=== PATIENT | female | born 1945 | race Caucasian/White ===

== ENCOUNTER 2019-10-05 09:45 | Outpatient (CLI) | payer MEDICARE, SELFPAY ==
--- NOTE | ~2019-10-05 | XR_ITS ---
XR chest 2V DATE: 10/05/2019 11:12 INDICATION: Pre-operative evaluation TECHNIQUE: PA and lateral views COMPARISON: 07/19/2007 two view chest FINDINGS: Normal heart size. No hilar or mediastinal enlargement. No pulmonary infiltrate or consol idation. No pulmonary vascular congestion or pleural effusion or pneumothorax. Degenerative spurr ing of the thoracic and lumbar spine. IMPRESSION: No active cardiopulmonary disease Reviewed, dictated and finalized at location A.
--- NOTE | 2019-10-05 10:45 | ECG_ITS ---
Measurements Intervals [place] Rate: 75 P: -7 LA: 212 QRS: -48 QRSD: 94 T: 63 QT: 381 QTc: 427 Interpretive Statements SINUS RHYTHM WITH FIRST DEGREE AV BLOCK VENTRICULAR PREMATURE COMPLEX INCOMPLETE RIGHT BUNDLE BRANCH BLOCK LEFT ANTERIOR FASCICULAR BLOCK VOLTAGE CRITERIA FOR LVH BORDERLINE ST-T WAVE ABNORMALITY- LATERAL LEADS BASELINE ARTIFACT- I, II, III, AVR, AVL, AVF, V1-V2 ABNORMAL ECG Electronically Signed On 10-05-2019 11:48:19 CDT by Joel Drummond D.O.
[2019-10-05 11:15] LABS: Basophils Absolute Auto 0.1 K/mm3 (0.0-0.1); Basophils Percent Auto 0.9 % (0.2-1.2); Eosinophils Absolute Auto 0.1 K/mm3 (0-0.3); Hematocrit 40.6 % (37.0-47.0); Hemoglobin 13.3 g/dL (12.0-15.0); Immature Granulocyte Absolute 0.02 K/mm3 (0.00-0.031); Immature Granulocyte Percent A 0.3 % (0-0.5); Lymphocytes Absolute Auto 1.09 K/mm3 (0.9-3.2); Lymphocytes Percent Auto 13.9 % (18.3-44.2); Mean Corpuscular HGB Conc 32.8 g/dl (32-36); Mean Corpuscular Hemoglobin 30.8 pg (26-34); Mean Platelet Volume 9.7 fl (7.4-10.4); Monocytes Absolute Auto 0.5 K/mm3 (0.1-0.6); Monocytes Percent Auto 6.8 % (2.6-8.5); Neutrophils Percent Auto 77.1 % (45.5-73.1); Platelet Count Result 337 k/mm3 (150-375); Red Blood Count 4.32 M/mm3 (4.2-5.4); Red Cell Distribution Width 13.2 % (11.5-14.5); White Blood Count 7.8 K/mm3 (4.5-10.0)
[2019-10-05 11:28] LABS: INR 0.9; Prothrombin Time 11.8 Seconds (11.1-14.7)
[2019-10-05 11:29] LABS: Partial Thromboplastin Time 25.8 SECONDS (22.3-36.8)
[2019-10-05 11:32] LABS: Albumin Level 4.7 g/dL (3.5-5.1); Blood Urea Nitrogen 15 mg/dL (7-17); Carbon Dioxide 27 mmol/L (22-30); Chloride 101 mmol/L (98-107); Estimated Glomerular Filt Rate 54; Glucose 115 mg/dL (65-105); Potassium 4.5 mmol/L (3.4-5.0); Sodium 137 mmol/L (137-145)
[2019-10-05 11:34] LABS: Urine Cotinine NEGATIVE
[2019-10-05 12:21] LABS: Hemoglobin A1C 5.7 % (<5.7)
== END 2019-10-05 09:46 | disposition home or self-care (01) ==
PROVIDERS: Anesthesiology; PCP Family Medicine; Visit Provider Orthopaedic Surgery
DX: Z01.818 Encounter for other preprocedural examination (principal); M19.90 Unspecified osteoarthritis, unspecified site; N18.3 Chronic kidney disease, stage 3 (moderate); I45.10 Unspecified right bundle-branch block; I44.0 Atrioventricular block, first degree; I44.4 Left anterior fascicular block; I10 Essential (primary) hypertension; E03.9 Hypothyroidism, unspecified; E55.9 Vitamin D deficiency, unspecified; E78.5 Hyperlipidemia, unspecified; R94.31 Abnormal electrocardiogram [ECG] [EKG]
CPT/HCPCS: 36415; 71046; 80048; 80307; 82040; 83036; 85025; 85610; 85730; 86850; 86900; 86901; 87070; 93005

== ENCOUNTER 2019-12-14 09:37 | Outpatient (CLI) | payer MEDICARE, SELFPAY ==
[2019-12-14 10:10] LABS: Basophils Absolute Auto 0.1 K/mm3 (0.0-0.1); Basophils Percent Auto 0.7 % (0.2-1.2); Eosinophils Absolute Auto 0.1 K/mm3 (0-0.3); Eosinophils Percent Auto 1.7 % (0-4.4); Hematocrit 41.2 % (37.0-47.0); Hemoglobin 13.7 g/dL (12.0-15.0); Immature Granulocyte Absolute 0.02 K/mm3 (0.00-0.031); Immature Granulocyte Percent A 0.3 % (0-0.5); Lymphocytes Percent Auto 16.8 % (18.3-44.2); Mean Corpuscular HGB Conc 33.3 g/dl (32-36); Mean Corpuscular Hemoglobin 31.1 pg (26-34); Mean Corpuscular Volume 93.6 fl (80-100); Mean Platelet Volume 9.7 fl (7.4-10.4); Monocytes Absolute Auto 0.6 K/mm3 (0.1-0.6); Monocytes Percent Auto 8.3 % (2.6-8.5); Neutrophils Absolute Auto 5.2 K/mm3 (1.3-6.7); Neutrophils Percent Auto 72.2 % (45.5-73.1); Platelet Count Result 300 k/mm3 (150-375); Red Cell Distribution Width 12.4 % (11.5-14.5); White Blood Count 7.2 K/mm3 (4.5-10.0)
[2019-12-14 10:23] LABS: Urine Cotinine NEGATIVE
[2019-12-14 10:54] LABS: Blood Urea Nitrogen 21 mg/dL (7-17); Calcium 9.7 mg/dL (8.4-10.2); Carbon Dioxide 28 mmol/L (22-30); Estimated Glomerular Filt Rate 54; Glucose 118 mg/dL (65-105); Potassium 4.7 mmol/L (3.4-5.0); Sodium 136 mmol/L (137-145)
[2019-12-14 12:31] LABS: Chloride 102 mmol/L (98-107)
== END 2019-12-14 09:38 | disposition home or self-care (01) ==
LOC: ANHSURGERY 09:39
PROVIDERS: PCP Family Medicine; Visit Provider Orthopaedic Surgery
DX: Z01.818 Encounter for other preprocedural examination (principal); M19.90 Unspecified osteoarthritis, unspecified site
CPT/HCPCS: 36415; 80048; 80307; 85025; 86850; 86900; 86901; 87070

== ENCOUNTER 2019-12-22 00:10 | Outpatient (CLI) | payer MEDICARE, SELFPAY ==
[2019-12-22 17:25] LABS: SARS-CoV-2 RNA PCR Negative
== END 2019-12-22 00:11 | disposition home or self-care (01) ==
LOC: ANHCOVIDDT 00:10
PROVIDERS: PCP Family Medicine; Visit Provider Orthopaedic Surgery
DX: Z01.818 Encounter for other preprocedural examination (principal); Z11.59 Encounter for screening for other viral diseases
CPT/HCPCS: 87635; C9803; U0003

== ENCOUNTER 2019-12-25 00:33 | Day surgery (SDC) | payer MEDICARE, SELFPAY ==
[2019-10-05 10:21] VITALS: BP 182/86; PULSE 88; RESP 20; TEMP 37.1; O2SAT 100; BMI 33.7
--- NOTE | 2019-10-09 19:46 | HP_ITS ---
DATE OF SERVICE: ADMIT DIAGNOSIS: Degenerative joint disease, right knee. HISTORY OF PRESENT ILLNESS: The patient is a 74-year-old female patient of Dr. Álvarez, who presents today for right total knee arthroplasty. She has been having pain in this knee for years. She has severe gnys-an-[id number] arthritis of the medial compartment. She has recently undergone left total hip replacement in February of last year, which she did very well with. She is having significant symptoms in the knee and would like to proceed at this point with total knee arthroplasty rather than continuing nonsurgical treatment. PAST MEDICAL HISTORY: Significant for hypertension, hypothyroidism. She has had a hysterectomy in 2010, total hip replacement on the left in February 2019, cataract surgery in the past. CURRENT MEDICATIONS: She takes amlodipine 5 mg daily, benzonatate 100 mg q.8 hours p.r.n., lisinopril 40 mg daily, Livalo 4 mg daily, pantoprazole 40 mg daily, and Synthroid 100 mcg daily. ALLERGIES: SHE HAS AN ALLERGIC REACTION TO ADHESIVE TAPE, WHICH CAUSES BLISTERING; CEFTIN, WHICH CAUSES HER JOINT PAIN. SHE DID, HOWEVER, HAVE NO REACTION TAKING ANCEF FOR HER TOTAL HIP ARTHROPLASTY. HYDROCODONE WHICH MAKES HER VERY NAUSEATED WITH A HEADACHE WELL. PENICILLINS, WHICH GIVE HER A RASH, SEPTRA GIVES HER A RASH. SULFA MEDICATIONS CAUSE HER FACIAL SWELLING. FAMILY HISTORY: Significant for diabetes and cancer. SOCIAL HISTORY: She is a nonsmoker. PHYSICAL EXAM: VITAL SIGNS: She is 5 feet 4 inches and 193 pounds. GENERAL: She walks with a mild limp. MUSCULOSKELETAL: Her right hip, she has full range of motion without discomfort. Negative Stinchfield maneuver. Normal quad strength. Mild medial joint line tenderness. No significant pain with patellofemoral grind. Range of motion of the right knee is from 5 to 130. Trace effusion. 2+ dorsalis pedis, absent posterior tibial pulse. Normal sensation, right lower extremity. IMAGING DATA: X-rays demonstrate [id number] arthritis of medial compartment of the right knee with moderate patellofemoral arthritis with hypertrophic changes. There is a 10 x 7 mm loose body that projects in the lateral view just anterior to the intercondylar notch. IMPRESSION: The patient has severe medial compartment arthritis with continued symptoms. Again, she feels at this point she would rather proceed with total knee arthroplasty. She did very well with her hip last February. Again, she did tolerate Ancef postoperatively even though she states she is allergic to penicillin and Ceftin. Surgical procedure as well as risks and complications were discussed. All questions were answered and we will proceed. The patient will see Dr. Álvarez for presurgical clearance. Pain medicine ba, she tolerated Nucynta very well following postop of her hip. So we will utilize this again. She has already had a prescription called in for her prior to surgery so that she can get this authorized through her insurance, so she will have it postoperatively. Chem panel was all within normal limits. Creatinine is 1. GFR is 54. Hemoglobin is 13.3, platelets are 337. Her nasal swab was negative. D I MT: Mary Lou
[2019-12-11 13:05] VITALS: BMI 33.3
--- NOTE | 2019-12-22 12:36 | HP_ITS ---
DATE OF SERVICE: ADMITTING DIAGNOSIS: Degenerative joint disease, right knee. HISTORY OF PRESENT ILLNESS: The patient is a 74-year-old female patient of Dr. Álvarez, who presents today for right total knee arthroplasty. She has been having pain in this knee for years, has progressively worsened. She is at a point where she has severe qmps-vh-ndna arthritis medial compartment and moderate patellofemoral arthritis with hypertrophic changes. She is fairly miserable. She has tried a cortisone injection in the past. She does not tolerate anti-inflammatories and has reached a point where she would rather proceed with total knee arthroplasty rather than continuing nonsurgical treatment. PAST MEDICAL HISTORY: She has had a left total hip done in February 2019. She has history of hypertension, hypothyroidism, hypercholesterolemia. SURGERIES: She has had a hysterectomy in 2000, again the left total hip in 2018, cataract surgery in the past. CURRENT MEDICATIONS: She takes amlodipine 5 mg daily, benzonatate 100 mg q.8 hours, lisinopril 40 mg daily, Livalo 4 mg daily, pantoprazole 40 mg daily, Synthroid 100 mcg daily. ALLERGIES: SHE IS ALLERGIC TO ADHESIVE TAPE, WHICH CAUSES HER BLISTERING. SHE HAS HAD AN ALLERGIC REACTION WITH CEFTIN WELL PENICILLIN, WHICH CAUSES ARTHRALGIA. SHE HAS SEVERE INTOLERANCE TO HYDROCODONE AND NARCOTICS, CAUSE HER SEVERE NAUSEA AND HEADACHE. IBUPROFEN ALSO CAUSES HER THIS. SHE IS ALLERGIC TO SULFA DRUGS, WHICH CAUSE HER FACIAL SWELLING. SOCIAL HISTORY: She is a nonsmoker. FAMILY HISTORY: She has a family history of stroke, diabetes, and cancer. PHYSICAL EXAMINATION: GENERAL: She is a 74-year-old female. She is 5 feet 4 inches, 193 pounds. HEENT: Grossly normal. LUNGS: Clear bilaterally. HEART: Regular rate and rhythm. EXTREMITIES: She walks with a mild limp. Her right hip has full range of motion without discomfort. Negative Stinchfield maneuver, but normal quad strength. She has mild medial joint line tenderness. No pain with patellofemoral grind. Range of motion is from 5 to 130 with a trace effusion. 2+ dorsalis pedis, absent posterior tibial pulse. She has no edema in the lower extremities. Lying supine, left leg appears to be 2 cm shorter than the right. IMAGING DATA: X-rays demonstrate zzye-qq-smra arthritis in the medial compartment on the right knee and moderate patellofemoral arthritis with hypertrophic changes as well. IMPRESSION: The patient has severe arthritis in the right knee with continued symptoms. Feels she would rather proceed with total knee arthroplasty at this point. Surgical procedure as well as risks and complications were discussed. All questions were answered and we will proceed. The patient did tolerate Ancef when she had her hip done, so we will use Ancef, vancomycin for perioperative antibiotics. She will avoid aspirin and ibuprofen products 1 week prior to surgery. We will plan to use Eliquis postoperatively for deep venous thrombosis prophylaxis. She will see Dr. Álvarez for presurgical clearance. Nasal swab was negative. Chem panel, creatinine is 1, GFR is 54. Sodium was slightly low at 136. Hemoglobin is 13.7, platelets are 300. D I MT: Mary Lou
[2019-12-25] VITALS (17 sets, daily range): BP systolic 134–159; BP diastolic 60–80; PULSE 69–92; RESP 11–18; TEMP 36.4–36.9; O2SAT 94–100
--- NOTE | ~2019-12-25 | XR_ITS ---
EXAMINATION: XR knee RT 2V DATE: 12/25/2019 11:03 INDICATION: Total right knee arthroplasty. Postop. TECHNIQUE: 3 views of right knee were obtained. COMPARISON: None. FINDINGS: There is a total right knee arthroplasty with patellar resurfacing in near-anatomic alignme nt. No fracture. There is gas in the soft tissues and knee joint, consistent with recent surgery. IMPRESSION: 1. Total right knee arthroplasty in near-anatomic alignment. Reviewed, dictated and finalized at location A.
[2019-12-25] MEDS: LACTATED RINGERS 1,000 ML 30 ML IV CONT ×2 (06:45→11:06)
--- NOTE | 2019-12-25 06:45 | WPDANESEPPF ---
Anes - Initial Pre Proc Eval Procedure: Operation Date: 12/25/19 07:30 Proposed Procedures p Right Total Knee Arthroplasty - Jesús Hawley MD Date/Time: 12/25/19 06:45 Surgeon: Jesús Hawley MD Pre Op Diagnosis: Osteoarthritis Right Knee Patient Data Age: 74 Gender: F Height: 1.65 m Weight: 90.8 kg Last Vital Signs Temp 37.1 C 10/05/19 10:21 Pulse 88 10/05/19 10:21 Resp 20 10/05/19 10:21 BP 182/86 H 10/05/19 10:21 Pulse Ox 100 10/05/19 10:21 Allergies Allergy/AdvReac Type Severity Reaction Status Date / Time Sulfa (Sulfonamide Allergy Severe SWELLING Verified 12/11/19 13:34 Antibiotics) sulfamethoxazole Allergy Severe RASH, Verified 12/11/19 13:34 ITCHING adhesive Allergy Unknown Redness of Verified 12/11/19 13:34 Skin cefuroxime Allergy Unknown Joint Pain Verified 12/11/19 13:34 Cephalosporins Allergy Unknown Rash Verified 12/11/19 13:34 codeine Allergy Unknown Nausea and Verified 12/11/19 13:34 Vomiting hydrochlorothiazide Allergy Unknown Other Verified 12/11/19 13:34 hydrocodone Allergy Unknown Nausea Verified 12/11/19 13:34 ibuprofen Allergy Unknown Headache Verified 12/11/19 13:34 Penicillins Allergy Unknown Rash Verified 12/11/19 13:34 sulfamethizole Allergy Unknown Swelling Verified 12/11/19 13:34 trimethoprim Allergy Unknown Swelling Verified 12/11/19 13:34 Home Medications Medication Instructions Recorded Confirmed Type amlodipine 5 mg tablet 5 mg PO BID 06/02/19 12/11/19 History coQ10 (ubiquinol) 100 mg capsule 100 mg PO ONCE cap 06/02/19 12/11/19 History cyanocobalamin (vitamin B-12) 500 500 mcg PO BID tablet 06/02/19 12/11/19 History mcg tablet lisinopril 40 mg tablet 40 mg PO DAILY 06/02/19 12/11/19 History omega-3 fatty acids 1,000 mg 1,000 mg PO DAILY 06/02/19 12/11/19 History capsule vitamin E (dl, acetate) 400 unit 400 unit PO .COMPLEX 06/02/19 12/11/19 History capsule cholecalciferol (vitamin D3) 125 5,000 unit PO .COMPLEX tablet 06/05/19 12/11/19 History mcg (5,000 unit) tablet fluticasone propionate 50 1 spray NASAL DAILY PRN 06/05/19 12/11/19 History mcg/actuation nasal spray,suspension pitavastatin calcium 4 mg tablet 4 mg PO .QHS tablet 06/05/19 12/11/19 History levothyroxine 100 mcg tablet 100 mcg PO DAILY #90 tablet 06/15/19 12/11/19 Rx pantoprazole 40 mg tablet,delayed 40 mg PO DAILY #90 tablet 06/15/19 12/11/19 Rx release ascorbic acid (vitamin C) [Vitamin 250 mg PO DAILY 10/05/19 12/11/19 History C] calcium carbonate-vitamin D3 1 tablet PO DAILY 10/05/19 12/11/19 History [Caltrate 600 plus D] coconut oil 10,000 mg PO DAILY 10/05/19 12/11/19 History cyclosporine [Restasis] 1 drp OPHTHALMIC (EYE) Q12H 10/05/19 12/11/19 History pyridoxine (vitamin B6) 25 mg PO 3XW 10/05/19 12/11/19 History sodium bicarbonate 650 mg PO DAILY 10/05/19 12/11/19 History ECG: Date of Service: 10/05/19 Procedure(s): CA 12 lead EKG Accession Number(s): [id number] cc: ~ Measurements Intervals [place] Rate: 75 P: -7 MO: 212 QRS: -48 QRSD: 94 T: 63 QT: 381 QTc: 427 Interpretive Statements SINUS RHYTHM WITH FIRST DEGREE AV BLOCK VENTRICULAR PREMATURE COMPLEX INCOMPLETE RIGHT BUNDLE BRANCH BLOCK LEFT ANTERIOR FASCICULAR BLOCK VOLTAGE CRITERIA FOR LVH BORDERLINE ST-T WAVE ABNORMALITY- LATERAL LEADS BASELINE ARTIFACT- I, II, III, AVR, AVL, AVF, V1-V2 ABNORMAL ECG Electronically Signed On 10-05-2019 11:48:19 CDT by Joel Drummond D.O. Dictated By: Joel Drummond DO 10/05/19 1107 Patient hx anesthesia problems: post op nausea/vomiting Family hx anesthesia problems: none PMFSH Past Medical History Medical History (Updated
[2019-12-25] MEDS: SCOPOLAMINE 1.5 MG PATCH TRANSDERM (07:10)
--- NOTE | 2019-12-25 07:28 | WPDHPUPDATE1 ---
History and Physical Update Update Date/Time: 12/25/19 07:28 History and Physical has been reviewed, including an updated exam of the patient. There are NO changes in the patient's condition. Risks, benefits, and alternatives have been discussed and questions answered. Patient agrees to proceed with procedure.
--- NOTE | 2019-12-25 07:30 | SUR.PREOP ---
DR WHITE STATES TO HOLD IBUPROFEN DUE TO ALLERGIES.
[2019-12-25] MEDS: ceFAZolin 2 GM/D5W 50 ML 2 GM/50 ML BAG IVPB (07:38)
[2019-12-25] MEDS: ceFAZolin SODIUM 1 GM VIAL 3 GM IRRIGATION (08:39)
[2019-12-25] MEDS: GENTAMICIN BONE CEMENT REFOBACIN 1 EACH TOPICAL (09:56)
[2019-12-25] MEDS: ceFAZolin SODIUM 1 GM VIAL IV PUSH (10:30)
[2019-12-25] MEDS: HYDROMORPHONE HCL 1 MG/ML INJ 0.25 MG IV PUSH ×5 (11:49→12:48)
[2019-12-25] MEDS: IBUPROFEN IV 800 MG/200 ML 800 MG/200 ML BAG 400 MG IVPB (11:55)
--- NOTE | 2019-12-25 11:59 | PM.PROC ---
Procedure Note - Detailed Date of procedure: 12/25/19 Pre-op diagnosis: Osteoarthritis Right Knee Post-op diagnosis: same Procedure performed: Right total knee arthroplasty Description of procedure: Patient was brought to the operating room and general anesthesia was administered in the right knee prepped draped usual fashion. Limb was exsanguinated and tourniquet elevated to 300 mmHg. A 7 in longitudinal midline incision was used and a vastus medialis splitting approach utilized. Infrapatellar and suprapatellar fat pads were excised. A conservative lateral facetectomy was performed. The patella measured 2 4 mm in thickness and was cut to 16 mm. A protector cap was applied. We did not love the patella because of her very short patellar tendon length as we did not wish to put too much lateral traction on it. The guide mike was inserted down the femoral canal after aspiration of canal contents using the 5 degree valgus cutting bushing 9 mm of bone removed from the distal femur. Next the tibial plateau was cut removing 2 mm of bone from the low point of the medial tibial plateau. Meniscal remnants were excised medial tibial osteophyte removed PCL recessed. A 90? of flexion we had the ability to easily insert the 8 mm spacer medially and 12 mm spacer laterally. Whitesides line was drawn on the femur. 5? of external rotation on the sizing tried to match Whitesides line appropriately. Posterior referencing pin was replaced and the 62.5 vanguard cutting block seated. AP and chamfer cuts were made. We trialed the knee was a little bit tighter in extension than flexion. The tibia was sized to a 67 which fit line to line anteromedial to posterolateral. This was punched. Rotation was set relative to the plane of the foot the anterior surface of the tibia and the middle 3rd of the tibial tubercle. Bone quality was excellent throughout. Tibia was punched and we trialed with the insert 10 mm. This gave appropriate stability at 90? of flexion but still lacked about 7 or 8? of extension. There was no significant play in extension either. We applied the distal femoral cutting block set to remove 1 more mm and this removed another mm and a half. Distal femoral cut was made chamfer cuts revisited. Posterior femoral osteophyte was removed and we trialed again. This gave us improved extension. There is 1-2 mm of medial opening no significant lateral opening and the knee still had a positive bounce lacking just a few degrees. We replaced the distal femoral cutting block to take off an additional 1 mm which is performed chamfer cuts revisited and we trialed again and this time we had a mm of play laterally 2-3 medially in extension. We still had a little bit of a bounce lacking just a couple of degrees. We released central posterior capsule from the posterior femur and on trialing again this time the knee came out to full extension with a negative bounce medial to lateral stability unchanged appropriate stability in flexion. The patella was sized to the 31 x 8 mm and the lug holes were drilled. Local was placed in the femoral drill holes. A step drill was used to make multiple perforations in the rather dense tibial plateau bone. Bony surfaces were thoroughly irrigated and dried. Using 2 batches of Biomet cement 1 with gentamicin powder the cement was mixed immediately applied to the tibial component and the femoral component. Cement was applied to the tibia and pressurized in the tibial component fully seated. Cement was applied to the femur and the femoral component fully seated in the 11 mm 5 in 1 poly trial was placed and the cement allowed pressurized in extension. The 8 x 31 patella was cemented. Tourniquet was released at 116 minutes. Cement was allowed to harden after which excess cement was sought for removed. We trialed with a insert the knee came out to full extension with a negative bounce no hyperextension with the same stability findings as discussed ab
--- NOTE | 2019-12-25 12:13 | SUR.PHASEI ---
1210 SPOKE WITH SPOUSE PER PHONE- UPDATE GIVEN.
--- NOTE | 2019-12-25 12:59 | SUR.PHASEI ---
1255 SPOKE WITH SPOUSE PER PHONE- UPDATE & ROOM NUMBER [id number] GIVEN.
[2019-12-25] MEDS: SODIUM CHLORIDE 0.9% IV 1,000 ML 125 ML IV CONT (14:42)
--- NOTE | 2019-12-25 16:40 | WPDCN ---
Assessment and Plan Assessment and plan (1) Osteoarthritis of right knee: Code(s): M17.11 - Unilateral primary osteoarthritis, right knee Status: Acute Assessment and Plan: Postoperative day #0, right total knee arthroplasty. Wound care and pain control will be deferred to Dr. Hawley. DVT prophylaxis also deferred to the orthopedic surgeon. PT/OT consulted. Check H&H and metabolic panel in a.m. (2) Essential (primary) hypertension: Code(s): I10 - Essential (primary) hypertension Status: Acute Assessment and Plan: Blood pressures have been a bit high postoperatively, likely due to pain. Continue antihypertensives and monitor daily. (3) Dyslipidemia: Code(s): E78.5 - Hyperlipidemia, unspecified Status: Acute Assessment and Plan: Continue statin and check LFTs. (4) Hypothyroidism: Code(s): E03.9 - Hypothyroidism, unspecified Status: Acute Assessment and Plan: Continue levothyroxine. TSH within normal limits in May 2019. (5) Gastroesophageal reflux disease: Code(s): K21.9 - Gastro-esophageal reflux disease without esophagitis Status: Acute Assessment and Plan: Continue PPI. Additional Plan Thank you for allowing us to participate in this patient's care. Please do not hesitate to contact us with any questions. Supervising physician for this medical consultation is Dr. Joe Valencia. HPI Data of Consult Date/Time: 12/25/19 16:40 Requesting Physician: Jesús Hawley MD Primary Care Provider: Laura Álvarez MD Consult Narrative Narrative: Krysta Asencio is a pleasant 74-year-old female with right knee osteoarthritis, mild aortic stenosis, hypertension, dyslipidemia, GERD, hypothyroidism, Sjogren syndrome, and history of MRSA skin and soft tissue infection from the hospitalist service has been consulted for management of medical conditions postoperatively. She has had longstanding pain in her right knee due to bone on bone arthritis and has tried conservative outpatient treatment without longstanding benefit. She thus elected for replacement today. Her surgery was performed under general anesthesia with no immediate complications documented and an estimated blood loss of 150 mL. Postoperatively she has really had minimal pain, even when up ambulating with physical therapy. She felt a bit dizzy postoperatively, but is feeling much better now. She ate dinner without issue. She has not had nausea or vomiting. She denies chest pain and shortness of breath. No paresthesias, skin color, or temperature changes distal to the surgical site. No history of venous thromboembolism. Review of Systems Review of Systems: Narrative: Twelve systems were reviewed with pertinent positives and negatives as per HPI. No fever, chills, or sweats. She denies recent cold and flu symptoms. No sick contacts. She suffers from dry eyes and dry mouth from Sjogren syndrome. She is currently being followed by a court reporter due to proteinuria, which is being attributed to the Sjogren. Except as documented, all other systems were reviewed and are negative. [facility] Past Medical History Medical History (Updated 12/25/19 @ 21:02 by Dorene Vera PA-C) Aortic insufficiency with aortic stenosis Mild and asymptomatic. Followed by Dr. Butler. Chronic kidney disease, stage 3 Baseline creatinine is around 1.00. Dyslipidemia Essential (primary) hypertension Gastroesophageal reflux disease History of peptic ulcer Hypothyroidism MRSA infection Right axillary abscess secondary to MRSA. Osteoarthritis Prediabetes Hemoglobin A1c was 5.7% in September 2019. Sjog
[2019-12-25] MEDS: AMLODIPINE BESYLATE 5 MG TABLET PO (17:07)
[2019-12-25] MEDS: SENNA/DOCUSATE SODIUM TABLET 2 TAB PO (17:08)
[2019-12-25] MEDS: FAMOTIDINE 20 MG TABLET PO (20:17)
[2019-12-26 03:20] VITALS: BP 156/65; PULSE 87; RESP 16; TEMP 36.8; O2SAT 99
[2019-12-26 05:29] LABS: Basophils Percent Auto 0.2 % (0.2-1.2); Hematocrit 37.8 % (37.0-47.0); Hemoglobin 12.4 g/dL (12.0-15.0); Immature Granulocyte Absolute 0.06 K/mm3 (0.00-0.031); Immature Granulocyte Percent A 0.4 % (0-0.5); Lymphocytes Absolute Auto 0.77 K/mm3 (0.9-3.2); Lymphocytes Percent Auto 4.9 % (18.3-44.2); Mean Corpuscular HGB Conc 32.8 g/dl (32-36); Mean Corpuscular Hemoglobin 30.5 pg (26-34); Mean Corpuscular Volume 93.1 fl (80-100); Mean Platelet Volume 9.4 fl (7.4-10.4); Monocytes Absolute Auto 1.3 K/mm3 (0.1-0.6); Monocytes Percent Auto 8.1 % (2.6-8.5); Neutrophils Absolute Auto 13.5 K/mm3 (1.3-6.7); Neutrophils Percent Auto 86.4 % (45.5-73.1); Platelet Count Result 286 k/mm3 (150-375); Red Blood Count 4.06 M/mm3 (4.2-5.4); Red Cell Distribution Width 12.4 % (11.5-14.5); White Blood Count 15.6 K/mm3 (4.5-10.0)
[2019-12-26 05:43] LABS: Alanine Aminotransferase 17 U/L (4-35); Albumin Level 4.1 g/dL (3.5-5.1); Alkaline Phosphatase 57 U/L (38-126); Aspartate Amino Transferase 28 U/L (14-36); Bilirubin,Total 0.9 mg/dL (0.2-1.3); Blood Urea Nitrogen 17 mg/dL (7-17); Calcium 8.8 mg/dL (8.4-10.2); Carbon Dioxide 23 mmol/L (22-30); Chloride 97 mmol/L (98-107); Estimated CRCL calculation 53 ml/min; Estimated Glomerular Filt Rate > 60; Glucose 162 mg/dL (65-105); Potassium 4.7 mmol/L (3.4-5.0); Sodium 131 mmol/L (137-145)
[2019-12-26] MEDS: LEVOTHYROXINE SODIUM 100 MCG TABLET PO (06:11)
--- NOTE | 2019-12-26 06:12 | PM.PNORT ---
Progress Note: A&P Additional Plan POD 1 alert avss , labs-noted, Na is low but no symptoms from this . pt was up walking with PT yesterday doing well. wd-dry NVI, pain is controlled, no nausea post-op. Pt will do both PT sessions today then plan to send home today Subjective Subjective Date/Time Seen: 12/26/19 06:12 Objective Data Vital Signs Vital Signs: Vital Signs - 24 hr 12/25/19 07:20 12/25/19 11:05 12/25/19 11:20 Temperature 36.7 C 36.7 C Pulse Rate 76 69 77 Respiratory Rate 18 11 L 17 Blood Pressure 149/64 H 134/60 148/64 H Pulse Oximetry 100 99 100 12/25/19 11:35 12/25/19 11:50 12/25/19 12:05 Temperature Pulse Rate 77 78 79 Respiratory Rate 12 14 14 Blood Pressure 155/70 H 156/78 H 154/64 H Pulse Oximetry 100 98 100 12/25/19 12:20 12/25/19 12:35 12/25/19 12:50 Temperature Pulse Rate 80 80 79 Respiratory Rate 16 16 16 Blood Pressure 137/80 154/69 H 159/77 H Pulse Oximetry 96 97 98 12/25/19 13:05 12/25/19 13:20 12/25/19 13:35 Temperature 36.9 C 36.6 C Pulse Rate 84 86 87 Respiratory Rate 16 14 16 Blood Pressure 155/65 H 155/73 H 152/74 H Pulse Oximetry 100 94 100 12/25/19 13:50 12/25/19 14:20 12/25/19 15:20 Temperature 36.6 C 36.9 C 36.4 C Pulse Rate 84 83 81 Respiratory Rate 16 16 16 Blood Pressure 152/68 H 142/73 H 134/69 Pulse Oximetry 99 99 97 12/25/19 20:51 12/25/19 23:20 12/26/19 03:20 Temperature 36.9 C 36.9 C 36.8 C Pulse Rate 89 92 87 Respiratory Rate 16 16 16 Blood Pressure 156/71 H 154/70 H 156/65 H Pulse Oximetry 99 96 99 Intake/Output Intake/Output: Intake & Output 12/23/19 12/24/19 12/25/19 12/26/19 23:59 23:59 23:59 23:59 Intake Total 3592 850 Output Total 1420 1000 Balance 2167 -150 Meds/Results Medications: Active Medications Generic Name Dose Route Start Last Admin Trade Name Freq PRN Reason Stop Dose Admin Amlodipine Besylate 5 mg 12/25/19 17:00 12/25/19 17:07 Norvasc PO 5 mg BID [facility] Administration Apixaban 2.5 mg 12/26/19 09:00 Eliquis PO 01/06/20 21:01 Q12HR [facility] Ascorbic Acid 250 mg 12/26/19 09:00 Vitamin C PO DAILY [facility] Calcium Carbonate 500 mg 12/26/19 09:00 Os-Chris 500 +D Tablet PO QAM [facility] Cyclosporine 1 drop 12/25/19 21:00 12/25/19 20:16 Restasis EACH EYE 1 drop Q12HR [facility] Administration Diphenhydramine HCl 25 mg 12/25/19 11:05 Benadryl Inj IV PUSH Q6H PRN Itching Famotidine 20 mg 12/25/19 21:00 12/25/19 20:17 Pepcid PO 20 mg Q12HR [facility] Administration Fluticasone Propionate 1 spray 12/25/19 11:18 Flonase 0.05% Nasal [place] NASAL DAILY PRN allergy symptoms Vancomycin HCl 1,000 mg in 250 mls @ 250 mls/hr 12/25/19 19:00 12/25/19 21:15 Vancomycin 1,000 Mg/D5w 250 Ml IVPB 12/26/19 07:59 Infused Q12H [facility] Infusion Cefazolin Sodium 1 gm in 50 mls @ 100 mls/hr 12/25/19 15:00 12/26/19 06:10 Ancef 1 Gm/D5w 50 Ml Pm IVPB 12/26/19 07:29 100 mls/hr Q8H [facility] Administration Levothyroxine Sodium 100 mcg 12/26/19 06:30 12/26/19 06:11 Synthroid PO 100 mcg DAILY@0630 [facility] Administration Morphine Sulfate 2 mg 12/25/19 11:05 Morphine Sulfate Inj IV PUSH Q2H PRN Breakthrough pain rated 4-6 Naloxone HCl 0.1 mg 12/25/19 11:05 Narcan IV PUSH Q2M PRN Opiate Reversal Non-Formulary Medication 4 mg 12/25/19 11:30 Pitavastatin Calcium [Livalo] PO 01/24/20 11:31 .QHS [facility] Ondansetron HCl 4 mg 12/25/19 11:10 Zofran Inj IV PUSH Q4H PRN Nausea And Vomiting Pantoprazole Sodium 40 mg 12/26/19 09:00 Protonix PO DAILY [facility] Polyethylene Glycol 17 gm 12/26/19 09:00 Miralax PO QAM [facility] Senna/Docusate Sodium 2 tab 12/25/19 17:00 12/25/19 17:08 Senokot S Tablet PO 2 tab BID [facility] Administration Tapentadol 50 mg 12/25/19 17:00 12/26/19 04:44 Nucynta PO 50 mg Q4HR [facility] Administration Tapentadol 50 mg 12/25/19 11:10
--- NOTE | 2019-12-26 08:54 | DS_ITS ---
DATE OF DISCHARGE: 12/26/2019 DIAGNOSIS: Degenerative joint disease, right knee. HOSPITAL COURSE: Ms. Asencio is a 74-year-old female, who underwent right total knee arthroplasty by Dr. Hawley on 12/25/2019, underwent the procedure without any complications. Postoperatively, she has been afebrile. Vital signs are stable. Neurovascularly intact. Her wound is dry. She has a Mepilex dressing over it. She is weightbearing as tolerated. She is on Eliquis for 2 weeks followed by baby aspirin twice a day for DVT prophylaxis. She is on Nucynta for pain control. She is also on MiraLAX and Senokot for constipation. On postop day #1, her hemoglobin was 12.4, platelets are 286, and white count was elevated at 15.6, this is most likely due to the stress of surgery. She has been afebrile, vital signs have been stable.. On postop day #1, sodium was low at 131, which she was asymptomatic from this. Again, she will be discharged home on 12/25. She has outpatient physical therapy starting on . The patient was advised to keep the leg elevated to prevent swelling, but also do her exercises on a regular basis at home. If she has any questions or concerns, she is to call the office, otherwise we will see her on her appointed date in about 10 days. Rodriguez I MT: Mary Lou MCGILL
[2019-12-26] MEDS: FAMOTIDINE 20 MG TABLET PO (09:57)
[2019-12-26] MEDS: PANTOPRAZOLE 40 MG TABLET PO (09:58)
[2019-12-26] MEDS: AMLODIPINE BESYLATE 5 MG TABLET PO (09:58)
[2019-12-26] MEDS: APIXABAN 2.5 MG TABLET PO (09:58)
[2019-12-26] MEDS: SENNA/DOCUSATE SODIUM TABLET 2 TAB PO (09:58)
[2019-12-26] MEDS: FLUTICASONE PROPIONATE 0.05% NA SPR 16 GM BTL (*BKC) 1 SPRAY NASAL (09:58)
[2019-12-26] MEDS: polyethylene glycoL 3350 17 GM POWD.PACK PO (09:58)
[2019-12-26] MEDS: ASCORBIC ACID 250 MG TABLET PO (09:58)
--- NOTE | 2019-12-26 11:56 | PM.IMPN ---
Progress Note: A&P Assessment and Plan (1) Osteoarthritis of right knee: Code(s): M17.11 - Unilateral primary osteoarthritis, right knee Status: Acute Assessment and Plan: Postoperative day #1, right total knee arthroplasty. Wound care and pain control will be deferred to Dr. Hawley. DVT prophylaxis Eliquis 2.5 daily per orthopedic surgeon. PT/OT, will work with pt today before d/c later . (2) Essential (primary) hypertension: Code(s): I10 - Essential (primary) hypertension Status: Acute Assessment and Plan: Blood pressures have been a bit high postoperatively, likely due to pain. Continue antihypertensives with amlodipine and lisinopril and monitor daily. (3) Dyslipidemia: Code(s): E78.5 - Hyperlipidemia, unspecified Status: Acute Assessment and Plan: Continue statin (4) Hypothyroidism: Code(s): E03.9 - Hypothyroidism, unspecified Status: Acute Assessment and Plan: Continue levothyroxine. TSH within normal limits in May 2019. (5) Gastroesophageal reflux disease: Code(s): K21.9 - Gastro-esophageal reflux disease without esophagitis Status: Acute Assessment and Plan: Continue PPI. Subjective Date/time seen: 12/26/19 11:56 Interval history: Date of visit 12/25. 74-year-old hypertensive white female status post right total knee arthroplasty 12/24 doing well with minimal discomfort. Been up with physical therapy no nausea, no shortness breath, no chest pain. Ready to go home Exam Narrative: Exam Narrative: Blood pressure 154/64 pulse is 86 Lungs clear CV regular rate rhythm Abdomen benign Extremities without edema right the minimal warmth Neuro alert cooperative no focal deficits Objective Data Vital Signs Vital Signs: Vital Signs - 24 hr 12/25/19 12:05 12/25/19 12:20 12/25/19 12:35 Temperature Pulse Rate 79 80 80 Respiratory Rate 14 16 16 Blood Pressure 154/64 H 137/80 154/69 H Pulse Oximetry 100 96 97 12/25/19 12:50 12/25/19 13:05 12/25/19 13:20 Temperature 36.9 C Pulse Rate 79 84 86 Respiratory Rate 16 16 14 Blood Pressure 159/77 H 155/65 H 155/73 H Pulse Oximetry 98 100 94 12/25/19 13:35 12/25/19 13:50 12/25/19 14:20 Temperature 36.6 C 36.6 C 36.9 C Pulse Rate 87 84 83 Respiratory Rate 16 16 16 Blood Pressure 152/74 H 152/68 H 142/73 H Pulse Oximetry 100 99 99 12/25/19 15:20 12/25/19 20:51 12/25/19 23:20 Temperature 36.4 C 36.9 C 36.9 C Pulse Rate 81 89 92 Respiratory Rate 16 16 16 Blood Pressure 134/69 156/71 H 154/70 H Pulse Oximetry 97 99 96 12/26/19 03:20 Temperature 36.8 C Pulse Rate 87 Respiratory Rate 16 Blood Pressure 156/65 H Pulse Oximetry 99 Intake/Output Intake/Output: Intake & Output 12/23/19 12/24/19 12/25/19 12/26/19 23:59 23:59 23:59 23:59 Intake Total 3592 1140 Output Total 1425 1400 Balance 2167 -260 Meds/Results Medications: Active Medications Generic Name Dose Route Start Last Admin Trade Name Freq PRN Reason Stop Dose Admin Amlodipine Besylate 5 mg 12/25/19 17:00 12/26/19 09:58 Norvasc PO 5 mg BID KAREN Administration Apixaban 2.5 mg 12/26/19 09:00 12/26/19 09:58 Eliquis PO 01/06/20 21:01 2.5 mg Q12HR KAREN Administration Ascorbic Acid 250 mg 12/26/19 09:00 12/26/19 09:58 Vitamin C PO 250 mg DAILY KAREN Administration Calcium Carbonate 500 mg 12/26/19 09:00 12/26/19 09:59 Os-Chris 500 +D Tablet PO 500 mg QAM KAREN Administration Cyclosporine 1 drop 12/25/19 21:00 12/26/19 09:58 Restasis EACH EYE 1 drop Q12HR KAREN Administration Diphenhydramine HCl 25 mg 12/25/19 11:05 Benadryl Inj IV PUSH
--- NOTE | 2019-12-26 13:05 | PC.NURSE ---
Clarified with Dr. Kang he is OK with patient discharging home today. Per Dr. Kang discharge can be completed today.
== END 2019-12-26 13:51 | disposition home or self-care (01) ==
LOC: ANHSURGERY 06:48 → ANH2MED 13:31
PROVIDERS: Physician Assistant Surgical; PCP Family Medicine; Visit Provider Orthopaedic Surgery
PROC: (CPT 27447; principal; 2019-12-25 07:30)
DX: M17.11 Unilateral primary osteoarthritis, right knee (principal); I12.9 Hypertensive chronic kidney disease with stage 1 through stage 4 chronic kidney disease, or unspecified chronic kidney disease; N18.3 Chronic kidney disease, stage 3 (moderate); I35.2 Nonrheumatic aortic (valve) stenosis with insufficiency; R73.03 Prediabetes; E03.9 Hypothyroidism, unspecified; M06.9 Rheumatoid arthritis, unspecified; E78.5 Hyperlipidemia, unspecified; M35.00 Sjogren syndrome, unspecified; K21.9 Gastro-esophageal reflux disease without esophagitis; E66.9 Obesity, unspecified; Z68.33 Body mass index [BMI] 33.0-33.9, adult; Z87.11 Personal history of peptic ulcer disease
CPT/HCPCS: 27447; 36415; 73560; 80048; 80076; 80307; 85025; 86850; 86900; 86901; 87070; 87635; 97110; 97116; 97161; 97165; 97530; A9270; C1713; C1776; C9803; J0131; J0171; J0690; J1100; J1170; J1741; J2270; J2405; J2704; J2795; J3010; J3370; J7030; J7120; U0003

== ENCOUNTER 2020-08-16 07:52 | Outpatient (CLI) | payer MEDICARE, SELFPAY ==
--- NOTE | ~2020-08-16 | DEXA_ITS ---
Bone Density Report Name: Krysta Asencio Age: 75 Sex: Female Ethnicity: White Date of : 1945 Indication: postmenopausal; parental hip fracture; height loss; Referring Provider: Ceci Álvarez Study: Bone densitometry was performed. Exam Date: August 16, 2020 Accession number: [id number] There is hypertrophic degenerative change of the lumbar spine, which results in higher than expected spine bone mineral density measurements. These spine BMD and T score and Z score measurements are not reflective of the patient's true general bone mineral density. Bone Density: Region BMD T-score Z-score Classification AP Spine (L1-L4) 1.256 1.9 4.4 Normal Femoral Neck (Right) 0.814 -0.3 1.8 Normal Total Hip (Right) 0.946 0.0 1.9 Normal World Health Organization criteria for BMD impression classify patients as: Normal (T-score at or above -1.0), Osteopenia (T-score between -1.0 and -2.5), or Osteoporosis (T-score at or below -2.5). 10-year Fracture Risk: FRAX not reported because: All T-scores for Spine Total, Hip Total, Femoral Neck at or above -1.0 Clinical Information Provided by Patient: Parent has had a hip fracture Patient maximum height was 65 Menopause Age: 54 No regular weight bearing exercise Drinks caffeinated beverages Onset of menses at age 10 Number of children 1 Impression: The patient has normal bone mass. The patient has risk factors, including: parental hip fracture. There is hypertrophic degenerative change of the lumbar spine, which results in higher than expected spine bone mineral density measurements. These spine BMD and T score and Z score measurements are not reflective of the patient's true general bone mineral density. Discussion: BONE DENSITY IS ABOVE THE MINIMUM DESIRABLE LEVEL AT ALL SKELETAL SITES TESTED. This patient?s bone mineral density is above the minimum desirable level (T-score -1.0 or better) at all sites measured. The patient should follow a healthful lifestyle (good nutrition with adequate calcium and vitamin D, and appropriate weight-bearing exercise). Follow-Up: Consider repeating this study in 5 years or sooner if there is some new clinical indication. Reported by: JO-ANN on 08/16/2020 8:27:00 AM. Reviewed, dictated and finalized at location AEde MCGILL
--- NOTE | ~2020-08-16 | MM_ITS ---
EXAMINATION: MM screening abhinav BI w mary carmen HISTORY: Screening mammogram TECHNIQUE: Craniocaudal and mediolateral oblique 3-D tomosynthesis images were obtained and synthetic 2-D images were generated. CAD analysis was submitted and interpreted. COMPARISON: 01/28/2018 diagnostic right digital mammogram and limited right breast ultrasound bilateral digital screening mammogram BREAST PARENCHYMAL COMPOSITION: There are scattered areas of fibroglandular density. FINDINGS: Stable architectural distortion is noted in the mid to lower outer right breast, likely rel ated to previous biopsy. There are scattered bilateral benign calcifications. There is no evidence of suspicious mass, calcification, or architectural distortion to suggest malignancy in either breast. There has been no suspicious interval change. IMPRESSION: 1. No mammographic evidence of malignancy. 2. Recommend routine screening mammography in one year. BI-RADS Category 2: Benign finding(s). Reviewed, dictated and finalized at location A. OW TREATMENT INSTALLER
== END 2020-08-16 07:53 | disposition home or self-care (01) ==
PROVIDERS: PCP Family Medicine; Visit Provider Family Medicine
DX: Z12.31 Encounter for screening mammogram for malignant neoplasm of breast (principal); Z78.0 Asymptomatic menopausal state
CPT/HCPCS: 77063; 77067; 77080

== ENCOUNTER → 2020-11-26 02:08 | Outpatient (CLI) | payer MEDICARE, SELFPAY ==
[2020-11-26 19:23] LABS: SARS-CoV-2 RNA PCR Negative
== END ==
PROVIDERS: PCP Family Medicine; Visit Provider Internal Medicine Nephrology
DX: Z01.812 Encounter for preprocedural laboratory examination (principal); Z20.822 Contact with and (suspected) exposure to COVID-19
CPT/HCPCS: C9803; U0003; U0005

== ENCOUNTER 2020-11-29 09:49 | Outpatient (CLI) | payer MEDICARE, SELFPAY ==
[2020-11-20 14:06] VITALS: BMI 35.1
[2020-11-29] VITALS (10 sets, daily range): BP systolic 141–157; BP diastolic 66–86; PULSE 53–62; RESP 20; O2SAT 66–99
--- NOTE | ~2020-11-29 | US_ITS ---
EXAMINATION: US biopsy renal DATE: 11/29/2020 11:31 INDICATION: Stage III chronic kidney disease TECHNIQUE: The procedure including the risks, benefits, and alternatives was discussed with the patie nt. Risks discussed included bleeding and infection. The patient understood the risks and agreed to p roceed. A timeout was performed to verify the patient's name, date of , and procedure to be p erformed. The skin overlying the left kidney was prepped and draped in usual sterile fashion. Anest hetic was administered with 1% lidocaine subcutaneously. An 18 gauge core biopsy needle was then use d to obtain 3 core biopsy specimens under continuous sonographic guidance. On preliminary evaluation the specimens were deemed adequate by the pathologist. The entry site was cleaned and dressed. There were no immediate complications. FINDINGS: Ultrasound images demonstrate the needle in the left kidney. IMPRESSION: 1. Ultrasound-guided random left kidney core needle biopsy. Reviewed, dictated and finalized at location A.
[2020-11-29 10:11] LABS: Basophils Absolute Auto 0.1 K/mm3 (0.0-0.1); Basophils Percent Auto 0.9 % (0.2-1.2); Eosinophils Absolute Auto 0.1 K/mm3 (0-0.3); Eosinophils Percent Auto 1.6 % (0-4.4); Hematocrit 41.8 % (37.0-47.0); Hemoglobin 13.5 g/dL (12.0-15.0); Immature Granulocyte Absolute 0.02 K/mm3 (0.00-0.031); Immature Granulocyte Percent A 0.3 % (0-0.5); Lymphocytes Absolute Auto 0.99 K/mm3 (0.9-3.2); Lymphocytes Percent Auto 13.1 % (18.3-44.2); Mean Corpuscular HGB Conc 32.3 g/dl (32-36); Mean Corpuscular Hemoglobin 28.8 pg (26-34); Mean Corpuscular Volume 89.1 fl (80-100); Mean Platelet Volume 9.7 fl (7.4-10.4); Monocytes Absolute Auto 0.6 K/mm3 (0.1-0.6); Monocytes Percent Auto 8.1 % (2.6-8.5); Neutrophils Absolute Auto 5.7 K/mm3 (1.3-6.7); Platelet Count Result 280 k/mm3 (150-375); Red Blood Count 4.69 M/mm3 (4.2-5.4); Red Cell Distribution Width 14.2 % (11.5-14.5); White Blood Count 7.5 K/mm3 (4.5-10.0)
[2020-11-29 10:25] LABS: INR 0.9; Prothrombin Time 12.6 Seconds (11.1-14.7)
== END 2020-11-29 15:42 | disposition home or self-care (01) ==
PROVIDERS: Radiology Diagnostic Radiology; PCP Family Medicine; Visit Provider Internal Medicine Nephrology
DX: N18.31 Chronic kidney disease, stage 3a (principal); M35.00 Sjogren syndrome, unspecified; I12.9 Hypertensive chronic kidney disease with stage 1 through stage 4 chronic kidney disease, or unspecified chronic kidney disease
CPT/HCPCS: 36415; 50200; 76942; 85025; 85610; 88300; 88305; 88313; 88329; 88346; 88348; 88350; C9803; U0003; U0005

== ENCOUNTER 2021-06-09 08:09 | Outpatient (CLI) | payer MEDICARE, SELFPAY ==
--- NOTE | 2021-06-23 11:55 | WPDHOMESLEEP ---
Sleep Study - Home Unattended Date of Study: 06/09/21 Ordering Provider: Jevon Knowles APRN Interpreting Provider: Ale Rodriguez MD Home Sleep Study Type: Apnea Link Air Height: 1.65 m Weight: 95.254 kg Body Mass Index: 34.9 Neck Circumference (inches): 15 [place]: 6 Reason for Sleep Study Fatigue, snoring, nocturia Sleep History Krysta Asencio is a 75 year old female with decreased energy, snoring, and episodes of waking at night 1-2 times to urinate. She noticed changes in her sleep after a hip then knee replacement, as well as addition of cardiac medications that her sleep quality is worse. This has been going on for months. Her still operator gin recommended the sleep study. She does not wake at night feeling short of breath. She occasionally wakes at night with heartburn, belching or coughing. She frequently snores, and occasionally it is loud enough that others complain. She occasionally has trouble sleeping with a cold. She does not gasp for breath at night. She rarely sweats excessive last night. The denies having palpitation or irregular heart beats at night. She rarely falls asleep in the day, rarely involuntarily, but never while driving. There is rare loss of muscle tone with strong emotion. She does not have difficulties due to excessive daytime sleepiness. There is no paralysis on waking or falling asleep. On occasion, there are vivid dream like scenes on waking or falling asleep. She is not afraid t ogo to sleep. She rarely has nightmares. She occasionally remembers her dreams. She occasionally has racing thoughts. She rarely feels depressed. She occasioanlly feels anxious. She rarely has muscular tension, and occasionally notices parts of her body jerking. She does not notice kicking at night, and does not report having achy or crawling feelings in her legs. She rarely has any type of leg pain at night. She does not have morning jaw pain and does not grind her teeth at night. She rarely is bothered by leg pain during the night or in the day. She occasionally wakes up feeling stiff in the morning. She rarely wakes with sore or achy muscles. She rarely wakes up with pain in the neck and spine. Normal bedtime is 12 midnight, taking afew minutes to fall asleep, waking 1-2 times at night to urinate. She is usually able to return to sleep easily. She wakes in the morning between 6:30 a.m. and 7:00 a.m., and she feels wide awake once she is out of bed. She does not take naps in the day. She feels better in the morning nad afternoon compared to the evening. Habits: Tobacco: brief use around age 18. Caffeine, 1-2 cups but not daily. No alcohol or recreational drugs. PENDING SALE TO [facility] Past Medical History Medical History Aortic insufficiency with aortic stenosis Mild and asymptomatic. Followed by Dr. Butler. Chronic kidney disease, stage 3 Baseline creatinine is around 1.00. Dyslipidemia Essential (primary) hypertension Gastroesophageal reflux disease History of peptic ulcer Hypothyroidism MRSA infection Right axillary abscess secondary to MRSA. Osteoarthritis Prediabetes Hemoglobin A1c was 5.7% in September 2019. Sjogrens syndrome Vitamin B12 deficiency Surgical History Surgical History History of arthroplasty of right knee (~12/2019) History of breast biopsy With benign pathology. History of cataract extraction History of dilatation and curettage History of hysterectomy (~2009) History of incision and drainage Right axillary abscess secondary to MRSA. History of left hip replacement (~02/2019) History of surgical removal of pilonidal cyst (~07/2008) Status post biopsy of kidney (~11/2020) Family History Family History Mother Hypertension Father Family history of cardiovascular disease Sibling Family history of Parkinson's disease Carcinoma of colon Grandparent
[2021-06-23 12:15] VITALS: BMI 34.9
== END 2021-06-10 12:48 | disposition home or self-care (01) ==
LOC: ANHCSM 08:10
PROVIDERS: PCP Family Medicine; Visit Provider Nurse Practitioner Family
DX: G47.30 Sleep apnea, unspecified (principal); G47.33 Obstructive sleep apnea (adult) (pediatric); Z68.34 Body mass index [BMI] 34.0-34.9, adult
CPT/HCPCS: 95806

== ENCOUNTER 2021-07-06 09:27 | Inpatient (IN) | payer MEDICARE, SELFPAY ==
--- NOTE | ~2021-07-06 | XR_ITS ---
EXAMINATION: XR chest port-a-cath/central DATE: 07/31/2021 10:48 INDICATION: Tunneled dialysis catheter placement TECHNIQUE: frontal view of the chest was obtained. COMPARISON: Chest radiograph dated 07/31/2021 at 5:48 AM FINDINGS: Again seen is a tracheostomy tube in expected position at the thoracic inlet. Unchanged right upper e xtremity peripherally inserted central venous catheter (PICC) as well as a newly placed large-bore du al-lumen right subclavian central venous catheter, both with distal tip near the superior cavoatrial junction. No significant change in patchy bilateral lung disease relatively sparing the left upper lung zone co nsistent with COVID pneumonia. The cardiomediastinal silhouette is within normal limits for AP techni que. IMPRESSION: 1. Tip of the newly placed large-bore dual-lumen right subclavian central venous catheter along side the prior right PICC line, both the superior cavoatrial junction. 2. No significant interval change in diffuse bilateral lung disease consistent with COVID pneumonia. Reviewed, dictated and finalized at location B. TH POLICY MANAGER IMPRESSION: 1. Tip of the newly placed large-bore dual-lumen right subclavian central venou s catheter along side the prior right PICC line, both the superior cavoatrial j unction. 2. No significant interval change in diffuse bilateral lung disease consistent with COVID pneumonia.
--- NOTE | ~2021-07-06 | XR_ITS ---
EXAMINATION: XR chest 1V portable EXAM DATE: 07/21/2021 05:53 INDICATION: Shortness of breath. TECHNIQUE: Portable AP frontal chest x-ray was obtained. Comparison is made to prior examination from 07/20/2021. FINDINGS: Endotracheal tube tip is 4-5 centimeters above the [place]. There is a right-sided PICC line with tip projecting over the cavoatrial junction. There is a nasogastric tube seen with tip collima francesca off the study, but below the left hemidiaphragm. Patchy bilateral right greater than left ill-defined airspace disease consistent with pneumonia. The re are no sizable pleural effusions. There is no pneumothorax suspected. The cardiomediastinal si lhouette is prominent but magnified on this AP technique. There are mild bony degenerative changes. Accounting for differences in technique, there is no significant interval change. IMPRESSION: 1. Line and tube(s) in position. 2. Stable airspace disease and other findings as above. Reviewed, dictated and finalized at location A. INE CUTTER
--- NOTE | ~2021-07-06 | XR_ITS ---
XR chest 1V portable 07/14/2021 09:12 Indication: Covid pneumonia Procedure: AP portable chest Comparison: Comparison to multiple prior studies sequentially, with oldest reviewed study dated 06/26. Findings: Diffuse bilateral airspace disease, consistent with pneumonia. There has been interval prog ression of airspace disease. No significant effusion or pneumothorax. No acute osseous abnormality. Impression: 1: Progression of diffuse bilateral airspace disease, consistent with pneumonia. Reviewed, dictated and finalized at location A. OR WEB ARCHITECT Impression: 1: Progression of diffuse bilateral airspace disease, consistent with pneumonia .
--- NOTE | ~2021-07-06 | XR_ITS ---
EXAMINATION: XR chest ET placement, XR abdomen NG/feed tube insert DATE: 07/14/2021 18:03 INDICATION: Endotracheal tube placement and orogastric tube insertion TECHNIQUE: 1. Frontal view of the chest was obtained. 2. Portable AP supine view of the abdomen was obtained. COMPARISON: Chest radiograph dated 07/14/2021 FINDINGS: Chest: Endotracheal tube tip 2.1 cm above the trenton. Persistent airspace opacities throughout the right lainey g and in the left mid and lower lung zones. No pneumothorax or definitive pleural effusion. The cardi omediastinal silhouette is within normal limits for AP technique. Visualized bones and soft tissues a re unremarkable. Abdomen: Orogastric tube tip in the proximal body of the stomach with proximal side-port at the level of the g astroesophageal junction. Moderate amount of gas in the stomach and small amount in the visualized co barrera. No dilated gas-filled loops of bowel to suggest obstruction. Postoperative changes in the left u pper quadrant. IMPRESSION: 1. Endotracheal tube in expected position 2.1 cm above the trenton. 2. Orogastric tube tip in the stomach but would recommend advancement by [address] the proximal side -port below the level of the gastroesophageal junction. 3. Diffuse bilateral lung disease relatively sparing the left upper lung zones consistent with pneumo bhavin with differential including pulmonary edema. Reviewed, dictated and finalized at location . TRUCK DRIVER IMPRESSION: 1. Endotracheal tube in expected position 2.1 cm above the trenton. 2. Orogastric tube tip in the stomach but would recommend advancement by 5 cm p lace the proximal side-port below the level of the gastroesophageal junction. 3. Diffuse bilateral lung disease relatively sparing the left upper lung zones consistent with pneumonia with differential including pulmonary edema.
--- NOTE | ~2021-07-06 | XR_ITS ---
XR chest 1V portable DATE: 07/18/2021 06:35 INDICATION: Respiratory failure TECHNIQUE: Portable AP chest on 07/18/2021 at 0541 hours COMPARISON: 07/17/2021 portable AP chest at 1007 hours FINDINGS: ET tube in satisfactory position 3.4 cm above trenton. NG tube in stomach. No central lines. Heart size appears within normal limits. There are extensive patchy infiltrates throughout both lungs, greater in the mid and particularly low er lung zones, increased since 07/17/2021. IMPRESSION: Extensive bilateral pulmonary infiltrates, increased since 07/17/2021 Reviewed, dictated and finalized at location A. CAL SALES IMPRESSION: Extensive bilateral pulmonary infiltrates, increased since 07/17/20 21
--- NOTE | ~2021-07-06 | XR_ITS ---
EXAMINATION: XR chest 1V portable INDICATION: Cough and fever TECHNIQUE: Portable AP chest at 0943 hours COMPARISON: 10/05/2019 FINDINGS: There are patchy airspace opacities of the mid and lower lung zones. No pleural effusion or pneumothorax is identified. The cardiomediastinal silhouette is normal. IMPRESSION: 1. Patchy airspace opacities of the mid and lower lung zones, likely pneumonia. Reviewed, dictated and finalized at location A. TICS FABRICATOR
--- NOTE | ~2021-07-06 | XR_ITS ---
XR chest 1V portable DATE: 07/19/2021 06:36 INDICATION: Respiratory failure TECHNIQUE: Portable AP chest on 07/19/2021 at 0529 hours COMPARISON: 07/18/2021 portable AP chest at 0620 hours FINDINGS: ET and NG tubes in satisfactory position. There is a right upper extremity PIC catheter, th e distal tip overlying the right atrium. There are diffuse patchy bilateral pulmonary infiltrates which appear stable since 07/18/2021. No ple ural effusion or pneumothorax. IMPRESSION: Stable extensive bilateral patchy pulmonary infiltrates since 07/18/2021 Reviewed, dictated and finalized at location A. LACER JACQUARD
--- NOTE | ~2021-07-06 | XR_ITS ---
EXAMINATION: XR chest PICC line DATE: 07/18/2021 18:27 INDICATION: PICC line placement. TECHNIQUE: frontal view of the chest was obtained. COMPARISON: Chest radiograph dated 07/18/2021 FINDINGS: Right upper extremity peripherally inserted central venous catheter (PICC) tip at the caudal superio r vena cava. Endotracheal tube tip 4.5 cm above the trenton. Nasogastric tube extends below the left hemidiaphragm with distal tip collimated off the study. Persistent opacities throughout both lungs relatively sparing the left upper lung zone and with lower lung predominance. No pleural effusion or pneumothorax. The cardiomediastinal silhouette is normal. IMPRESSION: 1. Right PICC line tip at the caudal superior vena cava. 2. Unchanged diffuse bilateral lung disease consistent with COVID pneumonia. Reviewed, dictated and finalized at [facility]. SSMENT CLINICIAN
--- NOTE | ~2021-07-06 | XR_ITS ---
EXAMINATION: XR chest 1V portable DATE: 07/25/2021 05:51 INDICATION: COVID-19 pneumonia. Acute respiratory failure. TECHNIQUE: A single frontal view of the chest was obtained. COMPARISON: Chest single view 07/24/2021 FINDINGS: There are airspace opacities throughout the lungs bilaterally. No pleural effusion or pneum othorax. The heart size is normal. The endotracheal tube tip is 3.8 cm above the trenton. The nasogast james tube tip is beyond the inferior margin of the radiograph, but at least to the stomach. A right up per extremity peripherally inserted central venous catheter (PICC) is seen with tip at the superior c avoatrial junction. IMPRESSION: 1. Diffuse lung disease with mild worsening on the left, consistent with COVID-19 pneumonia versus ac [place] respiratory distress syndrome (ARDS). Reviewed, dictated and finalized at location A. VATION LABORER IMPRESSION: 1. Diffuse lung disease with mild worsening on the left, consistent with COVID- 19 pneumonia versus acute respiratory distress syndrome (ARDS).
--- NOTE | ~2021-07-06 | CT_ITS ---
EXAMINATION: CT chest abdomen pelvis wo con DATE: 08/11/2021 14:33 INDICATION: Fever. COVID-19 pneumonia. TECHNIQUE: Computed tomography (CT) of the chest and abdomen was performed without intravenous contra st. Pelvis The dose-length product was 1266.32 mGy-cm. COMPARISON: Chest CT 07/14/2021 FINDINGS: CHEST CT: There is a tracheostomy tube in expected position. Pneumomediastinum is noted. There are groundglass and interstitial and airspace opacities scattered throughout the lungs with a peripheral and lower navid ng predominance. There is bronchiectasis in all lobes with a lower lung predominance. No pleural effu lili. The heart size is normal. There are coronary artery calcifications. There are calcifications of the aortic valve. A right upper extremity peripherally inserted central venous catheter (PICC) is se en with tip in the superior vena cava. A right internal jugular central venous catheter is seen with tip in the superior vena cava. There is mild chronic anterior wedging of multiple vertebral bodies. T here is mild thoracic spondylosis. ABDOMEN CT: The liver is normal. The gallbladder is normal in size. The spleen and pancreas are normal. The adren al glands and kidneys are normal. There is a gastrostomy tube in expected position. There are no dila francesca loops of bowel. The appendix is normal. There is calcified atherosclerosis of the aorta and many of the other arteries. There are no pathologically enlarged lymph nodes. There is no free intraperito nneka fluid. There is a total left hip arthroplasty. There is severe lumbar spondylosis. IMPRESSION: 1. Diffuse lung disease, likely some combination of pneumonia, acute respiratory distress syndrome (A RDS), and now chronic interstitial lung disease. 2. Pneumomediastinum. Reviewed, dictated and finalized at location A. CTOR CLINICAL APPLICATIONS IMPRESSION: 1. Diffuse lung disease, likely some combination of pneumonia, acute respirator y distress syndrome (ARDS), and now chronic interstitial lung disease. 2. Pneumomediastinum.
--- NOTE | ~2021-07-06 | XR_ITS ---
EXAMINATION: XR fl guide central line place DATE: 07/31/2021 10:48 INDICATION: Tunneled dialysis catheter placement TECHNIQUE: 2 fluoroscopic images of the right chest were obtained during procedure performed by Dr. Shabana jamison. Radiologist was not present for the imaging or procedure. The amount of fluoroscopy time used during this procedure was 0.9 minutes. COMPARISON: None. FINDINGS: Large-bore dual-lumen right subclavian central venous catheter with distal tip near the superior cavo atrial junction. Second image demonstrates a hemostat likely for marking external to the patient proj ecting over the heart. There is also a right upper extremity peripherally inserted central venous cat heter (PICC) tip also near the superior cavoatrial junction. Mild patchy opacities throughout the rig ht lung consistent with COVID pneumonia. IMPRESSION: 1. Fluoroscopy utilized during placement of a right subclavian central venous port catheter with dist al tip near the superior cavoatrial junction. See procedure note for further detail. Reviewed, dictated and finalized at location B. F RECORDIST IMPRESSION: 1. Fluoroscopy utilized during placement of a right subclavian central venous p ort catheter with distal tip near the superior cavoatrial junction. See procedu re note for further detail.
--- NOTE | ~2021-07-06 | XR_ITS ---
EXAMINATION: XR chest 1V portable EXAM DATE: 07/22/2021 06:33 INDICATION: covid pna, acute resp failure. TECHNIQUE: Portable AP frontal chest x-ray was obtained. Comparison is made to prior examination from 07/21/2021. FINDINGS: Right-sided PICC line in position. There is a nasogastric tube seen with tip collimated of f the study, but below the left hemidiaphragm. Endotracheal tube tip is 4 centimeters above the marla a. Ill-defined bilateral airspace disease consistent with COVID pneumonia. There are no sizable pleural effusions. There is no pneumothorax suspected. The cardiomediastinal silhouette is prominent but magnified on this AP technique. The bones and soft tissues are unremarkable. There is no significant interval change compared to prior exam. IMPRESSION: 1. Line and tube(s) in position. 2. Stable airspace disease and other findings as above. Reviewed, dictated and finalized at location A. RINTENDENT GENERATING PLANT
--- NOTE | ~2021-07-06 | XR_ITS ---
XR chest 1V portable 07/16/2021 10:46 Indication: Respiratory failure Procedure: AP portable chest Comparison: Comparison to multiple prior studies sequentially, with oldest reviewed study dated 06/25. Findings: Endotracheal tube tip 4 cm above the trenton. NG tube in the stomach. Improving bilateral ai rspace disease. No pleural effusion or pneumothorax. No acute osseous abnormality. Impression: 1: Improving bilateral airspace disease, consistent with resolving pneumonia. Reviewed, dictated and finalized at location A. ERS COMPENSATION CLAIMS ASSISTANT Impression: 1: Improving bilateral airspace disease, consistent with resolving pneumonia.
--- NOTE | ~2021-07-06 | XR_ITS ---
EXAMINATION: XR chest 1V portable DATE: 08/07/2021 05:45 INDICATION: Respiratory failure TECHNIQUE: frontal view of the chest was obtained. COMPARISON: Chest radiograph dated 08/01/2021 FINDINGS: Tracheostomy tube remains in expected position at the thoracic inlet. Large-bore dual-lumen likely tu nneled right subclavian central venous catheter with distal tip near the superior cavoatrial junction . No definitive interval change accounting for differences in technique in diffuse coarse reticular and airspace opacities with peripheral predominance throughout the right lung and in the left mid and lo wer lung zones. No pleural effusion or pneumothorax. The cardiomediastinal silhouette is normal. IMPRESSION: 1. No change in diffuse bilateral lung disease relatively sparing the left upper lung zone consistent with COVID pneumonia. Reviewed, dictated and finalized at location A. GER TRAINING IMPRESSION: 1. No change in diffuse bilateral lung disease relatively sparing the left uppe r lung zone consistent with COVID pneumonia.
--- NOTE | ~2021-07-06 | XR_ITS ---
EXAMINATION: XR chest 1V portable DATE: 07/26/2021 07:06 INDICATION: Acute respiratory failure. COVID-19 pneumonia. TECHNIQUE: A single frontal view of the chest was obtained. COMPARISON: Chest single view 07/25/2021 FINDINGS: The patient is rotated to her left. There are airspace opacities in all lung zones bilatera lly with a peripheral and lower lung predominance. No pleural effusion or pneumothorax. The heart siz e is normal. The endotracheal tube tip is 2.9 cm above the trenton. The nasogastric tube tip is beyond the inferior margin of the radiograph, but at least to the stomach. A right upper extremity peripher ally inserted central venous catheter (PICC) is seen with tip at the superior cavoatrial junction. IMPRESSION: 1. Diffuse lung disease with mild improvement, consistent with COVID-19 pneumonia versus acute respir atory distress syndrome (ARDS). Reviewed, dictated and finalized at location A. SCOPIC TECHNICIAN IMPRESSION: 1. Diffuse lung disease with mild improvement, consistent with COVID-19 pneumon ia versus acute respiratory distress syndrome (ARDS).
--- NOTE | ~2021-07-06 | US_ITS ---
US renal BI 07/17/2021 14:52 Procedure: Realtime transabdominal ultrasound of the kidneys and bladder. Indication: Elevated creatinine Comparison: Ultrasound dated 01/24/2019 Findings: Renal echotexture is normal bilaterally without hydronephrosis, contour deforming mass or r enal calculus. There is a 1.7 cm right renal cyst. The right kidney measures 11.5 cm and left kidney measures 10.2 cm. Bladder within normal limits. Impression: 1: Right renal cyst measuring 1.7 cm. Reviewed, dictated and finalized at location A. COUNTER Impression: 1: Right renal cyst measuring 1.7 cm.
--- NOTE | ~2021-07-06 | XR_ITS ---
XR chest 1V portable DATE: 07/30/2021 06:15 INDICATION: Respiratory failure. Covid pneumonia. TECHNIQUE: Portable AP chest on 07/30/2021 at 0535 hours COMPARISON: 07/29/2021 portable AP chest at 0522 hours FINDINGS: Persistent diffuse patchy bilateral pulmonary infiltrates, greater in the lower lung zones, without significant change since 07/29/2021. Right upper extremity PIC catheter tip overlies the upper right atrium. Interval placement of a tracheostomy tube in satisfactory position. IMPRESSION: Extensive bilateral pulmonary infiltrates, not significantly improved since 07/2021 Placement of tracheostomy tube since 07/29/2021 Reviewed, dictated and finalized at location A. GES SUPERVISOR IMPRESSION: Extensive bilateral pulmonary infiltrates, not significantly improv ed since 07/2021 Placement of tracheostomy tube since 07/29/2021
--- NOTE | ~2021-07-06 | XR_ITS ---
EXAMINATION: XR chest 1V portable EXAM DATE: 08/09/2021 14:16 INDICATION: Fever. TECHNIQUE: Portable AP frontal chest x-ray was obtained. Comparison is made to prior examination from 08/07/2021. FINDINGS: There is right-sided Yoder catheter. Tracheostomy tube. Moderate amount of bilateral erin stinct reticulation, pneumonia and/or edema. The cardiomediastinal silhouette is prominent but magnif ied on this AP technique. There is no pneumothorax suspected. There are bony degenerative changes. IMPRESSION: 1. Moderate amount of bilateral pneumonia and/or edema unchanged. Reviewed, dictated and finalized at location G. STITCHER
--- NOTE | ~2021-07-06 | CT_ITS ---
EXAMINATION:CT diagnostic chest wo con DATE: 07/14/2021 14:43 INDICATION: COVID-19 pneumonia. TECHNIQUE: Computed tomography (CT) of the chest was performed without intravenous contrast. Automate d exposure control and iterative reconstruction technique were employed. The dose-length product (DLP ) was 928.97 mGy-cm. COMPARISON: Chest CT 07/10/2021 FINDINGS: There are extensive groundglass opacities and crazy paving in the lungs. There are patchy a irspace opacities involving all lobes. There is mild bronchiectasis in the lower lungs. There is a tr indy right pleural effusion. The heart size is normal. There are coronary artery calcifications. There are calcifications of the aortic valve. No pericardial effusion. Main pulmonary artery is enlarged, consistent with pulmonary arterial hypertension. There is mild mediastinal lymphadenopathy, likely re active. There is mild chronic anterior wedging of multiple vertebral bodies. There is moderate thorac ic spondylosis and severe cervical and lumbar spondylosis. IMPRESSION: 1. Diffuse lung disease, worsened from 07/10/2021, consistent with COVID-19 pneumonia. Bacterial pneu monia and pulmonary edema have overlapping appearances and cannot be excluded. 2. Mild mediastinal lymphadenopathy, likely reactive. Reviewed, dictated and finalized at location A. ITY ENGINEER IMPRESSION: 1. Diffuse lung disease, worsened from 07/10/2021, consistent with COVID-19 pne umonia. Bacterial pneumonia and pulmonary edema have overlapping appearances an d cannot be excluded. 2. Mild mediastinal lymphadenopathy, likely reactive.
--- NOTE | ~2021-07-06 | XR_ITS ---
EXAMINATION: XR chest 1V portable EXAM DATE: 07/23/2021 06:15 INDICATION: covid pna, acute resp failure. TECHNIQUE: Portable AP frontal chest x-ray was obtained. Comparison is made to prior examination from 07/22/2021. FINDINGS: Right-sided PICC line in position. There is a nasogastric tube seen with tip collimated of f the study, but below the left hemidiaphragm. Endotracheal tube tip is 4-5 centimeters above the car anjelica. Ill-defined bilateral airspace disease consistent with COVID pneumonia. There are no sizable pleural effusions. There is no pneumothorax suspected. The cardiomediastinal silhouette is prominent but magnified on this AP technique. The bones and soft tissues are unremarkable. There is no significant interval change compared to prior exam. IMPRESSION: 1. Line and tube(s) in position. 2. Stable airspace disease and other findings as above. Reviewed, dictated and finalized at location A. FORM SUPERVISOR
--- NOTE | ~2021-07-06 | CT_ITS ---
EXAMINATION: CTA chest PE protocol DATE: 07/10/2021 12:26 INDICATION: Shortness of breath, cough TECHNIQUE: Computed tomography angiography (CTA) of the chest was performed with 100 mL Omnipaque-350 intravenous contrast timed to evaluate the pulmonary arteries. Coronal maximum intensity projection 3D-reconstructions were created by the technologist. The dose-length product (DLP) was 656.67 mGy-cm. Automated exposure control and iterative reconstruction technique were employed. COMPARISON: None. FINDINGS: The pulmonary arteries are well-opacified. No pulmonary embolism is identified. There are widespread groundglass opacities throughout the lungs, right greater than left. There is no pleural e ffusion or pneumothorax. There is enlargement of the main and central pulmonary arteries, consistent with pulmonary hypertension. Cardiomegaly is noted. There is calcified coronary artery atherosclerosi s. Mild bilateral hilar and mediastinal lymphadenopathy is noted. There is severe thoracic spondylosi s. IMPRESSION: 1. No pulmonary embolism. 2. Diffuse lung disease, consistent with COVID-19 pneumonia. 3. Mediastinal and hilar lymphadenopathy, likely reactive. Reviewed, dictated and finalized at location A. RVISOR UNDERWRITING CLERKS
--- NOTE | ~2021-07-06 | XR_ITS ---
EXAMINATION: XR chest 1V portable EXAM DATE: 07/24/2021 05:57 INDICATION: COVID pneumonia, acute resp failure. TECHNIQUE: Portable AP frontal chest x-ray was obtained. Comparison is made to prior examination from 07/23/2021. FINDINGS: Right-sided PICC line in position. There is a nasogastric tube seen with tip collimated o ff the study, but below the left hemidiaphragm. Endotracheal tube tip is 4-5 centimeters above the ca ashutosh. Ill-defined bilateral airspace disease right greater than left consistent with COVID pneumonia. Ther e are no sizable pleural effusions. There is no pneumothorax suspected. The cardiomediastinal troy houette is prominent but magnified on this AP technique. The bones and soft tissues are unremarkabl e. Accounting for differences in technique, there is no significant interval change. IMPRESSION: 1. Line and tube(s) in position. 2. Stable airspace disease and other findings as above. UIT JUDGE Reviewed, dictated and finalized at location A.
--- NOTE | ~2021-07-06 | US_ITS ---
EXAMINATION: US venous doppler [facility] DATE: 08/12/2021 11:14 INDICATION: Deep venous thrombosis TECHNIQUE: Grayscale ultrasound images without and with compression and Doppler ultrasound images of the bilateral lower extremity veins were obtained. COMPARISON: 07/14/2021 FINDINGS: Persistent noncompressible deep venous thrombosis in the paired right posterior tibial veins. The vis ualized portions of right common femoral vein, profunda (deep) femoral vein, femoral vein, popliteal vein, gastrocnemius vein and greater saphenous vein outflow are patent. The right peroneal veins are not visualized. Noncompressible deep venous thrombosis in the left popliteal vein. The visualized portions of left co mmon femoral vein, profunda femoral vein, femoral vein, posterior tibial veins, gastrocnemius vein an d greater saphenous vein outflow are patent. The left peroneal veins are not visualized. IMPRESSION: 1. Persistent deep venous thrombosis in the right posterior tibial veins and in the left popliteal v ein. Reviewed, dictated and finalized at location A. H RECORDS CLERK IMPRESSION: 1. Persistent deep venous thrombosis in the right posterior tibial veins and i n the left popliteal vein.
--- NOTE | ~2021-07-06 | XR_ITS ---
XR chest 1V portable DATE: 07/20/2021 06:24 INDICATION: Respiratory failure TECHNIQUE: Portable AP chest on 07/20/2021 0541 hours COMPARISON: 07/19/2021 portable AP chest at 0529 hours FINDINGS: ET tube in satisfactory position 4.8 cm above t[place]. NG tube in stomach. Right upper extre mity PIC catheter tip overlies the upper right atrium. There are patchy bilateral pulmonary infiltrates involving primarily the mid and lower lung zones, st able since 07/19/2021. Heart size appears normal. Aortic arch calcification. IMPRESSION: Stable diffuse patchy bilateral pulmonary infiltrates since 07/19/2021 Reviewed, dictated and finalized at location A. ITY ASSURANCE CONSULTANT IMPRESSION: Stable diffuse patchy bilateral pulmonary infiltrates since 021
--- NOTE | ~2021-07-06 | XR_ITS ---
XR chest 1V portable DATE: 07/29/2021 06:12 INDICATION: Respiratory failure, Covid pneumonia TECHNIQUE: Portable AP chest on 07/29/2021 at 0522 hours COMPARISON: 08/14/2021 portable AP chest at 0514 hours FINDINGS: Persistent prominent patchy bilateral pulmonary infiltrates consistent with Covid pneumonia , without significant change since 07/28/2021. ET tube in satisfactory position. NG tube in stomach. Right epididymis radiopaque catheter tip is sit uated near the superior cavoatrial junction. IMPRESSION: No significant change of extensive patchy bilateral pulmonary infiltrates since 08/14/2021 Reviewed, dictated and finalized at location A. CE BOOKING OFFICER IMPRESSION: No significant change of extensive patchy bilateral pulmonary infil trates since 08/14/2021
--- NOTE | ~2021-07-06 | XR_ITS ---
XR chest 1V portable DATE: 07/31/2021 06:03 INDICATION: Respiratory failure, Covid pneumonia TECHNIQUE: Portable AP chest on 07/31/2021 at 0548 hours COMPARISON: 07/30/2021 portable AP chest at 0535 hours FINDINGS: Tracheostomy tube in satisfactory position. Right upper extremity PIC catheter tip near sup erior cavoatrial junction. Persistent patchy bilateral pulmonary infiltrates, greater in the lower lung zones, not significant c hange since 07/30/2021. IMPRESSION: Persistent patchy bilateral pulmonary infiltrates consistent with Covid pneumonia Reviewed, dictated and finalized at location A. OR SALES MANAGER IMPRESSION: Persistent patchy bilateral pulmonary infiltrates consistent with C ovid pneumonia
--- NOTE | ~2021-07-06 | XR_ITS ---
EXAMINATION: XR chest 1V portable DATE: 07/12/2021 06:06 INDICATION: COVID-19 pneumonia. TECHNIQUE: A single frontal view of the chest was obtained. COMPARISON: Chest single view 07/06/2021, chest CT 07/10/2021 FINDINGS: There are patchy airspace opacities bilaterally with relative sparing of left upper lung zo ne. No pleural effusion or pneumothorax. Cardiomegaly is noted. IMPRESSION: 1. Diffuse lung disease with worsening from 07/06/2021, consistent with COVID-19 pneumonia. 2. Cardiomegaly. Reviewed, dictated and finalized at location A. TOR TRAILER MECHANIC IMPRESSION: 1. Diffuse lung disease with worsening from 07/06/2021, consistent with COVID-1 9 pneumonia. 2. Cardiomegaly.
--- NOTE | ~2021-07-06 | XR_ITS ---
EXAMINATION: XR chest 1V portable DATE: 07/17/2021 10:17 INDICATION: Respiratory failure. TECHNIQUE: A single frontal view of the chest was obtained. COMPARISON: Chest single view 07/16/2021 FINDINGS: There are airspace and interstitial opacities throughout the lungs bilaterally. No pleural effusion or pneumothorax. The heart size is normal. The endotracheal tube tip is 3.7 cm above the car anjelica. The nasogastric tube tip is beyond the inferior margin of the radiograph, but at least to the st omach. IMPRESSION: 1. Diffuse lung disease with improvement on the right, consistent with COVID-19 pneumonia. Reviewed, dictated and finalized at location A. GENCY DEPARTMENT
--- NOTE | ~2021-07-06 | XR_ITS ---
EXAMINATION: XR chest 1V portable EXAM DATE: 08/01/2021 06:19 INDICATION: Respiratory failure, COVID pneumonia . TECHNIQUE: Portable AP frontal chest x-ray was obtained. Comparison is made to prior examination from 07/31/2021. FINDINGS: Tracheostomy tube. Double-lumen dialysis catheter. Moderate amount of bilateral peripheral predominant airspace disease, distribution is consistent with COVID pneumonia. There are no sizable pleural effusions. There is no pneumothorax suspected. Th e cardiomediastinal silhouette is prominent but magnified on this AP technique. There are bony dege nerative changes. There is no significant interval change compared to prior exam. IMPRESSION: 1. Line and tube(s) in position. 2. Moderate right greater than left COVID pneumonia unchanged. Reviewed, dictated and finalized at location G. RSONIC ENGINEER
--- NOTE | ~2021-07-06 | US_ITS ---
EXAMINATION: US venous doppler [facility] DATE: 07/14/2021 14:09 INDICATION: Lower limb edema. TECHNIQUE: Grayscale ultrasound images without and with compression and Doppler ultrasound images of the bilateral lower extremity veins were obtained. COMPARISON: None. FINDINGS: The visualized portions of right common femoral vein, profunda (deep) femoral vein, femoral vein, pop liteal vein, peroneal veins, and greater saphenous vein outflow are patent. There is thrombus in the right posterior tibial veins. The visualized portions of left common femoral vein, profunda femoral vein, femoral vein, peroneal ve ins, and greater saphenous vein outflow are patent. There is thrombus in the left popliteal and poste rior tibial veins. IMPRESSION: 1. Deep vein thrombosis involving the right posterior tibial veins and left popliteal and posterior tibial veins. Reviewed, dictated and finalized at location A. GY EFFICIENCY ENGINEER IMPRESSION: 1. Deep vein thrombosis involving the right posterior tibial veins and left po pliteal and posterior tibial veins.
--- NOTE | ~2021-07-06 | XR_ITS ---
XR chest 1V portable DATE: 07/28/2021 06:19 INDICATION: Respiratory failure. Covid pneumonia. TECHNIQUE: Portable AP chest on 07/28/2021 at 0514 hours COMPARISON: 07/26/2021 portable AP chest at 0605 hours FINDINGS: ET tube in satisfactory position 4.2 cm above [place]. NG tube in stomach. Right upper extre mity PIC catheter tip is situated near the superior cavoatrial junction. There are diffuse patchy bilateral pulmonary joints, greater in the mid and particularly lower lung z ones, consistent with bilateral pneumonia, relatively unchanged since 07/26/2021. IMPRESSION: Extensive patchy bilateral pulmonary infiltrates, relatively stable since 07/26/2021 Reviewed, dictated and finalized at location A. OVERHAULER
[2021-07-06 09:36] VITALS: BP 156/77; PULSE 75; RESP 16; TEMP 37; O2SAT 95
--- NOTE | 2021-07-06 11:20 | ED.GENADULT ---
HPI - General Adult General Chief complaint: Upper Respiratory Infection Stated complaint: cough,fever Time Seen by Provider: 07/06/21 10:12 Source: patient Mode of arrival: ambulatory Limitations: no limitations History of Present Illness HPI narrative: Patient presents for evaluation of respiratory symptoms. She indicates that she is experienced a cough for the last few weeks. Cough was initially productive but is now nonproductive in nature. She has also experienced fever and chills. She denies any SOB, chest pain, nausea, vomiting, diarrhea. She states she contacted her PCP and received a script for medrol dose sai five days ago. She has been taking medication as directed but it caused increased anxiety. No personal history of COVID. She states she has received both doses of her COVID vaccine. Her is here in the ER being evaluated for similar symptoms. Pt's disabled nephew was visiting her for Thanksgiving and had a cough and sore throat at that time. Related Data Home Medications Medication Instructions Recorded Confirmed amlodipine 5 mg tablet 5 mg PO BID 06/02/19 07/01/21 coQ10 (ubiquinol) 100 mg capsule 100 mg PO ONCE cap 06/02/19 07/01/21 lisinopril 40 mg tablet 40 mg PO DAILY 06/02/19 07/01/21 omega-3 fatty acids 1,000 mg 1,000 mg PO DAILY 06/02/19 07/01/21 capsule cholecalciferol (vitamin D3) 125 5,000 unit PO .COMPLEX tablet 06/05/19 07/01/21 mcg (5,000 unit) tablet pitavastatin calcium 4 mg tablet 4 mg PO .QHS tablet 06/05/19 07/01/21 Caltrate 600 plus D 1 tablet PO DAILY 10/05/19 07/01/21 Restasis 1 drp OPHTHALMIC (EYE) Q12H 10/05/19 07/01/21 coconut oil 10,000 mg PO DAILY 10/05/19 07/01/21 pyridoxine (vitamin B6) 25 mg PO 3XW 10/05/19 07/01/21 acetaminophen [Tylenol Extended 650 mg PO Q12H 11/20/20 07/01/21 Release] atenolol 25 mg PO DAILY 11/20/20 07/01/21 cyanocobalamin (vitamin B-12) 500 500 mcg PO .three times weekly 12/30/20 07/01/21 mcg tablet tablet triamcinolone acetonide 55 mcg 1 spray INTRANASAL DAILY 12/30/20 07/01/21 nasal spray aerosol Allergies Allergy/AdvReac Type Severity Reaction Status Date / Time Sulfa (Sulfonamide Allergy Severe SWELLING Verified 07/01/21 09:36 Antibiotics) sulfamethoxazole Allergy Severe RASH, Verified 07/01/21 09:36 ITCHING adhesive Allergy Unknown Redness of Verified 07/01/21 09:36 Skin cefuroxime Allergy Unknown Joint Pain Verified 07/01/21 09:36 Cephalosporins Allergy Unknown Rash Verified 07/01/21 09:36 codeine Allergy Unknown Nausea and Verified 07/01/21 09:36 Vomiting hydrochlorothiazide Allergy Unknown Other Verified 07/01/21 09:36 hydrocodone Allergy Unknown Nausea Verified 07/01/21 09:36 ibuprofen Allergy Unknown SEVERE Verified 07/01/21 09:36 Headache Penicillins Allergy Unknown Rash Verified 07/01/21 09:36 sulfamethizole Allergy Unknown Swelling Verified 07/01/21 09:36 trimethoprim Allergy Unknown Swelling Verified 07/01/21 09:36 metoprolol Allergy Palpitation Verified 07/01/21 09:36 s Review of Systems Review of Systems: CONSTITUTIONAL: Reports fever and chills. EYES: Denies visual changes, redness, or discharge. ENT: Denies rhinorrhea, congestion, sore throat, or otalgia. CARDIOVASCULAR: Denies chest pain, palpitations, or edema. RESPIRATORY: Reports cough. Denies shortness of breath GASTROINTESTINAL: Denies abdominal pain, nausea, vomiting, or diarrhea. GENITOURINARY: Denies dysuria or hematuria. SKIN: Denies rash or itching. MUSCULOSKELETAL: Denies back pain, joint pain, or myalgia. NEUROLOGIC: Denies headache, numbness, dizziness, or weakness. PSYCHIATRIC: Denies anxiety or depression. [facility] Past Medical History Medical History Aortic insufficiency with aortic stenosis Mild and asymptomatic. Followed by Dr. Butler. Chronic kidney disease, stage 3 Baseline creatinine is around 1.00. Dyslipidemia Essential (primary) hypertension Addie
[2021-07-06 12:03] LABS: Basophils Absolute Auto 0.1 K/mm3 (0.0-0.1); Basophils Percent Auto 0.4 % (0.2-1.2); Eosinophils Absolute Auto 0.1 K/mm3 (0-0.3); Eosinophils Percent Auto 0.6 % (0-4.4); Hematocrit 38.9 % (37.0-47.0); Hemoglobin 12.9 g/dL (12.0-15.0); Immature Granulocyte Absolute 0.28 K/mm3 (0.00-0.031); Immature Granulocyte Percent A 1.5 % (0-0.5); Lymphocytes Absolute Auto 0.84 K/mm3 (0.9-3.2); Lymphocytes Percent Auto 4.4 % (18.3-44.2); Mean Corpuscular HGB Conc 33.2 g/dl (32-36); Mean Corpuscular Hemoglobin 29.9 pg (26-34); Mean Corpuscular Volume 90.3 fl (80-100); Mean Platelet Volume 9.4 fl (7.4-10.4); Monocytes Absolute Auto 1.3 K/mm3 (0.1-0.6); Monocytes Percent Auto 6.8 % (2.6-8.5); Neutrophils Absolute Auto 16.4 K/mm3 (1.3-6.7); Neutrophils Percent Auto 86.3 % (45.5-73.1); Platelet Count Result 372 k/mm3 (150-375); Red Blood Count 4.31 M/mm3 (4.2-5.4); Red Cell Distribution Width 13.4 % (11.5-14.5)
[2021-07-06 12:13] LABS: Alanine Aminotransferase 34 U/L (4-35); Albumin Level 3.7 g/dL (3.5-5.1); Alkaline Phosphatase 107 U/L (38-126); Anion Gap 8 mmol/L (8-16); Aspartate Amino Transferase 27 U/L (14-36); Bilirubin,Total 0.8 mg/dL (0.2-1.3); Blood Urea Nitrogen 19 mg/dL (7-17); Calcium 8.9 mg/dL (8.4-10.2); Carbon Dioxide 26 mmol/L (22-30); Chloride 99 mmol/L (98-107); Estimated CRCL calculation 48 ml/min; Estimated Glomerular Filt Rate 48; Glucose 131 mg/dL (65-110); Potassium 4.1 mmol/L (3.4-5.0); Sodium 133 mmol/L (137-145)
[2021-07-06 13:06] LABS: Lactic Acid Reflex 0.9 mmol/L (0.7-2.1)
[2021-07-06] MEDS: levoFLOXacin 500 MG/D5W 100 ML 500 MG/100 ML BAG 100 MG IVPB (13:48)
--- NOTE | 2021-07-06 14:31 | PM.IMHP ---
H&P: HPI History of Present Illness Date/Time: 07/06/21 14:31 Chief Complaint: Cough Narrative: Date of admission: 07/06/2021 Krysta Asencio is a 75-year-old female with a history of CKD stage 3, hypertension, hyperlipidemia, hypothyroidism, aortic stenosis who presented to the emergency department on 07/06/2021 with complaints of fever and cough. She presented with her who is also ill and is also being treated. She tells me that she has been coughing for ?many days. She says that her got sick 1st and saw his primary care provider, and then she got sick shortly after. On 06/30/2021 she began having fevers and states that she has had daily fevers since then, which do typically resolve with Tylenol. She has a persistent cough. States that her cough started with yellow/green sputum production, which has gone away, and now for the past 2-3 days her cough has been nonproductive and is not improved with Tessalon perles. She had a virtual visit with her PCP who prescribed her a course of Solu-Medrol, which she did not notice any improvement with. Today, her fever was a tight at 101.8? and her cough was not improving so she decided to seek emergency care. She has not had any episodes of shortness of breath. She is still able to tolerate her usual amount of exertion without any APODACA. Denies wheezing. She endorses all over body aches. She still has her sense of smell but notes that diminished sense of taste. Her appetite has been good and she has been eating plenty, which she attributes to the steroids. She did complete her COVID vaccine in October but has not been able to receive her booster yet. She also got her flu vaccine. Review of Systems Review of Systems: All systems reviewed with pertinent positives and negatives as per HPI. Additionally, patient denies chest pain or palpitation. Denies abdominal pain. She has been having regular bowel movements, last BM was today. No diarrhea. No urinary symptoms. Denies headache. Denies sinus congestion or rhinorrhea. She states she typically gets seasonal allergies but does not seem to have any issues at this time. She notes that for 2 days her eye has been irritated and was at first draining pus but this seems to have resolved. She ambulates independently around her home, when she leaves her home she uses a cane, if she has to go for will use a Rollator. [facility] Past Medical History Medical History (Updated 07/06/21 @ 15:29 by Jil Do PA-C) Aortic insufficiency with aortic stenosis Mild and asymptomatic. Followed by Dr. Butler. Chronic kidney disease, stage 3 Baseline creatinine is around 1.00. Dyslipidemia Essential (primary) hypertension Gastroesophageal reflux disease History of peptic ulcer Hypothyroidism MRSA infection Right axillary abscess secondary to MRSA. Obstructive sleep apnea (~05/2021) Osteoarthritis Prediabetes Hemoglobin A1c was 5.7% in September 2019. Sjogrens syndrome Vitamin B12 deficiency Surgical History Surgical History History of arthroplasty of right knee (~12/2019) History of breast biopsy (Unknown) With benign pathology. History of cataract extraction (~2017) History of dilatation and curettage (Unknown) History of hysterectomy (~2009) History of incision and drainage (~2009) Right axillary abscess secondary to MRSA. History of left hip replacement (~02/2019) History of surgical removal of pilonidal cyst (~07/2008) Status post biopsy of kidney (~11/2020) Family History Family History Mother Hypertension Father Family history of cardiovascular disease Sibling Family history of Parkinson's disease Carcinoma of colon Grandparent Carcinoma of colon Family history of Alzheimer's disease Social History Social History Social History:
[2021-07-06 15:38] LABS: Creatine Kinase 46 U/L (30-135); Lactate Dehydrogenase 357 U/L (313-618)
[2021-07-06 15:45] LABS: CRP 15.4 mg/dL (<1.0)
[2021-07-06 16:53] VITALS: BP 155/71; PULSE 72; RESP 16; O2SAT 96
[2021-07-06 17:06] VITALS: BMI 36.1
--- NOTE | 2021-07-06 17:06 | ADMGEN ---
This patient, Krysta Asencio, was admitted to 3 Med Surg Room 312-01 at 1700. Patient/family oriented to hospital policies and general routines including ID bracelet, bed and alarms, visiting hours, pain management, procedures, bathroom and other care routines, personal items, smoking policy, room service/diet, and visiting hours. Information on how to activate the Rapid Response Team has been discussed. Patient/Family are encouraged to report perceived risks to care and to ask questions if they do not understand what they are told or what they should do.
[2021-07-06 17:20] VITALS: BP 173/79; PULSE 73; RESP 20; TEMP 37.2; O2SAT 97
[2021-07-06] MEDS: amLODIPine BESYLATE 5 MG TABLET PO (17:41)
[2021-07-06] MEDS: ENOXAPARIN 40 MG/0.4 ML SYRINGE SUB-Q (17:41)
[2021-07-06] MEDS: ARTIFICIAL TEARS OPHTH SOLN 15 ML BOTTLE 1 DROP EACH EYE (17:41)
[2021-07-06 22:09] VITALS: BP 154/71; PULSE 78; RESP 16; TEMP 37; O2SAT 93
[2021-07-06] MEDS: ONDANSETRON INJ 4 MG/2 ML VIAL IV PUSH (23:15)
[2021-07-07] MEDS: ACETAMINOPHEN 325 MG TABLET 650 MG PO (00:21)
[2021-07-07 00:58] VITALS: BP 143/61; PULSE 104; RESP 18; TEMP 38.8; O2SAT 90
[2021-07-07 04:49] VITALS: BP 144/57; PULSE 70; RESP 18; TEMP 36.3; O2SAT 92
[2021-07-07 08:00] VITALS: PULSE 70; RESP 18; O2SAT 92
[2021-07-07] MEDS: amLODIPine BESYLATE 5 MG TABLET PO (08:37)
[2021-07-07] MEDS: BENZONATATE 100 MG CAPSULE PO (08:38)
[2021-07-07 08:40] LABS: Basophils Absolute Auto 0.1 K/mm3 (0.0-0.1); Basophils Percent Auto 0.7 % (0.2-1.2); Eosinophils Absolute Auto 0.2 K/mm3 (0-0.3); Eosinophils Percent Auto 1.2 % (0-4.4); Hematocrit 42.7 % (37.0-47.0); Hemoglobin 14.3 g/dL (12.0-15.0); Immature Granulocyte Absolute 0.32 K/mm3 (0.00-0.031); Immature Granulocyte Percent A 2.2 % (0-0.5); Lymphocytes Absolute Auto 0.88 K/mm3 (0.9-3.2); Mean Corpuscular HGB Conc 33.5 g/dl (32-36); Mean Corpuscular Hemoglobin 29.7 pg (26-34); Mean Corpuscular Volume 88.6 fl (80-100); Mean Platelet Volume 8.9 fl (7.4-10.4); Monocytes Absolute Auto 0.8 K/mm3 (0.1-0.6); Monocytes Percent Auto 5.5 % (2.6-8.5); Neutrophils Absolute Auto 12.4 K/mm3 (1.3-6.7); Neutrophils Percent Auto 84.4 % (45.5-73.1); Platelet Count Result 413 k/mm3 (150-375); Red Blood Count 4.82 M/mm3 (4.2-5.4); Red Cell Distribution Width 13.4 % (11.5-14.5); White Blood Count 14.7 K/mm3 (4.5-10.0)
[2021-07-07 09:26] LABS: Alanine Aminotransferase 32 U/L (4-35); Albumin Level 3.5 g/dL (3.5-5.1); Alkaline Phosphatase 126 U/L (38-126); Anion Gap 8 mmol/L (8-16); Aspartate Amino Transferase 27 U/L (14-36); Bilirubin,Total 0.9 mg/dL (0.2-1.3); Blood Urea Nitrogen 19 mg/dL (7-17); Carbon Dioxide 28 mmol/L (22-30); Chloride 95 mmol/L (98-107); Estimated CRCL calculation 43 ml/min; Estimated Glomerular Filt Rate 48; Glucose 120 mg/dL (65-110); Lactate Dehydrogenase 480 U/L (313-618); Potassium 4.5 mmol/L (3.4-5.0); Sodium 131 mmol/L (137-145)
--- NOTE | 2021-07-07 09:59 | PM.IMPN ---
Progress Note: A&P Assessment and Plan (1) Community acquired pneumonia: Qualifiers: Laterality: unspecified laterality Qualified Code(s): J18.9 - Pneumonia, unspecified organism Code(s): J18.9 - Pneumonia, unspecified organism Status: Acute Assessment and Plan: Presented with complaints of fever and cough. CXR showed patchy airspace opacities at the mid and lower lung zones consistent with pneumonia. Leukocytosis improving. Febrile up to 101.8? early a.m. Continue IV Levaquin for coverage of bacterial pneumonia. Multiple antibiotic allergies noted COVID-19 test is pending. Influenza test ordered; awaiting collection Urinary Legionella and pneumococcal antigens ordered She is maintaining adequate oxygen saturations on room air. No oxygen requirement Supportive care to include bronchodilators, expectorants, antipyretics (2) Person under investigation for COVID-19: Code(s): Z20.822 - Contact with and (suspected) exposure to COVID-19 Status: Acute Assessment and Plan: Given her symptoms and community prevalence, she has been swabbed for COVID-19. She did complete vaccination in October 2020. She was scheduled to receive her booster shot last week but had to postpone due to her illness Continue isolation precautions while COVID-19 test is pending She is not a candidate for COVID-19 specific therapy including dexamethasone or remdesivir at this time as she has no oxygen requirements Trend acute phase reactants (3) Essential (primary) hypertension: Code(s): I10 - Essential (primary) hypertension Status: Acute Assessment and Plan: Blood pressure reviewed and has been stable. Last BP144/57 Continue home amlodpinine, lisinopril, atenolol Monitor blood pressure trends and adjust medication regimen as needed (4) Chronic kidney disease, stage 3: Code(s): N18.3 - Chronic kidney disease, stage 3 (moderate) Status: Acute Assessment and Plan: Reported that her baseline creatinine is 1.0, but last creatinine in January 2021 was 1.2. She is established with operations engineer, Dr. Rueda Creatinine stable at 1.1 today, It seems this is her baseline based on prior labs Monitor kidney function closely. Renally dose medications and avoid nephrotoxic agents. (5) Hypothyroidism: Qualifiers: Hypothyroidism type: acquired Qualified Code(s): E03.9 - Hypothyroidism, unspecified Code(s): E03.9 - Hypothyroidism, unspecified Status: Acute Assessment and Plan: TSH 5 months ago was within normal limits Continue levothyroxine (6) Conjunctivitis: Code(s): H10.9 - Unspecified conjunctivitis Status: Acute Assessment and Plan: Improving. Continue with warm compress and artificial tears. Will add lubricating eye ointment Subjective Date/time seen: 07/07/21 09:59 Interval history: Date of service: 07/07/2021 Krysta Asencio is a 75-year-old female with a history of CKD stage 3, hypertension, hyperlipidemia, hypothyroidism, aortic stenosis who is seen in follow-up for pneumonia, person under investigation for COVID-19. She feels a little bit better today. She states that her fever broke this morning and she is now starting to feel somewhat improved. Continues to endorse significant, barking cough. States that is a little looser today. No sputum production. Some slight nausea, but she is able to tolerate her diet and has had no episodes of emesis. Denies dizziness, lightheadedness, weakness. She is able to ambulate to the bathroom using her walker and denies any significant dyspnea on exertion. Denies wheezing. Denies eye drainage. Denies sinus congestion. No chest pain or palpitations. No urinary symptoms. Reports last bowel movement was yesterday Review of Systems Review of Systems: All systems reviewed & are unremarkable except as noted in HPI and below Exam Narrative:
[2021-07-07 10:32] LABS: CRP 32.8 mg/dL (<1.0)
[2021-07-07] MEDS: PANTOPRAZOLE 40 MG TABLET PO (12:27)
[2021-07-07] MEDS: CHOLECALCIFEROL 1,000 UNITS TABLET 5000 UNITS PO (12:27)
[2021-07-07] MEDS: CYANOCOBALAMIN 500 MCG TABLET PO (12:27)
[2021-07-07] MEDS: LEVOTHYROXINE SODIUM 100 MCG TABLET PO (12:27)
[2021-07-07] MEDS: PYRIDOXINE HCL 25 MG TABLET PO (12:27)
[2021-07-07 13:57] VITALS: BP 140/60; PULSE 76; RESP 18; TEMP 36.2; O2SAT 93
[2021-07-07 14:20] LABS: SARS-CoV-2 RNA PCR Positive
[2021-07-07] MEDS: lisinopriL 20 MG TABLET 40 MG PO (14:41)
[2021-07-07] MEDS: ARTIFICIAL TEARS OPHTH SOLN 15 ML BOTTLE 1 DROP EACH EYE ×4 (14:41→21:51)
[2021-07-07] MEDS: guaiFENesin 12 HR 600 MG TABCR PO ×2 (14:41→21:51)
[2021-07-07 14:44] VITALS: PULSE 76
[2021-07-07] MEDS: atenoloL 25 MG TABLET PO (14:44)
[2021-07-07 15:44] LABS: Influenza Control Positive
[2021-07-07] MEDS: OMEGA 3 POLYUNSAT FATTY ACIDS 1 GM CAP PO (16:06)
[2021-07-07] MEDS: ENOXAPARIN 40 MG/0.4 ML SYRINGE SUB-Q (17:11)
[2021-07-07] MEDS: MINERAL OIL/WHITE PETROLATUM OINTMENT 1 APPLIC EACH EYE (21:51)
[2021-07-07 22:00] VITALS: BP 155/64; PULSE 65; RESP 20; TEMP 37; O2SAT 90
[2021-07-08] VITALS (8 sets, daily range): BP systolic 129–154; BP diastolic 47–83; PULSE 65–92; RESP 18–20; TEMP 36.8–37.7; O2SAT 90–94
[2021-07-08] MEDS: LEVOTHYROXINE SODIUM 100 MCG TABLET PO (05:50)
[2021-07-08 06:23] LABS: Hematocrit 37.1 % (37.0-47.0); Hemoglobin 12.2 g/dL (12.0-15.0); Mean Corpuscular HGB Conc 32.9 g/dl (32-36); Mean Corpuscular Hemoglobin 29.5 pg (26-34); Mean Corpuscular Volume 89.8 fl (80-100); Mean Platelet Volume 9.3 fl (7.4-10.4); Platelet Count Result 327 k/mm3 (150-375); Red Blood Count 4.13 M/mm3 (4.2-5.4); Red Cell Distribution Width 13.3 % (11.5-14.5); White Blood Count 14.4 K/mm3 (4.5-10.0)
[2021-07-08 07:30] LABS: Anion Gap 8 mmol/L (8-16); Blood Urea Nitrogen 25 mg/dL (7-17); Calcium 8.5 mg/dL (8.4-10.2); Carbon Dioxide 24 mmol/L (22-30); Chloride 94 mmol/L (98-107); Estimated CRCL calculation 40 ml/min; Estimated Glomerular Filt Rate 44; Glucose 125 mg/dL (65-110); Potassium 4.5 mmol/L (3.4-5.0); Sodium 126 mmol/L (137-145)
[2021-07-08 07:31] LABS: CRP 25.8 mg/dL (<1.0)
[2021-07-08] MEDS: BENZONATATE 100 MG CAPSULE PO ×2 (08:37→17:30)
[2021-07-08] MEDS: PANTOPRAZOLE 40 MG TABLET PO (08:37)
[2021-07-08] MEDS: amLODIPine BESYLATE 5 MG TABLET PO (08:37)
[2021-07-08] MEDS: lisinopriL 20 MG TABLET 40 MG PO (08:37)
[2021-07-08] MEDS: guaiFENesin 12 HR 600 MG TABCR PO ×2 (08:37→21:15)
[2021-07-08] MEDS: ARTIFICIAL TEARS OPHTH SOLN 15 ML BOTTLE 1 DROP EACH EYE ×4 (08:38→21:15)
[2021-07-08 10:15] LABS: Creatinine Urine 118.8 mg/dL
[2021-07-08 10:21] LABS: Sodium Urine Random 41 meq/L
[2021-07-08 10:57] LABS: Sodium 126 mmol/L (137-145)
--- NOTE | 2021-07-08 11:08 | PM.IMPN ---
Progress Note: A&P Assessment and Plan (1) Community acquired pneumonia: Qualifiers: Laterality: unspecified laterality Qualified Code(s): J18.9 - Pneumonia, unspecified organism Code(s): J18.9 - Pneumonia, unspecified organism Status: Acute Assessment and Plan: Presented with complaints of fever and cough. CXR showed patchy airspace opacities at the mid and lower lung zones consistent with pneumonia. Leukocytosis improving. Febrile up to 101.8? yesterday, remains afebrile today. Continue IV Levaquin for coverage of secondary bacterial pneumonia given onset of illness and clinical picture. Multiple antibiotic allergies noted COVID test positive as described below. Influenza negative She is maintaining adequate oxygen saturations on room air. No oxygen requirement Supportive care to include bronchodilators, expectorants, antipyretics (2) COVID-19: Code(s): U07.1 - COVID-19 Status: Acute Assessment and Plan: Given her symptoms and community prevalence, she was tested for COVID-19 on 07/06/2021 found to be positive She did complete vaccination in October 2020. She was scheduled to receive her booster shot last week but had to postpone due to her illness Continue isolation precautions She is not a candidate for COVID-19 specific therapy including dexamethasone or remdesivir at this time as she has no oxygen requirements Trend acute phase reactants Plan as described above (3) Essential (primary) hypertension: Code(s): I10 - Essential (primary) hypertension Status: Acute Assessment and Plan: Blood pressure reviewed and has been stable. Last BP138/79 Continue home amlodipine, lisinopril, atenolol Monitor blood pressure trends and adjust medication regimen as needed (4) Hyponatremia: Code(s): E87.1 - Hypo-osmolality and hyponatremia Status: Acute Assessment and Plan: Sodium slightly decreased on presentation 131-133 with declined this morning to 126. Urine sodium is 41 urine creatinine is 118. FENa is 0.3%. She reports poor oral intake. Will initiate IV fluids; sodium chloride at 100 mL/hour. Recheck sodium this evening to monitor for improvement Monitor BMP closely (5) Acute on chronic kidney failure: Code(s): N17.9 - Acute kidney failure, unspecified; N18.9 - Chronic kidney disease, unspecified Status: Acute Assessment and Plan: She is established with Nephrology. Reports her baseline GFR is around 50. Creatinine is 1.2 today with GFR 44. She is very close to her baseline at this time. She does appear somewhat dry and will begin fluids as described above. Perhaps this will provide some slight improvement in her renal function. Monitor renal function closely (6) Hypothyroidism: Qualifiers: Hypothyroidism type: acquired Qualified Code(s): E03.9 - Hypothyroidism, unspecified Code(s): E03.9 - Hypothyroidism, unspecified Status: Acute Assessment and Plan: TSH 5 months ago was within normal limits Continue levothyroxine (7) Conjunctivitis: Code(s): H10.9 - Unspecified conjunctivitis Status: Acute Assessment and Plan: Improving, nearly resolved. Continue with warm compress, artificial tears, lubricating eye ointment Subjective Date/time seen: 07/08/21 11:08 Interval history: Date of service: 07/08/2021 Krysta Asencio is a 75-year-old female with a history of CKD stage 3, hypertension, hyperlipidemia, hypothyroidism, aortic stenosis who is seen in follow-up for pneumonia due to COVID-19. She is feeling poorly today. She has little energy and feels weak. She continues to endorse cough. She says she cannot get anything up when she coughs. She does feel somewhat short of breath when she gets up. She is endorsing nausea. She is eating well and was able to eat her full breakfast. She does me that she has not been drinkin
[2021-07-08] MEDS: SODIUM CHLORIDE 0.9% IV 1,000 ML 100 ML IV CONT (11:44)
[2021-07-08 15:44] LABS: Sodium 127 mmol/L (137-145)
[2021-07-08] MEDS: ENOXAPARIN 40 MG/0.4 ML SYRINGE SUB-Q (17:30)
[2021-07-08] MEDS: atenoloL 25 MG TABLET PO (21:14)
[2021-07-08] MEDS: MINERAL OIL/WHITE PETROLATUM OINTMENT 1 APPLIC EACH EYE (21:16)
[2021-07-09] VITALS (7 sets, daily range): BP systolic 129–152; BP diastolic 46–65; PULSE 65–90; RESP 16–18; TEMP 36.8–37.3; O2SAT 80–92
[2021-07-09] MEDS: LEVOTHYROXINE SODIUM 100 MCG TABLET PO (05:46)
[2021-07-09] MEDS: SODIUM CHLORIDE 0.9% IV 1,000 ML 100 ML IV CONT (06:12)
[2021-07-09] MEDS: lisinopriL 20 MG TABLET 40 MG PO (08:31)
[2021-07-09] MEDS: BENZONATATE 100 MG CAPSULE PO ×2 (08:32→16:59)
[2021-07-09] MEDS: guaiFENesin 12 HR 600 MG TABCR PO ×2 (08:32→21:34)
[2021-07-09] MEDS: CHOLECALCIFEROL 1,000 UNITS TABLET 5000 UNITS PO (08:32)
[2021-07-09] MEDS: amLODIPine BESYLATE 5 MG TABLET PO (08:32)
[2021-07-09] MEDS: ARTIFICIAL TEARS OPHTH SOLN 15 ML BOTTLE 1 DROP EACH EYE ×4 (08:33→21:36)
[2021-07-09] MEDS: CYANOCOBALAMIN 500 MCG TABLET PO (08:33)
[2021-07-09] MEDS: PANTOPRAZOLE 40 MG TABLET PO (08:33)
[2021-07-09 08:36] LABS: Hematocrit 35.7 % (37.0-47.0); Hemoglobin 11.6 g/dL (12.0-15.0); Mean Corpuscular HGB Conc 32.5 g/dl (32-36); Mean Corpuscular Hemoglobin 29.4 pg (26-34); Mean Corpuscular Volume 90.6 fl (80-100); Mean Platelet Volume 9.1 fl (7.4-10.4); Platelet Count Result 304 k/mm3 (150-375); Red Blood Count 3.94 M/mm3 (4.2-5.4); Red Cell Distribution Width 13.3 % (11.5-14.5); White Blood Count 16.6 K/mm3 (4.5-10.0)
[2021-07-09 09:53] LABS: Anion Gap 8 mmol/L (8-16); Blood Urea Nitrogen 23 mg/dL (7-17); CRP 22.2 mg/dL (<1.0); Calcium 7.9 mg/dL (8.4-10.2); Carbon Dioxide 24 mmol/L (22-30); Chloride 95 mmol/L (98-107); Estimated CRCL calculation 43 ml/min; Estimated Glomerular Filt Rate 48; Glucose 158 mg/dL (65-110); Potassium 3.9 mmol/L (3.4-5.0); Sodium 127 mmol/L (137-145)
--- NOTE | 2021-07-09 10:01 | PM.IMPN ---
Progress Note: A&P Assessment and Plan (1) Community acquired pneumonia: Qualifiers: Laterality: unspecified laterality Qualified Code(s): J18.9 - Pneumonia, unspecified organism Code(s): J18.9 - Pneumonia, unspecified organism Status: Acute Assessment and Plan: Presented with complaints of fever and cough. CXR showed patchy airspace opacities at the mid and lower lung zones consistent with pneumonia. Leukocytosis improving. Febrile up to 101.8? yesterday, remains afebrile today. Continue IV Levaquin for coverage of secondary bacterial pneumonia given onset of illness and clinical picture. Multiple antibiotic allergies noted COVID test positive as described below. Influenza negative She is maintaining adequate oxygen saturations on room air. No oxygen requirement Supportive care to include bronchodilators, expectorants, antipyretics (2) COVID-19: Code(s): U07.1 - COVID-19 Status: Acute Assessment and Plan: Given her symptoms and community prevalence, she was tested for COVID-19 on 07/06/2021 found to be positive She did complete vaccination in October 2020. She was scheduled to receive her booster shot last week but had to postpone due to her illness Continue isolation precautions She is not a candidate for COVID-19 specific therapy including dexamethasone or remdesivir at this time as she has no oxygen requirements Trend acute phase reactants Plan as described above (3) Essential (primary) hypertension: Code(s): I10 - Essential (primary) hypertension Status: Acute Assessment and Plan: Blood pressure reviewed and has been stable. Last BP138/79 Continue home amlodipine, lisinopril, atenolol Monitor blood pressure trends and adjust medication regimen as needed (4) Hyponatremia: Code(s): E87.1 - Hypo-osmolality and hyponatremia Status: Acute Assessment and Plan: Sodium slightly decreased on presentation 131-133 with declined this morning to 126. Urine sodium is 41 urine creatinine is 118. FENa is 0.3%. She reports poor oral intake. Will initiate IV fluids; sodium chloride at 100 mL/hour. Recheck sodium this evening to monitor for improvement Monitor BMP closely (5) Acute on chronic kidney failure: Code(s): N17.9 - Acute kidney failure, unspecified; N18.9 - Chronic kidney disease, unspecified Status: Acute Assessment and Plan: She is established with Nephrology. Reports her baseline GFR is around 50. Creatinine is 1.2 today with GFR 44. She is very close to her baseline at this time. She does appear somewhat dry and will begin fluids as described above. Perhaps this will provide some slight improvement in her renal function. Monitor renal function closely (6) Hypothyroidism: Qualifiers: Hypothyroidism type: acquired Qualified Code(s): E03.9 - Hypothyroidism, unspecified Code(s): E03.9 - Hypothyroidism, unspecified Status: Acute Assessment and Plan: TSH 5 months ago was within normal limits Continue levothyroxine (7) Conjunctivitis: Code(s): H10.9 - Unspecified conjunctivitis Status: Acute Assessment and Plan: Improving, nearly resolved. Continue with warm compress, artificial tears, lubricating eye ointment Additional Plan 07/09/21 COVID PNA elevated BP Hydralazine PRN on abx and antiviral on RA at present cont current care anticipate dc tomorrow after COVID tx complete c/s PT/OT Subjective Date/time seen: 07/09/21 10:01 doing ok reports weakness and poor appetite. She is comfortable on room air. Patient reports that her also has COVID 19 and will be going home with him when she is discharged from the hospital. Exam Narrative: Ms. Asencio is an obese, well-appearing 75-year-old female who is lying semi recumbent in bed. She appears comfortable and is in NARD. Neuro: awake, alert and oriented x4,
[2021-07-09] MEDS: hydrALAZINE HCL 20 MG/ML VIAL 10 MG IV PUSH (14:15)
[2021-07-09] MEDS: ENOXAPARIN 40 MG/0.4 ML SYRINGE SUB-Q (16:58)
[2021-07-09] MEDS: ONDANSETRON INJ 4 MG/2 ML VIAL IV PUSH (17:29)
[2021-07-09] MEDS: atenoloL 25 MG TABLET PO (21:34)
[2021-07-09] MEDS: MINERAL OIL/WHITE PETROLATUM OINTMENT 1 APPLIC EACH EYE (21:36)
[2021-07-09 21:44] LABS: Legionella pneumophila Ag Ur Not Detected (Not Detected)
[2021-07-10] VITALS (11 sets, daily range): BP systolic 135–160; BP diastolic 57–71; PULSE 58–91; RESP 16–20; TEMP 36.5–37.3; O2SAT 84–95
[2021-07-10] MEDS: LEVOTHYROXINE SODIUM 100 MCG TABLET PO (09:11)
--- NOTE | 2021-07-10 11:21 | PCRCNOTE ---
Home O2 eval was not completed at si time, pt O2 status has declined from roon air at rest to 88% on 12L HFNC resting in bed. Stopped home O2 eval order at this time, RN notified.
--- NOTE | 2021-07-10 11:31 | PCPTNOTE ---
Attempted to see patient for PT evaluation, patient now requiring 12 L O2 and was unable to complete home O2 test will hold for therapy today per RN.
[2021-07-10] MEDS: ALBUTEROL SULFATE (*SP) AEROSOL 1 PUFF 2 PUFF INHALATION (11:38)
[2021-07-10 11:52] LABS: Alveolar/Arterial O2 Gradient 422.2 mmHg; Base Excess ABG 0.2 mEq/l (+/-2.0); Fractional Inspired Oxygen 72 %; HCO3 ABG 23.2 mEq/l (22.0-26.0); Oxygen Content ABG 16.6 %vol (16.0-22.0); Oxygen Saturation ABG 91.3 % (95.0-100.0); Oxyhemoglobin 88.4 % THb (90.0-100.0); PCO2 ABG 32.7 mmHg (35.0-45.0); PO2 ABG 56.2 mmHg (80.0-100.0); PO2 FiO2 Ratio Arterial Blood 0.78 %; Total Hemoglobin 13.4 g/dL (12.0-18.0); pH ABG 7.469 (7.350-7.450)
[2021-07-10 11:53] LABS: Device HIGH FLOW NASAL CANN; Modified Allen's Test Pass; Site Drawn RIGHT RADIAL
[2021-07-10] MEDS: lisinopriL 20 MG TABLET 40 MG PO (12:02)
[2021-07-10] MEDS: PANTOPRAZOLE 40 MG TABLET PO (12:02)
[2021-07-10] MEDS: guaiFENesin 12 HR 600 MG TABCR PO ×2 (12:02→22:39)
[2021-07-10 12:03] LABS: Anion Gap 6 mmol/L (8-16); Blood Urea Nitrogen 23 mg/dL (7-17); Calcium 8.1 mg/dL (8.4-10.2); Carbon Dioxide 26 mmol/L (22-30); Chloride 98 mmol/L (98-107); Estimated CRCL calculation 43 ml/min; Estimated Glomerular Filt Rate 48; Glucose 129 mg/dL (65-110); Potassium 4.2 mmol/L (3.4-5.0); Sodium 130 mmol/L (137-145)
[2021-07-10] MEDS: amLODIPine BESYLATE 5 MG TABLET PO (15:12)
[2021-07-10] MEDS: ARTIFICIAL TEARS OPHTH SOLN 15 ML BOTTLE 1 DROP EACH EYE ×3 (15:13→23:37)
[2021-07-10 16:26] LABS: Pneumococcal Antigen Urine Not Detected (Not Detected)
[2021-07-10] MEDS: ENOXAPARIN 40 MG/0.4 ML SYRINGE SUB-Q (18:24)
[2021-07-10] MEDS: ALBUTEROL SULFATE (*SP) INHALER 2 PUFF INHALATION ×2 (18:54→21:25)
--- NOTE | 2021-07-10 19:14 | PM.IMPN ---
Progress Note: A&P Assessment and Plan (1) Community acquired pneumonia: Qualifiers: Laterality: unspecified laterality Qualified Code(s): J18.9 - Pneumonia, unspecified organism Code(s): J18.9 - Pneumonia, unspecified organism Status: Acute Assessment and Plan: Presented with complaints of fever and cough. CXR showed patchy airspace opacities at the mid and lower lung zones consistent with pneumonia. Leukocytosis improving. Febrile up to 101.8? yesterday, remains afebrile today. Continue IV Levaquin for coverage of secondary bacterial pneumonia given onset of illness and clinical picture. Multiple antibiotic allergies noted COVID test positive as described below. Influenza negative She is maintaining adequate oxygen saturations on room air. No oxygen requirement Supportive care to include bronchodilators, expectorants, antipyretics (2) COVID-19: Code(s): U07.1 - COVID-19 Status: Acute Assessment and Plan: Given her symptoms and community prevalence, she was tested for COVID-19 on 07/06/2021 found to be positive She did complete vaccination in October 2020. She was scheduled to receive her booster shot last week but had to postpone due to her illness Continue isolation precautions She is not a candidate for COVID-19 specific therapy including dexamethasone or remdesivir at this time as she has no oxygen requirements Trend acute phase reactants Plan as described above (3) Essential (primary) hypertension: Code(s): I10 - Essential (primary) hypertension Status: Acute Assessment and Plan: Blood pressure reviewed and has been stable. Last BP138/79 Continue home amlodipine, lisinopril, atenolol Monitor blood pressure trends and adjust medication regimen as needed (4) Hyponatremia: Code(s): E87.1 - Hypo-osmolality and hyponatremia Status: Acute Assessment and Plan: Sodium slightly decreased on presentation 131-133 with declined this morning to 126. Urine sodium is 41 urine creatinine is 118. FENa is 0.3%. She reports poor oral intake. Will initiate IV fluids; sodium chloride at 100 mL/hour. Recheck sodium this evening to monitor for improvement Monitor BMP closely (5) Acute on chronic kidney failure: Code(s): N17.9 - Acute kidney failure, unspecified; N18.9 - Chronic kidney disease, unspecified Status: Acute Assessment and Plan: She is established with Nephrology. Reports her baseline GFR is around 50. Creatinine is 1.2 today with GFR 44. She is very close to her baseline at this time. She does appear somewhat dry and will begin fluids as described above. Perhaps this will provide some slight improvement in her renal function. Monitor renal function closely (6) Hypothyroidism: Qualifiers: Hypothyroidism type: acquired Qualified Code(s): E03.9 - Hypothyroidism, unspecified Code(s): E03.9 - Hypothyroidism, unspecified Status: Acute Assessment and Plan: TSH 5 months ago was within normal limits Continue levothyroxine (7) Conjunctivitis: Code(s): H10.9 - Unspecified conjunctivitis Status: Acute Assessment and Plan: Improving, nearly resolved. Continue with warm compress, artificial tears, lubricating eye ointment Additional Plan 07/09/21 COVID PNA elevated BP Hydralazine PRN on abx and antiviral on RA at present cont current care anticipate dc tomorrow after COVID tx complete c/s PT/OT 07/10/2021 Patient is fully vaccinated against COVID-19 She has gone from room air to 13 L high-flow nasal cannula overnight Continue antibiotics Remdesivir Dexamethasone Supplemental oxygen Consult pulmonology Subjective Date/time seen: 07/10/21 19:14 Patient was on room air yesterday saturating well today she is on 13 L high-flow nasal cannula. Remdesivir has been ordered as well as dexamethasone and consult to Pulmonary
[2021-07-10 20:09] LABS: Alanine Aminotransferase 97 U/L (4-35); Estimated CRCL calculation 36 ml/min; Estimated Glomerular Filt Rate 40
[2021-07-10 20:10] LABS: INR 1.3; Prothrombin Time 15.5 Seconds (11.1-14.7)
[2021-07-10] MEDS: REMDESIVIR 200 MG/NS 250 ML 200 MG/250 ML BAG 250 MG IVPB (22:32)
[2021-07-10] MEDS: AZITHROMYCIN 250 MG TABLET 500 MG PO (22:36)
[2021-07-10] MEDS: atenoloL 25 MG TABLET PO (22:40)
[2021-07-11] VITALS (14 sets, daily range): BP systolic 127–148; BP diastolic 46–64; PULSE 61–85; RESP 14–24; TEMP 36.4–37; O2SAT 92–99
--- NOTE | 2021-07-11 04:53 | PCRCNOTE ---
Window of time for administration has passed. See next scheduled administration.
[2021-07-11] MEDS: LEVOTHYROXINE SODIUM 100 MCG TABLET PO (05:44)
[2021-07-11 08:25] LABS: INR 1.2; Prothrombin Time 14.9 Seconds (11.1-14.7)
[2021-07-11 08:26] LABS: Alanine Aminotransferase 115 U/L (4-35); Estimated CRCL calculation 39 ml/min; Estimated Glomerular Filt Rate 44
[2021-07-11] MEDS: ALBUTEROL SULFATE (*SP) INHALER 2 PUFF INHALATION ×3 (08:36→21:19)
[2021-07-11] MEDS: amLODIPine BESYLATE 5 MG TABLET PO (08:50)
[2021-07-11] MEDS: CHOLECALCIFEROL 1,000 UNITS TABLET 5000 UNITS PO (08:51)
[2021-07-11] MEDS: BENZONATATE 100 MG CAPSULE PO (08:51)
[2021-07-11] MEDS: lisinopriL 20 MG TABLET 40 MG PO (08:51)
[2021-07-11] MEDS: PANTOPRAZOLE 40 MG TABLET PO (08:51)
[2021-07-11] MEDS: AZITHROMYCIN 250 MG TABLET PO (08:51)
[2021-07-11] MEDS: guaiFENesin 12 HR 600 MG TABCR PO ×2 (08:52→22:44)
[2021-07-11] MEDS: CYANOCOBALAMIN 500 MCG TABLET PO (08:52)
[2021-07-11] MEDS: PYRIDOXINE HCL 25 MG TABLET PO (08:52)
[2021-07-11] MEDS: ARTIFICIAL TEARS OPHTH SOLN 15 ML BOTTLE 1 DROP EACH EYE ×4 (08:56→22:10)
--- NOTE | 2021-07-11 10:27 | PM.CNPUL ---
Assessment and Plan Assessment and plan (1) COVID-19: Code(s): U07.1 - COVID-19 Status: Acute Assessment and Plan: 76-year-old female, with obesity obstructive sleep apnea presented with fever cough related to COVID-19 pneumonia. The patient's respiratory status appears stable over the last 24 hours. The patient maintains an O2 saturation over 93% while receiving supplemental oxygen via high-flow nasal cannula. Chest CT showed bilateral infiltrates related to COVID-19 pneumonia. Patient is currently on dexamethasone and remdesivir. She is also on DVT prophylaxis and Zithromax for possible community-acquired pneumonia. I would continue with current regimen consisting of dexamethasone and remdesivir peak. In view of renal insufficiency would not use anti-inflammatory agents like baricitinib. will monitor respiratory status gas exchange D-dimers and CRP. Repeat chest x-ray in a.m. (2) Acute on chronic kidney failure: Code(s): N17.9 - Acute kidney failure, unspecified; N18.9 - Chronic kidney disease, unspecified Status: Acute History of Present Illness History of Present Illness Consult date: 07/11/21 Chief complaint: pneumonia Narrative: this 76-year-old female presented 5 days ago with fever and cough. She has significant past medical history including CKD stage 3, hypertension, hyperlipidemia hypothyroidism, obstructive sleep apnea, and aortic stenosis. The patient had had a cough for several days. Approximately 6 days prior to this admission she started having fevers and persistent cough. Her was also sick at home with similar symptoms. As an outpatient she was treated with Solu-Medrol which did not make any difference. Patient denied having chest pain hemoptysis or wheezing. Serology testing showed positive PCR for COVID 19 infection. The patient had 2 doses of COVID vaccine but has not had the booster dose yet. Chest CT showed diffuse lung disease bilaterally consistent with COVID 19 pneumonia. Patient is currently on remdesivir dexamethasone, DVT prophylaxis and also Zithromax. She was treated with levofloxacin but that has been discontinued. She has been on high-flow nasal cannula using nasal cannula flow at 15 liters/minute as well as a non rebreather. She has some coughing but no significant shortness of breath. She was having her breakfast with just the high-flow nasal cannula 15 liters/minute with no significant shortness of breath. she recently underwent sleep study at home which showed obstructive sleep apnea. CPAP titration in the lab was recommended. Review of Systems Review of Systems: All systems reviewed & are unremarkable except as noted in HPI and below (H and P and below.) [facility] Past Medical History Medical History (Updated 07/08/21 @ 11:19 by Jil Do PA-C) Aortic insufficiency with aortic stenosis Mild and asymptomatic. Followed by Dr. Butler. Chronic kidney disease, stage 3 Baseline creatinine is around 1.00. Dyslipidemia Essential (primary) hypertension Gastroesophageal reflux disease History of peptic ulcer Hypothyroidism MRSA infection Right axillary abscess secondary to MRSA. Obstructive sleep apnea (~05/2021) Osteoarthritis Prediabetes Hemoglobin A1c was 5.7% in September 2019. Sjogrens syndrome Vitamin B12 deficiency Surgical History Surgical History History of arthroplasty of right knee (~12/2019) History of breast biopsy (Unknown) With benign pathology. History of cataract extraction (~2017) History of dilatation and curettage (Unknown) History of hysterectomy (~2009) History of incision and drainage (~2009) Right axillary abscess secondary to MRSA. History of left hip replacement (~02/2019) History of surgical removal of pilonidal cyst (~07/2008) Status post biopsy of kidney (~11/2020) Family History Family History (Reviewed 07/01/21 @ 10:12 by Ceci Álvarez
--- NOTE | 2021-07-11 11:55 | PCPTNOTE ---
Pt has been down graded to IMU with a change in status. Attempted to reach MD to verify PT remains appropriate.
--- NOTE | 2021-07-11 14:11 | PCPTNOTE ---
Spoke with nurse, Ruthie, who requested therapy to be placed on hold for pt today due to medical status.
--- NOTE | 2021-07-11 14:43 | PCNWS ---
Addendum entered by Faye Novak, RD, LDN 07/11/21 16:39: Pt is tolerating current heart healthy diet, however, pt requested having foods moistened due to sjogrens syndrome causing frequent dry mouth. Attempted to contact physician on staff to discuss switching diet to minced and moist, level 5. Pt reports she does not have any chewing or swallowing issues. Pt requested to add extra gravy to foods that come with it to help moisten them. Diet office has been made aware to add additional gravy to foods as requested by pt. Recommend switching diet to minced and moist, level 5 if pt becomes unable to tolerate current diet. Original Note: Weekly nutritional screen. Pt screened in for pressure ulcer. Spoke to wound nurse who reports that pt does not have pressure ulcers at this time. Patient is tolerating current diet with adequate intake. No weight loss reported. No nutritional needs at this time.
--- NOTE | 2021-07-11 16:59 | PC.NURSE ---
1115- received pt from 3rd [facility] via bed- report received from Ping AGUILERA- pt a/o x3- VSS- O2 on 10 liters/NRB and 15 HF- spo2 = @ 93%- RR @ 18
[2021-07-11] MEDS: ENOXAPARIN 40 MG/0.4 ML SYRINGE SUB-Q (17:23)
--- NOTE | 2021-07-11 20:05 | P.PNIM_ITS ---
Progress Note: A&P Assessment and Plan (1) Community acquired pneumonia: Qualifiers: Laterality: unspecified laterality Qualified Code(s): J18.9 - Pneumonia, unspecified organism Code(s): J18.9 - Pneumonia, unspecified organism Status: Acute Assessment and Plan: Presented with complaints of fever and cough. CXR showed patchy airspace opacities at the mid and lower lung zones consistent with pneumonia. Leukocytosis improving. Febrile up to 101.8? yesterday, remains afebrile today. * Continue IV Levaquin for coverage of secondary bacterial pneumonia given onset of illness and clinical picture. Multiple antibiotic allergies noted * COVID test positive as described below. Influenza negative * She is maintaining adequate oxygen saturations on room air. No oxygen requirement * Supportive care to include bronchodilators, expectorants, antipyretics (2) COVID-19: Code(s): U07.1 - COVID-19 Status: Acute Assessment and Plan: Given her symptoms and community prevalence, she was tested for COVID-19 on 07/06/2021 found to be positive * She did complete vaccination in October 2020. She was scheduled to receive her booster shot last week but had to postpone due to her illness * Continue isolation precautions * She is not a candidate for COVID-19 specific therapy including dexamethasone or remdesivir at this time as she has no oxygen requirements * Trend acute phase reactants * Plan as described above (3) Essential (primary) hypertension: Code(s): I10 - Essential (primary) hypertension Status: Acute Assessment and Plan: Blood pressure reviewed and has been stable. Last BP138/79 * Continue home amlodipine, lisinopril, atenolol * Monitor blood pressure trends and adjust medication regimen as needed (4) Hyponatremia: Code(s): E87.1 - Hypo-osmolality and hyponatremia Status: Acute Assessment and Plan: Sodium slightly decreased on presentation 131-133 with declined this morning to 126. * Urine sodium is 41 urine creatinine is 118. FENa is 0.3%. * She reports poor oral intake. Will initiate IV fluids; sodium chloride at 100 mL/hour. Recheck sodium this evening to monitor for improvement * Monitor BMP closely (5) Acute on chronic kidney failure: Code(s): N17.9 - Acute kidney failure, unspecified; N18.9 - Chronic kidney disease, unspecified Status: Acute Assessment and Plan: She is established with Nephrology. Reports her baseline GFR is around 50. Creatinine is 1.2 today with GFR 44. * She is very close to her baseline at this time. * She does appear somewhat dry and will begin fluids as described above. Perhaps this will provide some slight improvement in her renal function. * Monitor renal function closely (6) Hypothyroidism: Qualifiers: Hypothyroidism type: acquired Qualified Code(s): E03.9 - Hypothyroidism, unspecified Code(s): E03.9 - Hypothyroidism, unspecified Status: Acute Assessment and Plan: TSH 5 months ago was within normal limits * Continue levothyroxine (7) Conjunctivitis: Code(s): H10.9 - Unspecified conjunctivitis Status: Acute Assessment and Plan: Improving, nearly resolved. Continue with warm compress, artificial tears, lubricating eye ointment Additional Plan 07/09/21 COVID PNA elevated BP Hydralazine PRN on abx and antiviral on RA at present cont current care anticipate dc tomorrow after COVID tx complete
[2021-07-11] MEDS: MINERAL OIL/WHITE PETROLATUM OINTMENT 1 APPLIC EACH EYE (22:08)
[2021-07-11] MEDS: atenoloL 25 MG TABLET PO (22:08)
[2021-07-11] MEDS: REMDESIVIR 100 MG/NS 250 ML 100 MG/250 ML BAG 250 MG IVPB (22:10)
[2021-07-12] VITALS (18 sets, daily range): BP systolic 123–153; BP diastolic 49–73; PULSE 60–92; RESP 17–22; TEMP 35.7–37.1; O2SAT 87–100
[2021-07-12] MEDS: ALBUTEROL SULFATE (*SP) INHALER 2 PUFF INHALATION ×4 (03:37→19:37)
[2021-07-12 05:45] LABS: INR 1.3; Prothrombin Time 15.7 Seconds (11.1-14.7)
[2021-07-12] MEDS: LEVOTHYROXINE SODIUM 100 MCG TABLET PO (05:45)
[2021-07-12 05:47] LABS: D Dimer 2.31 ug/mL (<0.48)
[2021-07-12 05:51] LABS: Alanine Aminotransferase 163 U/L (4-35); Albumin Level 3.2 g/dL (3.5-5.1); Alkaline Phosphatase 183 U/L (38-126); Anion Gap 11 mmol/L (8-16); Aspartate Amino Transferase 138 U/L (14-36); Bilirubin,Total 0.7 mg/dL (0.2-1.3); Blood Urea Nitrogen 34 mg/dL (7-17); Calcium 8.4 mg/dL (8.4-10.2); Carbon Dioxide 22 mmol/L (22-30); Chloride 99 mmol/L (98-107); Estimated CRCL calculation 39 ml/min; Estimated Glomerular Filt Rate 44; Glucose 193 mg/dL (65-110); Magnesium 2.1 mg/dL (1.6-2.3); Sodium 132 mmol/L (137-145)
[2021-07-12] MEDS: amLODIPine BESYLATE 5 MG TABLET PO (10:10)
[2021-07-12] MEDS: ARTIFICIAL TEARS OPHTH SOLN 15 ML BOTTLE 1 DROP EACH EYE ×4 (10:10→21:07)
[2021-07-12] MEDS: AZITHROMYCIN 250 MG TABLET PO (10:10)
[2021-07-12] MEDS: lisinopriL 20 MG TABLET 40 MG PO (10:11)
[2021-07-12] MEDS: guaiFENesin 12 HR 600 MG TABCR PO ×2 (10:11→21:07)
[2021-07-12] MEDS: PANTOPRAZOLE 40 MG TABLET PO (10:12)
--- NOTE | 2021-07-12 10:12 | PM.PNPUL ---
Progress Note: A&P Assessment and Plan (1) Pneumonia due to COVID-19 virus: Code(s): U07.1 - COVID-19; J12.82 - Pneumonia due to coronavirus disease 2019 Status: Acute (2) Acute hypoxemic respiratory failure due to COVID-19: Code(s): U07.1 - COVID-19; J96.01 - Acute respiratory failure with hypoxia Status: Acute Assessment and Plan: 76-year-old female with acute hypoxemic respiratory failure related to COVID-19 pneumonia, currently on high-flow nasal cannula with stable respiratory status a gas exchange over the last 24 hours, receiving treatment with dexamethasone and remdesivir also antibiotic for possible lower respiratory tract infection other than COVID. Chest x-ray done today showed some worsening compared to initial chest x-ray. CRP elevated but trending down. she is currently on a high-flow nasal cannula at 15 liters/minute and also on non-rebreather mask. Patient tolerating high-flow nasal cannula at 15 liters/minute during meals. continue with current regimen. (3) Sjogrens syndrome: Qualifiers: Sjogren's organ involvement: unspecified organ involvement Qualified Code(s): M35.00 - Sicca syndrome, unspecified Code(s): M35.00 - Sjogren syndrome, unspecified Status: Acute Assessment and Plan: Patient has history of Sjogren symptoms but chest CT showed no evidence of interstitial lung disease. (4) Obstructive sleep apnea: Onset Date: ~05/2021 Code(s): G47.33 - Obstructive sleep apnea (adult) (pediatric) Status: Acute Subjective Date/time seen: 07/12/21 10:12 Patient has no new respiratory symptoms. Slept well last night. She still on a high-flow nasal cannula. No fever chills. Mild cough. Review of Systems Review of Systems: All systems reviewed & are unremarkable except as noted in HPI and below (H and P and below.) Exam Narrative: GENERAL APPEARANCE: Well developed, well nourished, alert and cooperative, and appears to be in mild respiratory distress while on supplemental oxygen via high-flow nasal cannula. SKIN: Inspection of the skin reveals no rashes, ulcerations or petechiae. HEENT: Sclerae anicteric and conjunctivae pink and moist. Extraocular movements were intact and pupils were equal. NECK: Supple. There was no thyroid enlargement, and no tenderness, or masses were felt. CHEST: Normal AP diameter and normal contour without any kyphoscoliosis. LUNGS: Auscultation of the lungs revealed crackles at bases posteriorly no wheezing. CARDIAC: There was a regular rate and rhythm without any murmurs, gallops, rubs. ABDOMEN: Soft and nontender with normal bowel sounds. There was no organomegaly. LYMPH NODES: No lymphadenopathy was appreciated in the neck. EXTREMITIES: No cyanosis, clubbing or edema. NEUROLOGIC: Alert and oriented x 3. Normal affect. Objective Data Vital Signs Vital Signs: Vital Signs - 24 hr 07/11/21 11:30 07/11/21 11:32 07/11/21 12:00 Temperature 36.8 C 36.4 C Pulse Rate 64 65 Respiratory Rate 20 24 H Blood Pressure 134/55 L 127/46 L Pulse Oximetry 93 94 99 07/11/21 16:00 07/11/21 16:30 07/11/21 18:00 Temperature 36.6 C Pulse Rate 65 74 77 Respiratory Rate 14 Blood Pressure 148/52 H Pulse Oximetry 94 07/11/21 20:05 07/11/21 21:20 07/11/21 22:00 Temperature 36.7 C Pulse Rate 78 85 Respiratory Rate 16 Blood Pressure 139/54 L Pulse Oximetry 93 93 07/11/21 22:08 07/12/21 00:00 07/12/21 00:40 Temperature 36.9 C Pulse Rate 68 60 74 Respiratory Rate 17 Blood Pressure 152/64 H Pulse Oximetry 94 07/12/21 02:00 07/12/21 04:00 07/12/21 06:00 Temperature 36.4 C Pulse Rate 61 63 60 Respiratory Rate 22 H Blood Pressure 150/61 H Pulse Oximetry 96 07/12/21 08:38 07/12/21 09:06 Temperature 36.2 C L Pulse Rate 61 Respiratory Rate 22 H Blood Pressure 141/61 H Pulse Oximetry 96 93 Intake/Output Intake/Output: Intake & Output 07/09/21
[2021-07-12] MEDS: ENOXAPARIN 40 MG/0.4 ML SYRINGE SUB-Q (17:55)
--- NOTE | 2021-07-12 20:25 | PM.IMPN ---
Progress Note: A&P Assessment and Plan (1) Community acquired pneumonia: Qualifiers: Laterality: unspecified laterality Qualified Code(s): J18.9 - Pneumonia, unspecified organism Code(s): J18.9 - Pneumonia, unspecified organism Status: Acute Assessment and Plan: Presented with complaints of fever and cough. CXR showed patchy airspace opacities at the mid and lower lung zones consistent with pneumonia. Leukocytosis improving. Febrile up to 101.8? yesterday, remains afebrile today. Continue IV Levaquin for coverage of secondary bacterial pneumonia given onset of illness and clinical picture. Multiple antibiotic allergies noted COVID test positive as described below. Influenza negative She is maintaining adequate oxygen saturations on room air. No oxygen requirement Supportive care to include bronchodilators, expectorants, antipyretics (2) COVID-19: Code(s): U07.1 - COVID-19 Status: Acute Assessment and Plan: Given her symptoms and community prevalence, she was tested for COVID-19 on 07/06/2021 found to be positive She did complete vaccination in October 2020. She was scheduled to receive her booster shot last week but had to postpone due to her illness Continue isolation precautions She is not a candidate for COVID-19 specific therapy including dexamethasone or remdesivir at this time as she has no oxygen requirements Trend acute phase reactants Plan as described above (3) Essential (primary) hypertension: Code(s): I10 - Essential (primary) hypertension Status: Acute Assessment and Plan: Blood pressure reviewed and has been stable. Last BP138/79 Continue home amlodipine, lisinopril, atenolol Monitor blood pressure trends and adjust medication regimen as needed (4) Hyponatremia: Code(s): E87.1 - Hypo-osmolality and hyponatremia Status: Acute Assessment and Plan: Sodium slightly decreased on presentation 131-133 with declined this morning to 126. Urine sodium is 41 urine creatinine is 118. FENa is 0.3%. She reports poor oral intake. Will initiate IV fluids; sodium chloride at 100 mL/hour. Recheck sodium this evening to monitor for improvement Monitor BMP closely (5) Acute on chronic kidney failure: Code(s): N17.9 - Acute kidney failure, unspecified; N18.9 - Chronic kidney disease, unspecified Status: Acute Assessment and Plan: She is established with Nephrology. Reports her baseline GFR is around 50. Creatinine is 1.2 today with GFR 44. She is very close to her baseline at this time. She does appear somewhat dry and will begin fluids as described above. Perhaps this will provide some slight improvement in her renal function. Monitor renal function closely (6) Hypothyroidism: Qualifiers: Hypothyroidism type: acquired Qualified Code(s): E03.9 - Hypothyroidism, unspecified Code(s): E03.9 - Hypothyroidism, unspecified Status: Acute Assessment and Plan: TSH 5 months ago was within normal limits Continue levothyroxine (7) Conjunctivitis: Code(s): H10.9 - Unspecified conjunctivitis Status: Acute Assessment and Plan: Improving, nearly resolved. Continue with warm compress, artificial tears, lubricating eye ointment Additional Plan 07/09/21 COVID PNA elevated BP Hydralazine PRN on abx and antiviral on RA at present cont current care anticipate dc tomorrow after COVID tx complete c/s PT/OT 07/10/2021 Patient is fully vaccinated against COVID-19 She has gone from room air to 13 L high-flow nasal cannula overnight Continue antibiotics Remdesivir Dexamethasone Supplemental oxygen Consult pulmonology 07/11/21 cont abx cont remdesivir cont dexamethasone cont supplemental O2 pulm consult apprecaited cont supportive care inflam markers in am 07/12/21 doing ok proned w improved oxygne requirements stil
[2021-07-12] MEDS: MINERAL OIL/WHITE PETROLATUM OINTMENT 1 APPLIC EACH EYE (21:08)
[2021-07-12] MEDS: REMDESIVIR 100 MG/NS 250 ML 100 MG/250 ML BAG 250 MG IVPB (21:08)
[2021-07-12] MEDS: atenoloL 25 MG TABLET PO (21:08)
[2021-07-13] VITALS (23 sets, daily range): BP systolic 119–154; BP diastolic 44–65; PULSE 56–92; RESP 21–24; TEMP 36.2–37.3; O2SAT 85–99
[2021-07-13] MEDS: ALBUTEROL SULFATE (*SP) INHALER 2 PUFF INHALATION ×3 (01:18→20:11)
[2021-07-13] MEDS: LEVOTHYROXINE SODIUM 100 MCG TABLET PO (05:30)
[2021-07-13 08:38] LABS: Alanine Aminotransferase 108 U/L (4-35); Estimated CRCL calculation 52 ml/min; Estimated Glomerular Filt Rate > 60
[2021-07-13 08:51] LABS: Albumin Level 2.9 g/dL (3.5-5.1); Alkaline Phosphatase 151 U/L (38-126); Anion Gap 4 mmol/L (8-16); Aspartate Amino Transferase 59 U/L (14-36); Bilirubin,Total 0.8 mg/dL (0.2-1.3); Blood Urea Nitrogen 35 mg/dL (7-17); Calcium 8.1 mg/dL (8.4-10.2); Carbon Dioxide 25 mmol/L (22-30); Chloride 101 mmol/L (98-107); Glucose 153 mg/dL (65-110); Magnesium 2.2 mg/dL (1.6-2.3); Potassium 4.7 mmol/L (3.4-5.0); Sodium 130 mmol/L (137-145)
[2021-07-13] MEDS: guaiFENesin 12 HR 600 MG TABCR PO ×2 (09:29→21:03)
[2021-07-13] MEDS: PANTOPRAZOLE 40 MG TABLET PO (09:29)
[2021-07-13] MEDS: lisinopriL 20 MG TABLET 40 MG PO (09:29)
[2021-07-13] MEDS: amLODIPine BESYLATE 5 MG TABLET PO (09:30)
[2021-07-13] MEDS: AZITHROMYCIN 250 MG TABLET PO (09:30)
[2021-07-13 10:52] LABS: INR 1.2; Prothrombin Time 14.7 Seconds (11.1-14.7)
--- NOTE | 2021-07-13 13:03 | PCRCNOTE ---
Window of time for administration has passed. See next scheduled administration.
--- NOTE | 2021-07-13 15:28 | PM.PNPUL ---
Progress Note: A&P Assessment and Plan (1) Pneumonia due to COVID-19 virus: Code(s): U07.1 - COVID-19; J12.82 - Pneumonia due to coronavirus disease 2019 Status: Acute (2) Acute hypoxemic respiratory failure due to COVID-19: Code(s): U07.1 - COVID-19; J96.01 - Acute respiratory failure with hypoxia Status: Acute Assessment and Plan: 76-year-old female with acute hypoxemic respiratory failure related to COVID-19 pneumonia, currently on high-flow nasal cannula, receiving treatment with dexamethasone and remdesivir also antibiotic for possible lower respiratory tract infection other than COVID. Continue with current regimen. Repeat chest x-ray in a.m. monitor CRP D-dimers. Will consider BiPAP support at night if O2 sat is below 92% on Airvo. (3) Sjogrens syndrome: Qualifiers: Sjogren's organ involvement: unspecified organ involvement Qualified Code(s): M35.00 - Sicca syndrome, unspecified Code(s): M35.00 - Sjogren syndrome, unspecified Status: Acute Assessment and Plan: Patient has history of Sjogren symptoms but chest CT showed no evidence of interstitial lung disease. (4) Obstructive sleep apnea: Onset Date: ~05/2021 Code(s): G47.33 - Obstructive sleep apnea (adult) (pediatric) Status: Acute Subjective Date/time seen: 07/13/21 15:28 patient without any new respiratory symptoms. Placed on Airvo 60 L per minute oxygen because of borderline O2 sat. Review of Systems Review of Systems: All systems reviewed & are unremarkable except as noted in HPI and below (H and P and below.) Exam Narrative: GENERAL APPEARANCE: Well developed, well nourished, alert and cooperative, and appears to be in mild respiratory distress while on supplemental oxygen via high-flow nasal cannula. SKIN: Inspection of the skin reveals no rashes, ulcerations or petechiae. HEENT: Sclerae anicteric and conjunctivae pink and moist. Extraocular movements were intact and pupils were equal. NECK: Supple. There was no thyroid enlargement, and no tenderness, or masses were felt. CHEST: Normal AP diameter and normal contour without any kyphoscoliosis. LUNGS: Auscultation of the lungs revealed crackles at bases posteriorly no wheezing. CARDIAC: There was a regular rate and rhythm without any murmurs, gallops, rubs. ABDOMEN: Soft and nontender with normal bowel sounds. There was no organomegaly. LYMPH NODES: No lymphadenopathy was appreciated in the neck. EXTREMITIES: No cyanosis, clubbing or edema. NEUROLOGIC: Alert and oriented x 3. Normal affect. Objective Data Vital Signs Vital Signs: Vital Signs - 24 hr 07/12/21 16:00 07/12/21 19:32 07/12/21 20:00 Temperature 35.7 C L Pulse Rate 75 92 Respiratory Rate 20 21 H Blood Pressure 123/49 L Pulse Oximetry 91 95 87 L 07/12/21 20:30 07/12/21 20:50 07/12/21 21:08 Temperature 37.1 C Pulse Rate 92 82 88 Respiratory Rate 21 H Blood Pressure 133/60 Pulse Oximetry 91 100 07/12/21 21:15 07/12/21 22:00 07/13/21 00:00 Temperature Pulse Rate 74 84 82 Respiratory Rate 20 22 H Blood Pressure Pulse Oximetry 99 91 07/13/21 00:15 07/13/21 02:00 07/13/21 04:00 Temperature 37.2 C Pulse Rate 69 62 59 L Respiratory Rate 22 H 21 H Blood Pressure 143/65 H Pulse Oximetry 91 91 07/13/21 04:45 07/13/21 06:00 07/13/21 08:00 Temperature 37.3 C Pulse Rate 76 56 L 56 L Respiratory Rate 24 H Blood Pressure 122/53 L Pulse Oximetry 85 L 07/13/21 08:36 07/13/21 09:40 07/13/21 10:00 Temperature 36.4 C L Pulse Rate 57 L 75 Respiratory Rate 24 H Blood Pressure 154/57 H Pulse Oximetry 96 94 07/13/21 12:00 07/13/21 13:00 07/13/21 13:33 Temperature 36.2 C L Pulse Rate 71 80 Respiratory Rate 24 H Blood Pressure 146/44 H Pulse Oximetry 93 90 92 Intake/Output Intake/Output: Intake & Output 07/10/21 07/11/21 07/12/21 07/13/21 23:59 23:59 23:59 23:59 Intake To
[2021-07-13] MEDS: ENOXAPARIN 40 MG/0.4 ML SYRINGE SUB-Q (17:37)
[2021-07-13] MEDS: atenoloL 25 MG TABLET PO (21:02)
[2021-07-13] MEDS: REMDESIVIR 100 MG/NS 250 ML 100 MG/250 ML BAG 250 MG IVPB (21:03)
[2021-07-13] MEDS: ARTIFICIAL TEARS OPHTH SOLN 15 ML BOTTLE 1 DROP EACH EYE (21:04)
[2021-07-14] VITALS (30 sets, daily range): BP systolic 85–159; BP diastolic 44–94; PULSE 66–115; RESP 17–43; TEMP 36.6–37.2; O2SAT 65–99
[2021-07-14] MEDS: ALBUTEROL SULFATE (*SP) INHALER 2 PUFF INHALATION ×2 (01:28→10:16)
[2021-07-14] MEDS: LEVOTHYROXINE SODIUM 100 MCG TABLET PO (06:06)
[2021-07-14 07:04] LABS: Alanine Aminotransferase 94 U/L (4-35); Estimated CRCL calculation 47 ml/min; Estimated Glomerular Filt Rate 54
[2021-07-14 07:32] LABS: CRP 27.2 mg/dL (<1.0)
[2021-07-14] MEDS: AZITHROMYCIN 250 MG TABLET PO (08:29)
[2021-07-14] MEDS: CYANOCOBALAMIN 500 MCG TABLET PO (08:29)
[2021-07-14] MEDS: lisinopriL 20 MG TABLET 40 MG PO (08:29)
[2021-07-14] MEDS: PYRIDOXINE HCL 25 MG TABLET PO (08:29)
[2021-07-14] MEDS: guaiFENesin 12 HR 600 MG TABCR PO (08:29)
[2021-07-14] MEDS: CHOLECALCIFEROL 1,000 UNITS TABLET 5000 UNITS PO (08:29)
[2021-07-14] MEDS: PANTOPRAZOLE 40 MG TABLET PO (08:29)
[2021-07-14] MEDS: amLODIPine BESYLATE 5 MG TABLET PO (08:30)
[2021-07-14 09:48] LABS: INR 1.4; Prothrombin Time 16.8 Seconds (11.1-14.7)
[2021-07-14 09:49] LABS: D Dimer > 20.00 ug/mL (<0.48)
[2021-07-14 10:44] LABS: Hematocrit 34.7 % (37.0-47.0); Hemoglobin 11.8 g/dL (12.0-15.0); Mean Corpuscular Hemoglobin 29.5 pg (26-34); Mean Corpuscular Volume 86.8 fl (80-100); Mean Platelet Volume 9.5 fl (7.4-10.4); Platelet Count Result 244 k/mm3 (150-375); Red Cell Distribution Width 13.6 % (11.5-14.5); White Blood Count 35.6 K/mm3 (4.5-10.0)
[2021-07-14 10:51] LABS: Alanine Aminotransferase 90 U/L (4-35); Aspartate Amino Transferase 84 U/L (14-36); Estimated CRCL calculation 52 ml/min; Estimated Glomerular Filt Rate > 60
[2021-07-14 10:55] LABS: NT Pro B Type Natriuretic Pept 4960 pg/mL (5-100)
[2021-07-14 11:27] LABS: Band Neutrophils Percent 5 % (0-6); Lymphocytes Absolute Manual 1.42 K/mm3 (1.1-4.5); Lymphocytes Percent Manual 4 % (18-44); Neutrophils Absolute Manual 34.17 K/mm3 (1.7-7.2); Neutrophils Percent Manual 91 % (46-73); Platelet Estimate Adequate (Adequate); Total Cells Counted 100
[2021-07-14] MEDS: FUROSEMIDE INJ 40 MG/4 ML VIAL 20 MG IV PUSH (12:15)
[2021-07-14] MEDS: BARICITINIB 2 MG TABLET PO (12:15)
--- NOTE | 2021-07-14 14:50 | PCPTNOTE ---
Therapist spoke with RN regarding seeing patient for Physical Therapy. RN requested to hold therapy treatment for today secondary to patient requiring increased oxygen needs with activity.
--- NOTE | 2021-07-14 16:39 | PM.IMPN ---
Progress Note: A&P Assessment and Plan (1) Community acquired pneumonia: Qualifiers: Laterality: unspecified laterality Qualified Code(s): J18.9 - Pneumonia, unspecified organism Code(s): J18.9 - Pneumonia, unspecified organism Status: Acute Assessment and Plan: Presented with complaints of fever and cough. CXR showed patchy airspace opacities at the mid and lower lung zones consistent with pneumonia. Worsening Covid pt is on BIPAP. Covid treatments at [place]. (2) COVID-19: Code(s): U07.1 - COVID-19 Status: Acute Assessment and Plan: Given her symptoms and community prevalence, she was tested for COVID-19 on 07/06/2021 found to be positive Pt is on remdesivir Pt is on iv levaquin, iv azithromycin and iv vancomycin PT is on iv steroids Pt is on baricitinib (3) Essential (primary) hypertension: Code(s): I10 - Essential (primary) hypertension Status: Acute Assessment and Plan: Blood pressure reviewed and has been stable. Last BP138/79 Continue home amlodipine, lisinopril, atenolol Monitor blood pressure trends and adjust medication regimen as needed (4) Hyponatremia: Code(s): E87.1 - Hypo-osmolality and hyponatremia Status: Acute Assessment and Plan: Sodium slightly decreased on presentation 131-133 Sodium is 130 today. (5) Acute on chronic kidney failure: Code(s): N17.9 - Acute kidney failure, unspecified; N18.9 - Chronic kidney disease, unspecified Status: Acute Assessment and Plan: She is established with Nephrology. Reports her baseline GFR is around 50. Creatinine is 1.2 today with GFR 44. Monitor renal function closely (6) Hypothyroidism: Qualifiers: Hypothyroidism type: acquired Qualified Code(s): E03.9 - Hypothyroidism, unspecified Code(s): E03.9 - Hypothyroidism, unspecified Status: Acute Assessment and Plan: TSH 5 months ago was within normal limits Continue levothyroxine (7) Conjunctivitis: Code(s): H10.9 - Unspecified conjunctivitis Status: Acute Assessment and Plan: Improving, nearly resolved. Continue with warm compress, artificial tears, lubricating eye ointment Subjective Date/time seen: 07/14/21 16:39 Interval history: 07/09/21 COVID PNA elevated BP Hydralazine PRN on abx and antiviral on RA at present cont current care anticipate dc tomorrow after COVID tx complete c/s PT/OT 07/10/2021 Patient is fully vaccinated against COVID-19 She has gone from room air to 13 L high-flow nasal cannula overnight Continue antibiotics Remdesivir Dexamethasone Supplemental oxygen Consult pulmonology 07/11/21 cont abx cont remdesivir cont dexamethasone cont supplemental O2 pulm consult apprecaited cont supportive care inflam markers in am 07/12/21 doing ok proned w improved oxygne requirements still desats very [id number] HF and 15L NRB needs more time cont current care 07/13/21 now on HFNC 60L 90% w NRB defer to indirect sales representative ongoing pulm management cont current care encourage proning supplemental dietary shakes supportive care 07/14/21 Pt is on bipap continue to monitor closely aBG ordered cxr ordered venous dopplers positive for BL DVT. Krysta Asencio is a 75-year-old female with a history of CKD stage 3, hypertension, hyperlipidemia, hypothyroidism, aortic stenosis who is seen in follow-up for pneumonia due to COVID-19. Pt SOB is worsening, pt is on bipap. I called family and discussed her symptoms and also informed them of the bilateral DVT. Pt started on full dose lovenox. Review of Systems Review of Systems: All systems reviewed & are unremarkable except as noted in HPI and below Exam Narrative: Ms. Asencio is an older lady overweight on BIPAP, tired appearing Neuro: awake, alert and oriented x3, speech clear Respiratory: she is able to speak in
[2021-07-14] MEDS: ENOXAPARIN 100 MG/ML SYRINGE 95 MG SUB-Q (16:54)
--- NOTE | 2021-07-14 18:15 | PC.NURSE ---
Transferred to ICU at 1745 via bed.Patient oriented,follows commands.
[2021-07-14] MEDS: MIDAZOLAM HCL (*CRX) 2 MG/2 ML VIAL 5 MG IV PUSH (18:30)
[2021-07-14] MEDS: fentaNYL CITRATE INJ (*CRX) 100 MCG/2 ML VIAL 50 MCG IV PUSH (18:30)
[2021-07-14] MEDS: MIDAZOLAM 100MG/NS 100ML(*CRX) 100 MG/100 ML BAG IV CONT (18:32)
[2021-07-14] MEDS: CISATRACURIUM BESYLATE 200 MG in DEXTROSE 5% 80 ML 8.6 ML IV CONT (18:33)
[2021-07-14] MEDS: FENTANYL 2,500MCG/NS250ML(*CRX 2,500 MCG/250 ML BAG IV CONT (18:33)
[2021-07-14] MEDS: CISATRACURIUM BESYLATE 20 MG/10 ML VIAL 14.3 MG IV PUSH (18:36)
[2021-07-14] MEDS: MIDAZOLAM HCL (*CRX) 2 MG/2 ML VIAL 6 MG (18:49)
[2021-07-14] MEDS: fentaNYL CITRATE INJ (*CRX) 100 MCG/2 ML VIAL (18:49)
--- NOTE | 2021-07-14 19:50 | WPDPROCEDUR ---
Procedures Intubation Intubation Date: 07/14/21 Intubation Time: 18:01 A pre-procedural Time-Out was completed immediately before starting the procedure and confirmed: Patient Identification, Site, Procedure, Patient Position and the Availability of Requisite Equipment: Yes Sedative: etomidate (20) Paralytic: rocuronium Mg given: 40 Laryngoscope: Norma ET tube size: 7.5 Tube secured location: lips (22) Tube placement confirmation: visualized tube passing through cords and equal breath sounds bilaterally Intubation complications: none
--- NOTE | 2021-07-14 20:00 | WPDPROCEDUR ---
Procedures Central Line Placement Right Femoral: Central Line Date: 07/14/21 Central Line Time: 18:15 Discussed w/ the patient/family/POA,the placement of a central venous catheter, including its clinical necessity/indication & associated potential risks, benifits and alternatives.: Yes Provider Prep: Max. sterile barrier precautions Central line lumen inserted: triple Post Procedure: sutured in place, good blood return and all ports aspirated, flushed, capped
[2021-07-14] MEDS: MINERAL OIL/WHITE PETROLATUM OINTMENT 1 APPLIC EACH EYE ×2 (20:37)
[2021-07-14] MEDS: NOREPINEPHRINE 8 MG/D5W 250 ML 8 MG/250 ML BAG 9.38 MG IV CONT (20:38)
[2021-07-14] MEDS: REMDESIVIR 100 MG/NS 250 ML 100 MG/250 ML BAG 250 MG IVPB (22:28)
[2021-07-15] VITALS (37 sets, daily range): BP systolic 80–105; BP diastolic 41–62; PULSE 58–83; RESP 24–30; TEMP 35.4–37.3; O2SAT 98–100; BMI 36.0
--- NOTE | 2021-07-15 | ECHO_ITS ---
Patient Info Name: Krysta Asencio Age: 76 years : 1945 Gender: Female Ht: 64 in Wt: 210 lbs BSA: 2.12 m2 HR: 67 bpm BP: 101 / 55 mmHg Technical Quality: Good Exam Date: 07/16/2021 1:34 PM Exam Location: [facility] Patient Status: Inpatient Admit Date: 07/08/2021 Staff Ordering Physician: Missael Manning MD Housecleaner: Migue Garcia RDCS, RT Attending Provider: Jil Do PA-C Referring Physician: Nigel CHIU; Exam Type: CA echo doppler color flow Study Info Indications I50.9 - Heart failure, unspecified Complete two-dimensional, color flow and Doppler transthoracic echocardiogram is performed. Summary 1. Complete two-dimensional, color flow and Doppler transthoracic echocardiogram is performed. 2. Left ventricular chamber dimension is normal. 3. Left ventricular systolic function is normal, estimated at 55-60%. 4. The left ventricular diastolic function is abnormal. 5. E/e' 12 is mildly elevated. 6. Left atrial chamber dimension is mildly enlarged. 7. There is mild to moderate aortic valve stenosis based on a peak velocity of 226 cm/s, mean gradient of 10 mmHg, and aortic valve area of 1.5 cm2. 8. There is moderate aortic valve sclerosis. 9. There is mild aortic valve regurgitation. 10. The mitral valve has mildly calcified annulus. 11. There is trace tricuspid valve regurgitation. 12. IVC is dilated. Patient is on ventilator. Left Ventricle E/e' 12 is mildly elevated. Left ventricular chamber dimension is normal. Left ventricular systolic function is normal, estimated at 55-60%. The left ventricular diastolic function is abnormal. Right Ventricle Right ventricular systolic function is normal and with normal TAPSE 2.3 cm. Right ventricular chamber dimension is normal. Left Atria Left atrial chamber dimension is mildly enlarged. Right Atria Right atrial chamber dimension is normal. Aortic Valve The aortic valve is not well visualized. Cannot determine number of aortic valve leaflets. There is mild to moderate aortic valve stenosis based on a peak velocity of 226 cm/s, mean gradient of 10 mmHg, and aortic valve area of 1.5 cm2. There is moderate aortic valve sclerosis. There is mild aortic valve regurgitation. Pulmonic Valve There is no pulmonic regurgitation. Mitral Valve The mitral valve has mildly calcified annulus. There is no mitral valve stenosis. There is no mitral valve regurgitation. Tricuspid Valve There is trace tricuspid valve regurgitation. RVSP is not calculated due to an inadequate TR jet. Pericardium/Pleural There is no pericardial effusion. Inferior Vena Cava IVC is dilated. Patient is on ventilator. Aorta The aortic root size at the sinus of Valsalva is normal. Left Ventricular Outflow Tract Name Value Normal LVOT 2D LVOT Diameter 2.1 cm LVOT Doppler LVOT Peak Gradient 4 mmHg LVOT Mean Gradient 2 mmHg LVOT VTI 18 cm LVOT VTI/AV VTI Ratio 0.4 LVOT Stroke Volume 64
[2021-07-15] MEDS: LEVOTHYROXINE SODIUM 100 MCG TABLET PO (04:30)
[2021-07-15] MEDS: ENOXAPARIN 100 MG/ML SYRINGE 95 MG SUB-Q ×2 (04:30→17:05)
[2021-07-15 05:07] LABS: Basophils Absolute Auto 0.1 K/mm3 (0.0-0.1); Basophils Percent Auto 0.2 % (0.2-1.2); Hemoglobin 11.1 g/dL (12.0-15.0); Immature Granulocyte Absolute 0.56 K/mm3 (0.00-0.031); Immature Granulocyte Percent A 1.5 % (0-0.5); Lymphocytes Absolute Auto 0.49 K/mm3 (0.9-3.2); Lymphocytes Percent Auto 1.4 % (18.3-44.2); Mean Corpuscular HGB Conc 31.7 g/dl (32-36); Mean Corpuscular Hemoglobin 29.4 pg (26-34); Mean Corpuscular Volume 92.8 fl (80-100); Mean Platelet Volume 10.4 fl (7.4-10.4); Monocytes Absolute Auto 0.3 K/mm3 (0.1-0.6); Monocytes Percent Auto 0.9 % (2.6-8.5); Neutrophils Absolute Auto 34.8 K/mm3 (1.3-6.7); Platelet Count Result 243 k/mm3 (150-375); Red Blood Count 3.77 M/mm3 (4.2-5.4); Red Cell Distribution Width 13.5 % (11.5-14.5); White Blood Count 36.2 K/mm3 (4.5-10.0)
[2021-07-15 05:36] LABS: Alanine Aminotransferase 71 U/L (4-35); Aspartate Amino Transferase 72 U/L (14-36); Estimated CRCL calculation 30 ml/min; Estimated Glomerular Filt Rate 31
[2021-07-15] MEDS: CISATRACURIUM BESYLATE 200 MG in DEXTROSE 5% 80 ML 8.6 ML IV CONT (05:56)
[2021-07-15 06:02] LABS: Alveolar/Arterial O2 Gradient 475.4 mmHg; Base Excess ABG -3.9 mEq/l (+/-2.0); Carboxyhemoglobin 0.1 % THb (0-2.0); Fractional Inspired Oxygen 100 %; HCO3 ABG 25.5 mEq/l (22.0-26.0); Methemoglobin ABG 0.1 %THb (0-1.5); Oxygen Content ABG 16.6 %vol (16.0-22.0); Oxygen Saturation ABG 98.7 % (95.0-100.0); Oxyhemoglobin 97.8 % THb (90.0-100.0); PO2 ABG 167.5 mmHg (80.0-100.0); PO2 FiO2 Ratio Arterial Blood 1.67 %; Total Hemoglobin 11.8 g/dL (12.0-18.0)
[2021-07-15 06:06] LABS: pH ABG 7.179 (7.350-7.450)
[2021-07-15 06:07] LABS: Device VENTILATOR; Modified Allen's Test Pass; PCO2 ABG 70.1 mmHg (35.0-45.0); Site Drawn RIGHT RADIAL
[2021-07-15 06:08] LABS: Arterial Blood Gas PEEP 12 cmH2O; Arterial Blood Gas Tidal Volume 350 ml; Arterial Blood Gas Vent Mode CMV; Arterial Blood Gas Ventilator rate 25 /MIN
[2021-07-15 06:42] LABS: Burr Cells 1+ (NORMAL); Large Platelets Present; Platelet Estimate Adequate (Adequate)
[2021-07-15 09:12] LABS: Anion Gap 9 mmol/L (8-16); Blood Urea Nitrogen 45 mg/dL (7-17); Calcium 7.7 mg/dL (8.4-10.2); Carbon Dioxide 24 mmol/L (22-30); Chloride 93 mmol/L (98-107); Estimated CRCL calculation 30 ml/min; Estimated Glomerular Filt Rate 31; Glucose 239 mg/dL (65-110); Magnesium 2.3 mg/dL (1.6-2.3); Potassium 5.2 mmol/L (3.4-5.0); Sodium 126 mmol/L (137-145)
--- NOTE | 2021-07-15 09:16 | WPDCNINT ---
Assessment and Plan Assessment and plan (1) Acute hypoxemic respiratory failure due to COVID-19: Code(s): U07.1 - COVID-19; J96.01 - Acute respiratory failure with hypoxia Status: Acute Assessment and Plan: Acute Respiratory failure secondary to COVID-19 with component of pulmonary edema and may have a component of bacterial pneumonia CT chest 07/14 IMPRESSION: 1. Diffuse lung disease, worsened from 07/10/2021, consistent with COVID-19 pneumonia. Bacterial pneumonia and pulmonary edema have overlapping appearances and cannot be excluded. 2. Mild mediastinal lymphadenopathy, likely reactive. Intubated 07/14 ABG and chest x-ray reviewed Continue full mechanical ventilation support to prevent hypoxemia/hypercarbia and end organ damage. Increased respiratory rate to 30. Continue PEEP of 12 Ayush patient in prone position through today Wean FiO2 down currently at 80% Low tidal volume ventilation strategy to prevent volutrauma Sedated with Versed and fentanyl. On Nimbex infusion for for neuromuscular blocking Lasix IV CTA Chest on 07/10 was negative for PE. The patient has DVT she is already on treatment with anticoagulation. Will check echocardiogram (2) Pneumonia due to COVID-19 virus: Code(s): U07.1 - COVID-19; J12.82 - Pneumonia due to coronavirus disease 2018 Status: Acute Assessment and Plan: Patient is vaccinated against COVID-19 but has not received a booster dose. She was tested for COVID-19 on 07/06/2021 found to be positive CT findings are consistent with COVID-19 pneumonia Started on dexamethasone 07/10 She will complete a 5 day course of remdesivir today She was started on Barcitinib 07/14 (3) Community acquired pneumonia: Qualifiers: Laterality: unspecified laterality Qualified Code(s): J18.9 - Pneumonia, unspecified organism Code(s): J18.9 - Pneumonia, unspecified organism Status: Acute Assessment and Plan: Presented with complaints of fever and cough. Patient had elevated white count Cultures, influenza, urine Legionella, urine pneumococcal antigen are negative Patient is on Levaquin and vancomycin (4) DVT (deep venous thrombosis): Code(s): I82.409 - Acute embolism and thrombosis of unspecified deep veins of unspecified lower extremity Status: Acute Assessment and Plan: Lower limb Doppler showed 1. Deep vein thrombosis involving the right posterior tibial veins and left popliteal and posterior tibial veins. Patient is on subcutaneous Lovenox at therapeutic dose (5) Acute on chronic kidney failure: Code(s): N17.9 - Acute kidney failure, unspecified; N18.9 - Chronic kidney disease, unspecified Status: Acute Assessment and Plan: Creatinine slightly elevated as compared to baseline. Lasix for volume overload Monitor urine output electrolytes and creatinine Consult Dr. Rueda Will give Kayexalate for slightly elevated potassium and bicarb which likely secondary to respiratory acidosis (6) Hyponatremia: Code(s): E87.1 - Hypo-osmolality and hyponatremia Status: Acute Assessment and Plan: Will use normal saline flushes with tube feeds (7) Hypothyroidism: Qualifiers: Hypothyroidism type: acquired Qualified Code(s): E03.9 - Hypothyroidism, unspecified Code(s): E03.9 - Hypothyroidism, unspecified Status: Acute Assessment and Plan: TSH 5 months ago was within normal limits Continue levothyroxine Additional Plan DVT prophylaxis -on therapeutic dose Lovenox Stress ulcer prophylaxis -PPI Nutrition -start Tube Feeds Code Status - Full Code Total Critical Care Time - 35 minutes Due to a high probability of clinically significant, life threatening deterioration, the patient required my highest level of preparedness to intervene emergently and I personally spent this critical care time directly and personally managing the patient. This critical care
[2021-07-15] MEDS: BARICITINIB 2 MG TABLET PO (09:19)
[2021-07-15] MEDS: MINERAL OIL/WHITE PETROLATUM OINTMENT 1 APPLIC EACH EYE ×2 (09:20→21:23)
[2021-07-15] MEDS: PANTOPRAZOLE 40 MG TABLET PO (09:20)
[2021-07-15] MEDS: NOREPINEPHRINE 8 MG/D5W 250 ML 8 MG/250 ML BAG 28.13 MG IV CONT (09:20)
[2021-07-15] MEDS: NOREPINEPHRINE 8 MG/D5W 250 ML 8 MG/250 ML BAG 18.75 MG IV CONT (10:12)
[2021-07-15] MEDS: SODIUM BICARBONATE 8.4% 50 MEQ/50 ML SYRINGE 100 MEQ IV PUSH (10:12)
[2021-07-15] MEDS: FUROSEMIDE INJ 40 MG/4 ML VIAL IV PUSH (10:12)
[2021-07-15] MEDS: SODIUM POLYSTYRENE SULFONONATE 15 GM/60 ML BTL 30 GM PO (10:13)
[2021-07-15 12:23] LABS: Glucose Point of Care 180 mg/dl (65-105)
--- NOTE | 2021-07-15 12:56 | PCPTNOTE ---
D/C PT orders at this time, patient intubated in ICU, re-order when appropriate.
[2021-07-15] MEDS: MIDAZOLAM 100MG/NS 100ML(*CRX) 100 MG/100 ML BAG IV CONT (17:00)
[2021-07-15] MEDS: INSULIN ASPART (*BKC) 100 UNITS/ML SUB-Q (17:04)
[2021-07-15 17:40] LABS: Glucose Point of Care 228 mg/dl (65-105)
[2021-07-15] MEDS: CISATRACURIUM BESYLATE 200 MG in DEXTROSE 5% 80 ML 7.16 ML IV CONT (21:21)
[2021-07-15] MEDS: NOREPINEPHRINE 8 MG/D5W 250 ML 8 MG/250 ML BAG 20.63 MG IV CONT (21:27)
[2021-07-16] VITALS (30 sets, daily range): BP systolic 91–187; BP diastolic 58–90; PULSE 59–85; RESP 30; TEMP 35.7–36.9; O2SAT 95–99
[2021-07-16 00:17] LABS: Glucose Point of Care 202 mg/dl (65-105)
[2021-07-16] MEDS: INSULIN ASPART (*BKC) 100 UNITS/ML SUB-Q ×2 (00:18→12:26)
[2021-07-16 05:20] LABS: Basophils Percent Auto 0.1 % (0.2-1.2); Hematocrit 32.7 % (37.0-47.0); Hemoglobin 10.7 g/dL (12.0-15.0); Immature Granulocyte Percent A 1.4 % (0-0.5); Lymphocytes Absolute Auto 0.27 K/mm3 (0.9-3.2); Lymphocytes Percent Auto 0.9 % (18.3-44.2); Mean Corpuscular HGB Conc 32.7 g/dl (32-36); Mean Corpuscular Hemoglobin 28.9 pg (26-34); Mean Corpuscular Volume 88.4 fl (80-100); Mean Platelet Volume 10.6 fl (7.4-10.4); Monocytes Absolute Auto 0.4 K/mm3 (0.1-0.6); Monocytes Percent Auto 1.4 % (2.6-8.5); Neutrophils Percent Auto 96.2 % (45.5-73.1); Platelet Count Result 285 k/mm3 (150-375); Red Cell Distribution Width 13.7 % (11.5-14.5); White Blood Count 29.2 K/mm3 (4.5-10.0)
[2021-07-16 05:30] LABS: Alveolar/Arterial O2 Gradient 209.9 mmHg; Base Excess ABG 0.4 mEq/l (+/-2.0); Carboxyhemoglobin 0.6 % THb (0-2.0); Fractional Inspired Oxygen 50 %; HCO3 ABG 28.3 mEq/l (22.0-26.0); Methemoglobin ABG 0.2 %THb (0-1.5); Oxygen Content ABG 21.6 %vol (16.0-22.0); Oxygen Saturation ABG 94.7 % (95.0-100.0); Oxyhemoglobin 94.1 % THb (90.0-100.0); PCO2 ABG 58.3 mmHg (35.0-45.0); PO2 FiO2 Ratio Arterial Blood 1.62 %; Reduced Hemoglobin 5.1 %THb (0-5.0); Total Hemoglobin 16.3 g/dL (12.0-18.0); pH ABG 7.304 (7.350-7.450)
[2021-07-16 05:34] LABS: Device VENTILATOR; Modified Allen's Test Pass; Site Drawn RIGHT RADIAL
[2021-07-16 05:35] LABS: Arterial Blood Gas PEEP 12 cmH2O; Arterial Blood Gas Tidal Volume 350 ml; Arterial Blood Gas Vent Mode CMV; Arterial Blood Gas Ventilator rate 30 /MIN
[2021-07-16 05:37] LABS: Alanine Aminotransferase 62 U/L (4-35); Albumin Level 2.6 g/dL (3.5-5.1); Alkaline Phosphatase 122 U/L (38-126); Anion Gap 5 mmol/L (8-16); Aspartate Amino Transferase 66 U/L (14-36); Bilirubin,Total 0.4 mg/dL (0.2-1.3); Blood Urea Nitrogen 70 mg/dL (7-17); Calcium 7.5 mg/dL (8.4-10.2); Carbon Dioxide 30 mmol/L (22-30); Chloride 90 mmol/L (98-107); Estimated CRCL calculation 19 ml/min; Estimated Glomerular Filt Rate 18; Glucose 240 mg/dL (65-110); Magnesium 2.4 mg/dL (1.6-2.3); Potassium 4.1 mmol/L (3.4-5.0); Sodium 125 mmol/L (137-145)
[2021-07-16] MEDS: CYANOCOBALAMIN 500 MCG TABLET PO (09:32)
[2021-07-16] MEDS: LEVOTHYROXINE SODIUM 100 MCG TABLET PO (09:32)
[2021-07-16] MEDS: BARICITINIB 2 MG TABLET PO (09:33)
[2021-07-16] MEDS: ENOXAPARIN 100 MG/ML SYRINGE 95 MG SUB-Q ×2 (09:33→18:10)
[2021-07-16] MEDS: PANTOPRAZOLE SODIUM IV 40 MG VIAL IV PUSH (09:33)
[2021-07-16] MEDS: CHOLECALCIFEROL 1,000 UNITS TABLET 5000 UNITS PO (09:33)
[2021-07-16] MEDS: MINERAL OIL/WHITE PETROLATUM OINTMENT 1 APPLIC EACH EYE ×2 (09:34→20:58)
[2021-07-16] MEDS: CISATRACURIUM BESYLATE 200 MG in DEXTROSE 5% 80 ML 7.16 ML IV CONT (09:41)
[2021-07-16] MEDS: PYRIDOXINE HCL 25 MG TABLET PO (09:48)
--- NOTE | 2021-07-16 11:35 | PM.CNNEP ---
Assessment and Plan Assessment and plan (1) Acute on chronic kidney failure: Code(s): N17.9 - Acute kidney failure, unspecified; N18.9 - Chronic kidney disease, unspecified Status: Acute Assessment and Plan: The patient has chronic kidney disease. Her GFR generally runs in the 50s. This is due to hypertension sleep apnea and vascular disease. The patient also has acute kidney injury. This is most likely from the COVID. Other possibilities include obstruction, glomerulonephritis, and interstitial nephritis however these are less likely in this clinical scenario. Will check urine electrolytes and a renal ultrasound. will continue current care. discussed with Dr. Membreno (2) Pneumonia due to COVID-19 virus: Code(s): U07.1 - COVID-19; J12.82 - Pneumonia due to coronavirus disease 2018 Status: Acute Assessment and Plan: She is on the ventilator and in the prone position. She is getting maximum supportive care. (3) Essential (primary) hypertension: Code(s): I10 - Essential (primary) hypertension Status: Acute Assessment and Plan: Her blood pressure is well controlled right now. (4) Obstructive sleep apnea: Onset Date: ~05/2021 Code(s): G47.33 - Obstructive sleep apnea (adult) (pediatric) Status: Acute Assessment and Plan: She is on the vent (5) Gastroesophageal reflux disease: Qualifiers: Esophagitis presence: without esophagitis Qualified Code(s): K21.9 - Gastro-esophageal reflux disease without esophagitis Code(s): K21.9 - Gastro-esophageal reflux disease without esophagitis Status: Acute Assessment and Plan: she is on pantoprazole (6) Aortic valve insufficiency: Qualifiers: Cardiac valve disease etiology: nonrheumatic Qualified Code(s): I35.1 - Nonrheumatic aortic (valve) insufficiency Code(s): I35.1 - Nonrheumatic aortic (valve) insufficiency Status: Acute History of Present Illness Reason for Consult Consult date: 07/16/21 Chief Complaint Chief complaint: pneumonia History of Present Illness Narrative: Krysta is a very pleasant 76-year-old lady who has chronic kidney disease with a baseline creatinine of 1-1.3, hypertension, hyperlipidemia, hypothyroidism, aortic stenosis, GERD, peptic ulcer disease, sleep apnea, prediabetes, Sjogren syndrome, B12 deficiency, history of MRSA in the past, who came in the hospital because of cough and fever. these symptoms had been gradually worsening over the last few days before the admission. She saw her PCP who attempted to treat with medication but her fever persisted so she came to the emergency room. She was evaluated in the ER. Chest x-ray showed diffuse infiltrates. She gradually worsened over the week and ended up being intubated day before yesterday and moved to the ICU. She is currently sedated and on paralytics. Her oxygen requirement is 50% but she has been prone for the majority of times since being intubated because of hypoxic issues. Her baseline creatinine generally runs between 1 and 1.3. On admission this time her creatinine was 0.9 and has risen gradually to 2.6. She is still making some urine. She cannot give a history. Review of Systems Review of Systems: ROS unobtainable: Yes unobtainable due to medical condition PMFSH Past Medical History Medical History Aortic insufficiency with aortic stenosis Mild and asymptomatic. Followed by Dr. Butler. Chronic kidney disease, stage 3 Baseline creatinine is around 1.00. Dyslipidemia Essential (primary) hypertension Gastroesophageal reflux disease History of peptic ulcer Hypothyroidism MRSA infection Right axillary abscess secondary to MRSA. Obstructive sleep apnea (~05/2021) Osteoarthritis Prediabetes Hemoglobin A1c was 5.7% in September 2019. Sjogrens syndrome Vitamin B12 defici
[2021-07-16 12:07] LABS: Glucose Point of Care 226 mg/dl (65-105)
--- NOTE | 2021-07-16 13:26 | PCFNICU ---
ICU Rounding Note: Pt current nutrition is Nepro at 40 ml/hr over 22 hours. Last recorded weight is 97.8 kg-stable Bowel Motility:+BM reported 07/13 Labs Reviewed:Glu 240, Cr 2.6,GFR 18, Na 125, Hct 32.7,Hgb 10.7 Meds Noted:Versed, Fentanyl, Nimbex, Decadron, Lovenox, Vit B6, Vit D, Lasix. Skin: WNL Additional Notes: Patient remains on mechanical vent and tube feedings of Nepro at 40 ml/hr and tolerating. Free water flush 30 ml q 4 hours. Agree with diet orders. Monitoring: Following daily in ICU rounds. Reassessing every Wednesday and Wednesday.
--- NOTE | 2021-07-16 15:26 | WPDINTPN ---
Progress Note: A&P Assessment and Plan (1) Acute hypoxemic respiratory failure due to COVID-19: Code(s): U07.1 - COVID-19; J96.01 - Acute respiratory failure with hypoxia Status: Acute Assessment and Plan: Acute Respiratory failure secondary to COVID-19 with component of pulmonary edema and may have a component of bacterial pneumonia CT chest 07/14 IMPRESSION: 1. Diffuse lung disease, worsened from 07/10/2021, consistent with COVID-19 pneumonia. Bacterial pneumonia and pulmonary edema have overlapping appearances and cannot be excluded. 2. Mild mediastinal lymphadenopathy, likely reactive. Intubated 07/14 ABG and chest x-ray reviewed Continue full mechanical ventilation support to prevent hypoxemia/hypercarbia and end organ damage. PEEP of 12 and 50% FiO2, wean FiO2 to maintain O2 sats greater than 92% Continue to place patient in prone position for 16-18 hours daily Low tidal volume ventilation strategy to prevent volutrauma Sedated with Versed and fentanyl. On Nimbex infusion for for neuromuscular blocking CTA Chest on 07/10 was negative for PE. The patient has DVT she is already on treatment with anticoagulation. Will check echocardiogram (2) Pneumonia due to COVID-19 virus: Code(s): U07.1 - COVID-19; J12.82 - Pneumonia due to coronavirus disease 2018 Status: Acute Assessment and Plan: Patient is vaccinated against COVID-19 but has not received a booster dose. She was tested for COVID-19 on 07/06/[address] found to be positive CT findings are consistent with COVID-19 pneumonia Started on dexamethasone 07/10 Completed 5 day course of remdesivir on 07/15/2021 She was started on Barcitinib 07/14, renally dosed (3) Community acquired pneumonia: Qualifiers: Laterality: unspecified laterality Qualified Code(s): J18.9 - Pneumonia, unspecified organism Code(s): J18.9 - Pneumonia, unspecified organism Status: Acute Assessment and Plan: Presented with complaints of fever and cough. Patient had elevated white count Cultures, influenza, urine Legionella, urine pneumococcal antigen are negative Patient is on Levaquin and vancomycin (4) DVT (deep venous thrombosis): Code(s): I82.409 - Acute embolism and thrombosis of unspecified deep veins of unspecified lower extremity Status: Acute Assessment and Plan: Lower limb Doppler showed 1. Deep vein thrombosis involving the right posterior tibial veins and left popliteal and posterior tibial veins. Patient is on subcutaneous Lovenox at therapeutic dose (5) Acute on chronic kidney failure: Code(s): N17.9 - Acute kidney failure, unspecified; N18.9 - Chronic kidney disease, unspecified Status: Acute Assessment and Plan: Creatinine slightly elevated as compared to baseline. Monitor urine output electrolytes and creatinine Appreciate nephrology following the patient (6) Hyponatremia: Code(s): E87.1 - Hypo-osmolality and hyponatremia Status: Acute Assessment and Plan: Will use normal saline flushes with tube feeds (7) Hypothyroidism: Qualifiers: Hypothyroidism type: acquired Qualified Code(s): E03.9 - Hypothyroidism, unspecified Code(s): E03.9 - Hypothyroidism, unspecified Status: Acute Assessment and Plan: TSH 5 months ago was within normal limits Continue levothyroxine Additional Plan DVT prophylaxis -on therapeutic dose Lovenox Stress ulcer prophylaxis -PPI Nutrition -on Tube Feeds Code Status - Full Code Total Critical Care Time - 34 minutes Due to a high probability of clinically significant, life threatening deterioration, the patient required my highest level of preparedness to intervene emergently and I personally spent this critical care time directly and personally managing the patient. This critical care time included obtaining a history; examining the patient; pulse oximetry; ordering and review of studies;
[2021-07-16 18:24] LABS: Glucose Point of Care 162 mg/dl (65-105)
[2021-07-16] MEDS: FENTANYL 2,500MCG/NS250ML(*CRX 2,500 MCG/250 ML BAG IV CONT (21:00)
[2021-07-17] VITALS (25 sets, daily range): BP systolic 104–141; BP diastolic 47–67; PULSE 68–89; RESP 30; TEMP 35.8–37.1; O2SAT 92–98
[2021-07-17] MEDS: INSULIN ASPART (*BKC) 100 UNITS/ML SUB-Q ×2 (00:45→17:54)
[2021-07-17 01:01] LABS: Glucose Point of Care 203 mg/dl (65-105)
[2021-07-17] MEDS: CISATRACURIUM BESYLATE 200 MG in DEXTROSE 5% 80 ML 7.16 ML IV CONT ×2 (02:17→15:26)
[2021-07-17 05:03] LABS: Basophils Percent Auto 0.1 % (0.2-1.2); Hematocrit 31.2 % (37.0-47.0); Hemoglobin 10.3 g/dL (12.0-15.0); Immature Granulocyte Absolute 0.25 K/mm3 (0.00-0.031); Immature Granulocyte Percent A 1.3 % (0-0.5); Lymphocytes Absolute Auto 0.26 K/mm3 (0.9-3.2); Lymphocytes Percent Auto 1.3 % (18.3-44.2); Mean Corpuscular Hemoglobin 29.1 pg (26-34); Mean Corpuscular Volume 88.1 fl (80-100); Mean Platelet Volume 10.5 fl (7.4-10.4); Monocytes Absolute Auto 0.4 K/mm3 (0.1-0.6); Monocytes Percent Auto 2.2 % (2.6-8.5); Neutrophils Absolute Auto 18.7 K/mm3 (1.3-6.7); Neutrophils Percent Auto 95.1 % (45.5-73.1); Platelet Count Result 266 k/mm3 (150-375); Red Blood Count 3.54 M/mm3 (4.2-5.4); Red Cell Distribution Width 13.6 % (11.5-14.5); White Blood Count 19.7 K/mm3 (4.5-10.0)
[2021-07-17 05:11] LABS: HCO3 ABG 29.6 mEq/l (22.0-26.0); PCO2 ABG 54.8 mmHg (35.0-45.0); PO2 ABG 73.2 mmHg (80.0-100.0); pH ABG 7.351 (7.350-7.450)
[2021-07-17 05:12] LABS: Carboxyhemoglobin 0.3 % THb (0-2.0); Fractional Inspired Oxygen 40 %; Methemoglobin ABG 0.1 %THb (0-1.5); Modified Allen's Test Pass; Oxygen Content ABG 93.8 %vol (16.0-22.0); Oxygen Saturation ABG 93.8 % (95.0-100.0); Oxyhemoglobin 92.7 % THb (90.0-100.0); PO2 FiO2 Ratio Arterial Blood 1.83 %; Reduced Hemoglobin 6.9 %THb (0-5.0); Site Drawn RIGHT RADIAL; Total Hemoglobin 11.7 g/dL (12.0-18.0)
[2021-07-17 05:13] LABS: Device VENTILATOR
[2021-07-17 05:14] LABS: Arterial Blood Gas PEEP 12 cmH2O; Arterial Blood Gas Tidal Volume 350 ml; Arterial Blood Gas Vent Mode CMV; Arterial Blood Gas Ventilator rate 30 /MIN
[2021-07-17 06:04] LABS: Alanine Aminotransferase 50 U/L (4-35); Albumin Level 2.5 g/dL (3.5-5.1); Alkaline Phosphatase 103 U/L (38-126); Anion Gap 6 mmol/L (8-16); Aspartate Amino Transferase 50 U/L (14-36); Bilirubin,Total 0.4 mg/dL (0.2-1.3); Blood Urea Nitrogen 86 mg/dL (7-17); Calcium 7.4 mg/dL (8.4-10.2); Carbon Dioxide 30 mmol/L (22-30); Chloride 91 mmol/L (98-107); Estimated CRCL calculation 17 ml/min; Estimated Glomerular Filt Rate 16; Glucose 194 mg/dL (65-110); Magnesium 2.5 mg/dL (1.6-2.3); Potassium 4.2 mmol/L (3.4-5.0); Sodium 127 mmol/L (137-145)
[2021-07-17] MEDS: ENOXAPARIN 100 MG/ML SYRINGE 95 MG SUB-Q ×2 (06:06→17:54)
[2021-07-17] MEDS: LEVOTHYROXINE SODIUM 100 MCG TABLET PO (06:07)
[2021-07-17] MEDS: BARICITINIB 1 MG TABLET PO (10:50)
[2021-07-17] MEDS: PANTOPRAZOLE SODIUM IV 40 MG VIAL IV PUSH (10:54)
--- NOTE | 2021-07-17 11:16 | PM.PNNEP ---
Progress Note: A&P Assessment and Plan (1) Acute on chronic kidney failure: Code(s): N17.9 - Acute kidney failure, unspecified; N18.9 - Chronic kidney disease, unspecified Status: Acute Assessment and Plan: The patient has chronic kidney disease. Her GFR generally runs in the 50s. This is due to hypertension sleep apnea and vascular disease. The patient also has acute kidney injury. This is most likely from the COVID. urine electrolytes are borderline pre renal. Await urine ultrasound continue supportive care rate of rise of creatinine is a little lower today. (2) Pneumonia due to COVID-19 virus: Code(s): U07.1 - COVID-19; J12.82 - Pneumonia due to coronavirus disease 2019 Status: Acute Assessment and Plan: She is on the ventilator and in the prone position. She is getting maximum supportive care. (3) Essential (primary) hypertension: Code(s): I10 - Essential (primary) hypertension Status: Acute Assessment and Plan: Her blood pressure is well controlled right now. (4) Obstructive sleep apnea: Onset Date: ~05/2021 Code(s): G47.33 - Obstructive sleep apnea (adult) (pediatric) Status: Acute Assessment and Plan: She is on the vent (5) Gastroesophageal reflux disease: Qualifiers: Esophagitis presence: without esophagitis Qualified Code(s): K21.9 - Gastro-esophageal reflux disease without esophagitis Code(s): K21.9 - Gastro-esophageal reflux disease without esophagitis Status: Acute Assessment and Plan: she is on pantoprazole (6) Aortic valve insufficiency: Qualifiers: Cardiac valve disease etiology: nonrheumatic Qualified Code(s): I35.1 - Nonrheumatic aortic (valve) insufficiency Code(s): I35.1 - Nonrheumatic aortic (valve) insufficiency Status: Acute Subjective Date/time seen: 07/17/21 11:16 Interval history: Krysta is still in the ICU on the ventilator sedated and on paralytics. Oxygenation is a little improved. Exam Narrative: WDWN Female in intensive care unit on the ventilator in NAD skin no rash head ncat lungs course bilateral cor reg no rub or gallop abd BS+ nontender and soft ext 1+ edema. Objective Data Vital Signs Vital Signs: Vital Signs - 24 hr 07/16/21 12:00 07/16/21 14:00 07/16/21 15:35 Temperature 35.8 C L Pulse Rate 59 L 60 62 Respiratory Rate 30 H 30 H Blood Pressure 91/62 L 122/61 Pulse Oximetry 99 97 96 07/16/21 16:00 07/16/21 17:40 07/16/21 18:00 Temperature 35.9 C L Pulse Rate 60 80 68 Respiratory Rate 30 H 30 H Blood Pressure 120/58 L 111/59 L Pulse Oximetry 95 98 99 07/16/21 20:00 07/16/21 20:33 07/16/21 20:50 Temperature 36.6 C Pulse Rate 79 85 85 Respiratory Rate 30 H 30 H Blood Pressure 143/68 H Pulse Oximetry 99 99 07/16/21 20:58 07/16/21 21:00 07/16/21 22:00 Temperature Pulse Rate 85 85 83 Respiratory Rate 30 H 30 H Blood Pressure 144/71 H 139/72 Pulse Oximetry 99 07/16/21 23:45 07/17/21 00:00 07/17/21 00:42 Temperature 37.1 C Pulse Rate 79 81 79 Respiratory Rate 30 H 30 H Blood Pressure 141/67 H 141/67 H Pulse Oximetry 98 98 07/17/21 02:00 07/17/21 02:12 07/17/21 02:17 Temperature Pulse Rate 76 73 76 Respiratory Rate 30 H 30 H Blood Pressure 122/62 122/62 Pulse Oximetry 98 98 07/17/21 04:00 07/17/21 04:12 07/17/21 05:05 Temperature 37.1 C Pulse Rate 80 80 81 Respiratory Rate 30 H 30 H Blood Pressure 132/66 132/66 Pulse Oximetry 98 95 07/17/21 06:00 07/17/21 08:50 Temperature Pulse Rate 84 81 Respiratory Rate 30 H Blood Pressure 131/64 Pulse Oximetry 96 96 Intake/Output Intake/Output: Intake & Output 07/14/21 07/15/21 07/16/21 07/17/21 23:59 23:59 23:59 23:59 Intake Total 1350 1550 1401 570 Output Total 1150 700 800 475 Balance 200 850 601 95 Meds/Results Medications: Active Medicati
[2021-07-17 11:44] LABS: Glucose Point of Care 163 mg/dl (65-105)
--- NOTE | 2021-07-17 12:20 | PCFNICU ---
ICU Rounding Note: Pt current nutrition is Nepro at 40 ml/hr over 22 hours. Last recorded weight is 99.2 kg, up from 95.2 kg on admit. Bowel Motility:+BM reported 07/13 Labs Reviewed:Glu 194, BUN 86, Cr 2.9, Na 127,Hct 31.2,Hgb 10.3, GFR 16 Meds Noted: Decadron, Versed, Fentanyl, Vit D, Vit B6, Nimbex, Lovenox Skin:WNL Additional Notes: Patient remains on mechanical vent and tube feedings of Nepro at 40 ml/hr and tolerating. Free water flush 30 ml q 4 hours. Agree with diet orders. Following daily in ICU rounds and reassessing every Wednesday and Wednesday.
--- NOTE | 2021-07-17 14:29 | WPDINTPN ---
Progress Note: A&P Assessment and Plan (1) Acute hypoxemic respiratory failure due to COVID-19: Code(s): U07.1 - COVID-19; J96.01 - Acute respiratory failure with hypoxia Status: Acute Assessment and Plan: Acute Respiratory failure secondary to COVID-19 with component of pulmonary edema and may have a component of bacterial pneumonia . Intubated 07/14 ABG and chest x-ray reviewed Continue full mechanical ventilation support to prevent hypoxemia/hypercarbia and end organ damage. PEEP of 12 and 40% FiO2, wean FiO2 to maintain O2 sats greater than 92%. Will decrease PEEP to 10 and monitor Continue to place patient in prone position for 16-18 hours daily Low tidal volume ventilation strategy to prevent volutrauma Sedated with Versed and fentanyl. On Nimbex infusion for for neuromuscular blocking CTA Chest on 07/10 was negative for PE. The patient has DVT she is already on treatment with anticoagulation. Will check echocardiogram CT chest 07/14 IMPRESSION: 1. Diffuse lung disease, worsened from 07/10/2021, consistent with COVID-19 pneumonia. Bacterial pneumonia and pulmonary edema have overlapping appearances and cannot be excluded. 2. Mild mediastinal lymphadenopathy, likely reactive (2) Pneumonia due to COVID-19 virus: Code(s): U07.1 - COVID-19; J12.82 - Pneumonia due to coronavirus disease 2018 Status: Acute Assessment and Plan: Patient is vaccinated against COVID-19 but has not received a booster dose. She was tested for COVID-19 on 07/06/[address] found to [address] positive CT findings are consistent with COVID-19 pneumonia Started on dexamethasone 07/10 Completed 5 day course of remdesivir on 07/15/2021 She was started on Barcitinib 07/14, renally dosed (3) Community acquired pneumonia: Qualifiers: Laterality: unspecified laterality Qualified Code(s): J18.9 - Pneumonia, unspecified organism Code(s): J18.9 - Pneumonia, unspecified organism Status: Acute Assessment and Plan: Presented with complaints of fever and cough. Patient had elevated white count Cultures, influenza, urine Legionella, urine pneumococcal antigen are negative Patient is on Levaquin and vancomycin (4) DVT (deep venous thrombosis): Code(s): I82.409 - Acute embolism and thrombosis of unspecified deep veins of unspecified lower extremity Status: Acute Assessment and Plan: Lower limb Doppler showed 1. Deep vein thrombosis involving the right posterior tibial veins and left popliteal and posterior tibial veins. Patient is on subcutaneous Lovenox at therapeutic dose (5) Acute on chronic kidney failure: Code(s): N17.9 - Acute kidney failure, unspecified; N18.9 - Chronic kidney disease, unspecified Status: Acute Assessment and Plan: Creatinine slightly elevated as compared to baseline. Monitor urine output electrolytes and creatinine Appreciate nephrology following the patient (6) Hyponatremia: Code(s): E87.1 - Hypo-osmolality and hyponatremia Status: Acute Assessment and Plan: Will use normal saline flushes with tube feeds (7) Hypothyroidism: Qualifiers: Hypothyroidism type: acquired Qualified Code(s): E03.9 - Hypothyroidism, unspecified Code(s): E03.9 - Hypothyroidism, unspecified Status: Acute Assessment and Plan: TSH 5 months ago was within normal limits Continue levothyroxine Additional Plan DVT prophylaxis -on therapeutic dose Lovenox Stress ulcer prophylaxis -PPI Nutrition -on Tube Feeds Code Status - Full Code Total Critical Care Time - 32 minutes Due to a high probability of clinically significant, life threatening deterioration, the patient required my highest level of preparedness to intervene emergently and I personally spent this critical care time directly and personally managing the patient. This critical care time included obtaining a history; examining the patient; pulse oxi
[2021-07-17 17:22] LABS: Glucose Point of Care 270 mg/dl (65-105)
[2021-07-17] MEDS: MINERAL OIL/WHITE PETROLATUM OINTMENT 1 APPLIC EACH EYE (21:19)
[2021-07-17] MEDS: MIDAZOLAM 100MG/NS 100ML(*CRX) 100 MG/100 ML BAG IV CONT (21:23)
[2021-07-18] VITALS (23 sets, daily range): BP systolic 92–151; BP diastolic 49–76; PULSE 59–105; RESP 30; TEMP 35.7–36.6; O2SAT 88–99
[2021-07-18] MEDS: INSULIN ASPART (*BKC) 100 UNITS/ML SUB-Q ×2 (00:40→17:56)
[2021-07-18 01:12] LABS: Glucose Point of Care 214 mg/dl (65-105)
[2021-07-18 04:44] LABS: Basophils Percent Auto 0.2 % (0.2-1.2); Hematocrit 30.4 % (37.0-47.0); Hemoglobin 9.7 g/dL (12.0-15.0); Immature Granulocyte Absolute 0.28 K/mm3 (0.00-0.031); Immature Granulocyte Percent A 1.9 % (0-0.5); Lymphocytes Absolute Auto 0.25 K/mm3 (0.9-3.2); Lymphocytes Percent Auto 1.7 % (18.3-44.2); Mean Corpuscular HGB Conc 31.9 g/dl (32-36); Mean Platelet Volume 10.3 fl (7.4-10.4); Monocytes Absolute Auto 0.4 K/mm3 (0.1-0.6); Monocytes Percent Auto 2.7 % (2.6-8.5); Neutrophils Percent Auto 93.5 % (45.5-73.1); Platelet Count Result 268 k/mm3 (150-375); Red Blood Count 3.34 M/mm3 (4.2-5.4); White Blood Count 14.9 K/mm3 (4.5-10.0)
[2021-07-18 05:19] LABS: Alanine Aminotransferase 43 U/L (4-35); Albumin Level 2.4 g/dL (3.5-5.1); Alkaline Phosphatase 87 U/L (38-126); Anion Gap 7 mmol/L (8-16); Aspartate Amino Transferase 41 U/L (14-36); Bilirubin,Total 0.3 mg/dL (0.2-1.3); Blood Urea Nitrogen 112 mg/dL (7-17); Calcium 7.3 mg/dL (8.4-10.2); Carbon Dioxide 29 mmol/L (22-30); Chloride 91 mmol/L (98-107); Estimated CRCL calculation 16 ml/min; Estimated Glomerular Filt Rate 14; Glucose 190 mg/dL (65-110); Magnesium 2.6 mg/dL (1.6-2.3); Phosphorus 5.8 mg/dL (2.5-4.5); Potassium 4.6 mmol/L (3.4-5.0); Sodium 127 mmol/L (137-145)
[2021-07-18 05:42] LABS: Alveolar/Arterial O2 Gradient 174.3 mmHg; Base Excess ABG 1.7 mEq/l (+/-2.0); HCO3 ABG 29.3 mEq/l (22.0-26.0); Oxygen Saturation ABG 93.2 % (95.0-100.0); Oxyhemoglobin 92.4 % THb (90.0-100.0); PCO2 ABG 62.4 mmHg (35.0-45.0); PO2 ABG 75.6 mmHg (80.0-100.0); Total Hemoglobin 10.7 g/dL (12.0-18.0)
[2021-07-18 05:43] LABS: Carboxyhemoglobin 0.3 % THb (0-2.0); Device VENTILATOR; Fractional Inspired Oxygen 45 %; Methemoglobin ABG 0.3 %THb (0-1.5); Modified Allen's Test Unable to perform; PO2 FiO2 Ratio Arterial Blood 1.68 %; Site Drawn RIGHT RADIAL
[2021-07-18 05:44] LABS: Arterial Blood Gas PEEP 10 cmH2O; Arterial Blood Gas Tidal Volume 350 ml; Arterial Blood Gas Vent Mode CMV; Arterial Blood Gas Ventilator rate 30 /MIN
[2021-07-18] MEDS: ENOXAPARIN 100 MG/ML SYRINGE 95 MG SUB-Q ×2 (05:52→17:42)
[2021-07-18] MEDS: LEVOTHYROXINE SODIUM 100 MCG TABLET PO (05:53)
[2021-07-18] MEDS: CISATRACURIUM BESYLATE 200 MG in DEXTROSE 5% 80 ML 7.16 ML IV CONT ×2 (05:53→20:19)
[2021-07-18] MEDS: CHOLECALCIFEROL 1,000 UNITS TABLET 5000 UNITS PO (08:32)
[2021-07-18] MEDS: PANTOPRAZOLE SODIUM IV 40 MG VIAL IV PUSH (08:32)
[2021-07-18] MEDS: CYANOCOBALAMIN 500 MCG TABLET PO (08:33)
[2021-07-18] MEDS: PYRIDOXINE HCL 25 MG TABLET PO (08:33)
--- NOTE | 2021-07-18 09:05 | WPDINTPN ---
Progress Note: A&P Assessment and Plan (1) Acute hypoxemic respiratory failure due to COVID-19: Code(s): U07.1 - COVID-19; J96.01 - Acute respiratory failure with hypoxia Status: Acute Assessment and Plan: Acute Respiratory failure secondary to COVID-19 with component of pulmonary edema and may have a component of bacterial pneumonia Intubated 07/14 ABG and chest x-ray reviewed Continue full mechanical ventilation support to prevent hypoxemia/hypercarbia and end organ damage. PEEP of 10 and 50% FiO2, wean FiO2 to maintain O2 sats greater than 92%. Continue to place patient in prone position for 16-18 hours daily Low tidal volume ventilation strategy to prevent volutrauma Sedated with Versed and fentanyl. On Nimbex infusion for for neuromuscular blockade CTA Chest on 07/10 was negative for PE. The patient has DVT she is already on treatment with anticoagulation. Will check echocardiogram CT chest 07/14 IMPRESSION: 1. Diffuse lung disease, worsened from 07/10/2021, consistent with COVID-19 pneumonia. Bacterial pneumonia and pulmonary edema have overlapping appearances and cannot be excluded. 2. Mild mediastinal lymphadenopathy, likely reactive (2) Pneumonia due to COVID-19 virus: Code(s): U07.1 - COVID-19; J12.82 - Pneumonia due to coronavirus disease 2019 Status: Acute Assessment and Plan: Patient is vaccinated against COVID-19 but has not received a booster dose. She was tested for COVID-19 on 07/06/2021 found to be positive CT findings are consistent with COVID-19 pneumonia Started on dexamethasone 07/10 Completed 5 day course of remdesivir on 07/15/2021 She was started on Barcitinib 07/14, renally dosed (3) Community acquired pneumonia: Qualifiers: Laterality: unspecified laterality Qualified Code(s): J18.9 - Pneumonia, unspecified organism Code(s): J18.9 - Pneumonia, unspecified organism Status: Acute Assessment and Plan: Presented with complaints of fever and cough. Patient had elevated white count Cultures, influenza, urine Legionella, urine pneumococcal antigen are negative Patient is on Levaquin and vancomycin (4) DVT (deep venous thrombosis): Code(s): I82.409 - Acute embolism and thrombosis of unspecified deep veins of unspecified lower extremity Status: Acute Assessment and Plan: Lower limb Doppler showed 1. Deep vein thrombosis involving the right posterior tibial veins and left popliteal and posterior tibial veins. Patient is on therapeutic Lovenox dose (5) Acute on chronic kidney failure: Code(s): N17.9 - Acute kidney failure, unspecified; N18.9 - Chronic kidney disease, unspecified Status: Acute Assessment and Plan: Creatinine slightly elevated as compared to baseline on admission Creatinine has been worsening, urine output in the fluid Monitor urine output electrolytes and creatinine He nephrology following the patient, possible where dialysis (6) Hyponatremia: Code(s): E87.1 - Hypo-osmolality and hyponatremia Status: Acute Assessment and Plan: Will use normal saline flushes with tube feeds (7) Hypothyroidism: Qualifiers: Hypothyroidism type: acquired Qualified Code(s): E03.9 - Hypothyroidism, unspecified Code(s): E03.9 - Hypothyroidism, unspecified Status: Acute Assessment and Plan: TSH five months ago was within normal limits Continue levothyroxine Additional Plan DVT prophylaxis -on therapeutic dose Lovenox Stress ulcer prophylaxis -PPI Nutrition -on Tube Feeds Code Status - Full Code Total Critical Care Time - 32 minutes Due to a high probability of clinically significant, life threatening deterioration, the patient required my highest level of preparedness to intervene emergently and I personally spent this critical care time directly and personally managing the patient. This critical care time included obtaining a history
--- NOTE | 2021-07-18 12:14 | P.PNNP_ITS ---
Progress Note: A&P Assessment and Plan (1) MARCE (acute kidney injury): Code(s): N17.9 - Acute kidney failure, unspecified Status: Acute Assessment and Plan: * likely secondary to COVID-19 infection * urine electrolytes are borderline prerenal * renal ultrasound without obstruction * still making urine * rate of rise in creatinine seems to be slowing down * azotemia due to MARCE on top of steroid use * continue follow trend of labs and UOP 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 (3) Acute respiratory failure with hypoxia: Code(s): J96.01 - Acute respiratory failure with hypoxia Status: Acute Assessment and Plan: * due to #4 and possibly bacterial pneumonia * on antibiotics * culture negative to date (4) Pneumonia due to COVID-19 virus: Code(s): U07.1 - COVID-19; J12.82 - Pneumonia due to coronavirus disease 2018 Status: Acute Assessment and Plan: * CT findings are consistent with COVID-19 pneumonia * on dexamethasone (started on 07/10) * s/p 5 day course of remdesivir * started on Barcitinib on 07/14/21 * continue ventilator support and prone positioning (5) Hyponatremia: Code(s): E87.1 - Hypo-osmolality and hyponatremia Status: Acute Assessment and Plan: * 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 Subjective Date/time seen: 07/18/21 12:14 Chart reviewed -- assuming care from Dr. Rueda; remains intubated/sedated/paralyzed and on full ventilator suppor; remains hemodynamically stable without the need for pressor therapy; reasonable urine ouptut noted despite worsening renal function; no new issues/events overnight or earlier this AM. Exam Narrative: General: WD/WN female intubated/sedated/paralyzed Heart: normal S1 and S2; no rub Lungs: coarse breath sounds throughout Abdomen: soft, nontender, nondistended, positive bowel sounds Extremities: no cyanosis or clubbing; no edema Skin: warm and dry Objective Data Vital Signs Vital Signs: Vital Signs Temp Pulse Resp BP Pulse Ox 07/18/21 12:05 76 93 07/18/21 10:00 65 30 H 111/53 L 93 07/18/21 08:00 36.6 C 67 30 H 92/50 L 92 07/18/21 07:50 65 91 07/18/21 06:00 77 30 H 123/55 L 94 07/18/21 05:48 74 97 07/18/21 04:00 36.1 C L 71 30 H 99/51 L 94 07/18/21 02:52 78 99 07/18/21 02:05 68 30 H 07/18/21 02:00 72 30 H 107/57 L 98 07/18/21 00:41 73 30 H 07/18/21 00:00 36.0 C L 68 30 H 110/49 L 94 07/17/21 23:16 72 95 07/17/21 22:00 68 30 H 105/47 L 94 07/17/21 21:18 75 30 H 07/17/21 20:21 87 97 07/17/21 20:00 36.1 C L 70 30 H 111/53 L 93 07/17/21 18:43
--- NOTE | 2021-07-18 12:14 | PM.PNNEP ---
Progress Note: A&P Assessment and Plan (1) MARCE (acute kidney injury): Code(s): N17.9 - Acute kidney failure, unspecified Status: Acute Assessment and Plan: likely secondary to COVID-19 infection urine electrolytes are borderline prerenal renal ultrasound without obstruction still making urine rate of rise in creatinine seems to be slowing down azotemia due to MARCE on top of steroid use continue follow trend of labs and UOP 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 (3) Acute respiratory failure with hypoxia: Code(s): J96.01 - Acute respiratory failure with hypoxia Status: Acute Assessment and Plan: due to #4 and possibly bacterial pneumonia on antibiotics culture negative to date (4) Pneumonia due to COVID-19 virus: Code(s): U07.1 - COVID-19; J12.82 - Pneumonia due to coronavirus disease 2018 Status: Acute Assessment and Plan: CT findings are consistent with COVID-19 pneumonia on dexamethasone (started on 07/10) s/p 5 day course of remdesivir started on Barcitinib on 07/14/21 continue ventilator support and prone positioning (5) Hyponatremia: Code(s): E87.1 - Hypo-osmolality and hyponatremia Status: Acute Assessment and Plan: 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 Subjective Date/time seen: 07/18/21 12:14 Chart reviewed -- assuming care from Dr. Rueda; remains intubated/sedated/paralyzed and on full ventilator suppor; remains hemodynamically stable without the need for pressor therapy; reasonable urine ouptut noted despite worsening renal function; no new issues/events overnight or earlier this AM. Exam Narrative: General: WD/WN female intubated/sedated/paralyzed Heart: normal S1 and S2; no rub Lungs: coarse breath sounds throughout Abdomen: soft, nontender, nondistended, positive bowel sounds Extremities: no cyanosis or clubbing; no edema Skin: warm and dry Objective Data Vital Signs Vital Signs: Vital Signs Temp Pulse Resp BP Pulse Ox 07/18/21 12:05 76 93 07/18/21 10:00 65 30 H 111/53 L 93 07/18/21 08:00 36.6 C 67 30 H 92/50 L 92 07/18/21 07:50 65 91 07/18/21 06:00 77 30 H 123/55 L 94 07/18/21 05:48 74 97 07/18/21 04:00 36.1 C L 71 30 H 99/51 L 94 07/18/21 02:52 78 99 07/18/21 02:05 68 30 H 07/18/21 02:00 72 30 H 107/57 L 98 07/18/21 00:41 73 30 H 07/18/21 00:00 36.0 C L 68 30 H 110/49 L 94 07/17/21 23:16 72 95 07/17/21 22:00 68 30 H 105/47 L 94 07/17/21 21:18 75 30 H 07/17/21 20:21 87 97 07/17/21 20:00 36.1 C L 70 30 H 111/53 L 93 07/17/21 18:43 68 30 H 07/17/21 18:00 68 30 H 119/53 L 94 07/17/21 17:35 72 94 Intake/Output Intake/Output: Intake & Output 07/15/21 07/16/21 07/17/21 07/18/21 23:59 23:59 23:59 23:59 Intake Total 1550 1401 2023 557 Output Total 700 800 925 400 Balance 715 903 2762 157 Meds/Results Medications: Active Medications Generic Name Dose Route Start Last Admin Trade Name Freq PRN Reason Stop Dose Admin Acetaminophen 650 mg 07/06/21 13:48 07/07/21 00:21 Acetaminophen 325 Mg Tablet PO 650 mg Q4H PRN Administration Mild Pain (1-3) or Fever Albuterol 2 puff 07/10/21 20:00 07/17/21 08:14 Albuterol Sulfate (*
[2021-07-18] MEDS: levoFLOXacin 500 MG/D5W 100 ML 500 MG/100 ML BAG 100 MG IVPB (12:41)
[2021-07-18] MEDS: polyethylene glycoL 3350 17 GM POWD.PACK PO (12:42)
[2021-07-18 12:51] LABS: Glucose Point of Care 165 mg/dl (65-105)
--- NOTE | 2021-07-18 13:16 | PCNFU ---
Nutrition Follow-Up Complete: Inadequate Oral Intake as related to mechanical ventilation as evidenced by NPO. Goal: Meet estimated nutritional needs Will continue current goal. Pt current nutrition is Nepro at 40 ml/hr over 22 hours. Last recorded weight is 102.4 kg. stable Bowel Motility:+BM reported 07/13 Labs Reviewed:Glu 190, BUN 112, GFR 14, Na 127, ALb 2.4,Cr 3.2 Meds Noted:Decadron, Versed, Nimbex, Levophed, Lovenox, Vit D, Vit B6, Fentanyl, Levaquin, Miralax Skin: WNL Additional Notes: Patient remains on mechanical vent and tube feedings of Nepro at 40 ml/hr over 22 hours providing 1584 kcals/72 gms protein/ 640 ml water. Free water flush 30 ml q 4 hours. Agree with diet orders. Monitoring: Will monitor in ICU rounds and reassessing every Wednesday and Wednesday.
[2021-07-18 18:02] LABS: Glucose Point of Care 230 mg/dl (65-105)
[2021-07-18] MEDS: MINERAL OIL/WHITE PETROLATUM OINTMENT 1 APPLIC EACH EYE (20:19)
[2021-07-18] MEDS: MIDAZOLAM 100MG/NS 100ML(*CRX) 100 MG/100 ML BAG IV CONT (22:31)
[2021-07-19] VITALS (35 sets, daily range): BP systolic 105–136; BP diastolic 53–88; PULSE 57–90; RESP 30; TEMP 35.9–36.6; O2SAT 89–97
[2021-07-19] MEDS: FENTANYL 2,500MCG/NS250ML(*CRX 2,500 MCG/250 ML BAG IV CONT (00:52)
[2021-07-19] MEDS: INSULIN ASPART (*BKC) 100 UNITS/ML SUB-Q ×2 (00:54→23:45)
[2021-07-19 01:12] LABS: Glucose Point of Care 209 mg/dl (65-105)
[2021-07-19 05:28] LABS: Base Excess ABG 3.1 mEq/l (+/-2.0); Total Hemoglobin 10.7 g/dL (12.0-18.0)
[2021-07-19 05:29] LABS: Alveolar/Arterial O2 Gradient 230.9 mmHg; Carboxyhemoglobin 0.3 % THb (0-2.0); Oxygen Content ABG 14.2 %vol (16.0-22.0)
[2021-07-19 05:30] LABS: Methemoglobin ABG 0.3 %THb (0-1.5); PO2 FiO2 Ratio Arterial Blood 1.58 %; Reduced Hemoglobin 5.3 %THb (0-5.0)
[2021-07-19 05:31] LABS: Device VENTILATOR; Fractional Inspired Oxygen 50 %; Modified Allen's Test Pass; Site Drawn LEFT RADIAL
[2021-07-19 06:00] LABS: Basophils Percent Auto 0.2 % (0.2-1.2); Hematocrit 29.4 % (37.0-47.0); Hemoglobin 9.8 g/dL (12.0-15.0); Immature Granulocyte Absolute 0.22 K/mm3 (0.00-0.031); Immature Granulocyte Percent A 1.3 % (0-0.5); Lymphocytes Absolute Auto 0.26 K/mm3 (0.9-3.2); Lymphocytes Percent Auto 1.6 % (18.3-44.2); Mean Corpuscular HGB Conc 33.3 g/dl (32-36); Mean Corpuscular Hemoglobin 29.5 pg (26-34); Mean Corpuscular Volume 88.6 fl (80-100); Mean Platelet Volume 10.3 fl (7.4-10.4); Monocytes Absolute Auto 0.5 K/mm3 (0.1-0.6); Monocytes Percent Auto 3.2 % (2.6-8.5); Neutrophils Absolute Auto 15.7 K/mm3 (1.3-6.7); Neutrophils Percent Auto 93.7 % (45.5-73.1); Platelet Count Result 281 k/mm3 (150-375); Red Blood Count 3.32 M/mm3 (4.2-5.4); Red Cell Distribution Width 13.6 % (11.5-14.5); White Blood Count 16.8 K/mm3 (4.5-10.0)
[2021-07-19] MEDS: ENOXAPARIN 100 MG/ML SYRINGE 95 MG SUB-Q ×2 (06:13→17:15)
[2021-07-19] MEDS: LEVOTHYROXINE SODIUM 100 MCG TABLET PO (06:13)
[2021-07-19] MEDS: CENTRAL LINE FLUSH 10 ML IV PUSH ×3 (06:13→22:24)
[2021-07-19 06:47] LABS: Alanine Aminotransferase 39 U/L (4-35); Albumin Level 2.4 g/dL (3.5-5.1); Alkaline Phosphatase 79 U/L (38-126); Anion Gap 2 mmol/L (8-16); Aspartate Amino Transferase 35 U/L (14-36); Bilirubin,Total 0.4 mg/dL (0.2-1.3); Calcium 7.4 mg/dL (8.4-10.2); Carbon Dioxide 27 mmol/L (22-30); Chloride 96 mmol/L (98-107); Estimated CRCL calculation 16 ml/min; Estimated Glomerular Filt Rate 14; Glucose 198 mg/dL (65-110); Magnesium 2.7 mg/dL (1.6-2.3); Potassium 4.9 mmol/L (3.4-5.0); Sodium 125 mmol/L (137-145)
[2021-07-19 08:40] LABS: Blood Urea Nitrogen 131 mg/dL (7-17)
[2021-07-19] MEDS: polyethylene glycoL 3350 17 GM POWD.PACK PO (09:04)
[2021-07-19] MEDS: PANTOPRAZOLE SODIUM IV 40 MG VIAL IV PUSH (09:04)
[2021-07-19] MEDS: CISATRACURIUM BESYLATE 200 MG in DEXTROSE 5% 80 ML 10.03 ML IV CONT (10:23)
--- NOTE | 2021-07-19 12:39 | PM.PNNEP ---
Progress Note: A&P Assessment and Plan (1) MARCE (acute kidney injury): Code(s): N17.9 - Acute kidney failure, unspecified Status: Acute Assessment and Plan: likely secondary to COVID-19 infection urine electrolytes are borderline prerenal renal ultrasound without obstruction still making urine rate of rise in creatinine seems to be slowing down - possible peak/plateau of creatinine at 3.2mg/dl(?) azotemia due to MARCE on top of steroid use continue follow trend of labs and UOP 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 (3) Acute respiratory failure with hypoxia: Code(s): J96.01 - Acute respiratory failure with hypoxia Status: Acute Assessment and Plan: due to #4 and possibly bacterial pneumonia on antibiotics culture negative to date (4) Pneumonia due to COVID-19 virus: Code(s): U07.1 - COVID-19; J12.82 - Pneumonia due to coronavirus disease 2018 Status: Acute Assessment and Plan: CT findings are consistent with COVID-19 pneumonia on dexamethasone (started on 07/10) s/p 5 day course of remdesivir started on Barcitinib on 07/14/21 continue ventilator support and prone positioning (5) Hyponatremia: Code(s): E87.1 - Hypo-osmolality and hyponatremia Status: Acute Assessment and Plan: 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 Subjective Date/time seen: 07/19/21 12:39 Remains on full ventilator support at this time; remains intubated/sedated/paralyzed; relatively stable urine output and creatinine seems to be have stabilized by recent testing; no other acute issues/events overnight or earlier this morning. Exam Narrative: General: WD/WN female intubated/sedated/paralyzed Heart: normal S1 and S2; no rub Lungs: coarse breath sounds throughout Abdomen: soft, nontender, nondistended, positive bowel sounds Extremities: no cyanosis or clubbing; no edema Skin: warm and intact Objective Data Vital Signs Vital Signs: Vital Signs Temp Pulse Resp BP Pulse Ox 07/19/21 12:00 92 07/19/21 10:20 65 30 H 113/55 L 07/19/21 10:00 65 30 H 113/55 L 92 07/19/21 09:51 82 95 07/19/21 09:01 81 30 H 123/57 L 07/19/21 08:00 36.6 C 65 30 H 109/53 L 91 07/19/21 06:00 66 30 H 105/56 L 91 07/19/21 05:50 68 96 07/19/21 04:00 36.6 C 65 30 H 112/56 L 89 L 07/19/21 02:20 74 95 07/19/21 02:00 79 30 H 118/56 L 91 07/19/21 00:53 67 30 H 118/57 L 07/19/21 00:52 66 30 H 07/19/21 00:00 35.9 C L 62 30 H 118/57 L 96 07/18/21 23:43 66 30 H 94 07/18/21 22:00 35.7 C L 59 L 30 H 112/60 97 07/18/21 20:19 70 30 H 138/62 07/18/21 20:00 35.7 C L 62 30 H 138/62 96 07/18/21 19:13 74 95 07/18/21 18:44 79 93 07/18/21 18:00 73 30 H 132/63 94 Intake/Output Intake/Output: Intake & Output 07/16/21 07/17/21 07/18/21 07/19/21 23:59 23:59 23:59 23:59 Intake Total 1401 2023 1458 675 Output Total 800 925 850 500 Balance 601 1098 608 175 Meds/Results Medications: Active Medications Generic Name Dose Route Start Last Admin Trade Name Freq PRN Reason Stop Dose Admin Acetaminophen 650 mg 07/06/21 13:48 07/07/21 00:21 Acetaminophen 325 Mg Tablet PO 650 mg Q4H PRN Administration Mild Pain (1-3) or Fever Albu
--- NOTE | 2021-07-19 12:39 | P.PNNP_ITS ---
Progress Note: A&P Assessment and Plan (1) MARCE (acute kidney injury): Code(s): N17.9 - Acute kidney failure, unspecified Status: Acute Assessment and Plan: * likely secondary to COVID-19 infection * urine electrolytes are borderline prerenal * renal ultrasound without obstruction * still making urine * rate of rise in creatinine seems to be slowing down - possible peak/plateau of creatinine at 3.2mg/dl(?) * azotemia due to MARCE on top of steroid use * continue follow trend of labs and UOP 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 (3) Acute respiratory failure with hypoxia: Code(s): J96.01 - Acute respiratory failure with hypoxia Status: Acute Assessment and Plan: * due to #4 and possibly bacterial pneumonia * on antibiotics * culture negative to date (4) Pneumonia due to COVID-19 virus: Code(s): U07.1 - COVID-19; J12.82 - Pneumonia due to coronavirus disease 2018 Status: Acute Assessment and Plan: * CT findings are consistent with COVID-19 pneumonia * on dexamethasone (started on 07/10) * s/p 5 day course of remdesivir * started on Barcitinib on 07/14/21 * continue ventilator support and prone positioning (5) Hyponatremia: Code(s): E87.1 - Hypo-osmolality and hyponatremia Status: Acute Assessment and Plan: * 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 Subjective Date/time seen: 07/19/21 12:39 Remains on full ventilator support at this time; remains intubated/sedated/paralyzed; relatively stable urine output and creatinine seems to be have stabilized by recent testing; no other acute issues/events overnight or earlier this morning. Exam Narrative: General: WD/WN female intubated/sedated/paralyzed Heart: normal S1 and S2; no rub Lungs: coarse breath sounds throughout Abdomen: soft, nontender, nondistended, positive bowel sounds Extremities: no cyanosis or clubbing; no edema Skin: warm and intact Objective Data Vital Signs Vital Signs: Vital Signs Temp Pulse Resp BP Pulse Ox 07/19/21 12:00 92 07/19/21 10:20 65 30 H 113/55 L 07/19/21 10:00 65 30 H 113/55 L 92 07/19/21 09:51 82 95 07/19/21 09:01 81 30 H 123/57 L 07/19/21 08:00 36.6 C 65 30 H 109/53 L 91 07/19/21 06:00 66 30 H 105/56 L 91 07/19/21 05:50 68 96 07/19/21 04:00 36.6 C 65 30 H 112/56 L 89 L 07/19/21 02:20 74 95 07/19/21 02:00 79 30 H 118/56 L 91 07/19/21 00:53 67 30 H 118/57 L 07/19/21 00:52 66 30 H 07/19/21 00:00 35.9 C L 62 30 H 118/57 L 96 07/18/21 23:43 66 30 H 94 07/18/21 22:00 35.7 C L 59 L 30 H 112/60 97 07/18/21 20:19 70 30 H 138/62
[2021-07-19 13:06] LABS: Glucose Point of Care 167 mg/dl (65-105)
--- NOTE | 2021-07-19 13:32 | PM.IMPN ---
Progress Note: A&P Assessment and Plan (1) Acute hypoxemic respiratory failure due to COVID-19: Code(s): U07.1 - COVID-19; J96.01 - Acute respiratory failure with hypoxia Status: Acute Assessment and Plan: Acute Respiratory failure secondary to COVID-19 with component of pulmonary edema and may have a component of bacterial pneumonia Intubated 07/14 ABG and chest x-ray reviewed Continue full mechanical ventilation support to prevent hypoxemia/hypercarbia and end organ damage. PEEP of 10 and 50% FiO2, wean FiO2 to maintain O2 sats greater than 92%. Continue to place patient in prone position for 16-18 hours daily Low tidal volume ventilation strategy to prevent volutrauma Sedated with Versed and fentanyl. On Nimbex infusion for for neuromuscular blockade CTA Chest on 07/10 was negative for PE. The patient has DVT she is already on treatment with anticoagulation. Will check echocardiogram CT chest 07/14 IMPRESSION: 1. Diffuse lung disease, worsened from 07/10/2021, consistent with COVID-19 pneumonia. Bacterial pneumonia and pulmonary edema have overlapping appearances and cannot be excluded. 2. Mild mediastinal lymphadenopathy, likely reactive 07/19/2021 interval history: patient with acute respiratory failure secondary to multifactorial, COVID-19 pneumonia, concerning for bacterial pneumonia as well as congestive heart failure etiology unknown, intubated on 07/14, Started on dexamethasone 07/10 Completed 5 day course of remdesivir on 07/15/2021 She was started on Barcitinib 07/14, renally dosed, remains on vent clinically stable seen by slitter and rewinder and Nephrology appreciate will continue to monitor (2) Pneumonia due to COVID-19 virus: Code(s): U07.1 - COVID-19; J12.82 - Pneumonia due to coronavirus disease 2019 Status: Acute Assessment and Plan: Patient is vaccinated against COVID-19 but has not received a booster dose. She was tested for COVID-19 on 07/06/[address] found to [address] findings are consistent with COVID-19 pneumonia Started on dexamethasone 07/10 Completed 5 day course of remdesivir on 07/15/2021 She was started on Barcitinib 07/14, renally dosed (3) Community acquired pneumonia: Qualifiers: Laterality: unspecified laterality Qualified Code(s): J18.9 - Pneumonia, unspecified organism Code(s): J18.9 - Pneumonia, unspecified organism Status: Acute Assessment and Plan: Presented with complaints of fever and cough. Patient had elevated white count Cultures, influenza, urine Legionella, urine pneumococcal antigen are negative Patient is on Levaquin and vancomycin (4) DVT (deep venous thrombosis): Code(s): I82.409 - Acute embolism and thrombosis of unspecified deep veins of unspecified lower extremity Status: Acute Assessment and Plan: Lower limb Doppler showed 1. Deep vein thrombosis involving the right posterior tibial veins and left popliteal and posterior tibial veins. Patient is on therapeutic Lovenox dose (5) Acute on chronic kidney failure: Code(s): N17.9 - Acute kidney failure, unspecified; N18.9 - Chronic kidney disease, unspecified Status: Acute Assessment and Plan: Creatinine slightly elevated as compared to baseline on admission Creatinine has been worsening, urine output in the fluid Monitor urine output electrolytes and creatinine He nephrology following the patient, possible where dialysis (6) Hyponatremia: Code(s): E87.1 - Hypo-osmolality and hyponatremia Status: Acute Assessment and Plan: Will use normal saline flushes with tube feeds (7) Hypothyroidism: Qualifiers: Hypothyroidism type: acquired Qualified Code(s): E03.9 - Hypothyroidism, unspecified Code(s): E03.9 - Hypothyroidism, unspecified Status: Acute Assessment and Plan: TSH five months ago was within normal limits Continue levothyroxine Subjective Date/time seen
[2021-07-19 14:49] LABS: Vancomycin Trough 15.6 ug/mL (10.0-20.0)
[2021-07-19 16:45] LABS: Glucose Point of Care 185 mg/dl (65-105)
--- NOTE | 2021-07-19 18:08 | WPDINTPN ---
Progress Note: A&P Assessment and Plan (1) Acute hypoxemic respiratory failure due to COVID-19: Code(s): U07.1 - COVID-19; J96.01 - Acute respiratory failure with hypoxia Status: Acute Assessment and Plan: Acute Respiratory failure secondary to COVID-19 with component of pulmonary edema and may have a component of bacterial pneumonia Intubated 07/14 Chest x-ray stable, ABGs reviewed Continue full mechanical ventilation support to prevent hypoxemia/hypercarbia and end organ damage. PEEP of 10 and 50% FiO2, wean FiO2 to maintain O2 sats greater than 92%. Low tidal volume ventilation strategy to prevent volutrauma Sedated with Versed and fentanyl. On Nimbex infusion for for neuromuscular blockade CTA Chest on 07/10 was negative for PE. The patient has DVT she is already on treatment with anticoagulation. CT chest 07/14 IMPRESSION: 1. Diffuse lung disease, worsened from 07/10/2021, consistent with COVID-19 pneumonia. Bacterial pneumonia and pulmonary edema have overlapping appearances and cannot be excluded. 2. Mild mediastinal lymphadenopathy, likely reactive (2) Pneumonia due to COVID-19 virus: Code(s): U07.1 - COVID-19; J12.82 - Pneumonia due to coronavirus disease 2019 Status: Acute Assessment and Plan: Patient is vaccinated against COVID-19 but has not received a booster dose. She was tested for COVID-19 on 07/06/20[address] found to be positive CT findings are consistent with COVID-19 pneumonia Started on dexamethasone 07/10 Completed 5 day course of remdesivir on 07/15/2021 She was started on Barcitinib 07/14, renally dosed (3) Community acquired pneumonia: Qualifiers: Laterality: unspecified laterality Qualified Code(s): J18.9 - Pneumonia, unspecified organism Code(s): J18.9 - Pneumonia, unspecified organism Status: Acute Assessment and Plan: Presented with complaints of fever and cough. Patient had elevated white count Cultures, influenza, urine Legionella, urine pneumococcal antigen are negative Will discontinue vancomycin and Levaquin on 07/19. (4) DVT (deep venous thrombosis): Code(s): I82.409 - Acute embolism and thrombosis of unspecified deep veins of unspecified lower extremity Status: Acute Assessment and Plan: Lower extremity Dopplers showed Deep vein thrombosis involving the right posterior tibial veins and left popliteal and posterior tibial veins. Patient is on therapeutic Lovenox dose (5) Acute on chronic kidney failure: Code(s): N17.9 - Acute kidney failure, unspecified; N18.9 - Chronic kidney disease, unspecified Status: Acute Assessment and Plan: Creatinine slightly elevated as compared to baseline on admission Creatinine has been stable but elevated, urine output has been adequate Monitor urine output electrolytes and creatinine nephrology following the patient, may need dialysis (6) Hyponatremia: Code(s): E87.1 - Hypo-osmolality and hyponatremia Status: Acute Assessment and Plan: Will use normal saline flushes with tube feeds (7) Hypothyroidism: Qualifiers: Hypothyroidism type: acquired Qualified Code(s): E03.9 - Hypothyroidism, unspecified Code(s): E03.9 - Hypothyroidism, unspecified Status: Acute Assessment and Plan: Continue levothyroxine Additional Plan DVT prophylaxis -on therapeutic dose Lovenox Stress ulcer prophylaxis -PPI Nutrition -on Tube Feeds Code Status - Full Code Total Critical Care Time - 33 minutes Due to a high probability of clinically significant, life threatening deterioration, the patient required my highest level of preparedness to intervene emergently and I personally spent this critical care time directly and personally managing the patient. This critical care time included obtaining a history; examining the patient; pulse oximetry; ordering and review of studies; arranging urgent treatment with cesar
[2021-07-19] MEDS: CISATRACURIUM BESYLATE 200 MG in DEXTROSE 5% 80 ML 11.46 ML IV CONT (20:19)
[2021-07-19] MEDS: MINERAL OIL/WHITE PETROLATUM OINTMENT 1 APPLIC EACH EYE (20:25)
[2021-07-19] MEDS: MIDAZOLAM 100MG/NS 100ML(*CRX) 100 MG/100 ML BAG IV CONT (22:23)
[2021-07-20] VITALS (34 sets, daily range): BP systolic 91–137; BP diastolic 48–80; PULSE 59–84; RESP 30–36; TEMP 35.4–37.7; O2SAT 90–100
[2021-07-20 00:34] LABS: Glucose Point of Care 202 mg/dl (65-105)
[2021-07-20] MEDS: CISATRACURIUM BESYLATE 200 MG in DEXTROSE 5% 80 ML 11.46 ML IV CONT (04:48)
[2021-07-20] MEDS: CENTRAL LINE FLUSH 10 ML IV PUSH ×3 (04:49→20:03)
[2021-07-20] MEDS: ENOXAPARIN 100 MG/ML SYRINGE 95 MG SUB-Q ×2 (04:51→18:13)
[2021-07-20] MEDS: LEVOTHYROXINE SODIUM 100 MCG TABLET PO (04:54)
[2021-07-20 05:50] LABS: Basophils Absolute Auto 0.1 K/mm3 (0.0-0.1); Basophils Percent Auto 0.3 % (0.2-1.2); Eosinophils Percent Auto 0.1 % (0-4.4); Hematocrit 30.2 % (37.0-47.0); Hemoglobin 9.8 g/dL (12.0-15.0); Immature Granulocyte Absolute 0.37 K/mm3 (0.00-0.031); Immature Granulocyte Percent A 1.9 % (0-0.5); Lymphocytes Percent Auto 1.5 % (18.3-44.2); Mean Corpuscular HGB Conc 32.5 g/dl (32-36); Mean Corpuscular Hemoglobin 28.6 pg (26-34); Mean Platelet Volume 11.1 fl (7.4-10.4); Monocytes Absolute Auto 0.6 K/mm3 (0.1-0.6); Neutrophils Absolute Auto 18.4 K/mm3 (1.3-6.7); Neutrophils Percent Auto 93.2 % (45.5-73.1); Platelet Count Result 324 k/mm3 (150-375); Red Blood Count 3.43 M/mm3 (4.2-5.4); Red Cell Distribution Width 13.7 % (11.5-14.5); White Blood Count 19.7 K/mm3 (4.5-10.0)
[2021-07-20 06:05] LABS: Alanine Aminotransferase 34 U/L (4-35); Albumin Level 2.5 g/dL (3.5-5.1); Alkaline Phosphatase 73 U/L (38-126); Anion Gap 3 mmol/L (8-16); Aspartate Amino Transferase 27 U/L (14-36); Bilirubin,Total 0.5 mg/dL (0.2-1.3); Calcium 7.7 mg/dL (8.4-10.2); Carbon Dioxide 27 mmol/L (22-30); Chloride 97 mmol/L (98-107); Estimated CRCL calculation 14 ml/min; Estimated Glomerular Filt Rate 15; Glucose 165 mg/dL (65-110); Magnesium 2.9 mg/dL (1.6-2.3); Potassium 5.2 mmol/L (3.4-5.0); Sodium 127 mmol/L (137-145)
[2021-07-20 06:57] LABS: Base Excess ABG 2.8 mEq/l (+/-2.0); Fractional Inspired Oxygen 50 %; Methemoglobin ABG 0.3 %THb (0-1.5); Oxygen Content ABG 13.3 %vol (16.0-22.0); Oxygen Saturation ABG 92.6 % (95.0-100.0); Oxyhemoglobin 90.7 % THb (90.0-100.0); PO2 ABG 64.8 mmHg (80.0-100.0); Total Hemoglobin 10.4 g/dL (12.0-18.0); pH ABG 7.403 (7.350-7.450)
[2021-07-20 06:58] LABS: Arterial Blood Gas Vent Mode CMV; Arterial Blood Gas Ventilator rate 30 /MIN; Device VENTILATOR; Modified Allen's Test Pass; Site Drawn LEFT RADIAL
[2021-07-20 06:59] LABS: Arterial Blood Gas PEEP 10 cmH2O; Arterial Blood Gas Tidal Volume 400 ml
[2021-07-20 08:11] LABS: Blood Urea Nitrogen 141 mg/dL (7-17)
[2021-07-20] MEDS: PANTOPRAZOLE SODIUM IV 40 MG VIAL IV PUSH (10:43)
[2021-07-20] MEDS: polyethylene glycoL 3350 17 GM POWD.PACK PO (10:43)
--- NOTE | 2021-07-20 11:47 | P.PNNP_ITS ---
Progress Note: A&P Assessment and Plan (1) MARCE (acute kidney injury): Code(s): N17.9 - Acute kidney failure, unspecified Status: Acute Assessment and Plan: * likely secondary to COVID-19 infection * urine electrolytes are borderline prerenal * renal ultrasound without obstruction * still making urine * rate of rise in creatinine seems to be slowing down - possible peak/plateau of creatinine at 3.2mg/dl(?) * azotemia due to MARCE on top of steroid use * continue follow trend of labs and UOP 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 (3) Acute respiratory failure with hypoxia: Code(s): J96.01 - Acute respiratory failure with hypoxia Status: Acute Assessment and Plan: * due to #4 and possibly bacterial pneumonia * on antibiotics * culture negative to date (4) Pneumonia due to COVID-19 virus: Code(s): U07.1 - COVID-19; J12.82 - Pneumonia due to coronavirus disease 2018 Status: Acute Assessment and Plan: * CT findings are consistent with COVID-19 pneumonia * on dexamethasone (started on 07/10) * s/p 5 day course of remdesivir * started on Barcitinib on 07/14/21 * continue ventilator support and prone positioning (5) Hyponatremia: Code(s): E87.1 - Hypo-osmolality and hyponatremia Status: Acute Assessment and Plan: * 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 Subjective Date/time seen: 07/20/21 11:47 No real change since last seen -- remains on full ventilator support along with being intubated/sedated/paralyzed; remains hemodynamically stable at this time; continues to make reasonably urine output; although BUN elevated, creatinine/renal function stable if not a bit better in the last 24 hours; no new issues/events overnight or earlier this AM. Exam Narrative: General: WD/WN female intubated/sedated/paralyzed Heart: normal S1 and S2; no rub Lungs: coarse breath sounds throughout Abdomen: soft, nontender, nondistended, positive bowel sounds Extremities: no cyanosis or clubbing; no edema Skin: no rash or nodules Objective Data Vital Signs Vital Signs: Vital Signs Temp Pulse Resp BP Pulse Ox 07/20/21 10:00 36.9 C 64 30 H 112/52 L 96 07/20/21 09:10 69 98 07/20/21 08:00 36.9 C 64 30 H 114/55 L 97 07/20/21 07:19 36.9 C 07/20/21 06:00 36.9 C 65 30 H 119/55 L 94 07/20/21 05:18 69 98 07/20/21 04:50 64 30 H 07/20/21 04:49 64 30 H 07/20/21 04:48 69 30 H 125/57 L 07/20/21 04:00 36.6 C 65 30 H 125/77 96 07/20/21 02:12 36.0 C L 07/20/21 02:00 36.0 C L 59 L 30 H 107/58 L 98 07/20/21 01:27 35.8 C L 07/20/21 01:15 35.7 C L 07/20/21 01:03 35.6 C L
--- NOTE | 2021-07-20 11:47 | PM.PNNEP ---
Progress Note: A&P Assessment and Plan (1) MARCE (acute kidney injury): Code(s): N17.9 - Acute kidney failure, unspecified Status: Acute Assessment and Plan: likely secondary to COVID-19 infection urine electrolytes are borderline prerenal renal ultrasound without obstruction still making urine rate of rise in creatinine seems to be slowing down - possible peak/plateau of creatinine at 3.2mg/dl(?) azotemia due to MARCE on top of steroid use continue follow trend of labs and UOP 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 (3) Acute respiratory failure with hypoxia: Code(s): J96.01 - Acute respiratory failure with hypoxia Status: Acute Assessment and Plan: due to #4 and possibly bacterial pneumonia on antibiotics culture negative to date (4) Pneumonia due to COVID-19 virus: Code(s): U07.1 - COVID-19; J12.82 - Pneumonia due to coronavirus disease 2018 Status: Acute Assessment and Plan: CT findings are consistent with COVID-19 pneumonia on dexamethasone (started on 07/10) s/p 5 day course of remdesivir started on Barcitinib on 07/14/21 continue ventilator support and prone positioning (5) Hyponatremia: Code(s): E87.1 - Hypo-osmolality and hyponatremia Status: Acute Assessment and Plan: 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 Subjective Date/time seen: 07/20/21 11:47 No real change since last seen -- remains on full ventilator support along with being intubated/sedated/paralyzed; remains hemodynamically stable at this time; continues to make reasonably urine output; although BUN elevated, creatinine/renal function stable if not a bit better in the last 24 hours; no new issues/events overnight or earlier this AM. Exam Narrative: General: WD/WN female intubated/sedated/paralyzed Heart: normal S1 and S2; no rub Lungs: coarse breath sounds throughout Abdomen: soft, nontender, nondistended, positive bowel sounds Extremities: no cyanosis or clubbing; no edema Skin: no rash or nodules Objective Data Vital Signs Vital Signs: Vital Signs Temp Pulse Resp BP Pulse Ox 07/20/21 10:00 36.9 C 64 30 H 112/52 L 96 07/20/21 09:10 69 98 07/20/21 08:00 36.9 C 64 30 H 114/55 L 97 07/20/21 07:19 36.9 C 07/20/21 06:00 36.9 C 65 30 H 119/55 L 94 07/20/21 05:18 69 98 07/20/21 04:50 64 30 H 07/20/21 04:49 64 30 H 07/20/21 04:48 69 30 H 125/57 L 07/20/21 04:00 36.6 C 65 30 H 125/77 96 07/20/21 02:12 36.0 C L 07/20/21 02:00 36.0 C L 59 L 30 H 107/58 L 98 07/20/21 01:27 35.8 C L 07/20/21 01:15 35.7 C L 07/20/21 01:03 35.6 C L 07/20/21 00:45 35.5 C L 07/20/21 00:30 35.4 C L 07/20/21 00:15 67 30 H 95 07/20/21 00:00 35.4 C L 63 30 H 137/63 95 07/19/21 23:51 65 30 H 07/19/21 23:49 64 30 H 07/19/21 23:47 65 30 H 136/63 07/19/21 23:41 68 96 07/19/21 22:23 76 30 H 07/19/21 22:00 78 30 H 127/88 97 07/19/21 21:28 63 97 07/19/21 20:30 36.0 C L 67 30 H 132/60 94 07/19/21 20:19 80 30 H 132/60 07/19/21 20:00 67 07/19/21 19:33 80 30 H 132/60 07/19/21 18:00 90 30 H 126/57 L 93 07/19/21 17:13 64 30 H 07/19/21 17:11 57 L 30 H 124/60
[2021-07-20 13:19] LABS: Glucose Point of Care 110 mg/dl (65-105)
[2021-07-20] MEDS: METOCLOPRAMIDE HCL INJ 10 MG/2 ML VIAL IV PUSH ×2 (14:24→18:13)
--- NOTE | 2021-07-20 14:54 | WPDINTPN ---
Progress Note: A&P Assessment and Plan (1) Acute hypoxemic respiratory failure due to COVID-19: Code(s): U07.1 - COVID-19; J96.01 - Acute respiratory failure with hypoxia Status: Acute Assessment and Plan: Acute Respiratory failure secondary to COVID-19 with component of pulmonary edema and may have a component of bacterial pneumonia Intubated 07/14 Chest x-ray stable, ABGs reviewed Continue full mechanical ventilation support to prevent hypoxemia/hypercarbia and end organ damage. PEEP of 10 and 50% FiO2, wean FiO2 to maintain O2 sats greater than 92%. Low tidal volume ventilation strategy to prevent volutrauma Sedated with Versed and fentanyl. - will wean Nimbex to off CTA Chest on 07/10 was negative for PE. The patient has DVT she is already on treatment with anticoagulation. CT chest 07/14 IMPRESSION: 1. Diffuse lung disease, worsened from 07/10/2021, consistent with COVID-19 pneumonia. Bacterial pneumonia and pulmonary edema have overlapping appearances and cannot be excluded. 2. Mild mediastinal lymphadenopathy, likely reactive (2) Pneumonia due to COVID-19 virus: Code(s): U07.1 - COVID-19; J12.82 - Pneumonia due to coronavirus disease 2018 Status: Acute Assessment and Plan: Patient is vaccinated against COVID-19 but has not received a booster dose. She was tested for COVID-19 on 07/06/[address] findings are consistent with COVID-19 pneumonia Started on dexamethasone 07/10 Completed 5 day course of remdesivir on 07/15/2021 She was started on Barcitinib 07/14, baricitinib is on hold due to decline in renal function (3) Community acquired pneumonia: Qualifiers: Laterality: unspecified laterality Qualified Code(s): J18.9 - Pneumonia, unspecified organism Code(s): J18.9 - Pneumonia, unspecified organism Status: Acute Assessment and Plan: Presented with complaints of fever and cough. Patient had elevated white count Cultures, influenza, urine Legionella, urine pneumococcal antigen are negative status post vancomycin and Levaquin for 14 days. (4) DVT (deep venous thrombosis): Code(s): I82.409 - Acute embolism and thrombosis of unspecified deep veins of unspecified lower extremity Status: Acute Assessment and Plan: Lower extremity Dopplers showed Deep vein thrombosis involving the right posterior tibial veins and left popliteal and posterior tibial veins. Patient is on therapeutic Lovenox dose (5) Acute on chronic kidney failure: Code(s): N17.9 - Acute kidney failure, unspecified; N18.9 - Chronic kidney disease, unspecified Status: Acute Assessment and Plan: Creatinine slightly elevated as compared to baseline on admission Creatinine has been stable but elevated, urine output has been adequate Monitor urine output electrolytes and creatinine nephrology following the patient, may need dialysis (6) Hyponatremia: Code(s): E87.1 - Hypo-osmolality and hyponatremia Status: Acute Assessment and Plan: Will use normal saline flushes with tube feeds (7) Hypothyroidism: Qualifiers: Hypothyroidism type: acquired Qualified Code(s): E03.9 - Hypothyroidism, unspecified Code(s): E03.9 - Hypothyroidism, unspecified Status: Acute Assessment and Plan: Continue levothyroxine Additional Plan DVT prophylaxis -on therapeutic dose Lovenox Stress ulcer prophylaxis -PPI Nutrition -on Tube Feeds Code Status - Full Code Total Critical Care Time - 32 minutes Due to a high probability of clinically significant, life threatening deterioration, the patient required my highest level of preparedness to intervene emergently and I personally spent this critical care time directly and personally managing the patient. This critical care time included obtaining a history; examining the patient; pulse oximetry; ordering and review of studies; arranging urgent
[2021-07-20] MEDS: MINERAL OIL/WHITE PETROLATUM OINTMENT 1 APPLIC EACH EYE (20:03)
[2021-07-20 20:15] LABS: Glucose Point of Care 153 mg/dl (65-105)
[2021-07-20] MEDS: FENTANYL 2,500MCG/NS250ML(*CRX 2,500 MCG/250 ML BAG 10 MCG IV CONT (21:40)
[2021-07-20] MEDS: MIDAZOLAM 100MG/NS 100ML(*CRX) 100 MG/100 ML BAG IV CONT (21:42)
[2021-07-21] VITALS (31 sets, daily range): BP systolic 104–139; BP diastolic 46–71; PULSE 66–110; RESP 18–36; TEMP 36.3–37.3; O2SAT 89–100
[2021-07-21] MEDS: METOCLOPRAMIDE HCL INJ 10 MG/2 ML VIAL IV PUSH ×5 (00:53→23:52)
[2021-07-21 01:24] LABS: Glucose Point of Care 139 mg/dl (65-105)
[2021-07-21 03:58] LABS: Basophils Percent Auto 0.2 % (0.2-1.2); Eosinophils Percent Auto 0.2 % (0-4.4); Hematocrit 29.3 % (37.0-47.0); Hemoglobin 9.5 g/dL (12.0-15.0); Immature Granulocyte Absolute 0.57 K/mm3 (0.00-0.031); Immature Granulocyte Percent A 2.7 % (0-0.5); Lymphocytes Absolute Auto 0.33 K/mm3 (0.9-3.2); Lymphocytes Percent Auto 1.6 % (18.3-44.2); Mean Corpuscular HGB Conc 32.4 g/dl (32-36); Mean Corpuscular Hemoglobin 29.4 pg (26-34); Mean Corpuscular Volume 90.7 fl (80-100); Mean Platelet Volume 11.2 fl (7.4-10.4); Monocytes Absolute Auto 0.5 K/mm3 (0.1-0.6); Monocytes Percent Auto 2.3 % (2.6-8.5); Neutrophils Absolute Auto 19.8 K/mm3 (1.3-6.7); Platelet Count Result 341 k/mm3 (150-375); Red Blood Count 3.23 M/mm3 (4.2-5.4); Red Cell Distribution Width 14.3 % (11.5-14.5); White Blood Count 21.2 K/mm3 (4.5-10.0)
[2021-07-21] MEDS: CENTRAL LINE FLUSH 10 ML IV PUSH ×3 (04:14→21:24)
[2021-07-21 04:22] LABS: Alanine Aminotransferase 28 U/L (4-35); Albumin Level 2.5 g/dL (3.5-5.1); Alkaline Phosphatase 70 U/L (38-126); Anion Gap 2 mmol/L (8-16); Aspartate Amino Transferase 27 U/L (14-36); Bilirubin,Total 0.6 mg/dL (0.2-1.3); Calcium 7.6 mg/dL (8.4-10.2); Carbon Dioxide 27 mmol/L (22-30); Chloride 99 mmol/L (98-107); Estimated CRCL calculation 14 ml/min; Estimated Glomerular Filt Rate 13; Glucose 127 mg/dL (65-110); Sodium 128 mmol/L (137-145)
[2021-07-21 04:25] LABS: Blood Urea Nitrogen 171 mg/dL (7-17)
[2021-07-21 05:03] LABS: Hypochromasia 2+ (NORMAL); Platelet Estimate Adequate (Adequate)
[2021-07-21] MEDS: LEVOTHYROXINE SODIUM 100 MCG TABLET PO (05:39)
[2021-07-21] MEDS: ENOXAPARIN 100 MG/ML SYRINGE 95 MG SUB-Q (05:39)
[2021-07-21 06:35] LABS: pH ABG 7.326 (7.350-7.450)
[2021-07-21 06:36] LABS: Alveolar/Arterial O2 Gradient 223.1 mmHg; Base Excess ABG 0.9 mEq/l (+/-2.0); HCO3 ABG 27.8 mEq/l (22.0-26.0); Oxygen Saturation ABG 93.2 % (95.0-100.0); PCO2 ABG 54.4 mmHg (35.0-45.0); PO2 ABG 72.2 mmHg (80.0-100.0); Total Hemoglobin 12.9 g/dL (12.0-18.0)
[2021-07-21 06:37] LABS: Carboxyhemoglobin 0.3 % THb (0-2.0); Methemoglobin ABG 0.3 %THb (0-1.5); Oxygen Content ABG 16.8 %vol (16.0-22.0); Oxyhemoglobin 95.2 % THb (90.0-100.0)
[2021-07-21 06:38] LABS: Device VENTILATOR; Modified Allen's Test Pass; Site Drawn RIGHT RADIAL
[2021-07-21 06:39] LABS: Arterial Blood Gas PEEP 10 cmH2O; Arterial Blood Gas Tidal Volume 400 ml; Arterial Blood Gas Vent Mode CMV; Arterial Blood Gas Ventilator rate 30 /MIN
[2021-07-21] MEDS: PANTOPRAZOLE SODIUM IV 40 MG VIAL IV PUSH (08:51)
[2021-07-21] MEDS: CYANOCOBALAMIN 500 MCG TABLET PO (08:51)
[2021-07-21] MEDS: PYRIDOXINE HCL 25 MG TABLET PO (08:51)
[2021-07-21] MEDS: polyethylene glycoL 3350 17 GM POWD.PACK PO (08:51)
[2021-07-21] MEDS: SODIUM POLYSTYRENE SULFONONATE 15 GM/60 ML BTL 30 GM PO (08:52)
[2021-07-21] MEDS: CHOLECALCIFEROL 1,000 UNITS TABLET 5000 UNITS PO (08:52)
[2021-07-21] MEDS: DEXTROSE 50% 25 GM/50 ML SYRINGE IV PUSH (08:53)
[2021-07-21] MEDS: INSULIN HUMAN REGULAR (*BKC) 100 UNITS/ML 10 UNITS IV PUSH (08:53)
[2021-07-21] MEDS: SODIUM BICARBONATE 8.4% 50 MEQ/50 ML SYRINGE IV PUSH (08:53)
[2021-07-21] MEDS: ALBUTEROL SULFATE NEB 2.5 MG/0.5 ML INH 10 MG INHALATION (09:34)
[2021-07-21 10:33] LABS: Arterial Blood Gas PEEP 10 cmH2O; Arterial Blood Gas Tidal Volume 400 ml; Arterial Blood Gas Vent Mode CMV; Arterial Blood Gas Ventilator rate 30 /MIN
--- NOTE | 2021-07-21 11:14 | P.PNNP_ITS ---
Progress Note: A&P Assessment and Plan (1) MARCE (acute kidney injury): Code(s): N17.9 - Acute kidney failure, unspecified Status: Acute Assessment and Plan: * likely secondary to COVID-19 infection * urine electrolytes are borderline prerenal * renal ultrasound without obstruction * still making urine (but has declined since midnight) * azotemia due to MARCE on top of previous steroid use * labs this AM with worsening azotemia/rising BUN coupled with hyperkalemia and decrease in urine output...will proceed with dialysis today 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 (3) Hyperkalemia: Code(s): E87.5 - Hyperkalemia Status: Acute Assessment and Plan: * as noted by labs this AM * s/p kayexalate * follow repeat levels (4) Acute respiratory failure with hypoxia: Code(s): J96.01 - Acute respiratory failure with hypoxia Status: Acute Assessment and Plan: * due to #4 and possibly bacterial pneumonia * on antibiotics * culture negative to date (5) Pneumonia due to COVID-19 virus: Code(s): U07.1 - COVID-19; J12.82 - Pneumonia due to coronavirus disease 2019 Status: Acute Assessment and Plan: * CT findings are consistent with COVID-19 pneumonia * completed course of dexamethasone * s/p 5 day course of remdesivir * started on Barcitinib on 07/14/21 * continue ventilator support and prone positioning (6) Hyponatremia: Code(s): E87.1 - Hypo-osmolality and hyponatremia Status: Acute Assessment and Plan: * 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 Membreno today -- plan temporary HD catheter placement followed by dialysis today and likely again tomorrow. Will continue to follow. Subjective Date/time seen: 07/21/21 11:14 Remains intubated/sedated/paralyzed at the time of my visit; urine output appe ars to have declined in the last 24 hours associated with climbing BUN and creatinine as well as hyperkalemia; s/p medical management for hyperkalemia; stable hemodynamics at this time. Exam Narrative: General: WD/WN female intubated/sedated/paralyzed Heart: normal S1 and S2; no rub Lungs: coarse breath sounds throughout Abdomen: soft, nontender, nondistended, positive bowel sounds Extremities: no cyanosis or clubbing; no edema Skin: warm and dry Objective Data Vital Signs Vital Signs: Vital Signs Temp Pulse Resp BP Pulse Ox 07/21/21 11:12 76 91 07/21/21 09:35 89 18 07/21/21 08:00 92 07/21/21 06:11 73 93 07/21/21 06:00 73 30 H 118/52 L 93 07/21/21 04:15 36.3 C L 84 30 H 138/60 92 07/21/21 04:13 84 30 H 07/21/21 04:12 84 30 H 07/21/21 04:00 84
--- NOTE | 2021-07-21 11:14 | PM.PNNEP ---
Progress Note: A&P Assessment and Plan (1) MARCE (acute kidney injury): Code(s): N17.9 - Acute kidney failure, unspecified Status: Acute Assessment and Plan: likely secondary to COVID-19 infection urine electrolytes are borderline prerenal renal ultrasound without obstruction still making urine (but has declined since midnight) azotemia due to MARCE on top of previous steroid use labs this AM with worsening azotemia/rising BUN coupled with hyperkalemia and decrease in urine output...will proceed with dialysis today 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 (3) Hyperkalemia: Code(s): E87.5 - Hyperkalemia Status: Acute Assessment and Plan: as noted by labs this AM s/p kayexalate follow repeat levels (4) Acute respiratory failure with hypoxia: Code(s): J96.01 - Acute respiratory failure with hypoxia Status: Acute Assessment and Plan: due to #4 and possibly bacterial pneumonia on antibiotics culture negative to date (5) Pneumonia due to COVID-19 virus: Code(s): U07.1 - COVID-19; J12.82 - Pneumonia due to coronavirus disease 2019 Status: Acute Assessment and Plan: CT findings are consistent with COVID-19 pneumonia completed course of dexamethasone s/p 5 day course of remdesivir started on Barcitinib on 07/14/21 continue ventilator support and prone positioning (6) Hyponatremia: Code(s): E87.1 - Hypo-osmolality and hyponatremia Status: Acute Assessment and Plan: 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 Membreno today -- plan temporary HD catheter placement followed by dialysis today and likely again tomorrow. Will continue to follow. Subjective Date/time seen: 07/21/21 11:14 Remains intubated/sedated/paralyzed at the time of my visit; urine output appears to have declined in the last 24 hours associated with climbing BUN and creatinine as well as hyperkalemia; s/p medical management for hyperkalemia; stable hemodynamics at this time. Exam Narrative: General: WD/WN female intubated/sedated/paralyzed Heart: normal S1 and S2; no rub Lungs: coarse breath sounds throughout Abdomen: soft, nontender, nondistended, positive bowel sounds Extremities: no cyanosis or clubbing; no edema Skin: warm and dry Objective Data Vital Signs Vital Signs: Vital Signs Temp Pulse Resp BP Pulse Ox 07/21/21 11:12 76 91 07/21/21 09:35 89 18 07/21/21 08:00 92 07/21/21 06:11 73 93 07/21/21 06:00 73 30 H 118/52 L 93 07/21/21 04:15 36.3 C L 84 30 H 138/60 92 07/21/21 04:13 84 30 H 07/21/21 04:12 84 30 H 07/21/21 04:00 84 07/21/21 02:14 66 100 07/21/21 02:00 69 30 H 110/46 L 98 07/21/21 01:00 37.3 C 76 30 H 105/50 L 96 07/21/21 00:51 72 30 H 07/21/21 00:50 73 30 H 07/21/21 00:35 70 98 07/21/21 00:09 70 98 07/21/21 00:00 70 07/20/21 22:00 37.5 C 72 30 H 107/49 L 99 07/20/21 21:42 73 30 H 07/20/21 21:40 73 30 H 100 07/20/21 21:11 73 30 H 07/20/21 20:50 73 30 H 07/20/21 20:00 37.7 C H 74 30 H 91/80 L 99 07/20/21 18:00 37.7 C H 81 36 H 125/52 L 90 07/20/21 17:01 82 32 H 07/20/21 16:55 83 90 07/20/21 16:00
[2021-07-21 13:15] LABS: Glucose Point of Care 129 mg/dl (65-105)
[2021-07-21 13:32] LABS: Anion Gap 8 mmol/L (8-16); Calcium 7.6 mg/dL (8.4-10.2); Carbon Dioxide 25 mmol/L (22-30); Chloride 101 mmol/L (98-107); Estimated CRCL calculation 13 ml/min; Estimated Glomerular Filt Rate 12; Glucose 155 mg/dL (65-110); Potassium 5.7 mmol/L (3.4-5.0); Sodium 134 mmol/L (137-145)
[2021-07-21 13:36] LABS: Blood Urea Nitrogen 171 mg/dL (7-17)
[2021-07-21 14:15] LABS: Hepatitis B Surface Antigen Negative (Negative)
[2021-07-21 14:20] LABS: Hepatitis B Core IgM Result Negative (Negative)
--- NOTE | 2021-07-21 14:30 | WPDINTPN ---
Progress Note: A&P Assessment and Plan (1) Acute hypoxemic respiratory failure due to COVID-19: Code(s): U07.1 - COVID-19; J96.01 - Acute respiratory failure with hypoxia <Dorene Vera PA-C - Last Filed: 07/22/21 00:05> Status: Acute <Dorene Vera PA-C - Last Filed: 07/22/21 00:05> Assessment and Plan: Acute Respiratory failure secondary to COVID-19 with component of pulmonary edema and possible bacterial pneumonia. Intubated 07/14 Chest x-ray stable, ABGs reviewed. Continue full mechanical ventilation support to prevent hypoxemia/hypercarbia and end organ damage. PEEP of 10 and 50% FiO2, wean FiO2 to maintain O2 sats greater than 92%. Low tidal volume ventilation strategy to prevent volutrauma Sedated with Versed and fentanyl. Nimbex times 24 hours. CTA Chest on 07/10/21 was negative for PE. The patient has DVT she is already on treatment with anticoagulation. CT chest 07/14 IMPRESSION: 1. Diffuse lung disease, worsened from 07/10/2021, consistent with COVID-19 pneumonia. Bacterial pneumonia and pulmonary edema have overlapping appearances and cannot be excluded. 2. Mild mediastinal lymphadenopathy, likely reactive. <Dorene Vera PA-C - Last Filed: 07/22/21 00:05> (2) Pneumonia due to COVID-19 virus: Code(s): U07.1 - COVID-19; J12.82 - Pneumonia due to coronavirus disease 2019 <Dorene Vera PA-C - Last Filed: 07/22/21 00:05> Status: Acute <Dorene Vera PA-C - Last Filed: 07/22/21 00:05> Assessment and Plan: Patient is vaccinated against COVID-19 but has not received a booster. She tested positive for COVID 19 on 07/06/2021. CT findings are consistent with COVID-19 pneumonia. Started on dexamethasone 07/10. Completed 5 day course of remdesivir on 07/15/2021. She was started on Barcitinib 07/14 though that is on hold due to decline in renal function. <Dorene Vera PA-C - Last Filed: 07/22/21 00:05> (3) Community acquired pneumonia: Qualifiers: Laterality: unspecified laterality Qualified Code(s): J18.9 - Pneumonia, unspecified organism <Dorene Vera PA-C - Last Filed: 07/22/21 00:05> Code(s): J18.9 - Pneumonia, unspecified organism <Dorene Vera PA-C - Last Filed: 07/22/21 00:05> Status: Acute <Dorene Vera PA-C - Last Filed: 07/22/21 00:05> Assessment and Plan: Patient presented with complaints of fever and cough. Due to elevated white count she was treated with antibiotics for possible concurrent bacterial pneumonia. She completed a 14 day course of vancomycin and levofloxacin. Cultures, influenza, urine Legionella, and urine pneumococcal antigen were all negative. <Dorene Vera PA-C - Last Filed: 07/22/21 00:05> (4) DVT (deep venous thrombosis): Code(s): I82.409 - Acute embolism and thrombosis of unspecified deep veins of unspecified lower extremity <Dorene Vera PA-C - Last Filed: 07/22/21 00:05> Status: Acute <Dorene Vera PA-C - Last Filed: 07/22/21 00:05> Assessment and Plan: Lower extremity Dopplers on 07/14/21 showed DVTs of the right posterior tibial veins and left popliteal and posterior tibial veins. Continue therapeutic Lovenox. <Dorene Vera PA-C - Last Filed: 07/22/21 00:05> (5) Acute on chronic kidney failure: Code(s): N17.9 - Acute kidney failure, unspecified; N18.9 - Chronic kidney disease, unspecified <Dorene Vera PA-C - Last Filed: 07/22/21 00:05> Status: Acute <Dorene Vera PA-C - Last Filed: 07/22/21 00:05> Assessment and Plan: Worsening renal function felt to be related to COVID-19 infection. Renal ultrasound without obstruction. Labs today with increasing BUN and hyperkalemia. With decreased urine output, dialysis was started today. <Dorene Vera PA-C - Last Filed: 07/22/21
[2021-07-21 14:48] LABS: Alveolar/Arterial O2 Gradient 258.8 mmHg; Base Excess ABG 1.3 mEq/l (+/-2.0); Fractional Inspired Oxygen 50 %; HCO3 ABG 27.7 mEq/l (22.0-26.0); Oxygen Content ABG 10.2 %vol (16.0-22.0); PCO2 ABG 52.8 mmHg (35.0-45.0); PO2 FiO2 Ratio Arterial Blood 0.77 %; Total Hemoglobin 10.8 g/dL (12.0-18.0); pH ABG 7.338 (7.350-7.450)
[2021-07-21 14:49] LABS: Oxygen Saturation ABG 68.3 % (95.0-100.0); Oxyhemoglobin 67.1 % THb (90.0-100.0); PO2 ABG 38.3 mmHg (80.0-100.0)
[2021-07-21 14:50] LABS: Arterial Blood Gas Ventilator rate 30 /MIN; Device VENTILATOR
[2021-07-21 14:51] LABS: Arterial Blood Gas PEEP 10 cmH2O; Arterial Blood Gas Tidal Volume 400 ml; Arterial Blood Gas Vent Mode CMV
--- NOTE | 2021-07-21 15:44 | WPDPROCEDUR ---
Procedures Central Line Placement Right IJ: Central Line Date: 07/21/21 Discussed w/ the patient/family/POA,the placement of a central venous catheter, including its clinical necessity/indication & associated potential risks, benifits and alternatives.: Yes The patient/family/POA understand(s) and acknowledge(s) the need to proceed with central venous catheter insertion as an important element of the patient's clinical management.: Yes Patient Position: supine Patient placed on monitor/pulse ox: Yes Provider Prep: mask, sterile gloves, Max. sterile barrier precautions, cap and hand hygiene with conventional soap/water or alcohol based hand rub Central line prep: 2% Chlorhexidine scrub Local anesthesia used: lidocaine 1% Sterile US Technique with sterile gel/sterile probe covers: Yes Central line lumen inserted: triple Post Procedure: sutured in place, good blood return, all ports aspirated, flushed, capped, transparent dressing, hemostatic product, antimicrobial product, securement product and aseptic technique maintained throughout procedure Post procedure x-ray: tip of catheter in good position and no pneumothorax seen Patient tolerated procedure: well Complications: none
--- NOTE | 2021-07-21 16:33 | PCFNICU ---
ICU Rounding Note: Pt current nutrition is Nepro running at 30mL/hr over 22 hours. Last recorded weight is 93.1 kg. Bowel Motility: LBM reported 07/13. No new BM reported. Active bowel sounds. Started miralax 07/18 Labs Reviewed: hgb 9.5, hct 29.3, alb 2.5, Na 134, K 5.7, GFR 12, BUN 171, Cr 3.60, Glu 155 Meds Noted: vitamin B12, fentanyl, synthroid, reglan, versed, protonix, miralax, vitamin D Skin: WNL Additional Notes: Pt is on mechanical ventilation and tube feeding of Nepro running at 30mL/hr over 22 hours providing 1188kcal/ 53g protein/ 480mL water, meeting 71% of kcal needs and 64% of protein needs. Reglan started 07/20 to increase tube feeding tolerance. Pt is tolerating current tube feeding and rate. Goal rate is 40mL/hr and will provide 1584kcal/71g protein/ 640mL water, meeting 95% of kcal needs and 85% of protein needs. Agree with diet order at this time. Will continue to follow. Following daily in ICU rounds. Will monitor every Wednesday and Wednesday.
[2021-07-21 17:16] LABS: Glucose Point of Care 146 mg/dl (65-105)
[2021-07-21] MEDS: HEPARIN SODIUM, PORCINE 10,000 UNITS/10 ML VIAL 10000 UNITS IV PUSH (17:38)
[2021-07-21] MEDS: MINERAL OIL/WHITE PETROLATUM OINTMENT 1 APPLIC EACH EYE (21:24)
[2021-07-22] VITALS (41 sets, daily range): BP systolic 97–146; BP diastolic 50–75; PULSE 73–95; RESP 18–34; TEMP 36.8–37.6; O2SAT 89–96
[2021-07-22 00:16] LABS: Glucose Point of Care 125 mg/dl (65-105)
[2021-07-22] MEDS: FENTANYL 2,500MCG/NS250ML(*CRX 2,500 MCG/250 ML BAG 7.5 MCG IV CONT (04:35)
[2021-07-22 05:21] LABS: Basophils Absolute Auto 0.1 K/mm3 (0.0-0.1); Basophils Percent Auto 0.3 % (0.2-1.2); Eosinophils Absolute Auto 0.1 K/mm3 (0-0.3); Eosinophils Percent Auto 0.4 % (0-4.4); Hematocrit 29.8 % (37.0-47.0); Hemoglobin 9.5 g/dL (12.0-15.0); Immature Granulocyte Absolute 0.87 K/mm3 (0.00-0.031); Lymphocytes Absolute Auto 0.31 K/mm3 (0.9-3.2); Lymphocytes Percent Auto 1.4 % (18.3-44.2); Mean Corpuscular HGB Conc 31.9 g/dl (32-36); Mean Corpuscular Hemoglobin 28.8 pg (26-34); Mean Corpuscular Volume 90.3 fl (80-100); Mean Platelet Volume 11.2 fl (7.4-10.4); Monocytes Absolute Auto 0.6 K/mm3 (0.1-0.6); Monocytes Percent Auto 2.8 % (2.6-8.5); Neutrophils Absolute Auto 19.8 K/mm3 (1.3-6.7); Neutrophils Percent Auto 91.1 % (45.5-73.1); Platelet Count Result 397 k/mm3 (150-375); Red Cell Distribution Width 14.4 % (11.5-14.5); White Blood Count 21.7 K/mm3 (4.5-10.0)
[2021-07-22] MEDS: LEVOTHYROXINE SODIUM 100 MCG TABLET PO (05:28)
[2021-07-22] MEDS: CENTRAL LINE FLUSH 10 ML IV PUSH ×3 (05:29→20:07)
[2021-07-22] MEDS: METOCLOPRAMIDE HCL INJ 10 MG/2 ML VIAL IV PUSH ×3 (05:29→18:01)
[2021-07-22] MEDS: ENOXAPARIN 100 MG/ML SYRINGE 95 MG SUB-Q (05:30)
[2021-07-22 05:59] LABS: Alanine Aminotransferase 27 U/L (4-35); Albumin Level 2.6 g/dL (3.5-5.1); Alkaline Phosphatase 75 U/L (38-126); Anion Gap 6 mmol/L (8-16); Aspartate Amino Transferase 29 U/L (14-36); Bilirubin,Total 0.9 mg/dL (0.2-1.3); Blood Urea Nitrogen 97 mg/dL (7-17); Calcium 7.9 mg/dL (8.4-10.2); Carbon Dioxide 27 mmol/L (22-30); Chloride 103 mmol/L (98-107); Estimated CRCL calculation 19 ml/min; Estimated Glomerular Filt Rate 18; Glucose 144 mg/dL (65-110); Magnesium 2.8 mg/dL (1.6-2.3); Phosphorus 7.4 mg/dL (2.5-4.5); Potassium 5.1 mmol/L (3.4-5.0); Sodium 136 mmol/L (137-145)
[2021-07-22 06:41] LABS: Alveolar/Arterial O2 Gradient 235.3 mmHg; Base Excess ABG 0.2 mEq/l (+/-2.0); Carboxyhemoglobin 0.3 % THb (0-2.0); Fractional Inspired Oxygen 50 %; HCO3 ABG 26.2 mEq/l (22.0-26.0); Oxygen Content ABG 13.4 %vol (16.0-22.0); Oxygen Saturation ABG 91.9 % (95.0-100.0); Oxyhemoglobin 90.5 % THb (90.0-100.0); PCO2 ABG 48.9 mmHg (35.0-45.0); PO2 ABG 66.2 mmHg (80.0-100.0); PO2 FiO2 Ratio Arterial Blood 1.32 %; Reduced Hemoglobin 9.2 %THb (0-5.0); Total Hemoglobin 10.5 g/dL (12.0-18.0); pH ABG 7.347 (7.350-7.450)
[2021-07-22 06:42] LABS: Device VENTILATOR; Modified Allen's Test Unable to perform; Site Drawn RIGHT RADIAL
[2021-07-22 06:43] LABS: Arterial Blood Gas PEEP 10 cmH2O; Arterial Blood Gas Tidal Volume 400 ml; Arterial Blood Gas Vent Mode CMV; Arterial Blood Gas Ventilator rate 30 /MIN
[2021-07-22] MEDS: EPOETIN ALFA-EPBX 10,000 UNITS/ML VIAL 10000 UNITS IV PUSH (11:00)
[2021-07-22] MEDS: PANTOPRAZOLE SODIUM IV 40 MG VIAL IV PUSH (12:31)
[2021-07-22] MEDS: BARICITINIB 1 MG TABLET PO (12:31)
--- NOTE | 2021-07-22 12:40 | PM.PNNEP ---
Progress Note: A&P Assessment and Plan (1) MARCE (acute kidney injury): Code(s): N17.9 - Acute kidney failure, unspecified Status: Acute Assessment and Plan: likely secondary to COVID-19 infection urine electrolytes are borderline prerenal renal ultrasound without obstruction still making urine (but has declined a bit azotemia due to MARCE on top of previous steroid use HD yesterday and today for clearance of uremic toxins and correction of hyperkalemia reassess tomorrow 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 (3) Hyperkalemia: Code(s): E87.5 - Hyperkalemia Status: Acute Assessment and Plan: as noted by labs yesterday AM s/p kayexalate and dialysis follow repeat levels (4) Acute respiratory failure with hypoxia: Code(s): J96.01 - Acute respiratory failure with hypoxia Status: Acute Assessment and Plan: due to #4 and possibly bacterial pneumonia on antibiotics culture negative to date (5) Pneumonia due to COVID-19 virus: Code(s): U07.1 - COVID-19; J12.82 - Pneumonia due to coronavirus disease 2019 Status: Acute Assessment and Plan: CT findings are consistent with COVID-19 pneumonia completed course of dexamethasone s/p 5 day course of remdesivir started on Barcitinib on 07/14/21 continue ventilator support and prone positioning (6) Hyponatremia: Code(s): E87.1 - Hypo-osmolality and hyponatremia Status: Acute Assessment and Plan: 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 Subjective Date/time seen: 07/22/21 12:40 Just recently finished dialysis treatment this morning and tolerated reasonably well with about 1 liter fluid removal; remain intubated/sedated but is off paralytics; remians hemodynamically stable without the need for pressors; inspite of severe azotemia and hyperkalemia yesterday, continues to make some urine. Exam Narrative: General: WD/WN female intubated/sedated Heart: normal S1 and S2; no rub Lungs: coarse breath sounds throughout Abdomen: soft, nontender, nondistended, positive bowel sounds Extremities: no cyanosis or clubbing; no edema Skin: warm and intact Objective Data Vital Signs Vital Signs: Vital Signs Temp Pulse Resp BP Pulse Ox 07/22/21 12:00 37.3 C 88 18 117/63 94 07/22/21 11:36 85 93 07/22/21 11:30 88 99/50 L 07/22/21 11:15 89 103/57 L 07/22/21 11:01 89 109/66 07/22/21 10:45 87 114/67 07/22/21 10:30 88 97/68 L 07/22/21 10:17 89 34 H 110/60 07/22/21 10:01 84 119/64 07/22/21 10:00 37.5 C 88 30 H 109/66 89 L 07/22/21 09:45 84 126/62 07/22/21 09:30 84 121/62 93 07/22/21 09:15 80 106/63 07/22/21 09:00 79 116/60 07/22/21 08:58 84 113/57 L 07/22/21 08:50 37.0 C 89 30 H 123/61 07/22/21 08:00 37.0 C 76 30 H 109/57 L 95 07/22/21 06:00 36.9 C 82 32 H 110/60 94 07/22/21 05:15 81 93 07/22/21 04:36 81 31 H 07/22/21 04:35 80 30 H 07/22/21 04:31 83 30 H 07/22/21 04:00 36.8 C 79 30 H 123/60 93 07/22/21 03:07 89 31 H 92 07/22/21 02:02 89 92 07/22/21 02:00 37.1 C 78 31 H 146/60 H 92 07/22/21 01:14 73 30 H
--- NOTE | 2021-07-22 12:40 | P.PNNP_ITS ---
Progress Note: A&P Assessment and Plan (1) MARCE (acute kidney injury): Code(s): N17.9 - Acute kidney failure, unspecified Status: Acute Assessment and Plan: * likely secondary to COVID-19 infection * urine electrolytes are borderline prerenal * renal ultrasound without obstruction * still making urine (but has declined a bit * azotemia due to MARCE on top of previous steroid use * HD yesterday and today for clearance of uremic toxins and correction of hyperkalemia * reassess tomorrow 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 (3) Hyperkalemia: Code(s): E87.5 - Hyperkalemia Status: Acute Assessment and Plan: * as noted by labs yesterday AM * s/p kayexalate and dialysis * follow repeat levels (4) Acute respiratory failure with hypoxia: Code(s): J96.01 - Acute respiratory failure with hypoxia Status: Acute Assessment and Plan: * due to #4 and possibly bacterial pneumonia * on antibiotics * culture negative to date (5) Pneumonia due to COVID-19 virus: Code(s): U07.1 - COVID-19; J12.82 - Pneumonia due to coronavirus disease 2018 Status: Acute Assessment and Plan: * CT findings are consistent with COVID-19 pneumonia * completed course of dexamethasone * s/p 5 day course of remdesivir * started on Barcitinib on 07/14/21 * continue ventilator support and prone positioning (6) Hyponatremia: Code(s): E87.1 - Hypo-osmolality and hyponatremia Status: Acute Assessment and Plan: * 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 Subjective Date/time seen: 07/22/21 12:40 Just recently finished dialysis treatment this morning and tolerated reasonably well with about 1 liter fluid removal; remain intubated/sedated but is off paralytics; remians hemodynamically stable without the need for pressors; inspite of severe azotemia and hyperkalemia yesterday, continues to make some urine. Exam Narrative: General: WD/WN female intubated/sedated Heart: normal S1 and S2; no rub Lungs: coarse breath sounds throughout Abdomen: soft, nontender, nondistended, positive bowel sounds Extremities: no cyanosis or clubbing; no edema Skin: warm and intact Objective Data Vital Signs Vital Signs: Vital Signs Temp Pulse Resp BP Pulse Ox 07/22/21 12:00 37.3 C 88 18 117/63 94 07/22/21 11:36 85 93 07/22/21 11:30 88 99/50 L 07/22/21 11:15 89 103/57 L 07/22/21 11:01 89 109/66 07/22/21 10:45 87 114/67 07/22/21 10:30 88 97/68 L 07/22/21 10:17 89 34 H 110/60 07/22/21 10:01 84 119/64 07/22/21 10:00 37.5 C
[2021-07-22 12:53] LABS: Glucose Point of Care 115 mg/dl (65-105)
[2021-07-22] MEDS: MIDAZOLAM 100MG/NS 100ML(*CRX) 100 MG/100 ML BAG IV CONT (12:54)
--- NOTE | 2021-07-22 14:22 | WPDINTPN ---
Progress Note: A&P Assessment and Plan (1) Acute hypoxemic respiratory failure due to COVID-19: Code(s): U07.1 - COVID-19; J96.01 - Acute respiratory failure with hypoxia Status: Acute Assessment and Plan: Acute Respiratory failure secondary to COVID-19 with component of pulmonary edema and may have a component of bacterial pneumonia Intubated 07/14 Chest x-ray stable, ABGs reviewed Continue full mechanical ventilation support to prevent hypoxemia/hypercarbia and end organ damage. PEEP of 10 and 50% FiO2, wean FiO2 to maintain O2 sats greater than 92%. Low tidal volume ventilation strategy to prevent volutrauma Sedated with Versed and fentanyl. -off Nimbex -started on dialysis, this may help remove volume. Continue to monitor chest x-rays, wean FiO2. CTA Chest on 07/10 was negative for PE. The patient has DVT she is already on treatment with anticoagulation. CT chest 07/14 IMPRESSION: 1. Diffuse lung disease, worsened from 07/10/2021, consistent with COVID-19 pneumonia. Bacterial pneumonia and pulmonary edema have overlapping appearances and cannot be excluded. 2. Mild mediastinal lymphadenopathy, likely reactive (2) Pneumonia due to COVID-19 virus: Code(s): U07.1 - COVID-19; J12.82 - Pneumonia due to coronavirus disease 2018 Status: Acute Assessment and Plan: Patient is vaccinated against COVID-19 but has not received a booster dose. She was tested for COVID-19 on 07/06/2021 found to be positive CT findings are consistent with COVID-19 pneumonia Started on dexamethasone 07/10 Completed 5 day course of remdesivir on 07/15/2021 She was started on Barcitinib 07/14, baricitinib is on hold due to decline in renal function (3) Community acquired pneumonia: Qualifiers: Laterality: unspecified laterality Qualified Code(s): J18.9 - Pneumonia, unspecified organism Code(s): J18.9 - Pneumonia, unspecified organism Status: Acute Assessment and Plan: Presented with complaints of fever and cough. Patient had elevated white count Cultures, influenza, urine Legionella, urine pneumococcal antigen are negative status post vancomycin and Levaquin for 14 days. (4) DVT (deep venous thrombosis): Code(s): I82.409 - Acute embolism and thrombosis of unspecified deep veins of unspecified lower extremity Status: Acute Assessment and Plan: Lower extremity Dopplers showed Deep vein thrombosis involving the right posterior tibial veins and left popliteal and posterior tibial veins. Patient is on therapeutic Lovenox dose (5) Acute on chronic kidney failure: Code(s): N17.9 - Acute kidney failure, unspecified; N18.9 - Chronic kidney disease, unspecified Status: Acute Assessment and Plan: Creatinine slightly elevated as compared to baseline on admission Creatinine has been stable but elevated, urine output has been adequate Monitor urine output electrolytes and creatinine -dialysis catheter was placed on 07/21/2021: And dialysis was started on the same day. -repeat dialysis per Nephrology (6) Hyponatremia: Code(s): E87.1 - Hypo-osmolality and hyponatremia Status: Acute Assessment and Plan: Will use normal saline flushes with tube feeds -improved with dialysis (7) Hypothyroidism: Qualifiers: Hypothyroidism type: acquired Qualified Code(s): E03.9 - Hypothyroidism, unspecified Code(s): E03.9 - Hypothyroidism, unspecified Status: Acute Assessment and Plan: Continue levothyroxine Additional Plan DVT prophylaxis -on therapeutic dose Lovenox Stress ulcer prophylaxis -PPI Nutrition -on Tube Feeds Code Status - Full Code Total Critical Care Time - 32 minutes Due to a high probability of clinically significant, life threatening deterioration, the patient required my highest level of preparedness to intervene emergently and I personally spent this critical care time directly an
--- NOTE | 2021-07-22 16:06 | PCNFU ---
Nutrition Follow-Up Complete: Inadequate Oral Intake as related to mechanical ventilation as evidenced by NPO. Goal: Meet estimated nutritional needs Pt is progressing towards goal Pt current nutrition is tube feeding of Nepro running at 40mL/hr over 22 hours. Last recorded weight is 99.9 kg. Bowel Motility: +BM 07/21/21 Labs Reviewed: hgb 9.5, hct 29.8, alb 2.6, Na 136, K 5.1, GFR 18, BUN 97, Cr 2.60, Glu 144 Meds Noted: lovenox, fentanyl, synthroid, reglan, versed, protonix Skin: WNL Additional Notes: ICU nutrition follow up. Pt remains on mechanical ventilation and tube feeding of Nepro running at goal rate of 40mL/hr over 22 hours providing 1584kcal, 71g protein, and 640mL of water, meeting 95% of kcal needs and 86% of protein needs. Nursing reports that pt is tolerating current tube feeding and rate. Agree with diet order at this time. Will continue to follow. Will follow daily in ICU rounds. Will monitor every Wednesday and Wednesday.
[2021-07-22 17:55] LABS: Glucose Point of Care 144 mg/dl (65-105)
--- NOTE | 2021-07-22 18:33 | PC.NURSE ---
and daughter here to cone picker patient's belongings. Purse, cell phone and medical reimbursement specialist included with bag of clothes.
[2021-07-22] MEDS: MINERAL OIL/WHITE PETROLATUM OINTMENT 1 APPLIC EACH EYE (20:01)
[2021-07-23] VITALS (32 sets, daily range): BP systolic 104–145; BP diastolic 50–69; PULSE 75–109; RESP 18–39; TEMP 36.4–37.2; O2SAT 91–97
[2021-07-23] MEDS: METOCLOPRAMIDE HCL INJ 10 MG/2 ML VIAL IV PUSH ×4 (00:24→17:42)
[2021-07-23 00:29] LABS: Glucose Point of Care 119 mg/dl (65-105)
[2021-07-23] MEDS: CENTRAL LINE FLUSH 10 ML IV PUSH ×3 (04:29→20:57)
[2021-07-23] MEDS: LEVOTHYROXINE SODIUM 100 MCG TABLET PO (04:30)
[2021-07-23 04:57] LABS: Basophils Absolute Auto 0.1 K/mm3 (0.0-0.1); Basophils Percent Auto 0.5 % (0.2-1.2); Eosinophils Absolute Auto 0.3 K/mm3 (0-0.3); Eosinophils Percent Auto 1.3 % (0-4.4); Hemoglobin 8.9 g/dL (12.0-15.0); Immature Granulocyte Absolute 1.17 K/mm3 (0.00-0.031); Immature Granulocyte Percent A 5.1 % (0-0.5); Lymphocytes Absolute Auto 0.67 K/mm3 (0.9-3.2); Lymphocytes Percent Auto 2.9 % (18.3-44.2); Mean Corpuscular HGB Conc 31.8 g/dl (32-36); Mean Corpuscular Hemoglobin 29.3 pg (26-34); Mean Corpuscular Volume 92.1 fl (80-100); Mean Platelet Volume 11.4 fl (7.4-10.4); Monocytes Absolute Auto 0.7 K/mm3 (0.1-0.6); Monocytes Percent Auto 2.9 % (2.6-8.5); Neutrophils Absolute Auto 20.2 K/mm3 (1.3-6.7); Neutrophils Percent Auto 87.3 % (45.5-73.1); Platelet Count Result 431 k/mm3 (150-375); Red Blood Count 3.04 M/mm3 (4.2-5.4); Red Cell Distribution Width 14.6 % (11.5-14.5); White Blood Count 23.1 K/mm3 (4.5-10.0)
[2021-07-23 05:08] LABS: INR 1.1; Prothrombin Time 14.1 Seconds (11.1-14.7)
[2021-07-23 05:09] LABS: Fibrinogen 449 mg/dl (215-510); Partial Thromboplastin Time 33.9 SECONDS (22.3-36.8)
[2021-07-23 05:12] LABS: D Dimer 3.78 ug/mL (<0.48)
[2021-07-23 05:14] LABS: Alanine Aminotransferase 25 U/L (4-35); Albumin Level 2.8 g/dL (3.5-5.1); Alkaline Phosphatase 74 U/L (38-126); Anion Gap 1 mmol/L (8-16); Aspartate Amino Transferase 26 U/L (14-36); Bilirubin,Total 0.7 mg/dL (0.2-1.3); Blood Urea Nitrogen 79 mg/dL (7-17); Calcium 7.9 mg/dL (8.4-10.2); Carbon Dioxide 26 mmol/L (22-30); Chloride 106 mmol/L (98-107); Estimated CRCL calculation 21 ml/min; Estimated Glomerular Filt Rate 21; Glucose 121 mg/dL (65-110); Magnesium 2.6 mg/dL (1.6-2.3); Potassium 4.7 mmol/L (3.4-5.0); Sodium 133 mmol/L (137-145)
[2021-07-23 05:52] LABS: Alveolar/Arterial O2 Gradient 223.9 mmHg; Base Excess ABG -1.1 mEq/l (+/-2.0); Carboxyhemoglobin 0.1 % THb (0-2.0); Fractional Inspired Oxygen 50 %; HCO3 ABG 25.2 mEq/l (22.0-26.0); Methemoglobin ABG 0.2 %THb (0-1.5); Oxygen Content ABG 15.2 %vol (16.0-22.0); Oxygen Saturation ABG 94.6 % (95.0-100.0); Oxyhemoglobin 93.6 % THb (90.0-100.0); PCO2 ABG 48.6 mmHg (35.0-45.0); PO2 ABG 77.9 mmHg (80.0-100.0); PO2 FiO2 Ratio Arterial Blood 1.56 %; Reduced Hemoglobin 6.1 %THb (0-5.0); Total Hemoglobin 11.5 g/dL (12.0-18.0); pH ABG 7.332 (7.350-7.450)
[2021-07-23 05:53] LABS: Device VENTILATOR; Modified Allen's Test Pass; Site Drawn LEFT RADIAL
[2021-07-23 05:54] LABS: Arterial Blood Gas PEEP 10 cmH2O; Arterial Blood Gas Tidal Volume 400 ml; Arterial Blood Gas Vent Mode CMV; Arterial Blood Gas Ventilator rate 30 /MIN
[2021-07-23] MEDS: CYANOCOBALAMIN 500 MCG TABLET PO (08:50)
[2021-07-23] MEDS: polyethylene glycoL 3350 17 GM POWD.PACK PO (08:50)
[2021-07-23] MEDS: PYRIDOXINE HCL 25 MG TABLET PO (08:50)
[2021-07-23] MEDS: CHOLECALCIFEROL 1,000 UNITS TABLET 5000 UNITS PO (08:50)
[2021-07-23] MEDS: PANTOPRAZOLE SODIUM IV 40 MG VIAL IV PUSH (08:50)
[2021-07-23] MEDS: BARICITINIB 1 MG TABLET PO (08:50)
[2021-07-23] MEDS: ENOXAPARIN 100 MG/ML SYRINGE SUB-Q (08:50)
[2021-07-23] MEDS: FENTANYL 2,500MCG/NS250ML(*CRX 2,500 MCG/250 ML BAG 10 MCG IV CONT (12:00)
[2021-07-23 12:11] LABS: Glucose Point of Care 115 mg/dl (65-105)
--- NOTE | 2021-07-23 13:15 | P.PNNP_ITS ---
Progress Note: A&P Assessment and Plan (1) MARCE (acute kidney injury): Code(s): N17.9 - Acute kidney failure, unspecified Status: Acute Assessment and Plan: * likely secondary to COVID-19 infection * urine electrolytes are borderline prerenal * renal ultrasound without obstruction * still making urine * Creatinine improved with dialysis. * She made 600cc of urine yesterday. * Electrolytes okay. * Volume status okay. * Will do another treatment tomorrow unless the creatinine starts to drop on its own. 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 (3) Hyperkalemia: Code(s): E87.5 - Hyperkalemia Status: Acute Assessment and Plan: * Resolved (4) Acute respiratory failure with hypoxia: Code(s): J96.01 - Acute respiratory failure with hypoxia Status: Acute Assessment and Plan: * due to #4 and possibly bacterial pneumonia * on antibiotics * culture negative to date (5) Pneumonia due to COVID-19 virus: Code(s): U07.1 - COVID-19; J12.82 - Pneumonia due to coronavirus disease 2019 Status: Acute Assessment and Plan: * CT findings are consistent with COVID-19 pneumonia * completed course of dexamethasone * s/p 5 day course of remdesivir * started on Barcitinib on 07/14/21 * continue ventilator support and prone positioning (6) Hyponatremia: Code(s): E87.1 - Hypo-osmolality and hyponatremia Status: Acute Assessment and Plan: * 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 (7) Essential (primary) hypertension: Code(s): I10 - Essential (primary) hypertension Status: Chronic Assessment and Plan: * Blood pressure doing well with a range of systolic between 100 and 140. Will continue to follow. Subjective Date/time seen: 07/23/21 13:15 Interval history: Krysta is still on the ventilator and sedated. Exam Narrative: General: WD/WN female intubated/sedated Heart: normal S1 and S2; no rub or gallop Lungs: Coarse bilaterally Abdomen: soft, nontender, nondistended, positive bowel sounds Extremities: no cyanosis or clubbing; no edema Skin: No rash Objective Data Vital Signs Vital Signs: Vital Signs - 24 hr 07/22/21 13:50 07/22/21 14:00 07/22/21 16:00 Temperature 37.4 C 37.6 C Pulse Rate 85 85 79 Respiratory Rate 30 H 22 H Blood Pressure 98/57 L 100/59 L Pulse Oximetry 93 95 96 07/22/21 17:25 07/22/21 17:26 07/22/21 18:00 Temperature 37.6 C Pulse Rate 79 78 78 Respiratory Rate 30 H 30 H 30 H Blood Pressure 102/55 L Pulse Oximetry 95 07/22/21 18:26 07/22/21 20:00 07/22/21 20:03 Temperature 37.3 C Pulse Rate 89 95 88 Respiratory Rate 31 H Blood Pressure 141/75 H Pulse Oximetry 94 91 96 07/22/21 22:00 07/22/21 22:37 07/22/21 23:00 Temperature 37.3 C Pulse Rate 82 82 79 Respiratory Rate 30 H 30 H 30 H
--- NOTE | 2021-07-23 13:15 | PM.PNNEP ---
Progress Note: A&P Assessment and Plan (1) MARCE (acute kidney injury): Code(s): N17.9 - Acute kidney failure, unspecified Status: Acute Assessment and Plan: likely secondary to COVID-19 infection urine electrolytes are borderline prerenal renal ultrasound without obstruction still making urine Creatinine improved with dialysis. She made 600cc of urine yesterday. Electrolytes okay. Volume status okay. Will do another treatment tomorrow unless the creatinine starts to drop on its own. 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 (3) Hyperkalemia: Code(s): E87.5 - Hyperkalemia Status: Acute Assessment and Plan: Resolved (4) Acute respiratory failure with hypoxia: Code(s): J96.01 - Acute respiratory failure with hypoxia Status: Acute Assessment and Plan: due to #4 and possibly bacterial pneumonia on antibiotics culture negative to date (5) Pneumonia due to COVID-19 virus: Code(s): U07.1 - COVID-19; J12.82 - Pneumonia due to coronavirus disease 2019 Status: Acute Assessment and Plan: CT findings are consistent with COVID-19 pneumonia completed course of dexamethasone s/p 5 day course of remdesivir started on Barcitinib on 07/14/21 continue ventilator support and prone positioning (6) Hyponatremia: Code(s): E87.1 - Hypo-osmolality and hyponatremia Status: Acute Assessment and Plan: 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 (7) Essential (primary) hypertension: Code(s): I10 - Essential (primary) hypertension Status: Chronic Assessment and Plan: Blood pressure doing well with a range of systolic between 100 and 140. Will continue to follow. Subjective Date/time seen: 07/23/21 13:15 Interval history: Krysta is still on the ventilator and sedated. Exam Narrative: General: WD/WN female intubated/sedated Heart: normal S1 and S2; no rub or gallop Lungs: Coarse bilaterally Abdomen: soft, nontender, nondistended, positive bowel sounds Extremities: no cyanosis or clubbing; no edema Skin: No rash Objective Data Vital Signs Vital Signs: Vital Signs - 24 hr 07/22/21 13:50 07/22/21 14:00 07/22/21 16:00 Temperature 37.4 C 37.6 C Pulse Rate 85 85 79 Respiratory Rate 30 H 22 H Blood Pressure 98/57 L 100/59 L Pulse Oximetry 93 95 96 07/22/21 17:25 07/22/21 17:26 07/22/21 18:00 Temperature 37.6 C Pulse Rate 79 78 78 Respiratory Rate 30 H 30 H 30 H Blood Pressure 102/55 L Pulse Oximetry 95 07/22/21 18:26 07/22/21 20:00 07/22/21 20:03 Temperature 37.3 C Pulse Rate 89 95 88 Respiratory Rate 31 H Blood Pressure 141/75 H Pulse Oximetry 94 91 96 07/22/21 22:00 07/22/21 22:37 07/22/21 23:00 Temperature 37.3 C Pulse Rate 82 82 79 Respiratory Rate 30 H 30 H 30 H Blood Pressure 110/53 L Pulse Oximetry 95 94 07/23/21 00:00 07/23/21 00:16 07/23/21 00:24 Temperature 37.2 C Pulse Rate 83 109 H 90 Respiratory Rate 32 H 30 H Blood Pressure 131/56 L Pulse Oximetry 93 94 07/23/21 02:00 07/23/21 02:55 07/23/21 03:15 Temperature 37.2 C Pulse Rate 83 100 83 Respiratory Rate 30 H 30 H Blood Pressure 106/51 L Pulse Oximetry 94 93 94 07/23/21 03:55 07/23/21 03:56 07/23/21 04:00 Temperature 37.1 C Pulse Rate 83 84 88 Respiratory Rate 30 H 30 H 30 H Blood Pressure 137/56 L Pulse Oximetry 93 07/23/21 04:44 07/23/21 05:31 07/23/21 06:00 Temperature 37.0 C Pulse Rate 87 84 80 Respiratory Rate 34 H 31 H Blood Pressure 104/55 L Pulse Oximetry 91 94 07/23/21 08:00
--- NOTE | 2021-07-23 16:18 | WPDINTPN ---
Progress Note: A&P Assessment and Plan (1) Acute hypoxemic respiratory failure due to COVID-19: Code(s): U07.1 - COVID-19; J96.01 - Acute respiratory failure with hypoxia Status: Acute Assessment and Plan: Acute Respiratory failure secondary to COVID-19 with component of pulmonary edema and may have a component of bacterial pneumonia Intubated 07/14 Chest x-ray stable, ABGs reviewed Continue full mechanical ventilation support to prevent hypoxemia/hypercarbia and end organ damage. PEEP of 10 and 50% FiO2, wean FiO2 to maintain O2 sats greater than 92%. Low tidal volume ventilation strategy to prevent volutrauma Sedated with Versed and fentanyl. -off Nimbex -started on dialysis, this may help remove volume and ultimately will be able to wean her the mechanical ventilation. Continue to monitor chest x-rays, wean FiO2. CTA Chest on 07/10 was negative for PE. The patient has DVT she is already on treatment with anticoagulation. CT chest 07/14 IMPRESSION: 1. Diffuse lung disease, worsened from 07/10/2021, consistent with COVID-19 pneumonia. Bacterial pneumonia and pulmonary edema have overlapping appearances and cannot be excluded. 2. Mild mediastinal lymphadenopathy, likely reactive (2) Pneumonia due to COVID-19 virus: Code(s): U07.1 - COVID-19; J12.82 - Pneumonia due to coronavirus disease 2019 Status: Acute Assessment and Plan: Patient is vaccinated against COVID-19 but has not received a booster dose. She was tested for COVID-19 on 07/06/2021 found to be positive CT findings are consistent with COVID-19 pneumonia Completed dexamethasone Completed 5 day course of remdesivir on 07/15/2021 She was started on Barcitinib 07/14, baricitinib is on hold due to decline in renal function (3) Community acquired pneumonia: Qualifiers: Laterality: unspecified laterality Qualified Code(s): J18.9 - Pneumonia, unspecified organism Code(s): J18.9 - Pneumonia, unspecified organism Status: Acute Assessment and Plan: Presented with complaints of fever and cough. Patient had elevated white count Cultures, influenza, urine Legionella, urine pneumococcal antigen are negative status post vancomycin and Levaquin for 14 days. (4) DVT (deep venous thrombosis): Code(s): I82.409 - Acute embolism and thrombosis of unspecified deep veins of unspecified lower extremity Status: Acute Assessment and Plan: Lower extremity Dopplers showed Deep vein thrombosis involving the right posterior tibial veins and left popliteal and posterior tibial veins. Patient is on therapeutic Lovenox dose (5) Acute on chronic kidney failure: Code(s): N17.9 - Acute kidney failure, unspecified; N18.9 - Chronic kidney disease, unspecified Status: Acute Assessment and Plan: Creatinine slightly elevated as compared to baseline on admission Creatinine has been stable but elevated, urine output has been adequate Monitor urine output electrolytes and creatinine -dialysis catheter was placed on 07/21/2021: And dialysis was started on the same day. -repeat dialysis per Nephrology (6) Hyponatremia: Code(s): E87.1 - Hypo-osmolality and hyponatremia Status: Acute Assessment and Plan: Will use normal saline flushes with tube feeds -improved with dialysis (7) Hypothyroidism: Qualifiers: Hypothyroidism type: acquired Qualified Code(s): E03.9 - Hypothyroidism, unspecified Code(s): E03.9 - Hypothyroidism, unspecified Status: Acute Assessment and Plan: Continue levothyroxine Additional Plan Stress ulcer prophylaxis: Protonix Nutrition: Tolerating tube feeds Code status: Full code Critical care time spent: 33 minutes This dictation may have been done utilizing a voice recognition system. Attempts have been made to correct errors. However, there may be uncorrected grammatical, spelling, and recognition errors
[2021-07-23] MEDS: MIDAZOLAM 100MG/NS 100ML(*CRX) 100 MG/100 ML BAG IV CONT (16:23)
[2021-07-23 18:07] LABS: Glucose Point of Care 114 mg/dl (65-105)
--- NOTE | 2021-07-23 18:29 | PCFNICU ---
ICU Rounding Note: Pt current nutrition is Nepro running at 40mL/hr Last recorded weight is 99.3 kg. Bowel Motility: +BM 07/22 Labs Reviewed: hgb 8.9, hct 28.0, alb 2.8, Na 133, GFR 21, BUN 79, Cr 23, Glu 121 Meds Noted: olumiant, vitamin b12, lovenox, fentanyl,synthroid, reglan, versed, protonix, miralax, vitamin b6, vitamin D Skin: WNL Additional Notes: Pt remains on mechanical ventilation, dialysis, and tube feeding of nepro running at goal rate of 40mL/hr over 22 hours providing 1584kcal, 71g of protein and 640mL of water. Per EMR, pt is tolerating tube feeding and rate. Agree with diet orders at this time. Will continue to follow. Following daily in ICU rounds. Will monitor every Wednesday and Wednesday..
[2021-07-23] MEDS: MINERAL OIL/WHITE PETROLATUM OINTMENT 1 APPLIC EACH EYE (20:58)
[2021-07-24] VITALS (46 sets, daily range): BP systolic 95–160; BP diastolic 52–97; PULSE 76–109; RESP 20–42; TEMP 36.3–37.7; O2SAT 91–98
[2021-07-24] MEDS: METOCLOPRAMIDE HCL INJ 10 MG/2 ML VIAL IV PUSH ×4 (00:42→17:31)
[2021-07-24 00:48] LABS: Glucose Point of Care 104 mg/dl (65-105)
[2021-07-24] MEDS: CENTRAL LINE FLUSH 10 ML IV PUSH ×3 (05:17→20:44)
[2021-07-24] MEDS: LEVOTHYROXINE SODIUM 100 MCG TABLET PO (05:17)
[2021-07-24 05:38] LABS: Alveolar/Arterial O2 Gradient 197.3 mmHg; Base Excess ABG -0.7 mEq/l (+/-2.0); Carboxyhemoglobin 0.2 % THb (0-2.0); Fractional Inspired Oxygen 45 %; HCO3 ABG 25.1 mEq/l (22.0-26.0); Methemoglobin ABG 0.3 %THb (0-1.5); Oxygen Content ABG 12.7 %vol (16.0-22.0); Oxygen Saturation ABG 93.2 % (95.0-100.0); Oxyhemoglobin 91.3 % THb (90.0-100.0); PCO2 ABG 46.9 mmHg (35.0-45.0); PO2 ABG 70.2 mmHg (80.0-100.0); PO2 FiO2 Ratio Arterial Blood 1.56 %; Reduced Hemoglobin 8.2 %THb (0-5.0); Total Hemoglobin 9.8 g/dL (12.0-18.0); pH ABG 7.347 (7.350-7.450)
[2021-07-24 05:49] LABS: Basophils Absolute Auto 0.1 K/mm3 (0.0-0.1); Basophils Percent Auto 0.5 % (0.2-1.2); Eosinophils Absolute Auto 0.4 K/mm3 (0-0.3); Eosinophils Percent Auto 1.7 % (0-4.4); Hematocrit 27.9 % (37.0-47.0); Hemoglobin 8.8 g/dL (12.0-15.0); Immature Granulocyte Absolute 0.95 K/mm3 (0.00-0.031); Immature Granulocyte Percent A 4.3 % (0-0.5); Lymphocytes Absolute Auto 0.62 K/mm3 (0.9-3.2); Lymphocytes Percent Auto 2.8 % (18.3-44.2); Mean Corpuscular HGB Conc 31.5 g/dl (32-36); Mean Corpuscular Hemoglobin 29.7 pg (26-34); Mean Corpuscular Volume 94.3 fl (80-100); Mean Platelet Volume 11.5 fl (7.4-10.4); Monocytes Absolute Auto 0.8 K/mm3 (0.1-0.6); Monocytes Percent Auto 3.4 % (2.6-8.5); Neutrophils Absolute Auto 19.1 K/mm3 (1.3-6.7); Neutrophils Percent Auto 87.3 % (45.5-73.1); Platelet Count Result 500 k/mm3 (150-375); Red Blood Count 2.96 M/mm3 (4.2-5.4); Red Cell Distribution Width 14.9 % (11.5-14.5); White Blood Count 21.9 K/mm3 (4.5-10.0)
[2021-07-24 05:56] LABS: Device VENTILATOR; Modified Allen's Test Pass; Site Drawn RIGHT RADIAL
[2021-07-24 05:57] LABS: Arterial Blood Gas PEEP 10 cmH2O; Arterial Blood Gas Tidal Volume 400 ml; Arterial Blood Gas Vent Mode CMV; Arterial Blood Gas Ventilator rate 30 /MIN
[2021-07-24 06:27] LABS: Alanine Aminotransferase 25 U/L (4-35); Albumin Level 2.8 g/dL (3.5-5.1); Alkaline Phosphatase 83 U/L (38-126); Anion Gap 6 mmol/L (8-16); Aspartate Amino Transferase 30 U/L (14-36); Bilirubin,Total 0.7 mg/dL (0.2-1.3); Blood Urea Nitrogen 96 mg/dL (7-17); Calcium 8.1 mg/dL (8.4-10.2); Carbon Dioxide 26 mmol/L (22-30); Chloride 105 mmol/L (98-107); Estimated CRCL calculation 19 ml/min; Estimated Glomerular Filt Rate 18; Glucose 116 mg/dL (65-110); Magnesium 2.7 mg/dL (1.6-2.3); Phosphorus 7.7 mg/dL (2.5-4.5); Potassium 5.1 mmol/L (3.4-5.0); Sodium 137 mmol/L (137-145)
[2021-07-24] MEDS: ENOXAPARIN 100 MG/ML SYRINGE SUB-Q (07:51)
[2021-07-24] MEDS: BARICITINIB 1 MG TABLET PO (07:52)
[2021-07-24] MEDS: PANTOPRAZOLE SODIUM IV 40 MG VIAL IV PUSH (07:52)
[2021-07-24] MEDS: polyethylene glycoL 3350 17 GM POWD.PACK PO (07:52)
[2021-07-24] MEDS: EPOETIN ALFA-EPBX 10,000 UNITS/ML VIAL 10000 UNITS IV PUSH (11:00)
[2021-07-24] MEDS: FENTANYL 2,500MCG/NS250ML(*CRX 2,500 MCG/250 ML BAG 15 MCG IV CONT (11:38)
[2021-07-24 12:15] LABS: Glucose Point of Care 112 mg/dl (65-105)
--- NOTE | 2021-07-24 12:20 | P.PNNP_ITS ---
Progress Note: A&P Assessment and Plan (1) MARCE (acute kidney injury): Code(s): N17.9 - Acute kidney failure, unspecified Status: Acute Assessment and Plan: * likely secondary to COVID-19 infection * urine electrolytes are borderline prerenal * renal ultrasound without obstruction * still making urine * Creatinine improved with dialysis. there was a rise between treatments so will continue dialysis 3 times a week. * Electrolytes okay. * Volume status okay. 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 (3) Hyperkalemia: Code(s): E87.5 - Hyperkalemia Status: Acute Assessment and Plan: * Resolved (4) Acute respiratory failure with hypoxia: Code(s): J96.01 - Acute respiratory failure with hypoxia Status: Acute Assessment and Plan: * due to #4 and possibly bacterial pneumonia * off antibiotics * culture negative to date (5) Pneumonia due to COVID-19 virus: Code(s): U07.1 - COVID-19; J12.82 - Pneumonia due to coronavirus disease 2019 Status: Acute Assessment and Plan: * CT findings are consistent with COVID-19 pneumonia * completed course of dexamethasone * s/p 5 day course of remdesivir * started on Barcitinib on 07/14/21 * continue ventilator support and prone positioning (6) Hyponatremia: Code(s): E87.1 - Hypo-osmolality and hyponatremia Status: Acute Assessment and Plan: * 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 Today is 137. (7) Essential (primary) hypertension: Code(s): I10 - Essential (primary) hypertension Status: Chronic Assessment and Plan: * Blood pressure doing well with a range of systolic between 100 and 140. It dropped a bit with dialysis. Subjective Date/time seen: 07/24/21 12:20 Interval history: Krysta is still on the ventilator and sedated. she cannot give a history. She is on dialysis and tolerating it well. She was seen at 11:00 a.m. Exam Narrative: General: WD/WN female intubated/sedated Heart: normal S1 and S2; no rub or gallop Lungs: Coarse to auscultation Abdomen: soft, nontender, nondistended, positive bowel sounds Extremities: no cyanosis or clubbing; no edema Skin: No rash or subcu nodules Objective Data Vital Signs Vital Signs: Vital Signs - 24 hr 07/23/21 14:00 07/23/21 14:10 07/23/21 14:11 Temperature 36.6 C Pulse Rate 84 79 87 Respiratory Rate 30 H 32 H Blood Pressure 145/67 H Pulse Oximetry 92 95 07/23/21 16:00 07/23/21 16:23 07/23/21 16:35 Temperature 36.4 C Pulse Rate 85 87 75 Respiratory Rate 32 H 32 H Blood Pressure 126/66 Pulse Oximetry 91 94 07/23/21 17:50 07/23/21 18:00 07/23/21 20:00 Temperature 36.4 C 37.1 C Pulse Rate 88 88 86 Respiratory Rate 32 H 30 H 32 H Blood Pressure 113/69 113/59 L Pulse Oximetry 93 94 07/23/21 21:02 07/23/21 21:03 07/23/21 21:30 Temperat
--- NOTE | 2021-07-24 12:20 | PM.PNNEP ---
Progress Note: A&P Assessment and Plan (1) MARCE (acute kidney injury): Code(s): N17.9 - Acute kidney failure, unspecified Status: Acute Assessment and Plan: likely secondary to COVID-19 infection urine electrolytes are borderline prerenal renal ultrasound without obstruction still making urine Creatinine improved with dialysis. there was a rise between treatments so will continue dialysis 3 times a week. Electrolytes okay. Volume status okay. 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 (3) Hyperkalemia: Code(s): E87.5 - Hyperkalemia Status: Acute Assessment and Plan: Resolved (4) Acute respiratory failure with hypoxia: Code(s): J96.01 - Acute respiratory failure with hypoxia Status: Acute Assessment and Plan: due to #4 and possibly bacterial pneumonia off antibiotics culture negative to date (5) Pneumonia due to COVID-19 virus: Code(s): U07.1 - COVID-19; J12.82 - Pneumonia due to coronavirus disease 2018 Status: Acute Assessment and Plan: CT findings are consistent with COVID-19 pneumonia completed course of dexamethasone s/p 5 day course of remdesivir started on Barcitinib on 07/14/21 continue ventilator support and prone positioning (6) Hyponatremia: Code(s): E87.1 - Hypo-osmolality and hyponatremia Status: Acute Assessment and Plan: 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 Today is 137. (7) Essential (primary) hypertension: Code(s): I10 - Essential (primary) hypertension Status: Chronic Assessment and Plan: Blood pressure doing well with a range of systolic between 100 and 140. It dropped a bit with dialysis. Subjective Date/time seen: 07/24/21 12:20 Interval history: Krysta is still on the ventilator and sedated. she cannot give a history. She is on dialysis and tolerating it well. She was seen at 11:00 a.m. Exam Narrative: General: WD/WN female intubated/sedated Heart: normal S1 and S2; no rub or gallop Lungs: Coarse to auscultation Abdomen: soft, nontender, nondistended, positive bowel sounds Extremities: no cyanosis or clubbing; no edema Skin: No rash or subcu nodules Objective Data Vital Signs Vital Signs: Vital Signs - 24 hr 07/23/21 14:00 07/23/21 14:10 07/23/21 14:11 Temperature 36.6 C Pulse Rate 84 79 87 Respiratory Rate 30 H 32 H Blood Pressure 145/67 H Pulse Oximetry 92 95 07/23/21 16:00 07/23/21 16:23 07/23/21 16:35 Temperature 36.4 C Pulse Rate 85 87 75 Respiratory Rate 32 H 32 H Blood Pressure 126/66 Pulse Oximetry 91 94 07/23/21 17:50 07/23/21 18:00 07/23/21 20:00 Temperature 36.4 C 37.1 C Pulse Rate 88 88 86 Respiratory Rate 32 H 30 H 32 H Blood Pressure 113/69 113/59 L Pulse Oximetry 93 94 07/23/21 21:02 07/23/21 21:03 07/23/21 21:30 Temperature Pulse Rate 90 92 76 Respiratory Rate 32 H 34 H Blood Pressure Pulse Oximetry 94 07/23/21 22:00 07/23/21 23:49 07/24/21 00:00 Temperature 37.0 C 37.2 C Pulse Rate 87 76 89 Respiratory Rate 34 H 31 H 34 H Blood Pressure 133/66 116/61 Pulse Oximetry 94 97 94 07/24/21 00:44 07/24/21 00:50 07/24/21 02:00 Temperature 36.9 C Pulse Rate 82 76 91 Respiratory Rate 30 H 30 H Blood Pressure 132/65 Pulse Oximetry 95 91 07/24/21 02:53 07/24/21 03:11 07/24/21 04:00 Temperature 37.2 C Pulse Rate 102 H 95 90 Respiratory Rate 30 H 32 H Blood Pressure 140/64 Pulse Oximetry 96 91 92 07/24/21 05:07 07/24/21 05:38 07/24/21 05:39 Temperature Pulse Rate 91 96 94 Respiratory Rate
--- NOTE | 2021-07-24 13:30 | WPDINTPN ---
Progress Note: A&P Assessment and Plan (1) Acute hypoxemic respiratory failure due to COVID-19: Code(s): U07.1 - COVID-19; J96.01 - Acute respiratory failure with hypoxia <Dorene Vera PA-C - Last Filed: 07/24/21 16:20> Status: Acute <Dorene Vera PA-C - Last Filed: 07/24/21 16:20> Assessment and Plan: Secondary to COVID-19 with component of pulmonary edema and possible bacterial pneumonia. Intubated 07/14/2021. Chest x-ray and ABGs reviewed today. Continue full mechanical ventilation support to prevent hypoxemia/hypercarbia and end organ damage. Low tidal volume ventilation strategy to prevent volume trauma. On CMV mode with a PEEP of 10, 50% FiO2, tidal volume 400. Patient sedated with Versed and fentanyl. <Dorene Vera PA-C - Last Filed: 07/24/21 16:20> (2) Pneumonia due to COVID-19 virus: Code(s): U07.1 - COVID-19; J12.82 - Pneumonia due to coronavirus disease 2019 <Dorene Vera PA-C - Last Filed: 07/24/21 16:20> Status: Acute <Dorene Vera PA-C - Last Filed: 07/24/21 16:20> Assessment and Plan: Patient is vaccinated against COVID-19 but has not received a booster. She tested positive for COVID 19 on 07/06/2021. CT findings on 07/14 consistent with COVID 19 pneumonia. Started on dexamethasone 07/10. Completed 5 day course of remdesivir on 07/15/2021. Baricitinib held due to decline in renal function though it appears it was resumed on the . <Dorene Vera PA-C - Last Filed: 07/24/21 16:20> (3) Community acquired pneumonia: Qualifiers: Laterality: unspecified laterality Qualified Code(s): J18.9 - Pneumonia, unspecified organism <Dorene Vera PA-C - Last Filed: 07/24/21 16:20> Code(s): J18.9 - Pneumonia, unspecified organism <Dorene Vera PA-C - Last Filed: 07/24/21 16:20> Status: Acute <Dorene Vera PA-C - Last Filed: 07/24/21 16:20> Assessment and Plan: Due to elevated WBC on admission, she was started on antibiotics for possible concurrent bacterial pneumonia. She completed a 14 day course of vancomycin and levofloxacin. Cultures, influenza, urine Legionella, and urine pneumococcal antigen were all negative. <Dorene Vera PA-C - Last Filed: 07/24/21 16:20> (4) DVT (deep venous thrombosis): Code(s): I82.409 - Acute embolism and thrombosis of unspecified deep veins of unspecified lower extremity <Dorene Vera PA-C - Last Filed: 07/24/21 16:20> Status: Acute <Dorene Vera PA-C - Last Filed: 07/24/21 16:20> Assessment and Plan: Lower extremity Dopplers on 07/14/21 showed DVTs of the right posterior tibial veins and left popliteal and posterior tibial veins. On Lovenox 1 milligram/kilogram Q 24 hours (secondary to renal function). <Dorene Vera PA-C - Last Filed: 07/24/21 16:20> (5) Acute on chronic kidney failure: Code(s): N17.9 - Acute kidney failure, unspecified; N18.9 - Chronic kidney disease, unspecified <Dorene Vera PA-C - Last Filed: 07/24/21 16:20> Status: Acute <Dorene Vera PA-C - Last Filed: 07/24/21 16:20> Assessment and Plan: Worsening renal function felt to be related to COVID-19 infection. 1375 mL urine output so far today. Renal ultrasound without obstruction. Started dialysis on 07/21/2021 due to azotemia and hyperkalemia with improvement. Creatinine has been rising during treatments so will continue dialysis 3 times a week per nephrology. <Dorene Vera PA-C - Last Filed: 07/24/21 16:20> (6) Hyponatremia: Code(s): E87.1 - Hypo-osmolality and hyponatremia <Dorene Vera PA-C - Last Filed: 07/24/21 16:20> Status: Acute <Dorene Vera PA-C - Last Filed: 07/24/21 16:20> Assessment and Plan: Sodium today is 137, improved with
--- NOTE | 2021-07-24 13:30 | P.PNINT_ITS ---
Progress Note: A&P Assessment and Plan (1) Acute hypoxemic respiratory failure due to COVID-19: Code(s): U07.1 - COVID-19; J96.01 - Acute respiratory failure with hypoxia <Dorene Vera PA-C - Last Filed: 07/24/21 16:20> Status: Acute <Dorene Vera PA-C - Last Filed: 07/24/21 16:20> Assessment and Plan: Secondary to COVID-19 with component of pulmonary edema and possible bacterial pneumonia. Intubated 07/14/2021. * Chest x-ray and ABGs reviewed today. * Continue full mechanical ventilation support to prevent hypoxemia/hypercarbia and end organ damage. * Low tidal volume ventilation strategy to prevent volume trauma. * On CMV mode with a PEEP of 10, 50% FiO2, tidal volume 400. * Patient sedated with Versed and fentanyl. <Dorene Vera PA-C - Last Filed: 07/24/21 16:20> (2) Pneumonia due to COVID-19 virus: Code(s): U07.1 - COVID-19; J12.82 - Pneumonia due to coronavirus disease 2019 <Dorene Vera PA-C - Last Filed: 07/24/21 16:20> Status: Acute <Dorene Vera PA-C - Last Filed: 07/24/21 16:20> Assessment and Plan: Patient is vaccinated against COVID-19 but has not received a booster. She tested positive for COVID 19 on 07/06/2021. * CT findings on 07/14 consistent with COVID 19 pneumonia. * Started on dexamethasone 07/10. * Completed 5 day course of remdesivir on 07/15/2021. * Baricitinib held due to decline in renal function though it appears it was resumed on the . <Dorene Vera PA-C - Last Filed: 07/24/21 16:20> (3) Community acquired pneumonia: Qualifiers: Laterality: unspecified laterality Qualified Code(s): J18.9 - Pneumonia, unspecified organism <Dorene Vera PA-C - Last Filed: 07/24/21 16:20> Code(s): J18.9 - Pneumonia, unspecified organism <Dorene Hackett MORRO Vera - Last Filed: 07/24/21 16:20> Status: Acute <Dorene VeraMORRO - Last Filed: 07/24/21 16:20> Assessment and Plan: Due to elevated WBC on admission, she was started on antibiotics for possible concurrent bacterial pneumonia. * She completed a 14 day course of vancomycin and levofloxacin. * Cultures, influenza, urine Legionella, and urine pneumococcal antigen were all negative. <Dorene Hackett MORRO Vera - Last Filed: 07/24/21 16:20> (4) DVT (deep venous thrombosis): Code(s): I82.409 - Acute embolism and thrombosis of unspecified deep veins of unspecified lower extremity <Dorene JeffEde Vera PA-C - Last Filed: 07/24/21 16:20> Status: Acute <Dorene Hackett MORRO Vera - Last Filed: 07/24/21 16:20> Assessment and Plan: Lower extremity Dopplers on 07/14/21 showed DVTs of the right posterior tibial veins and left popliteal and posterior tibial veins. * On Lovenox 1 milligram/kilogram Q 24 hours (secondary to renal function). <Dorene JeffEde Vera PA-C - Last Filed: 07/24/21 16:20> (5) Acute on chronic kidney failure: Code(s): N17.9 - Acute kidney failure, unspecified; N18.9 - Chronic kidney disease, unspecified <Dorene JeffEde Vera PA-C - Last Filed: 07/24/21 16:20> Status: Acute <Dorene OrtegaMORRO contreras - Last Filed: 07/24/21 16:20> Assessment and Plan: Worsening renal function felt to be related to COVID-19 infection. 1375 mL urine output so far today. * Renal ultrasound without obstruction. * Started dialysis on 07/21/2021 due to azotemia and hyperkalemia with improvement. * Creatinine has been rising during treatments so will continue dialysis 3 times a week per nephrology.
--- NOTE | 2021-07-24 14:50 | PCFNICU ---
ICU Rounding Note: Pt current nutrition is Nepro running at 40mL/hr over 22 hours Last recorded weight is 100.2 kg. Bowel Motility: +BM 07/21/21 Labs Reviewed: hgb 8.8, hct 27.9, alb 2.8, Mg 2.7, K 5.1, GFR 18, BUN 96, Cr 2.6, Glu 116, Ca 8.1, PO4 7.7 Meds Noted: olumiant, lovenox, fentanyl, synthroid, reglan, versed, miralax Skin: WNL Additional Notes: Pt remains on mechanical ventilation and tube feeding of nepro running at goal rate of 40mL/hr over 22 hours providing 1584kcal, 71g of protein, and 640mL of water, meeting 95% of kcal needs and 86% of protein needs. Per EMR, pt is tolerating tube feeding and rate. Agree with diet order at this time. Will continue to follow. Following daily in ICU rounds. Will monitor every Wednesday and Wednesday..
[2021-07-24] MEDS: MIDAZOLAM 100MG/NS 100ML(*CRX) 100 MG/100 ML BAG IV CONT (16:05)
[2021-07-24 17:52] LABS: Glucose Point of Care 101 mg/dl (65-105)
[2021-07-24] MEDS: MINERAL OIL/WHITE PETROLATUM OINTMENT 1 APPLIC EACH EYE (20:44)
[2021-07-25] VITALS (28 sets, daily range): BP systolic 97–157; BP diastolic 55–68; PULSE 78–112; RESP 30–34; TEMP 36.6–37.2; O2SAT 93–98
[2021-07-25 00:21] LABS: Glucose Point of Care 104 mg/dl (65-105)
[2021-07-25] MEDS: CENTRAL LINE FLUSH 10 ML IV PUSH ×3 (04:51→21:06)
[2021-07-25] MEDS: LEVOTHYROXINE SODIUM 100 MCG TABLET PO (04:51)
[2021-07-25] MEDS: METOCLOPRAMIDE HCL INJ 10 MG/2 ML VIAL IV PUSH ×5 (04:51→23:54)
[2021-07-25 05:26] LABS: Basophils Absolute Auto 0.2 K/mm3 (0.0-0.1); Basophils Percent Auto 0.7 % (0.2-1.2); Eosinophils Absolute Auto 0.5 K/mm3 (0-0.3); Eosinophils Percent Auto 1.8 % (0-4.4); Hematocrit 28.4 % (37.0-47.0); Immature Granulocyte Absolute 1.26 K/mm3 (0.00-0.031); Immature Granulocyte Percent A 4.8 % (0-0.5); Lymphocytes Absolute Auto 0.76 K/mm3 (0.9-3.2); Lymphocytes Percent Auto 2.9 % (18.3-44.2); Mean Corpuscular HGB Conc 31.7 g/dl (32-36); Mean Corpuscular Hemoglobin 29.7 pg (26-34); Mean Corpuscular Volume 93.7 fl (80-100); Mean Platelet Volume 11.2 fl (7.4-10.4); Monocytes Absolute Auto 0.9 K/mm3 (0.1-0.6); Monocytes Percent Auto 3.6 % (2.6-8.5); Neutrophils Absolute Auto 22.6 K/mm3 (1.3-6.7); Neutrophils Percent Auto 86.2 % (45.5-73.1); Nucleated Red Blood Cells Perc 0.2 % (0.0-0.2); Platelet Count Result 526 k/mm3 (150-375); Red Blood Count 3.03 M/mm3 (4.2-5.4); Red Cell Distribution Width 14.7 % (11.5-14.5); White Blood Count 26.2 K/mm3 (4.5-10.0)
[2021-07-25 05:32] LABS: Alanine Aminotransferase 29 U/L (4-35); Albumin Level 2.9 g/dL (3.5-5.1); Alkaline Phosphatase 114 U/L (38-126); Anion Gap 6 mmol/L (8-16); Aspartate Amino Transferase 40 U/L (14-36); Blood Urea Nitrogen 69 mg/dL (7-17); Calcium 8.2 mg/dL (8.4-10.2); Carbon Dioxide 27 mmol/L (22-30); Chloride 101 mmol/L (98-107); Estimated CRCL calculation 23 ml/min; Estimated Glomerular Filt Rate 23; Glucose 154 mg/dL (65-110); Magnesium 2.5 mg/dL (1.6-2.3); Phosphorus 6.6 mg/dL (2.5-4.5); Potassium 4.6 mmol/L (3.4-5.0); Sodium 134 mmol/L (137-145)
[2021-07-25 06:08] LABS: Alveolar/Arterial O2 Gradient 222.7 mmHg; Base Excess ABG 1.1 mEq/l (+/-2.0); Carboxyhemoglobin 0.3 % THb (0-2.0); Fractional Inspired Oxygen 50 %; HCO3 ABG 27.6 mEq/l (22.0-26.0); Methemoglobin ABG 0.2 %THb (0-1.5); Oxygen Content ABG 12.1 %vol (16.0-22.0); Oxygen Saturation ABG 93.5 % (95.0-100.0); Oxyhemoglobin 92.2 % THb (90.0-100.0); PCO2 ABG 53.8 mmHg (35.0-45.0); PO2 ABG 73.3 mmHg (80.0-100.0); PO2 FiO2 Ratio Arterial Blood 1.47 %; Reduced Hemoglobin 7.3 %THb (0-5.0); Site Drawn LEFT RADIAL; Total Hemoglobin 9.3 g/dL (12.0-18.0); pH ABG 7.328 (7.350-7.450)
[2021-07-25 06:09] LABS: Arterial Blood Gas PEEP 10 cmH2O; Arterial Blood Gas Tidal Volume 400 ml; Arterial Blood Gas Vent Mode CMV; Arterial Blood Gas Ventilator rate 30 /MIN; Device VENTILATOR; Modified Allen's Test Unable to perform
[2021-07-25 06:51] LABS: Hypochromasia 1+ (NORMAL); Platelet Estimate Increased (Adequate)
[2021-07-25] MEDS: BARICITINIB 1 MG TABLET PO (08:50)
[2021-07-25] MEDS: CYANOCOBALAMIN 500 MCG TABLET PO (08:51)
[2021-07-25] MEDS: polyethylene glycoL 3350 17 GM POWD.PACK PO (08:51)
[2021-07-25] MEDS: PYRIDOXINE HCL 25 MG TABLET PO (08:51)
[2021-07-25] MEDS: PANTOPRAZOLE SODIUM IV 40 MG VIAL IV PUSH (08:51)
[2021-07-25] MEDS: CHOLECALCIFEROL 1,000 UNITS TABLET 5000 UNITS PO (08:52)
[2021-07-25] MEDS: ENOXAPARIN 100 MG/ML SYRINGE SUB-Q (08:52)
[2021-07-25] MEDS: FENTANYL 2,500MCG/NS250ML(*CRX 2,500 MCG/250 ML BAG 12.5 MCG IV CONT (09:24)
--- NOTE | 2021-07-25 11:44 | P.PNNP_ITS ---
Progress Note: A&P Assessment and Plan (1) MARCE (acute kidney injury): Code(s): N17.9 - Acute kidney failure, unspecified Status: Acute Assessment and Plan: * likely secondary to COVID-19 infection * urine electrolytes are borderline prerenal * renal ultrasound without obstruction * still making urine * Creatinine improved with dialysis. there was a rise between treatments so will continue dialysis 3 times a week. * Electrolytes okay. * Volume status okay. * Will do another treatment tomorrow. 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 (3) Hyperkalemia: Code(s): E87.5 - Hyperkalemia Status: Acute Assessment and Plan: * Resolved (4) Acute respiratory failure with hypoxia: Code(s): J96.01 - Acute respiratory failure with hypoxia Status: Acute Assessment and Plan: * due to #4 and possibly bacterial pneumonia * culture negative to date (5) Pneumonia due to COVID-19 virus: Code(s): U07.1 - COVID-19; J12.82 - Pneumonia due to coronavirus disease 2019 Status: Acute Assessment and Plan: * CT findings are consistent with COVID-19 pneumonia * completed course of dexamethasone * s/p 5 day course of remdesivir * started on Barcitinib on 07/14/21 * continue ventilator support and prone positioning (6) Hyponatremia: Code(s): E87.1 - Hypo-osmolality and hyponatremia Status: Acute Assessment and Plan: * 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 It rises and falls (7) Essential (primary) hypertension: Code(s): I10 - Essential (primary) hypertension Status: Chronic Assessment and Plan: * Blood pressure doing well with a range of systolic between 100 and 140. It dropped a bit with dialysis. will try to take more fluid off tomorrow. Subjective Date/time seen: 07/25/21 11:44 Interval history: Krysta is still on the ventilator and sedated. she cannot give a history. She finished her dialysis yesterday. Exam Narrative: General: WD/WN female intubated/sedated Heart: normal S1 and S2; no rub or gallop Lungs: Coarse Abdomen: soft, nontender, nondistended, positive bowel sounds Extremities: no cyanosis or clubbing; no edema Skin: No rash Objective Data Vital Signs Vital Signs: Vital Signs - 24 hr 07/24/21 11:45 07/24/21 12:00 07/24/21 12:18 Temperature 37.6 C Pulse Rate 109 H 99 100 Respiratory Rate 34 H Blood Pressure 111/86 111/76 127/75 Pulse Oximetry 93 07/24/21 12:30 07/24/21 13:41 07/24/21 14:00 Temperature 37.6 C 37.6 C Pulse Rate 99 92 83 Respiratory Rate 28 H 34 H 34 H Blood Pressure 125/74 102/59 L Pulse Oximetry 97 95 07/24/21 14:36 07/24/21 16:00 07/24/21 16:05 Temperature 37.7 C H Pulse Rate 83 85 85 Respiratory Rate 30 H 30 H Blood Pressure 130/83 Pulse Oximetry 91 93 07/24/21 16:06 07/24/21 17:23 07/24/21
--- NOTE | 2021-07-25 11:44 | PM.PNNEP ---
Progress Note: A&P Assessment and Plan (1) MARCE (acute kidney injury): Code(s): N17.9 - Acute kidney failure, unspecified Status: Acute Assessment and Plan: likely secondary to COVID-19 infection urine electrolytes are borderline prerenal renal ultrasound without obstruction still making urine Creatinine improved with dialysis. there was a rise between treatments so will continue dialysis 3 times a week. Electrolytes okay. Volume status okay. Will do another treatment tomorrow. 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 (3) Hyperkalemia: Code(s): E87.5 - Hyperkalemia Status: Acute Assessment and Plan: Resolved (4) Acute respiratory failure with hypoxia: Code(s): J96.01 - Acute respiratory failure with hypoxia Status: Acute Assessment and Plan: due to #4 and possibly bacterial pneumonia culture negative to date (5) Pneumonia due to COVID-19 virus: Code(s): U07.1 - COVID-19; J12.82 - Pneumonia due to coronavirus disease 2018 Status: Acute Assessment and Plan: CT findings are consistent with COVID-19 pneumonia completed course of dexamethasone s/p 5 day course of remdesivir started on Barcitinib on 07/14/21 continue ventilator support and prone positioning (6) Hyponatremia: Code(s): E87.1 - Hypo-osmolality and hyponatremia Status: Acute Assessment and Plan: 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 It rises and falls (7) Essential (primary) hypertension: Code(s): I10 - Essential (primary) hypertension Status: Chronic Assessment and Plan: Blood pressure doing well with a range of systolic between 100 and 140. It dropped a bit with dialysis. will try to take more fluid off tomorrow. Subjective Date/time seen: 07/25/21 11:44 Interval history: Krysta is still on the ventilator and sedated. she cannot give a history. She finished her dialysis yesterday. Exam Narrative: General: WD/WN female intubated/sedated Heart: normal S1 and S2; no rub or gallop Lungs: Coarse Abdomen: soft, nontender, nondistended, positive bowel sounds Extremities: no cyanosis or clubbing; no edema Skin: No rash Objective Data Vital Signs Vital Signs: Vital Signs - 24 hr 07/24/21 11:45 07/24/21 12:00 07/24/21 12:18 Temperature 37.6 C Pulse Rate 109 H 99 100 Respiratory Rate 34 H Blood Pressure 111/86 111/76 127/75 Pulse Oximetry 93 07/24/21 12:30 07/24/21 13:41 07/24/21 14:00 Temperature 37.6 C 37.6 C Pulse Rate 99 92 83 Respiratory Rate 28 H 34 H 34 H Blood Pressure 125/74 102/59 L Pulse Oximetry 97 95 07/24/21 14:36 07/24/21 16:00 07/24/21 16:05 Temperature 37.7 C H Pulse Rate 83 85 85 Respiratory Rate 30 H 30 H Blood Pressure 130/83 Pulse Oximetry 91 93 07/24/21 16:06 07/24/21 17:23 07/24/21 17:30 Temperature Pulse Rate 85 88 89 Respiratory Rate 30 H 30 H Blood Pressure Pulse Oximetry 93 07/24/21 18:00 07/24/21 19:50 07/24/21 20:00 Temperature 37.2 C 37.2 C Pulse Rate 87 96 93 Respiratory Rate 30 H 34 H Blood Pressure 131/97 H 122/61 Pulse Oximetry 93 93 93 07/24/21 20:40 07/24/21 22:00 07/24/21 23:01 Temperature 37.3 C Pulse Rate 89 87 85 Respiratory Rate 34 H 32 H Blood Pressure 117/55 L Pulse Oximetry 93 94 07/25/21 00:00 07/25/21 00:14 07/25/21 01:58 Temperature 37.2 C Pulse Rate 84 86 112 H Respiratory Rate 32 H 30 H Blood Pressure 125/65 Pulse Oximetry 94 97 07/25/21 02:00 07/25/21 04:00 07/25/21 04:51 Temperature 37.1 C 36.7 C Pulse R
--- NOTE | 2021-07-25 13:26 | PC.NURSE ---
Spoke with ALE Morfin from [facility]. Per Shelbie patient has orders from Dr. Rueda to be dialyzed tomorrow. An RN will be available to complete treatment.
[2021-07-25 14:22] LABS: Glucose Point of Care 118 mg/dl (65-105)
--- NOTE | 2021-07-25 15:20 | WPDINTPN ---
Progress Note: A&P Assessment and Plan (1) Acute hypoxemic respiratory failure due to COVID-19: Code(s): U07.1 - COVID-19; J96.01 - Acute respiratory failure with hypoxia Status: Acute Assessment and Plan: Acute Respiratory failure secondary to COVID-19 with component of pulmonary edema and may have a component of bacterial pneumonia Intubated 07/14 Chest x-ray stable, ABGs reviewed Continue full mechanical ventilation support to prevent hypoxemia/hypercarbia and end organ damage. PEEP of 10 and 50% FiO2, wean FiO2 to maintain O2 sats greater than 92%. Low tidal volume ventilation strategy to prevent volutrauma Sedated with Versed and fentanyl. -off Nimbex -started on dialysis, this may help remove volume and ultimately will be able to wean her the mechanical ventilation. Continue to monitor chest x-rays, wean FiO2. CTA Chest on 07/10 was negative for PE. The patient has DVT she is already on treatment with anticoagulation. CT chest 07/14 IMPRESSION: 1. Diffuse lung disease, worsened from 07/10/2021, consistent with COVID-19 pneumonia. Bacterial pneumonia and pulmonary edema have overlapping appearances and cannot be excluded. 2. Mild mediastinal lymphadenopathy, likely reactive (2) Pneumonia due to COVID-19 virus: Code(s): U07.1 - COVID-19; J12.82 - Pneumonia due to coronavirus disease 2019 Status: Acute Assessment and Plan: Patient is vaccinated against COVID-19 but has not received a booster dose. She was tested for COVID-19 on 07/06/[address] found to be positive CT findings are consistent with COVID-19 pneumonia Completed dexamethasone Completed 5 day course of remdesivir on 07/15/2021 Patient received baricitinib -continue droplet, airborne, contact isolation/precautions (3) Community acquired pneumonia: Qualifiers: Laterality: unspecified laterality Qualified Code(s): J18.9 - Pneumonia, unspecified organism Code(s): J18.9 - Pneumonia, unspecified organism Status: Acute Assessment and Plan: Presented with complaints of fever and cough. Patient had elevated white count Cultures, influenza, urine Legionella, urine pneumococcal antigen are negative status post vancomycin and Levaquin for 14 days. (4) DVT (deep venous thrombosis): Code(s): I82.409 - Acute embolism and thrombosis of unspecified deep veins of unspecified lower extremity Status: Acute Assessment and Plan: Lower extremity Dopplers showed Deep vein thrombosis involving the right posterior tibial veins and left popliteal and posterior tibial veins. Patient is on therapeutic Lovenox dose (5) Acute on chronic kidney failure: Code(s): N17.9 - Acute kidney failure, unspecified; N18.9 - Chronic kidney disease, unspecified Status: Acute Assessment and Plan: Creatinine slightly elevated as compared to baseline on admission Creatinine has been stable but elevated, urine output has been adequate Monitor urine output electrolytes and creatinine -dialysis catheter was placed on 07/21/2021: And dialysis was started on the same day. -repeat dialysis per Nephrology (6) Hyponatremia: Code(s): E87.1 - Hypo-osmolality and hyponatremia Status: Acute Assessment and Plan: Will use normal saline flushes with tube feeds -improved with dialysis (7) Hypothyroidism: Qualifiers: Hypothyroidism type: acquired Qualified Code(s): E03.9 - Hypothyroidism, unspecified Code(s): E03.9 - Hypothyroidism, unspecified Status: Acute Assessment and Plan: Continue levothyroxine Additional Plan Stress ulcer prophylaxis: Protonix Nutrition: Tolerating tube feeds Code status: Full code Critical care time spent: 32 minutes This dictation may have been done utilizing a voice recognition system. Attempts have been made to correct errors. However, there may be uncorrected grammatical, spelling, and recognition errors presen
[2021-07-25 15:37] LABS: Add Urine Microscopic? YES; Amorphous Sediment Urine Few; Appearance Urine Cloudy (Clear); Bacteria Urine Trace /hpf; Bilirubin Urine Negative (Negative); Blood Urine 1+ (Negative); Budding Yeast Urine Present /hpf; Color Urine Amber (Yellow); Glucose Urine UA Negative (Negative); Ketones Urine Negative (Negative); Leukocyte Esterase Ur 2+ LEU/UL (NEGATIVE); Mucus Urine Rare /lpf; Nitrate Urine Negative (Negative); Protein Urine 1+ mg/dL (Negative); Specific Grav Ur 1.017 (1.001-1.035); Squamous Epithelial Cell Urine Rare /hpf (Few); WBC Urine 51-75 /hpf (0-3)
[2021-07-25] MEDS: MIDAZOLAM 100MG/NS 100ML(*CRX) 100 MG/100 ML BAG IV CONT (16:39)
--- NOTE | 2021-07-25 17:01 | PCNFU ---
Nutrition Follow-Up Complete: Inadequate Oral Intake as related to mechanical ventilation as evidenced by NPO. Goal: Meet estimated nutritional needs Pt is meeting goal Pt current nutrition is Nepro running at 40mL/hr over 22 hours Last recorded weight is 98.7 kg. Bowel Motility: +BM 07/24 Labs Reviewed: hgb 9.0, hct 28.94, alb 2.9, Na 134, Ca 8.2, GFR 23, BUN 69, Cr 2.10, Glu 154, PO4 6.6, Mg 2.5 Meds Noted: olumiant, vitamin B12, lovenox, fentanyl, synthroid, reglan, versed, protonix, miralax, vitamin B6, vitamin D Skin: WNL Additional Notes: Pt remains on mechanical ventilation and tube feeding of Nepro running at goal rate of 40mL/hr over 22 hours providing 1584kcal, 71g of protein, and 640mL of water, meeting 95% of kcal needs and 86% of protein needs. Nursing staff reports this am (07/25/21) that pt is tolerating tube feeding and rate. Agree with diet order at this time. Will continue to follow. Following dontrell in ICU rounds. Will monitor every Wednesday and Wednesday.
[2021-07-25] MEDS: MINERAL OIL/WHITE PETROLATUM OINTMENT 1 APPLIC EACH EYE (21:05)
[2021-07-25 23:49] LABS: Glucose Point of Care 91 mg/dl (65-105)
[2021-07-25 23:49] LABS: Glucose Point of Care 107 mg/dl (65-105)
[2021-07-26] VITALS (32 sets, daily range): BP systolic 104–155; BP diastolic 54–78; PULSE 82–104; RESP 21–30; TEMP 36.6–37.6; O2SAT 91–98
[2021-07-26] MEDS: FENTANYL 2,500MCG/NS250ML(*CRX 2,500 MCG/250 ML BAG 12.5 MCG IV CONT (03:57)
[2021-07-26] MEDS: CENTRAL LINE FLUSH 10 ML IV PUSH ×2 (03:59→14:04)
[2021-07-26] MEDS: LEVOTHYROXINE SODIUM 100 MCG TABLET PO (05:25)
[2021-07-26] MEDS: METOCLOPRAMIDE HCL INJ 10 MG/2 ML VIAL IV PUSH ×3 (05:25→17:54)
[2021-07-26 05:27] LABS: Alveolar/Arterial O2 Gradient 216.9 mmHg; Base Excess ABG -0.1 mEq/l (+/-2.0); Carboxyhemoglobin 0.3 % THb (0-2.0); Fractional Inspired Oxygen 50 %; HCO3 ABG 26.1 mEq/l (22.0-26.0); Methemoglobin ABG 0.2 %THb (0-1.5); Modified Allen's Test Unable to perform; Oxygen Content ABG 12.3 %vol (16.0-22.0); Oxygen Saturation ABG 95.3 % (95.0-100.0); Oxyhemoglobin 94.1 % THb (90.0-100.0); PCO2 ABG 50.7 mmHg (35.0-45.0); PO2 ABG 82.6 mmHg (80.0-100.0); PO2 FiO2 Ratio Arterial Blood 1.65 %; Reduced Hemoglobin 5.4 %THb (0-5.0); Site Drawn LEFT RADIAL; Total Hemoglobin 9.2 g/dL (12.0-18.0)
[2021-07-26 05:28] LABS: Arterial Blood Gas PEEP 10 cmH2O; Arterial Blood Gas Tidal Volume 400 ml; Arterial Blood Gas Vent Mode CMV; Arterial Blood Gas Ventilator rate 30 /MIN; Device VENTILATOR
[2021-07-26 05:33] LABS: Basophils Absolute Auto 0.1 K/mm3 (0.0-0.1); Basophils Percent Auto 0.3 % (0.2-1.2); Eosinophils Absolute Auto 0.3 K/mm3 (0-0.3); Eosinophils Percent Auto 1.7 % (0-4.4); Hematocrit 26.1 % (37.0-47.0); Immature Granulocyte Absolute 0.74 K/mm3 (0.00-0.031); Immature Granulocyte Percent A 3.7 % (0-0.5); Lymphocytes Absolute Auto 0.56 K/mm3 (0.9-3.2); Lymphocytes Percent Auto 2.8 % (18.3-44.2); Mean Corpuscular HGB Conc 30.7 g/dl (32-36); Mean Corpuscular Hemoglobin 29.5 pg (26-34); Mean Corpuscular Volume 96.3 fl (80-100); Mean Platelet Volume 10.8 fl (7.4-10.4); Monocytes Absolute Auto 0.7 K/mm3 (0.1-0.6); Monocytes Percent Auto 3.2 % (2.6-8.5); Neutrophils Absolute Auto 17.8 K/mm3 (1.3-6.7); Neutrophils Percent Auto 88.3 % (45.5-73.1); Nucleated Red Blood Cells Perc 0.1 % (0.0-0.2); Platelet Count Result 442 k/mm3 (150-375); Red Blood Count 2.71 M/mm3 (4.2-5.4); Red Cell Distribution Width 14.7 % (11.5-14.5); White Blood Count 20.2 K/mm3 (4.5-10.0)
[2021-07-26 05:46] LABS: Alanine Aminotransferase 29 U/L (4-35); Albumin Level 2.6 g/dL (3.5-5.1); Alkaline Phosphatase 93 U/L (38-126); Anion Gap 5 mmol/L (8-16); Aspartate Amino Transferase 42 U/L (14-36); Bilirubin,Total 0.7 mg/dL (0.2-1.3); Blood Urea Nitrogen 75 mg/dL (7-17); Calcium 7.9 mg/dL (8.4-10.2); Carbon Dioxide 25 mmol/L (22-30); Chloride 103 mmol/L (98-107); Estimated CRCL calculation 23 ml/min; Estimated Glomerular Filt Rate 23; Glucose 139 mg/dL (65-110); Magnesium 2.5 mg/dL (1.6-2.3); Phosphorus 5.9 mg/dL (2.5-4.5); Potassium 4.9 mmol/L (3.4-5.0); Sodium 133 mmol/L (137-145)
[2021-07-26] MEDS: ENOXAPARIN 100 MG/ML SYRINGE SUB-Q (08:36)
[2021-07-26] MEDS: polyethylene glycoL 3350 17 GM POWD.PACK PO (08:36)
[2021-07-26] MEDS: BARICITINIB 1 MG TABLET PO (08:36)
[2021-07-26] MEDS: PANTOPRAZOLE SODIUM IV 40 MG VIAL IV PUSH (08:37)
[2021-07-26] MEDS: ALBUMIN HUMAN 25% 12.5 GM/50ML 50 ML 50 GM (11:25)
--- NOTE | 2021-07-26 11:27 | P.PNNP_ITS ---
Progress Note: A&P Assessment and Plan (1) MARCE (acute kidney injury): Code(s): N17.9 - Acute kidney failure, unspecified Status: Acute Assessment and Plan: * likely secondary to COVID-19 infection * urine electrolytes are borderline prerenal * renal ultrasound without obstruction * still making urine but not a lot * creatinine didn't rise between yesterday and today * Electrolytes okay. * Volume status overloaded. 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 (3) Hyperkalemia: Code(s): E87.5 - Hyperkalemia Status: Acute Assessment and Plan: * Resolved (4) Acute respiratory failure with hypoxia: Code(s): J96.01 - Acute respiratory failure with hypoxia Status: Acute Assessment and Plan: * due to #4 and possibly bacterial pneumonia * culture negative to date (5) Pneumonia due to COVID-19 virus: Code(s): U07.1 - COVID-19; J12.82 - Pneumonia due to coronavirus disease 2018 Status: Acute Assessment and Plan: * CT findings are consistent with COVID-19 pneumonia * completed course of dexamethasone * s/p 5 day course of remdesivir * started on Barcitinib on 07/14/21 * continue ventilator support and prone positioning (6) Hyponatremia: Code(s): E87.1 - Hypo-osmolality and hyponatremia Status: Acute Assessment and Plan: * 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 It rises and falls (7) Essential (primary) hypertension: Code(s): I10 - Essential (primary) hypertension Status: Chronic Assessment and Plan: * Blood pressure doing well with a range of systolic between 100 and 140. * doing okay so far with the dialysis. Subjective Date/time seen: 07/26/21 11:27 Interval history: Krysta is still on the ventilator and sedated. she cannot give a history. On HD arsenio it well. trying for 2 to up to 4 L depending on bp readings. seen at 11:00 am Exam Narrative: General: WD/WN female intubated/sedated Heart: normal S1 and S2; no rub or gallop Lungs: Coarse Abdomen: soft, nontender, nondistended, positive bowel sounds Extremities: 1+edema Skin: No rash or sq nodules Objective Data Vital Signs Vital Signs: Vital Signs - 24 hr 07/25/21 12:00 07/25/21 13:54 07/25/21 13:56 Temperature 37.2 C 37.2 C Pulse Rate 80 78 78 Respiratory Rate 30 H 30 H Blood Pressure 98/55 L 128/60 Pulse Oximetry 97 97 07/25/21 14:30 07/25/21 16:00 07/25/21 16:39 Temperature 36.9 C Pulse Rate 85 87 81 Respiratory Rate 30 H 30 H Blood Pressure 134/61 Pulse Oximetry 96 94 07/25/21 16:52 07/25/21 18:00 07/25/21 20:00 Temperature 36.6 C 36.6 C Pulse Rate 84 87 81 Respiratory Rate 30 H 30 H Blood Pressure 121/60 117/63 Pulse Oximetry 96 94 94 07/25/21 21:30 07/25/21 21:31 07/25/21 22:00 Temperature Pulse Rate 86 85 84
--- NOTE | 2021-07-26 11:27 | PM.PNNEP ---
Progress Note: A&P Assessment and Plan (1) MARCE (acute kidney injury): Code(s): N17.9 - Acute kidney failure, unspecified Status: Acute Assessment and Plan: likely secondary to COVID-19 infection urine electrolytes are borderline prerenal renal ultrasound without obstruction still making urine but not a lot creatinine didn't rise between yesterday and today Electrolytes okay. Volume status overloaded. 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 (3) Hyperkalemia: Code(s): E87.5 - Hyperkalemia Status: Acute Assessment and Plan: Resolved (4) Acute respiratory failure with hypoxia: Code(s): J96.01 - Acute respiratory failure with hypoxia Status: Acute Assessment and Plan: due to #4 and possibly bacterial pneumonia culture negative to date (5) Pneumonia due to COVID-19 virus: Code(s): U07.1 - COVID-19; J12.82 - Pneumonia due to coronavirus disease 2018 Status: Acute Assessment and Plan: CT findings are consistent with COVID-19 pneumonia completed course of dexamethasone s/p 5 day course of remdesivir started on Barcitinib on 07/14/21 continue ventilator support and prone positioning (6) Hyponatremia: Code(s): E87.1 - Hypo-osmolality and hyponatremia Status: Acute Assessment and Plan: 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 It rises and falls (7) Essential (primary) hypertension: Code(s): I10 - Essential (primary) hypertension Status: Chronic Assessment and Plan: Blood pressure doing well with a range of systolic between 100 and 140. doing okay so far with the dialysis. Subjective Date/time seen: 07/26/21 11:27 Interval history: Krysta is still on the ventilator and sedated. she cannot give a history. On HD arsenio it well. trying for 2 to up to 4 L depending on bp readings. seen at 11:00 am Exam Narrative: General: WD/WN female intubated/sedated Heart: normal S1 and S2; no rub or gallop Lungs: Coarse Abdomen: soft, nontender, nondistended, positive bowel sounds Extremities: 1+edema Skin: No rash or sq nodules Objective Data Vital Signs Vital Signs: Vital Signs - 24 hr 07/25/21 12:00 07/25/21 13:54 07/25/21 13:56 Temperature 37.2 C 37.2 C Pulse Rate 80 78 78 Respiratory Rate 30 H 30 H Blood Pressure 98/55 L 128/60 Pulse Oximetry 97 97 07/25/21 14:30 07/25/21 16:00 07/25/21 16:39 Temperature 36.9 C Pulse Rate 85 87 81 Respiratory Rate 30 H 30 H Blood Pressure 134/61 Pulse Oximetry 96 94 07/25/21 16:52 07/25/21 18:00 07/25/21 20:00 Temperature 36.6 C 36.6 C Pulse Rate 84 87 81 Respiratory Rate 30 H 30 H Blood Pressure 121/60 117/63 Pulse Oximetry 96 94 94 07/25/21 21:30 07/25/21 21:31 07/25/21 22:00 Temperature Pulse Rate 86 85 84 Respiratory Rate 30 H 30 H 30 H Blood Pressure 117/63 Pulse Oximetry 93 07/25/21 23:00 07/26/21 00:00 07/26/21 02:00 Temperature 36.8 C Pulse Rate 86 84 93 Respiratory Rate 30 H 30 H Blood Pressure 123/56 L 139/62 Pulse Oximetry 94 93 94 07/26/21 03:35 07/26/21 03:41 07/26/21 03:57 Temperature 36.6 C Pulse Rate 90 91 87 Respiratory Rate 30 H 30 H 30 H Blood Pressure 155/78 H Pulse Oximetry 92 92 07/26/21 04:00 07/26/21 04:45 07/26/21 05:42 Temperature 37.0 C Pulse Rate 88 90 87 Respiratory Rate 30 H Blood Pressure 106/54 L Pulse Oximetry 94 94 07/26/21 08:00 07/26/21 09:37 07/26/21 09:48 Temperature 36.9 C 36.9 C Pulse Rate 85 87 88 Respiratory Rate 30 H 30 H Blood Pre
[2021-07-26] MEDS: EPOETIN ALFA-EPBX 10,000 UNITS/ML VIAL 10000 UNITS IV PUSH (12:56)
[2021-07-26 14:14] LABS: Glucose Point of Care 117 mg/dl (65-105)
--- NOTE | 2021-07-26 14:19 | WPDINTPN ---
Progress Note: A&P Assessment and Plan (1) Acute hypoxemic respiratory failure due to COVID-19: Code(s): U07.1 - COVID-19; J96.01 - Acute respiratory failure with hypoxia Status: Acute Assessment and Plan: Acute Respiratory failure secondary to COVID-19 with component of pulmonary edema and may have a component of bacterial pneumonia Intubated 07/14 Chest x-ray stable, ABGs reviewed Continue full mechanical ventilation support to prevent hypoxemia/hypercarbia and end organ damage. PEEP of 10 and 50% FiO2, wean FiO2 to maintain O2 sats greater than 92%. Low tidal volume ventilation strategy to prevent volutrauma Sedated with Versed and fentanyl. -off Nimbex -started on dialysis, this may help remove volume and ultimately will be able to wean her the mechanical ventilation. Continue to monitor chest x-rays, wean FiO2. CTA Chest on 07/10 was negative for PE. The patient has DVT she is already on treatment with anticoagulation. CT chest 07/14 IMPRESSION: 1. Diffuse lung disease, worsened from 07/10/2021, consistent with COVID-19 pneumonia. Bacterial pneumonia and pulmonary edema have overlapping appearances and cannot be excluded. 2. Mild mediastinal lymphadenopathy, likely reactive (2) Pneumonia due to COVID-19 virus: Code(s): U07.1 - COVID-19; J12.82 - Pneumonia due to coronavirus disease 2019 Status: Acute Assessment and Plan: Patient is vaccinated against COVID-19 but has not received a booster dose. She was tested for COVID-19 on 07/06/[address] findings are consistent with COVID-19 pneumonia Completed dexamethasone Completed 5 day course of remdesivir on 07/15/2021 Patient received baricitinib -continue droplet, airborne, contact isolation/precautions (3) Community acquired pneumonia: Qualifiers: Laterality: unspecified laterality Qualified Code(s): J18.9 - Pneumonia, unspecified organism Code(s): J18.9 - Pneumonia, unspecified organism Status: Acute Assessment and Plan: Presented with complaints of fever and cough. Patient had elevated white count Cultures, influenza, urine Legionella, urine pneumococcal antigen are negative status post vancomycin and Levaquin for 14 days. (4) DVT (deep venous thrombosis): Code(s): I82.409 - Acute embolism and thrombosis of unspecified deep veins of unspecified lower extremity Status: Acute Assessment and Plan: Lower extremity Dopplers showed Deep vein thrombosis involving the right posterior tibial veins and left popliteal and posterior tibial veins. Patient is on therapeutic Lovenox dose (5) Acute on chronic kidney failure: Code(s): N17.9 - Acute kidney failure, unspecified; N18.9 - Chronic kidney disease, unspecified Status: Acute Assessment and Plan: Creatinine slightly elevated as compared to baseline on admission Creatinine has been stable but elevated, urine output has been adequate Monitor urine output electrolytes and creatinine -dialysis catheter was placed on 07/21/2021: And dialysis was started on the same day. - dialysis per Nephrology -discussed with the from pulling extra fluid to which she is agreeable (6) Hyponatremia: Code(s): E87.1 - Hypo-osmolality and hyponatremia Status: Acute Assessment and Plan: Will use normal saline flushes with tube feeds -improved with dialysis (7) Hypothyroidism: Qualifiers: Hypothyroidism type: acquired Qualified Code(s): E03.9 - Hypothyroidism, unspecified Code(s): E03.9 - Hypothyroidism, unspecified Status: Acute Assessment and Plan: Continue levothyroxine Additional Plan Discussed with Felipe, patient's and updated with patient's condition and plan of care. I discussed with him regarding tracheostomy and PEG tube placement, he stated that his daughter in-law is well informed about this and she also had spoken to him about this. He is
[2021-07-26] MEDS: MINERAL OIL/WHITE PETROLATUM OINTMENT 1 APPLIC EACH EYE (20:45)
[2021-07-26] MEDS: MIDAZOLAM 100MG/NS 100ML(*CRX) 100 MG/100 ML BAG IV CONT (20:46)
[2021-07-27] VITALS (24 sets, daily range): BP systolic 102–145; BP diastolic 58–79; PULSE 81–108; RESP 20–32; TEMP 36.8–37.7; O2SAT 91–96
[2021-07-27] MEDS: CENTRAL LINE FLUSH 10 ML IV PUSH ×4 (00:16→21:22)
[2021-07-27] MEDS: METOCLOPRAMIDE HCL INJ 10 MG/2 ML VIAL IV PUSH ×5 (00:17→23:29)
[2021-07-27] MEDS: FENTANYL 2,500MCG/NS250ML(*CRX 2,500 MCG/250 ML BAG 10 MCG IV CONT (00:18)
[2021-07-27 00:27] LABS: Glucose Point of Care 117 mg/dl (65-105)
[2021-07-27 00:27] LABS: Glucose Point of Care 107 mg/dl (65-105)
[2021-07-27 05:06] LABS: Alveolar/Arterial O2 Gradient 241.9 mmHg; Base Excess ABG 4.5 mEq/l (+/-2.0); Carboxyhemoglobin 0.4 % THb (0-2.0); Fractional Inspired Oxygen 55 %; HCO3 ABG 30.5 mEq/l (22.0-26.0); Methemoglobin ABG 0.3 %THb (0-1.5); Oxygen Content ABG 9.5 %vol (16.0-22.0); Oxygen Saturation ABG 96.3 % (95.0-100.0); Oxyhemoglobin 95.2 % THb (90.0-100.0); PCO2 ABG 55.3 mmHg (35.0-45.0); PO2 ABG 88.7 mmHg (80.0-100.0); PO2 FiO2 Ratio Arterial Blood 1.61 %; Reduced Hemoglobin 4.1 %THb (0-5.0)
[2021-07-27 05:08] LABS: Arterial Blood Gas PEEP 10 cmH2O; Arterial Blood Gas Tidal Volume 400 ml; Arterial Blood Gas Vent Mode CMV; Arterial Blood Gas Ventilator rate 30 /MIN; Device VENTILATOR; Modified Allen's Test Pass; Site Drawn LEFT RADIAL
[2021-07-27] MEDS: LEVOTHYROXINE SODIUM 100 MCG TABLET PO (06:56)
[2021-07-27 07:23] LABS: Basophils Absolute Auto 0.1 K/mm3 (0.0-0.1); Basophils Percent Auto 0.6 % (0.2-1.2); Eosinophils Absolute Auto 0.4 K/mm3 (0-0.3); Eosinophils Percent Auto 2.1 % (0-4.4); Hematocrit 25.6 % (37.0-47.0); Hemoglobin 7.9 g/dL (12.0-15.0); Immature Granulocyte Absolute 0.74 K/mm3 (0.00-0.031); Immature Granulocyte Percent A 4.2 % (0-0.5); Lymphocytes Absolute Auto 0.85 K/mm3 (0.9-3.2); Lymphocytes Percent Auto 4.8 % (18.3-44.2); Mean Corpuscular HGB Conc 30.9 g/dl (32-36); Mean Corpuscular Hemoglobin 29.6 pg (26-34); Mean Corpuscular Volume 95.9 fl (80-100); Mean Platelet Volume 10.6 fl (7.4-10.4); Monocytes Absolute Auto 0.8 K/mm3 (0.1-0.6); Monocytes Percent Auto 4.3 % (2.6-8.5); Nucleated Red Blood Cells Perc 0.2 % (0.0-0.2); Platelet Count Result 464 k/mm3 (150-375); Red Blood Count 2.67 M/mm3 (4.2-5.4); Red Cell Distribution Width 14.8 % (11.5-14.5); White Blood Count 17.8 K/mm3 (4.5-10.0)
[2021-07-27 07:27] LABS: Alanine Aminotransferase 32 U/L (4-35); Aspartate Amino Transferase 43 U/L (14-36); Estimated CRCL calculation 27 ml/min; Estimated Glomerular Filt Rate 27
[2021-07-27] MEDS: polyethylene glycoL 3350 17 GM POWD.PACK PO (09:30)
[2021-07-27] MEDS: ENOXAPARIN 100 MG/ML SYRINGE SUB-Q (09:30)
[2021-07-27] MEDS: PANTOPRAZOLE SODIUM IV 40 MG VIAL IV PUSH (09:30)
[2021-07-27] MEDS: BARICITINIB 1 MG TABLET PO (09:30)
--- NOTE | 2021-07-27 11:09 | P.PNNP_ITS ---
Progress Note: A&P Assessment and Plan (1) MARCE (acute kidney injury): Code(s): N17.9 - Acute kidney failure, unspecified Status: Acute Assessment and Plan: * likely secondary to COVID-19 infection * urine electrolytes are borderline prerenal * renal ultrasound without obstruction * still making urine but not a lot * creatinine is 1.8 today. * Electrolytes okay. * Volume status overloaded. She had 4L removed yesterday. * Will give diuretics and see if we can augment urine output. 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 (3) Hyperkalemia: Code(s): E87.5 - Hyperkalemia Status: Acute Assessment and Plan: * Resolved (4) Acute respiratory failure with hypoxia: Code(s): J96.01 - Acute respiratory failure with hypoxia Status: Acute Assessment and Plan: * due to #4 and possibly bacterial pneumonia * culture negative to date (5) Pneumonia due to COVID-19 virus: Code(s): U07.1 - COVID-19; J12.82 - Pneumonia due to coronavirus disease 2018 Status: Acute Assessment and Plan: * CT findings are consistent with COVID-19 pneumonia * completed course of dexamethasone * s/p 5 day course of remdesivir * started on Baricitinib on 07/14/21 * continue ventilator support and rotation (6) Hyponatremia: Code(s): E87.1 - Hypo-osmolality and hyponatremia Status: Acute Assessment and Plan: * 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 It rises and falls * Check again in the morning (7) Essential (primary) hypertension: Code(s): I10 - Essential (primary) hypertension Status: Chronic Assessment and Plan: * Blood pressure doing well with a range of systolic between 100 and 140. * doing okay so far with the dialysis. Subjective Date/time seen: 07/27/21 11:09 Interval history: Krysta is still on the ventilator and sedated. she cannot give a history. Exam Narrative: WDWN in NAD skin no rash head ncat lungs coarse bilaterally cor reg no rub abd BS+ nontender and soft ext 1+ edema. Objective Data Vital Signs Vital Signs: Vital Signs - 24 hr 07/26/21 11:15 07/26/21 11:30 07/26/21 12:00 Temperature 37.1 C Pulse Rate 99 83 96 Respiratory Rate 30 H Blood Pressure 104/55 L 117/66 122/71 Pulse Oximetry 98 07/26/21 12:01 07/26/21 12:30 07/26/21 13:00 Temperature Pulse Rate 99 96 97 Respiratory Rate Blood Pressure 126/68 123/72 Pulse Oximetry 98 07/26/21 13:48 07/26/21 14:00 07/26/21 14:02 Temperature 37.3 C 37.3 C Pulse Rate 102 H 101 H 104 H Respiratory Rate 30 H 21 H Blood Pressure 116/69 120/64 137/71 Pulse Oximetry 97 98 07/26/21 15:34 07/26/21 16:00 07/26/21 16:43 Temperature 37.3 C Pulse Rate 100 95 92 Respiratory Rate 30 H 30 H Blood Pressure 134/63 Pulse Oximetry 97 98
--- NOTE | 2021-07-27 11:09 | PM.PNNEP ---
Progress Note: A&P Assessment and Plan (1) MARCE (acute kidney injury): Code(s): N17.9 - Acute kidney failure, unspecified Status: Acute Assessment and Plan: likely secondary to COVID-19 infection urine electrolytes are borderline prerenal renal ultrasound without obstruction still making urine but not a lot creatinine is 1.8 today. Electrolytes okay. Volume status overloaded. She had 4L removed yesterday. Will give diuretics and see if we can augment urine output. 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 (3) Hyperkalemia: Code(s): E87.5 - Hyperkalemia Status: Acute Assessment and Plan: Resolved (4) Acute respiratory failure with hypoxia: Code(s): J96.01 - Acute respiratory failure with hypoxia Status: Acute Assessment and Plan: due to #4 and possibly bacterial pneumonia culture negative to date (5) Pneumonia due to COVID-19 virus: Code(s): U07.1 - COVID-19; J12.82 - Pneumonia due to coronavirus disease 2019 Status: Acute Assessment and Plan: CT findings are consistent with COVID-19 pneumonia completed course of dexamethasone s/p 5 day course of remdesivir started on Baricitinib on 07/14/21 continue ventilator support and rotation (6) Hyponatremia: Code(s): E87.1 - Hypo-osmolality and hyponatremia Status: Acute Assessment and Plan: 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 It rises and falls Check again in the morning (7) Essential (primary) hypertension: Code(s): I10 - Essential (primary) hypertension Status: Chronic Assessment and Plan: Blood pressure doing well with a range of systolic between 100 and 140. doing okay so far with the dialysis. Subjective Date/time seen: 07/27/21 11:09 Interval history: Krysta is still on the ventilator and sedated. she cannot give a history. Exam Narrative: WDWN in NAD skin no rash head ncat lungs coarse bilaterally cor reg no rub abd BS+ nontender and soft ext 1+ edema. Objective Data Vital Signs Vital Signs: Vital Signs - 24 hr 07/26/21 11:15 07/26/21 11:30 07/26/21 12:00 Temperature 37.1 C Pulse Rate 99 83 96 Respiratory Rate 30 H Blood Pressure 104/55 L 117/66 122/71 Pulse Oximetry 98 07/26/21 12:01 07/26/21 12:30 07/26/21 13:00 Temperature Pulse Rate 99 96 97 Respiratory Rate Blood Pressure 126/68 123/72 Pulse Oximetry 98 07/26/21 13:48 07/26/21 14:00 07/26/21 14:02 Temperature 37.3 C 37.3 C Pulse Rate 102 H 101 H 104 H Respiratory Rate 30 H 21 H Blood Pressure 116/69 120/64 137/71 Pulse Oximetry 97 98 07/26/21 15:34 07/26/21 16:00 07/26/21 16:43 Temperature 37.3 C Pulse Rate 100 95 92 Respiratory Rate 30 H 30 H Blood Pressure 134/63 Pulse Oximetry 97 98 07/26/21 18:00 07/26/21 20:00 07/26/21 20:46 Temperature 37.6 C 37.6 C Pulse Rate 90 86 91 Respiratory Rate 30 H 28 H 25 H Blood Pressure 125/58 L 124/62 Pulse Oximetry 97 96 07/26/21 22:00 07/26/21 22:10 07/26/21 22:45 Temperature 37.6 C Pulse Rate 93 96 Respiratory Rate 30 H Blood Pressure 132/67 Pulse Oximetry 94 98 98 07/27/21 00:00 07/27/21 00:18 07/27/21 01:16 Temperature 37.6 C H Pulse Rate 88 83 85 Respiratory Rate 30 H 30 H Blood Pressure 118/59 L Pulse Oximetry 95 95 07/27/21 02:00 07/27/21 04:00 07/27/21 04:44 Temperature 37.6 C H 37.7 C H Pulse Rate 89 87 82 Respiratory Rate 30 H 24 H Blood Pressure 136/62 130/63 Pulse Oximetry 94 96 95 07/27/21 06:00 07/27/21 08:00 07/27/21 09:08 Temperature 37.6 C H 37.4 C
--- NOTE | 2021-07-27 12:36 | WPDINTPN ---
Progress Note: A&P Assessment and Plan (1) Acute hypoxemic respiratory failure due to COVID-19: Code(s): U07.1 - COVID-19; J96.01 - Acute respiratory failure with hypoxia Status: Acute Assessment and Plan: Acute Respiratory failure secondary to COVID-19 with component of pulmonary edema and may have a component of bacterial pneumonia Intubated 07/14 Chest x-ray stable, ABGs reviewed Continue full mechanical ventilation support to prevent hypoxemia/hypercarbia and end organ damage. PEEP of 10 and 50% FiO2, wean FiO2 to maintain O2 sats greater than 92%. Low tidal volume ventilation strategy to prevent volutrauma Sedated with Versed and fentanyl. -off Nimbex Discussed with Nephrology regarding increased removal of fluid with dialysis which will improve her respiratory status. -discussed with family on 07/26/2021 regarding tracheostomy and PEG tube placement to which they agreeable, will consult ENT and GI on 07/28/2021 CT chest 07/14 IMPRESSION: 1. Diffuse lung disease, worsened from 07/10/2021, consistent with COVID-19 pneumonia. Bacterial pneumonia and pulmonary edema have overlapping appearances and cannot be excluded. 2. Mild mediastinal lymphadenopathy, likely reactive (2) Pneumonia due to COVID-19 virus: Code(s): U07.1 - COVID-19; J12.82 - Pneumonia due to coronavirus disease 2018 Status: Acute Assessment and Plan: Patient is vaccinated against COVID-19 but has not received a booster dose. She was tested for COVID-19 on 07/06/[address] to [address] findings are consistent with COVID-19 pneumonia Completed dexamethasone Completed 5 day course of remdesivir on 07/15/2021 Patient received baricitinib -continue droplet, airborne, contact isolation/precautions (3) Community acquired pneumonia: Qualifiers: Laterality: unspecified laterality Qualified Code(s): J18.9 - Pneumonia, unspecified organism Code(s): J18.9 - Pneumonia, unspecified organism Status: Acute Assessment and Plan: Presented with complaints of fever and cough. Patient had elevated white count Cultures, influenza, urine Legionella, urine pneumococcal antigen are negative status post vancomycin and Levaquin for 14 days. (4) DVT (deep venous thrombosis): Code(s): I82.409 - Acute embolism and thrombosis of unspecified deep veins of unspecified lower extremity Status: Acute Assessment and Plan: Lower extremity Dopplers showed Deep vein thrombosis involving the right posterior tibial veins and left popliteal and posterior tibial veins. Patient is on therapeutic Lovenox dose (5) Acute on chronic kidney failure: Code(s): N17.9 - Acute kidney failure, unspecified; N18.9 - Chronic kidney disease, unspecified Status: Acute Assessment and Plan: Creatinine slightly elevated as compared to baseline on admission Creatinine has been stable but elevated, urine output has been adequate Monitor urine output electrolytes and creatinine -dialysis catheter was placed on 07/21/2021: And dialysis was started on the same day. - dialysis per Nephrology -discussed with the from pulling extra fluid to which she is agreeable (6) Hyponatremia: Code(s): E87.1 - Hypo-osmolality and hyponatremia Status: Acute Assessment and Plan: Will use normal saline flushes with tube feeds -improved with dialysis (7) Hypothyroidism: Qualifiers: Hypothyroidism type: acquired Qualified Code(s): E03.9 - Hypothyroidism, unspecified Code(s): E03.9 - Hypothyroidism, unspecified Status: Acute Assessment and Plan: Continue levothyroxine Additional Plan Discussed with Felipe, patient's and updated with patient's condition and plan of care. I discussed with him regarding tracheostomy and PEG tube placement, he stated that his daughter in-law is well informed about this and she also had spoken to him about this. He is magalys
[2021-07-27] MEDS: BUMETANIDE INJ 2.5 MG/10 ML VIAL 2 MG IV PUSH ×2 (12:55→17:52)
[2021-07-27 13:01] LABS: Glucose Point of Care 180 mg/dl (65-105)
[2021-07-27 18:52] LABS: Glucose Point of Care 111 mg/dl (65-105)
[2021-07-27] MEDS: MINERAL OIL/WHITE PETROLATUM OINTMENT 1 APPLIC EACH EYE (21:22)
[2021-07-28] VITALS (29 sets, daily range): BP systolic 83–139; BP diastolic 52–77; PULSE 81–110; RESP 27–36; TEMP 37.1–38.1; O2SAT 92–100
[2021-07-28 00:14] LABS: Glucose Point of Care 115 mg/dl (65-105)
[2021-07-28] MEDS: FENTANYL 2,500MCG/NS250ML(*CRX 2,500 MCG/250 ML BAG 10 MCG IV CONT (01:09)
[2021-07-28] MEDS: MIDAZOLAM 100MG/NS 100ML(*CRX) 100 MG/100 ML BAG IV CONT (03:29)
[2021-07-28 04:12] LABS: Basophils Absolute Auto 0.1 K/mm3 (0.0-0.1); Basophils Percent Auto 0.3 % (0.2-1.2); Eosinophils Absolute Auto 0.3 K/mm3 (0-0.3); Eosinophils Percent Auto 1.4 % (0-4.4); Hematocrit 25.6 % (37.0-47.0); Immature Granulocyte Absolute 0.41 K/mm3 (0.00-0.031); Immature Granulocyte Percent A 2.1 % (0-0.5); Lymphocytes Percent Auto 3.6 % (18.3-44.2); Mean Corpuscular HGB Conc 31.3 g/dl (32-36); Mean Corpuscular Hemoglobin 29.6 pg (26-34); Mean Corpuscular Volume 94.8 fl (80-100); Mean Platelet Volume 10.6 fl (7.4-10.4); Monocytes Absolute Auto 0.8 K/mm3 (0.1-0.6); Monocytes Percent Auto 4.1 % (2.6-8.5); Neutrophils Absolute Auto 17.2 K/mm3 (1.3-6.7); Neutrophils Percent Auto 88.5 % (45.5-73.1); Nucleated Red Blood Cells Perc 0.1 % (0.0-0.2); Platelet Count Result 460 k/mm3 (150-375); Red Cell Distribution Width 15.1 % (11.5-14.5); White Blood Count 19.4 K/mm3 (4.5-10.0)
[2021-07-28 05:50] LABS: Alanine Aminotransferase 50 U/L (4-35); Albumin Level 3.2 g/dL (3.5-5.1); Alkaline Phosphatase 97 U/L (38-126); Anion Gap 3 mmol/L (8-16); Aspartate Amino Transferase 163 U/L (14-36); Bilirubin,Total 0.8 mg/dL (0.2-1.3); Blood Urea Nitrogen 60 mg/dL (7-17); Calcium 8.3 mg/dL (8.4-10.2); Carbon Dioxide 32 mmol/L (22-30); Chloride 98 mmol/L (98-107); Estimated CRCL calculation 23 ml/min; Estimated Glomerular Filt Rate 23; Glucose 130 mg/dL (65-110); Phosphorus 5.1 mg/dL (2.5-4.5); Potassium 4.2 mmol/L (3.4-5.0); Sodium 133 mmol/L (137-145)
[2021-07-28] MEDS: LEVOTHYROXINE SODIUM 100 MCG TABLET PO (05:51)
[2021-07-28] MEDS: METOCLOPRAMIDE HCL INJ 10 MG/2 ML VIAL IV PUSH ×3 (05:51→17:42)
[2021-07-28] MEDS: CENTRAL LINE FLUSH 10 ML IV PUSH ×3 (05:51→20:29)
[2021-07-28] MEDS: CYANOCOBALAMIN 500 MCG TABLET PO (08:22)
[2021-07-28] MEDS: BARICITINIB 1 MG TABLET PO (08:22)
[2021-07-28] MEDS: BUMETANIDE INJ 2.5 MG/10 ML VIAL 2 MG IV PUSH ×2 (08:22→17:42)
[2021-07-28] MEDS: PYRIDOXINE HCL 25 MG TABLET PO (08:22)
[2021-07-28] MEDS: CHOLECALCIFEROL 1,000 UNITS TABLET 5000 UNITS PO (08:22)
[2021-07-28] MEDS: ENOXAPARIN 100 MG/ML SYRINGE SUB-Q (08:23)
[2021-07-28] MEDS: PANTOPRAZOLE SODIUM IV 40 MG VIAL IV PUSH (08:23)
[2021-07-28] MEDS: polyethylene glycoL 3350 17 GM POWD.PACK PO (08:23)
[2021-07-28 11:45] LABS: Glucose Point of Care 110 mg/dl (65-105)
--- NOTE | 2021-07-28 12:32 | PCFNICU ---
ICU Rounding Note: Pt current nutrition is Nepro at 40 ml/hr. Last recorded weight is 92.3 kg-stable. Bowel Motility:+BM reported 07/24 Labs Reviewed:PO4 5.1,Na 133, BUN 60, Cr 2.10,Hct 25.6, Hgb 8.0 Meds Noted:Versed, Fentanyl, Lovenox, Miralax, Reglan, Synthroid, Vit B12, Bumex. Skin: WNL Additional Notes:Patient remains on mechanical vent and tube feedings of Nepro at 40 ml/hr and tolerating. Free water flush 30 ml q 4 hours. Possible Trach/PEG. Last Dialysis treatment 07/26. Agree with diet orders. Following daily in ICU rounds. Will reassess every Wednesday and Wednesday.
--- NOTE | 2021-07-28 13:25 | WPDINTPN ---
Progress Note: A&P Assessment and Plan (1) Acute hypoxemic respiratory failure due to COVID-19: Code(s): U07.1 - COVID-19; J96.01 - Acute respiratory failure with hypoxia Status: Acute Assessment and Plan: Acute Respiratory failure secondary to COVID-19 with component of pulmonary edema and may have a component of bacterial pneumonia Intubated 07/14 Chest x-ray stable, ABGs reviewed Continue full mechanical ventilation support to prevent hypoxemia/hypercarbia and end organ damage. PEEP of 10 and 50% FiO2, wean FiO2 to maintain O2 sats greater than 92%. Low tidal volume ventilation strategy to prevent volutrauma Sedated with Versed and fentanyl. -off Nimbex Discussed with Nephrology regarding increased removal of fluid with dialysis which will improve her respiratory status. -discussed with family on 07/26/2021 regarding tracheostomy and PEG tube placement to which they agreeable, consulted ENT and GI CT chest 07/14 IMPRESSION: 1. Diffuse lung disease, worsened from 07/10/2021, consistent with COVID-19 pneumonia. Bacterial pneumonia and pulmonary edema have overlapping appearances and cannot be excluded. 2. Mild mediastinal lymphadenopathy, likely reactive (2) Pneumonia due to COVID-19 virus: Code(s): U07.1 - COVID-19; J12.82 - Pneumonia due to coronavirus disease 2018 Status: Acute Assessment and Plan: Patient is vaccinated against COVID-19 but has not received a booster dose. She was tested for COVID-19 on 07/06/[address] findings are consistent with COVID-19 pneumonia Completed dexamethasone Completed 5 day course of remdesivir on 07/15/2021 Patient received baricitinib -continue droplet, airborne, contact isolation/precautions (3) Community acquired pneumonia: Qualifiers: Laterality: unspecified laterality Qualified Code(s): J18.9 - Pneumonia, unspecified organism Code(s): J18.9 - Pneumonia, unspecified organism Status: Acute Assessment and Plan: Presented with complaints of fever and cough. Patient had elevated white count Cultures, influenza, urine Legionella, urine pneumococcal antigen are negative status post vancomycin and Levaquin for 14 days. (4) DVT (deep venous thrombosis): Code(s): I82.409 - Acute embolism and thrombosis of unspecified deep veins of unspecified lower extremity Status: Acute Assessment and Plan: Lower extremity Dopplers showed Deep vein thrombosis involving the right posterior tibial veins and left popliteal and posterior tibial veins. Patient is on therapeutic Lovenox dose (5) Acute on chronic kidney failure: Code(s): N17.9 - Acute kidney failure, unspecified; N18.9 - Chronic kidney disease, unspecified Status: Acute Assessment and Plan: Creatinine slightly elevated as compared to baseline on admission Creatinine has been stable but elevated, urine output has been adequate Monitor urine output electrolytes and creatinine -dialysis catheter was placed on 07/21/2021: And dialysis was started on the same day. - dialysis per Nephrology (6) Hyponatremia: Code(s): E87.1 - Hypo-osmolality and hyponatremia Status: Acute Assessment and Plan: Will use normal saline flushes with tube feeds -improved with dialysis (7) Hypothyroidism: Qualifiers: Hypothyroidism type: acquired Qualified Code(s): E03.9 - Hypothyroidism, unspecified Code(s): E03.9 - Hypothyroidism, unspecified Status: Acute Assessment and Plan: Continue levothyroxine Additional Plan 07/26/2021: Discussed with Felipe, patient's and updated with patient's condition and plan of care. I discussed with him regarding tracheostomy and PEG tube placement, he stated that his daughter in-law is well informed about this and she also had spoken to him about this. He is willing to get a tracheostomy and PEG tube placed in the patient, I also discusse
--- NOTE | 2021-07-28 15:33 | WPDGICN ---
Assessment and Plan Assessment and plan (1) Acute respiratory failure with hypoxia: Code(s): J96.01 - Acute respiratory failure with hypoxia Status: Acute Assessment and Plan: she has been in the hospital for several days and vent dependent family agreeable to have PEG placement- will try to do it tomorrow, ENT also will place tracheostomy soon (2) Pneumonia due to COVID-19 virus: Code(s): U07.1 - COVID-19; J12.82 - Pneumonia due to coronavirus disease 2019 Status: Acute Assessment and Plan: she has been treated by dough scaler and mixer, still intubated (3) Hyponatremia: Code(s): E87.1 - Hypo-osmolality and hyponatremia Status: Acute (4) MARCE (acute kidney injury): Code(s): N17.9 - Acute kidney failure, unspecified Status: Acute Assessment and Plan: requiring dialysis GI Consult Note Consult date/time: 07/28/21 15:33 Reason for consult: respiratory failure ventilator dependent due to severe COVID HPI: Krysta Asencio is a 76 year old female with history of CKD stage 3, hypertension, hyperlipidemia, hypothyroidism, aortic stenosis who was initially admitted in 07/06/2021 for COVID (she received 2 doses vaccine on October), then developed respiratory failure for which was taken to ICU and has been intubated since, also developed worsening renal failure now on dialysis, has been treated also for hyponatremia. Family agreeable to have tracheostomy and also PEG placement for retirement feeding Review of Systems Review of Systems: ROS unobtainable: Yes unobtainable due to endotracheal tube, unobtainable due to medical condition and unobtainable due to mental status [facility] Past Medical History Medical History (Updated 07/22/21 @ 00:04 by Dorene Vera PA-C) Aortic insufficiency with aortic stenosis Mild and asymptomatic. Followed by Dr. Butler. Chronic kidney disease, stage 3 Baseline creatinine is around 1.00. Dyslipidemia Essential (primary) hypertension Gastroesophageal reflux disease History of peptic ulcer Hypothyroidism MRSA infection Right axillary abscess secondary to MRSA. Obstructive sleep apnea (~05/2021) Osteoarthritis Prediabetes Hemoglobin A1c was 5.7% in September 2019. Sjogrens syndrome Vitamin B12 deficiency Surgical History Surgical History History of arthroplasty of right knee (~12/2019) History of breast biopsy (Unknown) With benign pathology. History of cataract extraction (~2017) History of dilatation and curettage (Unknown) History of hysterectomy (~2009) History of incision and drainage (~2009) Right axillary abscess secondary to MRSA. History of left hip replacement (~02/2019) History of surgical removal of pilonidal cyst (~07/2008) Status post biopsy of kidney (~11/2020) Family History Family History Mother Hypertension Father Family history of cardiovascular disease Sibling Family history of Parkinson's disease Carcinoma of colon Grandparent Carcinoma of colon Family history of Alzheimer's disease Social History Social History Social History: The patient is and lives with her in [place]. 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 She designates her , Felipe, as her surrogate decision maker and she wishes to be a full code. Smoking status: Never smoker Second hand tobacco smoke exposure: No Alcohol intake: never Alcohol use details: rare Substance use: never Substance use type: does not use Spiritual care concerns: No Meds Home Medications and Allergies Home Medications Medication Instructions Recorded Confirmed Type amlodipine 5 mg tablet 5 mg PO BID 06/02/19 07/06/21 History coQ10 (ubiquinol) 100 mg capsule 100 mg PO ONCE
--- NOTE | 2021-07-28 15:38 | P.PNNP_ITS ---
Progress Note: A&P Assessment and Plan (1) MARCE (acute kidney injury): Code(s): N17.9 - Acute kidney failure, unspecified Status: Acute Assessment and Plan: * likely secondary to COVID-19 infection * urine electrolytes are borderline prerenal * renal ultrasound without obstruction * still making urine but not a lot * creatinine is 2.1 today. Only slightly higher and she made more urine. * Electrolytes okay. * Will continue diuretics. * Check another creatinine tomorrow. * Reassess for further dialysis. If she needs more we will probably need a PermCath placed. 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 (3) Hyperkalemia: Code(s): E87.5 - Hyperkalemia Status: Acute Assessment and Plan: * Resolved (4) Acute respiratory failure with hypoxia: Code(s): J96.01 - Acute respiratory failure with hypoxia Status: Acute Assessment and Plan: * due to #4 and possibly bacterial pneumonia * culture negative to date (5) Pneumonia due to COVID-19 virus: Code(s): U07.1 - COVID-19; J12.82 - Pneumonia due to coronavirus disease 2018 Status: Acute Assessment and Plan: * CT findings are consistent with COVID-19 pneumonia * completed course of dexamethasone * s/p 5 day course of remdesivir * started on Baricitinib on 07/14/21 * continue ventilator support, pulm toilet, inhalers, and supine/prone position among other treatments. (6) Hyponatremia: Code(s): E87.1 - Hypo-osmolality and hyponatremia Status: Acute Assessment and Plan: * 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 It rises and falls * stable. (7) Essential (primary) hypertension: Code(s): I10 - Essential (primary) hypertension Status: Chronic Assessment and Plan: * Blood pressure is a bit soft this am. Subjective Date/time seen: 07/28/21 15:38 Interval history: Krysta is still on the ventilator and sedated. She looks comfortable. She made more urine overnight. Exam Narrative: WDWN in NAD skin no rash head ncat lungs coarse bilaterally cor reg no rub or gallop abd BS+ nontender and soft ext Trace to 1+ edema. Objective Data Vital Signs Vital Signs: Vital Signs - 24 hr 07/27/21 16:00 07/27/21 18:00 07/27/21 20:00 Temperature 37.1 C 37.2 C 37.2 C Pulse Rate 89 92 102 H Respiratory Rate 25 H 27 H 30 H Blood Pressure 102/58 L 120/68 122/70 Pulse Oximetry 94 93 91 07/27/21 21:05 07/27/21 21:07 07/27/21 21:23 Temperature Pulse Rate 97 97 99 Respiratory Rate 20 32 H Blood Pressure Pulse Oximetry 92 07/27/21 21:24 07/27/21 22:00 07/27/21 23:32 Temperature 37.4 C Pulse Rate 99 97 103 H Respiratory Rate 30 H 30 H 32 H Blood Pressure 105/63 Pulse Oximetry 93 07/28/21 00:00 07/28/21 01:09 07/28/21 01:10 Temperature 37.8 C H Pulse Rate 104 H 108 H 107 H
--- NOTE | 2021-07-28 15:38 | PM.PNNEP ---
Progress Note: A&P Assessment and Plan (1) MARCE (acute kidney injury): Code(s): N17.9 - Acute kidney failure, unspecified Status: Acute Assessment and Plan: likely secondary to COVID-19 infection urine electrolytes are borderline prerenal renal ultrasound without obstruction still making urine but not a lot creatinine is 2.1 today. Only slightly higher and she made more urine. Electrolytes okay. Will continue diuretics. Check another creatinine tomorrow. Reassess for further dialysis. If she needs more we will probably need a PermCath placed. 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 (3) Hyperkalemia: Code(s): E87.5 - Hyperkalemia Status: Acute Assessment and Plan: Resolved (4) Acute respiratory failure with hypoxia: Code(s): J96.01 - Acute respiratory failure with hypoxia Status: Acute Assessment and Plan: due to #4 and possibly bacterial pneumonia culture negative to date (5) Pneumonia due to COVID-19 virus: Code(s): U07.1 - COVID-19; J12.82 - Pneumonia due to coronavirus disease 2019 Status: Acute Assessment and Plan: CT findings are consistent with COVID-19 pneumonia completed course of dexamethasone s/p 5 day course of remdesivir started on Baricitinib on 07/14/21 continue ventilator support, pulm toilet, inhalers, and supine/prone position among other treatments. 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 It rises and falls stable. (7) Essential (primary) hypertension: Code(s): I10 - Essential (primary) hypertension Status: Chronic Assessment and Plan: Blood pressure is a bit soft this am. Subjective Date/time seen: 07/28/21 15:38 Interval history: Krysta is still on the ventilator and sedated. She looks comfortable. She made more urine overnight. Exam Narrative: WDWN in NAD skin no rash head ncat lungs coarse bilaterally cor reg no rub or gallop abd BS+ nontender and soft ext Trace to 1+ edema. Objective Data Vital Signs Vital Signs: Vital Signs - 24 hr 07/27/21 16:00 07/27/21 18:00 07/27/21 20:00 Temperature 37.1 C 37.2 C 37.2 C Pulse Rate 89 92 102 H Respiratory Rate 25 H 27 H 30 H Blood Pressure 102/58 L 120/68 122/70 Pulse Oximetry 94 93 91 07/27/21 21:05 07/27/21 21:07 07/27/21 21:23 Temperature Pulse Rate 97 97 99 Respiratory Rate 20 32 H Blood Pressure Pulse Oximetry 92 07/27/21 21:24 07/27/21 22:00 07/27/21 23:32 Temperature 37.4 C Pulse Rate 99 97 103 H Respiratory Rate 30 H 30 H 32 H Blood Pressure 105/63 Pulse Oximetry 93 07/28/21 00:00 07/28/21 01:09 07/28/21 01:10 Temperature 37.8 C H Pulse Rate 104 H 108 H 107 H Respiratory Rate 30 H 32 H 32 H Blood Pressure 138/77 Pulse Oximetry 97 07/28/21 01:42 07/28/21 02:00 07/28/21 02:51 Temperature 37.9 C H Pulse Rate 88 98 97 Respiratory Rate 30 H 30 H Blood Pressure 111/66 Pulse Oximetry 93 96 07/28/21 03:10 07/28/21 03:29 07/28/21 03:30 Temperature Pulse Rate 98 97 95 Respiratory Rate 30 H 30 H 32 H Blood Pressure Pulse Oximetry 96 07/28/21 04:00 07/28/21 05:52 07/28/21 06:00 Temperature 38.1 C H 37.9 C H Pulse Rate 96 95 95 Respiratory Rate 31 H 32 H 30 H Blood Pressure 138/69 110/65 Pulse Oximetry 98 96 07/28/21 07:52 07/28/21 08:00 07/28/21 10:00 Temperature 37.9 C H 37.2 C Pulse Rate 87 84 87 Respiratory Rate 30 H 30 H Blood Pressure 83/52 L
--- NOTE | 2021-07-28 16:51 | WPDANESEPP ---
Anes - Eval Pre Procedure Procedure: Operation Date: 07/29/21 13:00 Proposed Procedures p Removal & Replacement of G-Tube - Twin Carey MD Operation Date: 07/29/21 13:00 Proposed Procedures p Tracheostomy - Deven Ortez MD Date/Time: 07/28/21 16:51 Pre Op Diagnosis: pneumonia Patient Data Age: 76 Gender: F Height: 1.63 m Weight: 92.3 kg Last Vital Signs Temp 99.1 F 07/28/21 16:00 Pulse 89 07/28/21 16:00 Resp 28 H 07/28/21 16:00 BP 93/59 L 07/28/21 16:00 Pulse Ox 100 07/28/21 16:00 Allergies Allergy/AdvReac Type Severity Reaction Status Date / Time Sulfa (Sulfonamide Allergy Severe SWELLING Verified 07/06/21 15:45 Antibiotics) sulfamethoxazole Allergy Severe RASH, Verified 07/06/21 15:45 ITCHING adhesive Allergy Unknown Redness of Verified 07/06/21 15:45 Skin cefuroxime Allergy Unknown Joint Pain Verified 07/06/21 15:45 Cephalosporins Allergy Unknown Rash Verified 07/06/21 15:45 hydrochlorothiazide Allergy Unknown Other Verified 07/06/21 15:45 Penicillins Allergy Unknown Rash Verified 07/06/21 15:45 sulfamethizole Allergy Unknown Swelling Verified 07/06/21 15:45 trimethoprim Allergy Unknown Swelling Verified 07/06/21 15:45 codeine AdvReac Unknown Nausea and Verified 07/13/21 21:46 Vomiting hydrocodone AdvReac Unknown Nausea Verified 07/13/21 21:46 ibuprofen AdvReac Unknown SEVERE Verified 07/13/21 21:46 Headache metoprolol AdvReac Palpitation Verified 07/13/21 21:46 s Home Medications Medication Instructions Recorded Confirmed Type amlodipine 5 mg tablet 5 mg PO BID 06/02/19 07/06/21 History coQ10 (ubiquinol) 100 mg capsule 100 mg PO ONCE cap 06/02/19 07/06/21 History lisinopril 40 mg tablet 40 mg PO DAILY 06/02/19 07/06/21 History omega-3 fatty acids 1,000 mg 1,000 mg PO BID 06/02/19 07/06/21 History capsule cholecalciferol (vitamin D3) 125 5,000 unit PO .COMPLEX tablet 06/05/19 07/06/21 History mcg (5,000 unit) tablet pitavastatin calcium 4 mg tablet 4 mg PO .QHS tablet 06/05/19 07/06/21 History Caltrate 600 plus D 1 tablet PO DAILY 10/05/19 07/06/21 History Restasis 1 drp OPHTHALMIC (EYE) Q12H 10/05/19 07/06/21 History coconut oil 10,000 mg PO DAILY 10/05/19 07/06/21 History pyridoxine (vitamin B6) 25 mg PO 3XW 10/05/19 07/06/21 History acetaminophen [Tylenol Extended 650 mg PO Q12H 11/20/20 07/06/21 History Release] atenolol 25 mg PO DAILY 11/20/20 07/06/21 History cyanocobalamin (vitamin B-12) 500 500 mcg PO .three times weekly 12/30/20 07/06/21 History mcg tablet tablet triamcinolone acetonide 55 mcg 1 spray INTRANASAL BID 12/30/20 07/06/21 History nasal spray aerosol pantoprazole 40 mg tablet,delayed 40 mg PO DAILY #90 tablet 02/20/21 07/06/21 Rx release benzonatate 100 mg capsule 100 mg PO TID PRN #30 cap 07/01/21 07/06/21 Rx levothyroxine 100 mcg tablet 100 mcg PO DAILY #90 tablet 07/14/21 Rx Laboratory Tests 07/27/21 07/27/21 07/28/21 17:48 23:25 03:38 WBC 19.4 K/mm3 H K/mm3 (4.5-10.0) RBC 2.70 M/mm3 L M/mm3 (4.2-5.4) Hgb 8.0 g/dL L g/dL (12.0-15.0) Hct 25.6 % L % (37.0-47.0) MCV 94.8 fl fl (80-100) MCH 29.6 pg pg (26-34) MCHC 31.3 g/dl L g/dl (32-36) RDW 15.1 % H % (11.5-14.5) Plt Count 460 k/mm3 H k/mm3 (150-375) MPV 10.6 fl H fl (7.4-10.4) Immature Gran % (Auto) 2.1 % H % (0-0.5) Neut % (Auto) 88.5 % H % (45.5-73.1) Lymph % (Auto) 3.6 % L % (18.3-44.2) [place] % (Auto) 4.1 % % (2.6-8.5) Eos % (Auto) 1.4 % % (0-4.4) Baso % (Auto) 0.3 % % (0.2-1.2) Lymph # (Auto) 0.70 K/mm3 L K/mm3 (0.9-3.2) [place] # (Auto) 0.8 K/mm3 H K/mm3 (0.1-0.6) Eos # (Auto) 0.3 K/mm3 K/mm3 (0-0.3) Baso # (Auto) 0.1 K/mm3 K/mm3 (0.0-0.1) Abs Immat Gran (auto) 0.41 K/mm3 H K/mm3 (0.00-0.
--- NOTE | 2021-07-28 17:17 | P.CONS_ITS ---
Assessment and Plan Assessment and plan (1) Acute respiratory failure with hypoxia: Code(s): J96.01 - Acute respiratory failure with hypoxia Status: Acute Assessment and Plan: Plan is for the OR tomorrow for tracheostomy. Please hold vte and make npo at midnight. Please verify consent. HPI Data of Consult Date/Time: 07/28/21 17:17 Requesting Physician: Jil Do PA-C Primary Care Provider: Laura Álvarez MD Consult Narrative Narrative: Krysta Asencio is a 76 year old female with respiratory failure. ENT consulted for tracheostomy placment. PEEP 10, FiO2 40 percent Review of Systems Review of Systems: ROS unobtainable: Yes unobtainable due to endotracheal tube PMFSH Past Medical History Medical History Aortic insufficiency with aortic stenosis Mild and asymptomatic. Followed by Dr. Butler. Chronic kidney disease, stage 3 Baseline creatinine is around 1.00. Dyslipidemia Essential (primary) hypertension Gastroesophageal reflux disease History of peptic ulcer Hypothyroidism MRSA infection Right axillary abscess secondary to MRSA. Obstructive sleep apnea (~05/2021) Osteoarthritis Prediabetes Hemoglobin A1c was 5.7% in September 2019. Sjogrens syndrome Vitamin B12 deficiency Surgical History Surgical History History of arthroplasty of right knee (~12/2019) History of breast biopsy (Unknown) With benign pathology. History of cataract extraction (~2017) History of dilatation and curettage (Unknown) History of hysterectomy (~2009) History of incision and drainage (~2009) Right axillary abscess secondary to MRSA. History of left hip replacement (~02/2019) History of surgical removal of pilonidal cyst (~07/2008) Status post biopsy of kidney (~11/2020) Family History Family History Mother Hypertension Father Family history of cardiovascular disease Sibling Family history of Parkinson's disease Carcinoma of colon Grandparent Carcinoma of colon Family history of Alzheimer's disease Social History Social History Social History: The patient is and lives with her in [place]. 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 She designates her , Felipe, as her surrogate decision maker and she wishes to be a full code. Smoking status: Never smoker Second hand tobacco smoke exposure: No Alcohol intake: never Alcohol use details: rare Substance use: never Substance use type: does not use Spiritual care concerns: No Meds Home Medications and Allergies Home Medications Medication Instructions Recorded Confirmed Type amlodipine 5 mg tablet 5 mg PO BID 06/02/19 07/06/21 History coQ10 (ubiquinol) 100 mg capsule 100 mg PO ONCE cap 06/02/19 07/06/21 History lisinopril 40 mg tablet 40 mg PO DAILY 06/02/19 07/06/21 History omega-3 fatty acids 1,000 mg 1,000 mg PO BID 06/02/19 07/06/21 History capsule cholecalciferol (vitamin D3) 125 5,000 unit PO .COMPLEX tablet 06/05/19 07/06/21 History mcg (5,000 unit) tablet pitavastatin calcium 4 mg tablet 4 mg PO .QHS tablet 06/05/19 07/06/21 History
--- NOTE | 2021-07-28 17:19 | PM.IMHP ---
H&P: HPI History of Present Illness Date/Time: 07/28/21 17:19 Chief Complaint: Respiratory failure. Review of Systems Review of Systems: Plan for tracheostomy, no change per nursing. ROS unobtainable: Yes unobtainable due to endotracheal tube PMFSH Past Medical History Medical History Aortic insufficiency with aortic stenosis Mild and asymptomatic. Followed by Dr. Butler. Chronic kidney disease, stage 3 Baseline creatinine is around 1.00. Dyslipidemia Essential (primary) hypertension Gastroesophageal reflux disease History of peptic ulcer Hypothyroidism MRSA infection Right axillary abscess secondary to MRSA. Obstructive sleep apnea (~05/2021) Osteoarthritis Prediabetes Hemoglobin A1c was 5.7% in September 2019. Sjogrens syndrome Vitamin B12 deficiency Surgical History Surgical History History of arthroplasty of right knee (~12/2019) History of breast biopsy (Unknown) With benign pathology. History of cataract extraction (~2017) History of dilatation and curettage (Unknown) History of hysterectomy (~2009) History of incision and drainage (~2009) Right axillary abscess secondary to MRSA. History of left hip replacement (~02/2019) History of surgical removal of pilonidal cyst (~07/2008) Status post biopsy of kidney (~11/2020) Family History Family History Mother Hypertension Father Family history of cardiovascular disease Sibling Family history of Parkinson's disease Carcinoma of colon Grandparent Carcinoma of colon Family history of Alzheimer's disease Social History Social History Social History: The patient is and lives with her in [place]. 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 She designates her , Felipe, as her surrogate decision maker and she wishes to be a full code. Smoking status: Never smoker Second hand tobacco smoke exposure: No Alcohol intake: never Alcohol use details: rare Substance use: never Substance use type: does not use Spiritual care concerns: No Meds Home Medications and Allergies Home Medications Medication Instructions Recorded Confirmed Type amlodipine 5 mg tablet 5 mg PO BID 06/02/19 07/06/21 History coQ10 (ubiquinol) 100 mg capsule 100 mg PO ONCE cap 06/02/19 07/06/21 History lisinopril 40 mg tablet 40 mg PO DAILY 06/02/19 07/06/21 History omega-3 fatty acids 1,000 mg 1,000 mg PO BID 06/02/19 07/06/21 History capsule cholecalciferol (vitamin D3) 125 5,000 unit PO .COMPLEX tablet 06/05/19 07/06/21 History mcg (5,000 unit) tablet pitavastatin calcium 4 mg tablet 4 mg PO .QHS tablet 06/05/19 07/06/21 History Caltrate 600 plus D 1 tablet PO DAILY 10/05/19 07/06/21 History Restasis 1 drp OPHTHALMIC (EYE) Q12H 10/05/19 07/06/21 History coconut oil 10,000 mg PO DAILY 10/05/19 07/06/21 History pyridoxine (vitamin B6) 25 mg PO 3XW 10/05/19 07/06/21 History acetaminophen [Tylenol Extended 650 mg PO Q12H 11/20/20 07/06/21 History Release] atenolol 25 mg PO DAILY 11/20/20 07/06/21 History cyanocobalamin (vitamin B-12) 500 500 mcg PO .three times weekly 12/30/20 07/06/21 History mcg tablet tablet triamcinolone acetonide 55 mcg 1 spray INTRANASAL BID 12/30/20 07/06/21 History nasal spray aerosol pantoprazole 40 mg tablet,delayed 40 mg PO DAILY #90 tablet 02/20/21 07/06/21 Rx release benzonatate 100 mg capsule 100 mg PO TID PRN #30 cap 07/01/21 07/06/21 Rx levothyroxine 100 mcg tablet 100 mcg PO DAILY #90 tablet 07/14/21 Rx Allergies Allergy/AdvReac Type Severity Reaction Status Date / Time Sulfa (Sulfonamide Allergy Severe SWELLING Verified 07/06/21 15:45 Antibiotics) sulfamethoxazole Allergy Severe RASH, Ve
[2021-07-28 18:54] LABS: Glucose Point of Care 118 mg/dl (65-105)
[2021-07-28] MEDS: MINERAL OIL/WHITE PETROLATUM OINTMENT 1 APPLIC EACH EYE (20:30)
[2021-07-28 23:53] LABS: Glucose Point of Care 95 mg/dl (65-105)
[2021-07-29] VITALS (30 sets, daily range): BP systolic 93–154; BP diastolic 59–81; PULSE 85–123; RESP 18–36; TEMP 36.2–37.3; O2SAT 91–100
[2021-07-29] MEDS: METOCLOPRAMIDE HCL INJ 10 MG/2 ML VIAL IV PUSH ×5 (00:30→23:24)
[2021-07-29] MEDS: CENTRAL LINE FLUSH 10 ML IV PUSH ×3 (04:10→21:01)
[2021-07-29] MEDS: LEVOTHYROXINE SODIUM 100 MCG TABLET PO (04:12)
[2021-07-29] MEDS: FENTANYL 2,500MCG/NS250ML(*CRX 2,500 MCG/250 ML BAG 7.5 MCG IV CONT (04:14)
[2021-07-29 04:17] LABS: Basophils Absolute Auto 0.1 K/mm3 (0.0-0.1); Basophils Percent Auto 0.4 % (0.2-1.2); Eosinophils Absolute Auto 0.4 K/mm3 (0-0.3); Eosinophils Percent Auto 1.8 % (0-4.4); Hematocrit 28.3 % (37.0-47.0); Hemoglobin 8.9 g/dL (12.0-15.0); Immature Granulocyte Absolute 0.61 K/mm3 (0.00-0.031); Immature Granulocyte Percent A 3.1 % (0-0.5); Lymphocytes Percent Auto 4.1 % (18.3-44.2); Mean Corpuscular HGB Conc 31.4 g/dl (32-36); Mean Corpuscular Hemoglobin 29.6 pg (26-34); Mean Platelet Volume 10.2 fl (7.4-10.4); Monocytes Absolute Auto 0.9 K/mm3 (0.1-0.6); Monocytes Percent Auto 4.5 % (2.6-8.5); Neutrophils Percent Auto 86.1 % (45.5-73.1); Platelet Count Result 500 k/mm3 (150-375); Red Blood Count 3.01 M/mm3 (4.2-5.4); Red Cell Distribution Width 15.8 % (11.5-14.5); White Blood Count 19.7 K/mm3 (4.5-10.0)
[2021-07-29 04:31] LABS: Alanine Aminotransferase 51 U/L (4-35); Albumin Level 3.5 g/dL (3.5-5.1); Alkaline Phosphatase 114 U/L (38-126); Anion Gap 7 mmol/L (8-16); Aspartate Amino Transferase 107 U/L (14-36); Blood Urea Nitrogen 70 mg/dL (7-17); Calcium 8.7 mg/dL (8.4-10.2); Carbon Dioxide 30 mmol/L (22-30); Chloride 97 mmol/L (98-107); Estimated CRCL calculation 21 ml/min; Estimated Glomerular Filt Rate 21; Glucose 109 mg/dL (65-110); INR 1.1; Magnesium 1.8 mg/dL (1.6-2.3); Phosphorus 6.8 mg/dL (2.5-4.5); Potassium 4.5 mmol/L (3.4-5.0); Prothrombin Time 13.7 Seconds (11.1-14.7); Sodium 134 mmol/L (137-145)
[2021-07-29 04:39] LABS: Magnesium 1.9 mg/dL (1.6-2.3)
[2021-07-29 06:40] LABS: Alveolar/Arterial O2 Gradient 133.7 mmHg; Base Excess ABG 0.3 mEq/l (+/-2.0); Carboxyhemoglobin 0.3 % THb (0-2.0); Fractional Inspired Oxygen 35 %; HCO3 ABG 25.2 mEq/l (22.0-26.0); Methemoglobin ABG 0.3 %THb (0-1.5); Oxygen Content ABG 13.3 %vol (16.0-22.0); Oxygen Saturation ABG 93.4 % (95.0-100.0); Oxyhemoglobin 92.5 % THb (90.0-100.0); PCO2 ABG 41.8 mmHg (35.0-45.0); PO2 ABG 67.3 mmHg (80.0-100.0); PO2 FiO2 Ratio Arterial Blood 1.92 %; Reduced Hemoglobin 6.9 %THb (0-5.0); Total Hemoglobin 10.2 g/dL (12.0-18.0); pH ABG 7.398 (7.350-7.450)
--- NOTE | 2021-07-29 06:45 | P.PNNP_ITS ---
Progress Note: A&P Assessment and Plan (1) MARCE (acute kidney injury): Code(s): N17.9 - Acute kidney failure, unspecified Status: Acute Assessment and Plan: * likely secondary to COVID-19 infection * urine electrolytes are borderline prerenal * renal ultrasound without obstruction * creatinine is 2.3. Only slightly up. Making good urine. Intake/output is negative. * Electrolytes okay. * Will continue diuretics. * Will discuss with Dr. Membreno. I think we can pull her temporary dialysis catheter out. If she needs more dialysis down the line then we can put a PermCath in at that point. 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 (3) Hyperkalemia: Code(s): E87.5 - Hyperkalemia Status: Acute Assessment and Plan: * Resolved (4) Acute respiratory failure with hypoxia: Code(s): J96.01 - Acute respiratory failure with hypoxia Status: Acute Assessment and Plan: * due to #4 and possibly bacterial pneumonia * culture negative to date * Off antibiotics (5) Pneumonia due to COVID-19 virus: Code(s): U07.1 - COVID-19; J12.82 - Pneumonia due to coronavirus disease 2018 Status: Acute Assessment and Plan: * CT findings are consistent with COVID-19 pneumonia * completed course of dexamethasone * s/p 5 day course of remdesivir * started on Baricitinib on 07/14/21 * continue ventilator support, pulm toilet, inhalers. Oxygenation has been good enough that she has not need prone position for the last few days. * To get a trach today. (6) Hyponatremia: Code(s): E87.1 - Hypo-osmolality and hyponatremia Status: Acute Assessment and Plan: * 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 It rises and falls * stable. (7) Essential (primary) hypertension: Code(s): I10 - Essential (primary) hypertension Status: Chronic Assessment and Plan: * Blood pressure is doing well today. Subjective Date/time seen: 07/29/21 06:45 Interval history: Krysta is still on the ventilator and sedated. She looks comfortable. Going for a trach and a PEG today. Exam Narrative: WDWN in NAD skin no rash head ncat lungs coarse bilaterally cor reg no rub or gallop abd BS+ nontender and soft ext 1+ edema. Objective Data Vital Signs Vital Signs: Vital Signs - 24 hr 07/28/21 07:52 07/28/21 08:00 07/28/21 10:00 Temperature 37.9 C H 37.2 C Pulse Rate 87 84 87 Respiratory Rate 30 H 30 H Blood Pressure 83/52 L 116/67 Pulse Oximetry 96 96 95 07/28/21 11:20 07/28/21 11:36 07/28/21 11:37 Temperature Pulse Rate 87 87 87 Respiratory Rate 30 H 30 H Blood Pressure Pulse Oximetry 96 07/28/21 12:00 07/28/21 14:00 07/28/21 14:16 Temperature 37.2 C 37.2 C Pulse Rate 83 89 86 Respiratory Rate 27 H 27 H Blood Pressure 110/61 115/68 Pulse Oximetry 99 99 97 07/28/21 16:00 07/28/21
--- NOTE | 2021-07-29 06:45 | PM.PNNEP ---
Progress Note: A&P Assessment and Plan (1) MARCE (acute kidney injury): Code(s): N17.9 - Acute kidney failure, unspecified Status: Acute Assessment and Plan: likely secondary to COVID-19 infection urine electrolytes are borderline prerenal renal ultrasound without obstruction creatinine is 2.3. Only slightly up. Making good urine. Intake/output is negative. Electrolytes okay. Will continue diuretics. Will discuss with Dr. Membreno. I think we can pull her temporary dialysis catheter out. If she needs more dialysis down the line then we can put a PermCath in at that point. 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 (3) Hyperkalemia: Code(s): E87.5 - Hyperkalemia Status: Acute Assessment and Plan: Resolved (4) Acute respiratory failure with hypoxia: Code(s): J96.01 - Acute respiratory failure with hypoxia Status: Acute Assessment and Plan: due to #4 and possibly bacterial pneumonia culture negative to date Off antibiotics (5) Pneumonia due to COVID-19 virus: Code(s): U07.1 - COVID-19; J12.82 - Pneumonia due to coronavirus disease 2019 Status: Acute Assessment and Plan: CT findings are consistent with COVID-19 pneumonia completed course of dexamethasone s/p 5 day course of remdesivir started on Baricitinib on 07/14/21 continue ventilator support, pulm toilet, inhalers. Oxygenation has been good enough that she has not need prone position for the last few days. To get a trach today. 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 It rises and falls stable. (7) Essential (primary) hypertension: Code(s): I10 - Essential (primary) hypertension Status: Chronic Assessment and Plan: Blood pressure is doing well today. Subjective Date/time seen: 07/29/21 06:45 Interval history: Krysta is still on the ventilator and sedated. She looks comfortable. Going for a trach and a PEG today. Exam Narrative: WDWN in NAD skin no rash head ncat lungs coarse bilaterally cor reg no rub or gallop abd BS+ nontender and soft ext 1+ edema. Objective Data Vital Signs Vital Signs: Vital Signs - 24 hr 07/28/21 07:52 07/28/21 08:00 07/28/21 10:00 Temperature 37.9 C H 37.2 C Pulse Rate 87 84 87 Respiratory Rate 30 H 30 H Blood Pressure 83/52 L 116/67 Pulse Oximetry 96 96 95 07/28/21 11:20 07/28/21 11:36 07/28/21 11:37 Temperature Pulse Rate 87 87 87 Respiratory Rate 30 H 30 H Blood Pressure Pulse Oximetry 96 07/28/21 12:00 07/28/21 14:00 07/28/21 14:16 Temperature 37.2 C 37.2 C Pulse Rate 83 89 86 Respiratory Rate 27 H 27 H Blood Pressure 110/61 115/68 Pulse Oximetry 99 99 97 07/28/21 16:00 07/28/21 18:00 07/28/21 20:00 Temperature 37.3 C 37.2 C Pulse Rate 89 89 90 Respiratory Rate 28 H 28 H 30 H Blood Pressure 93/59 L 95/60 L 113/67 Pulse Oximetry 100 99 97 07/28/21 20:32 07/28/21 20:33 07/28/21 22:00 Temperature 37.1 C Pulse Rate 96 97 100 Respiratory Rate 32 H 30 H 30 H Blood Pressure 139/75 Pulse Oximetry 92 07/28/21 22:30 07/28/21 23:30 07/29/21 00:00 Temperature 37.1 C Pulse Rate 110 H 100 90 Respiratory Rate 36 H 32 H Blood Pressure 108/62 Pulse Oximetry 97 98 07/29/21 02:00 07/29/21 02:35 07/29/21 03:23 Temperature 36.8 C Pulse Rate 100 100 100 Respiratory Rate 34 H 34 H Blood Pressure 147/75 H Pulse Oximetry 98 97 98 07/29/21 04:00 07/29/21 04:10 07/29/21 04:
[2021-07-29 06:51] LABS: Arterial Blood Gas PEEP 10 cmH2O; Arterial Blood Gas Tidal Volume 400 ml; Arterial Blood Gas Vent Mode CMV; Arterial Blood Gas Ventilator rate 30 /MIN; Device VENTILATOR; Modified Allen's Test Unable to perform; Site Drawn LEFT RADIAL
--- NOTE | 2021-07-29 07:17 | WPDHPUPDATE1 ---
History and Physical Update Update Date/Time: 07/29/21 07:17 History and Physical has been reviewed, including an updated exam of the patient. There are NO changes in the patient's condition. Risks, benefits, and alternatives have been discussed and questions answered. Patient agrees to proceed with procedure.
[2021-07-29] MEDS: BUMETANIDE INJ 2.5 MG/10 ML VIAL 2 MG IV PUSH ×2 (08:35→18:06)
[2021-07-29] MEDS: PANTOPRAZOLE SODIUM IV 40 MG VIAL IV PUSH (08:36)
[2021-07-29] MEDS: levoFLOXacin 500 MG/D5W 100 ML 500 MG/100 ML BAG 100 MG IVPB (09:05)
--- NOTE | 2021-07-29 10:29 | SUR.OPER ---
Consent signed. Time out performed. IV antibiotics given. Vital signs charted during procedure. Sedation per ICU nurse.
[2021-07-29 11:55] LABS: Glucose Point of Care 108 mg/dl (65-105)
--- NOTE | 2021-07-29 12:27 | PCNFU ---
Nutrition Follow-Up Complete: Inadequate Oral Intake as related to mechanical ventilation as evidenced by NPO. Goal: Meet estimated nutritional needs Will continue current goal. Pt current nutrition is NPO. Nutrition Recommendations: Nepro at 40 ml/hr over 22 hours. Last recorded weight is 92.4 kg-stable Bowel Motility: +BM reported 07/29 Labs Reviewed:PO4 6.8,BUN 70,GFR 21, Cr 2.3, Na 134, Hgb 8.9,Hct 28.3 Meds Noted:Versed, Fentanyl, Synthroid, Bumex, Miralax, Vit D, Vit B6, Vit B12, Reglan, Levaquin. Skin: WNL Additional Notes: Patient currently NPO for Trach/PEG placement today. Plans for tube feedings to be restarted after 6 hours. Recommending Nepro at 40 ml/hr providing 1584 kcals/72 gms protein/640 ml water. 30ml free water flush q 4 hours. Agree with diet orders. Will monitor in ICU rounds, reassessing every Wednesday and Wednesday.
[2021-07-29] MEDS: LIDO 1%/EPINEPHRINE 1:100,000 50 ML VIAL 10 ML INFILTRATE (12:58)
--- NOTE | 2021-07-29 13:38 | P.OP_ITS ---
Procedure Note - Detailed Date of Procedure 07/29/21 Pre-op Diagnosis pneumonia, respiratory failure Post-op Diagnosis same Procedure Performed Tracheostomy Surgeon Deven Ortez MD Anesthesia general Indications See above Findings Airway easily accessible 8 cuffed Shiley placed between tracheal rings 2 and 3 Description of Procedure Patient identified in ICU consent verified. Patient brought operating room. Time-out performed. Patient prepped and draped for the aforementioned procedure anesthesia deepened. Second time-out performed 3 cc 1% 1 100,000 parts lidocaine epinephrine injected deep to pre drawn surgical line just below the cricoid approximately 3 cm in length horizontally. Bovie utilized to dissect down to strap muscles lipectomy performed subdermally platysma incised vertical incision made at [place] Fe strap muscles pulled laterally with Vick thyroid isthmus cut with Bovie electrocautery trachea skeletonized anteriorly anesthesia informed cuff lowered ET tube inserted 1 cm tracheotomy performed widened with trach dot compliance manager prior to this cricoid hook placed maintaining good anterior pressure. ET tube removed airway suctioned ET tube removed until cuff until tip no longer visible in tracheotomy 8 cuffed Shiley easily placed anesthesia connected circuit confirming [place] is removed. Four corner stitches placed gauze placed velcro trach ties placed marked in the procedure. Care the patient turned over to Anesthesiology. I performed all dictated portions. Estimated Blood Loss 1 Urine Output 300 Drains No Packing No Pathology none sent Complications No immediate complications Condition stable Disposition PACU
[2021-07-29] MEDS: polyethylene glycoL 3350 17 GM POWD.PACK PO (15:20)
[2021-07-29] MEDS: BARICITINIB 1 MG TABLET PO (15:20)
--- NOTE | 2021-07-29 15:31 | WPDINTPN ---
Progress Note: A&P Assessment and Plan (1) Acute hypoxemic respiratory failure due to COVID-19: Code(s): U07.1 - COVID-19; J96.01 - Acute respiratory failure with hypoxia Status: Acute Assessment and Plan: Acute Respiratory failure secondary to COVID-19 with component of pulmonary edema and may have a component of bacterial pneumonia Intubated 07/14 Chest x-ray stable, ABGs reviewed Continue full mechanical ventilation support to prevent hypoxemia/hypercarbia and end organ damage. Currently on PEEP of 10 and 35% FiO2, wean FiO2 to maintain O2 sats greater than 92%. Low tidal volume ventilation strategy to prevent volutrauma Sedated with Versed and fentanyl. -off Nimbex Discussed with Nephrology regarding increased removal of fluid with dialysis which will improve her respiratory status. -discussed with family on 07/26/2021 regarding tracheostomy and PEG tube placement to which they agreeable, -tracheostomy and PEG tube placement today on 07/29/2021 CT chest 07/14 IMPRESSION: 1. Diffuse lung disease, worsened from 07/10/2021, consistent with COVID-19 pneumonia. Bacterial pneumonia and pulmonary edema have overlapping appearances and cannot be excluded. 2. Mild mediastinal lymphadenopathy, likely reactive (2) Pneumonia due to COVID-19 virus: Code(s): U07.1 - COVID-19; J12.82 - Pneumonia due to coronavirus disease 2018 Status: Acute Assessment and Plan: Patient is vaccinated against COVID-19 but has not received a booster dose. She was tested for COVID-19 on 07/06/20[address] found to be positive CT findings are consistent with COVID-19 pneumonia Completed dexamethasone Completed 5 day course of remdesivir on 07/15/2021 Patient received baricitinib -continue droplet, airborne, contact isolation/precautions (3) Community acquired pneumonia: Qualifiers: Laterality: unspecified laterality Qualified Code(s): J18.9 - Pneumonia, unspecified organism Code(s): J18.9 - Pneumonia, unspecified organism Status: Acute Assessment and Plan: Presented with complaints of fever and cough. Patient had elevated white count Cultures, influenza, urine Legionella, urine pneumococcal antigen are negative status post vancomycin and Levaquin for 14 days. (4) DVT (deep venous thrombosis): Code(s): I82.409 - Acute embolism and thrombosis of unspecified deep veins of unspecified lower extremity Status: Acute Assessment and Plan: Lower extremity Dopplers showed Deep vein thrombosis involving the right posterior tibial veins and left popliteal and posterior tibial veins. Patient is on therapeutic Lovenox dose (5) Acute on chronic kidney failure: Code(s): N17.9 - Acute kidney failure, unspecified; N18.9 - Chronic kidney disease, unspecified Status: Acute Assessment and Plan: Creatinine slightly elevated as compared to baseline on admission Creatinine has been stable but elevated, urine output has been adequate Monitor urine output electrolytes and creatinine -dialysis catheter was placed on 07/21/2021: And dialysis was started on the same day. - dialysis per Nephrology (6) Hyponatremia: Code(s): E87.1 - Hypo-osmolality and hyponatremia Status: Acute Assessment and Plan: Will use normal saline flushes with tube feeds -improved with dialysis (7) Hypothyroidism: Qualifiers: Hypothyroidism type: acquired Qualified Code(s): E03.9 - Hypothyroidism, unspecified Code(s): E03.9 - Hypothyroidism, unspecified Status: Acute Assessment and Plan: Continue levothyroxine Additional Plan Code status: Full code Critical care time spent: 31 minutes Due to a high probability of clinically significant, life threatening deterioration, the patient required my highest level of preparedness to intervene emergently and I personally spent this critical care time directly and personally managing the p
--- NOTE | 2021-07-29 17:01 | PM.IMPN ---
Progress Note: A&P Assessment and Plan (1) Anemia: Code(s): D64.9 - Anemia, unspecified Status: Acute (2) Acute respiratory failure with hypoxia: Code(s): J96.01 - Acute respiratory failure with hypoxia Status: Acute (3) Hyperkalemia: Code(s): E87.5 - Hyperkalemia Status: Acute (4) MARCE (acute kidney injury): Code(s): N17.9 - Acute kidney failure, unspecified Status: Acute (5) Stage 3a chronic kidney disease: Code(s): N18.31 - Chronic kidney disease, stage 3a Status: Chronic (6) DVT (deep venous thrombosis): Code(s): I82.409 - Acute embolism and thrombosis of unspecified deep veins of unspecified lower extremity Status: Acute (7) Acute hypoxemic respiratory failure due to COVID-19: Code(s): U07.1 - COVID-19; J96.01 - Acute respiratory failure with hypoxia Status: Acute Additional Plan # COVID-19 pneumonia # acute hypoxic respiratory failure -diagnosed 07/06/2021, vaccinated x2 without booster -completed dexamethasone, remdesivir on 07/15/2021, baricitinib -on isolation precautions -continue mechanical ventilation now through trach 07/29/2021 -sedation: Fentanyl, Versed # bacterial pneumonia -status post vancomycin Levaquin for 14 days # debility -from extended hospitalization, status post trach and PEG -family discussion was on 07/26/2021, plan for LTAC # ESRD with history of CKD stage 3 -patient having hemodialysis, plan for tunneled HD catheter tomorrow -dialysis was started on 05/21/2021 -Dr. Rueda consult, giving Bumex 2 mg b.i.d. IV # DVT -COVID-19 creates hypercoagulable state -involved in right posterior tibial, left popliteal, posterior tibial vein -full-dose Lovenox b.i.d. # hyponatremia -likely hypoosmolar, improved with dialysis # other chronic conditions -essential hypertension -hyperlipidemia -hypothyroidism: Levothyroxine -aortic stenosis Diet: Peg tube placed today DVT prophylaxis: Full-dose Lovenox Code status: Full code Disposition: LTAC, poor prognosis Subjective Date/time seen: 07/29/21 17:01 Patient seen and examined. Today she had tracheostomy and PEG tube placed. Plan for tunneled hemodialysis catheter tomorrow. She sedated on fentanyl and Versed. Plan will be for LTAC disposition. Review of Systems Review of Systems: ROS unobtainable: Yes unobtainable due to endotracheal tube Exam Narrative: - GENERAL: Elderly woman intubated sedated - EYES: Anicteric clear, pinpoint pupil - HENT: Dry oral mucosa, tracheostomy in place - LUNGS: Coarse lung sounds throughout - CARDIOVASCULAR: Regular rate and rhythm. - ABDOMEN: Soft, non-tender and non-distended. Peg tube in place. - EXTREMITIES: No edema. Peripheral pulses 2+. Non-tender. - NEUROLOGIC: Pupillary reflex intact, sedated - SKIN: No rashes or lesions. Warm. - LYMPH: No cervical lymphadenopathy. Objective Data Vital Signs Vital Signs: Vital Signs - 24 hr 07/28/21 18:00 07/28/21 20:00 07/28/21 20:32 Temperature 37.2 C Pulse Rate 89 90 96 Respiratory Rate 28 H 30 H 32 H Blood Pressure 95/60 L 113/67 Pulse Oximetry 99 97 07/28/21 20:33 07/28/21 22:00 07/28/21 22:30 Temperature 37.1 C Pulse Rate 97 100 110 H Respiratory Rate 30 H 30 H 36 H Blood Pressure 139/75 Pulse Oximetry 92 07/28/21 23:30 07/29/21 00:00 07/29/21 02:00 Temperature 37.1 C 36.8 C Pulse Rate 100 90 100 Respiratory Rate 32 H 34 H Blood Pressure 108/62 147/75 H Pulse Oximetry 97 98 98 07/29/21 02:35 07/29/21 03:23 07/29/21 04:00 Temperature 36.9 C Pulse Rate 100 100 99 Respiratory Rate 34 H 31 H Blood Pressure 130/78 Pulse Oximetry 97 98 98 07/29/21 04:10 07/29/21 04:14 07/29/21 04:45 Temperature Pulse Rate 118 H 106 H 102 H Respiratory Rate 34 H 35 H Blood Pressure Pulse Oximetry 95 07/29/21 06:00 07/29/21 08:00 07/29/21 08:45 Temperature 37.2 C 37.3 C Pulse Rate 95 102 H 102 H Respi
[2021-07-29 17:23] LABS: Glucose Point of Care 101 mg/dl (65-105)
[2021-07-29] MEDS: MIDAZOLAM 100MG/NS 100ML(*CRX) 100 MG/100 ML BAG IV CONT (18:06)
[2021-07-29] MEDS: ALTEPLASE 2 MG VIAL (CATHFLO) IV PUSH (20:55)
[2021-07-29] MEDS: MINERAL OIL/WHITE PETROLATUM OINTMENT 1 APPLIC EACH EYE (21:01)
[2021-07-29 23:48] LABS: Glucose Point of Care 90 mg/dl (65-105)
[2021-07-30] VITALS (24 sets, daily range): BP systolic 106–147; BP diastolic 61–81; PULSE 85–109; RESP 27–33; TEMP 36.8–37.2; O2SAT 92–99
[2021-07-30] MEDS: CENTRAL LINE FLUSH 10 ML IV PUSH ×3 (04:21→19:55)
[2021-07-30] MEDS: METOCLOPRAMIDE HCL INJ 10 MG/2 ML VIAL IV PUSH ×3 (04:21→17:37)
[2021-07-30] MEDS: LEVOTHYROXINE SODIUM 100 MCG TABLET PO (04:22)
[2021-07-30 04:50] LABS: Basophils Absolute Auto 0.1 K/mm3 (0.0-0.1); Basophils Percent Auto 0.3 % (0.2-1.2); Eosinophils Absolute Auto 0.3 K/mm3 (0-0.3); Eosinophils Percent Auto 1.7 % (0-4.4); Hematocrit 24.8 % (37.0-47.0); Immature Granulocyte Absolute 0.22 K/mm3 (0.00-0.031); Immature Granulocyte Percent A 1.4 % (0-0.5); Lymphocytes Absolute Auto 0.56 K/mm3 (0.9-3.2); Lymphocytes Percent Auto 3.7 % (18.3-44.2); Mean Corpuscular HGB Conc 32.3 g/dl (32-36); Mean Corpuscular Hemoglobin 30.1 pg (26-34); Mean Corpuscular Volume 93.2 fl (80-100); Mean Platelet Volume 10.3 fl (7.4-10.4); Monocytes Absolute Auto 0.7 K/mm3 (0.1-0.6); Monocytes Percent Auto 4.9 % (2.6-8.5); Neutrophils Absolute Auto 13.4 K/mm3 (1.3-6.7); Platelet Count Result 432 k/mm3 (150-375); Red Blood Count 2.66 M/mm3 (4.2-5.4); Red Cell Distribution Width 15.9 % (11.5-14.5); White Blood Count 15.2 K/mm3 (4.5-10.0)
[2021-07-30 05:04] LABS: Alanine Aminotransferase 41 U/L (4-35); Albumin Level 3.1 g/dL (3.5-5.1); Alkaline Phosphatase 98 U/L (38-126); Anion Gap 10 mmol/L (8-16); Aspartate Amino Transferase 62 U/L (14-36); Blood Urea Nitrogen 74 mg/dL (7-17); Calcium 8.3 mg/dL (8.4-10.2); Carbon Dioxide 27 mmol/L (22-30); Chloride 98 mmol/L (98-107); Estimated CRCL calculation 19 ml/min; Estimated Glomerular Filt Rate 19; Glucose 95 mg/dL (65-110); Magnesium 1.8 mg/dL (1.6-2.3); Phosphorus 7.3 mg/dL (2.5-4.5); Potassium 4.2 mmol/L (3.4-5.0); Sodium 135 mmol/L (137-145)
[2021-07-30 06:35] LABS: Alveolar/Arterial O2 Gradient 167.1 mmHg; Base Excess ABG -1.4 mEq/l (+/-2.0); Carboxyhemoglobin 0.5 % THb (0-2.0); Fractional Inspired Oxygen 40 %; Methemoglobin ABG 0.1 %THb (0-1.5); Oxygen Content ABG 15.3 %vol (16.0-22.0); Oxygen Saturation ABG 95.2 % (95.0-100.0); Oxyhemoglobin 93.4 % THb (90.0-100.0); PCO2 ABG 37.6 mmHg (35.0-45.0); PO2 ABG 74.9 mmHg (80.0-100.0); PO2 FiO2 Ratio Arterial Blood 1.87 %; Total Hemoglobin 11.6 g/dL (12.0-18.0); pH ABG 7.404 (7.350-7.450)
--- NOTE | 2021-07-30 07:53 | PM.PNNEP ---
Progress Note: A&P Assessment and Plan (1) MARCE (acute kidney injury): Code(s): N17.9 - Acute kidney failure, unspecified Status: Acute Assessment and Plan: likely secondary to COVID-19 infection urine electrolytes are borderline prerenal renal ultrasound without obstruction creatinine is up to 2.5. Still making lots of urine. Electrolytes okay. Will continue diuretics. Will discuss with Dr. Membreno. Temporary dialysis catheter is out. Her creatinine continues to rise. I think she will probably need more dialysis so will ask surgery to place a PermCath. 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 (3) Hyperkalemia: Code(s): E87.5 - Hyperkalemia Status: Acute Assessment and Plan: Resolved (4) Acute respiratory failure with hypoxia: Code(s): J96.01 - Acute respiratory failure with hypoxia Status: Acute Assessment and Plan: due to #4 and possibly bacterial pneumonia culture negative to date Off antibiotics (5) Pneumonia due to COVID-19 virus: Code(s): U07.1 - COVID-19; J12.82 - Pneumonia due to coronavirus disease 2019 Status: Acute Assessment and Plan: CT findings are consistent with COVID-19 pneumonia completed course of dexamethasone s/p 5 day course of remdesivir started on Baricitinib on 07/14/21 continue ventilator support, pulm toilet, inhalers. Oxygenation has been good enough that she has not need prone position for the last few days. Trach is in. 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 It rises and falls stable. (7) Essential (primary) hypertension: Code(s): I10 - Essential (primary) hypertension Status: Chronic Assessment and Plan: Blood pressure is doing well today. Subjective Date/time seen: 07/30/21 17:53 Interval history: Krysta is still on the ventilator and sedated. She looks comfortable. she received her trach and PEG. Exam Narrative: WDWN in NAD skin no rash head ncat lungs coarse to auscultation cor reg no rub abd BS+ nontender and soft ext 1+ edema. Objective Data Vital Signs Vital Signs: Vital Signs - 24 hr 07/29/21 18:00 07/29/21 18:06 07/29/21 20:00 Temperature 36.8 C 36.8 C Pulse Rate 89 89 87 Respiratory Rate 30 H 30 H 30 H Blood Pressure 109/67 123/72 Pulse Oximetry 96 96 07/29/21 20:17 07/29/21 21:06 07/29/21 21:07 Temperature Pulse Rate 98 90 90 Respiratory Rate 30 H 30 H Blood Pressure Pulse Oximetry 96 07/29/21 22:00 07/29/21 23:21 07/29/21 23:29 Temperature 36.8 C Pulse Rate 86 93 93 Respiratory Rate 30 H 30 H Blood Pressure 93/59 L Pulse Oximetry 97 94 07/30/21 00:00 07/30/21 02:00 07/30/21 02:23 Temperature 37.0 C 37.1 C Pulse Rate 88 86 90 Respiratory Rate 30 H 30 H Blood Pressure 106/64 106/61 Pulse Oximetry 93 95 93 07/30/21 03:20 07/30/21 04:00 07/30/21 04:22 Temperature 37.2 C Pulse Rate 89 86 88 Respiratory Rate 31 H 30 H 30 H Blood Pressure 109/63 Pulse Oximetry 95 95 07/30/21 05:35 07/30/21 06:00 07/30/21 08:00 Temperature 37.1 C 37.0 C Pulse Rate 92 88 97 Respiratory Rate 30 H 30 H Blood Pressure 116/62 117/62 Pulse Oximetry 94 94 92 07/30/21 08:21 07/30/21 10:00 07/30/21 10:02 Temperature Pulse Rate 102 H 85 91 Respiratory Rate 30 H 30 H Blood Pressure 116/63 Pulse Oximetry 92 97 07/30/21 12:00 07/30/21 13:59 07/30/21 14:00 Temperature 36.9 C 36.9 C Pulse Rate 102 H 102 H 10
--- NOTE | 2021-07-30 07:53 | P.PNNP_ITS ---
Progress Note: A&P Assessment and Plan (1) MARCE (acute kidney injury): Code(s): N17.9 - Acute kidney failure, unspecified Status: Acute Assessment and Plan: * likely secondary to COVID-19 infection * urine electrolytes are borderline prerenal * renal ultrasound without obstruction * creatinine is up to 2.5. Still making lots of urine. * Electrolytes okay. * Will continue diuretics. * Will discuss with Dr. Membreno. Temporary dialysis catheter is out. Her creatinine continues to rise. I think she will probably need more dialysis so will ask surgery to place a PermCath. 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 (3) Hyperkalemia: Code(s): E87.5 - Hyperkalemia Status: Acute Assessment and Plan: * Resolved (4) Acute respiratory failure with hypoxia: Code(s): J96.01 - Acute respiratory failure with hypoxia Status: Acute Assessment and Plan: * due to #4 and possibly bacterial pneumonia * culture negative to date * Off antibiotics (5) Pneumonia due to COVID-19 virus: Code(s): U07.1 - COVID-19; J12.82 - Pneumonia due to coronavirus disease 2019 Status: Acute Assessment and Plan: * CT findings are consistent with COVID-19 pneumonia * completed course of dexamethasone * s/p 5 day course of remdesivir * started on Baricitinib on 07/14/21 * continue ventilator support, pulm toilet, inhalers. Oxygenation has been good enough that she has not need prone position for the last few days. * Trach is in. (6) Hyponatremia: Code(s): E87.1 - Hypo-osmolality and hyponatremia Status: Acute Assessment and Plan: * 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 It rises and falls * stable. (7) Essential (primary) hypertension: Code(s): I10 - Essential (primary) hypertension Status: Chronic Assessment and Plan: * Blood pressure is doing well today. Subjective Date/time seen: 07/30/21 17:53 Interval history: Krysta is still on the ventilator and sedated. She looks comfortable. she received her trach and PEG. Exam Narrative: WDWN in NAD skin no rash head ncat lungs coarse to auscultation cor reg no rub abd BS+ nontender and soft ext 1+ edema. Objective Data Vital Signs Vital Signs: Vital Signs - 24 hr 07/29/21 18:00 07/29/21 18:06 07/29/21 20:00 Temperature 36.8 C 36.8 C Pulse Rate 89 89 87 Respiratory Rate 30 H 30 H 30 H Blood Pressure 109/67 123/72 Pulse Oximetry 96 96 07/29/21 20:17 07/29/21 21:06 07/29/21 21:07 Temperature Pulse Rate 98 90 90 Respiratory Rate 30 H 30 H Blood Pressure Pulse Oximetry 96 07/29/21 22:00 07/29/21 23:21 07/29/21 23:29 Temperature 36.8 C Pulse Rate 86 93 93 Respiratory Rate 30 H 30 H Blood Pressure 93/59 L Pulse Oximetry 97 94 07/30/21 00:00 07/30/21 02:00 07/30/21 02:23 Temperature 3
[2021-07-30] MEDS: BUMETANIDE INJ 2.5 MG/10 ML VIAL 2 MG IV PUSH ×2 (09:42→17:36)
[2021-07-30] MEDS: BARICITINIB 1 MG TABLET PO (09:42)
[2021-07-30] MEDS: CYANOCOBALAMIN 500 MCG TABLET PO (09:43)
[2021-07-30] MEDS: polyethylene glycoL 3350 17 GM POWD.PACK PO (09:43)
[2021-07-30] MEDS: CHOLECALCIFEROL 1,000 UNITS TABLET 5000 UNITS PO (09:43)
[2021-07-30] MEDS: ENOXAPARIN 100 MG/ML SYRINGE SUB-Q (09:43)
[2021-07-30] MEDS: PANTOPRAZOLE SODIUM IV 40 MG VIAL IV PUSH (09:43)
[2021-07-30] MEDS: PYRIDOXINE HCL 25 MG TABLET PO (09:44)
[2021-07-30] MEDS: FENTANYL 2,500MCG/NS250ML(*CRX 2,500 MCG/250 ML BAG IV CONT (10:00)
--- NOTE | 2021-07-30 10:39 | WPDANESPN ---
Anes - Prog Note Post-Op Date/Time: 07/30/21 10:39 Cardiovascular status: other (management per ICU team) Respiratory status: other (management per ICU team) Airway patency: other (pt has tracheostomy) Mental status: other (pt sedated) Post-Op hydration status: other (management per ICU team) Vital Signs: Last Vital Signs Temp 37.0 C 07/30/21 08:00 Pulse 91 07/30/21 10:02 Resp 30 H 07/30/21 10:02 BP 117/62 07/30/21 08:00 Pulse Ox 92 07/30/21 08:21 Pain Score (VAS): unable to assess I/O: Intake & Output 07/29/21 07/30/21 07/30/21 23:59 07:59 15:59 Intake Total 217 90 83 Output Total 900 1175 Balance -633 -4352 83 Laboratory Tests 07/30/21 04:18 07/30/21 04:18 07/29/21 07/29/21 07/29/21 11:42 17:09 23:11 WBC RBC Hgb Hct MCV MCH MCHC RDW Plt Count MPV Immature Gran % (Auto) Neut % (Auto) Lymph % (Auto) [place] % (Auto) Eos % (Auto) Baso % (Auto) Lymph # (Auto) [place] # (Auto) Eos # (Auto) Baso # (Auto) Abs Immat Gran (auto) Absolute Neuts (auto) Absolute Nucleated RBC Nucleated RBC % Puncture Site ABG pH ABG pCO2 ABG pO2 ABG PO2/FiO2 Ratio ABG HCO3 ABG O2 Saturation ABG O2 Content ABG Base Excess A-a Gradient Oxyhemoglobin Carboxyhemoglobin Methemoglobin Reduced Hemoglobin Total Hemoglobin O2 Delivery Device O2 Liters/Min Sodium Potassium Chloride Carbon Dioxide Anion Gap BUN Creatinine Estim Creat Clear Calc Estimated GFR Glucose POC Capillary Glucose 108 H 101 90 Calcium Phosphorus Magnesium Total Bilirubin AST ALT Alkaline Phosphatase Total Protein Albumin 07/30/21 07/30/21 07/30/21 04:18 04:18 06:20 WBC 15.2 H RBC 2.66 L Hgb 8.0 L Hct 24.8 L MCV 93.2 MCH 30.1 MCHC 32.3 RDW 15.9 H Plt Count 432 H MPV 10.3 Immature Gran % (Auto) 1.4 H Neut % (Auto) 88.0 H Lymph % (Auto) 3.7 L [place] % (Auto) 4.9 Eos % (Auto) 1.7 Baso % (Auto) 0.3 Lymph # (Auto) 0.56 L [place] # (Auto) 0.7 H Eos # (Auto) 0.3 Baso # (Auto) 0.1 Abs Immat Gran (auto) 0.22 H Absolute Neuts (auto) 13.4 H Absolute Nucleated RBC 0.0 Nucleated RBC % 0.0 Puncture Site Pending ABG pH Pending ABG pCO2 Pending ABG pO2 Pending ABG PO2/FiO2 Ratio Pending ABG HCO3 Pending ABG O2 Saturation Pending ABG O2 Content Pending ABG Base Excess Pending A-a Gradient Pending Oxyhemoglobin Pending Carboxyhemoglobin Pending Methemoglobin Pending Reduced Hemoglobin Pending Total Hemoglobin Pending O2 Delivery Device Pending O2 Liters/Min Pending Sodium 135 L Potassium 4.2 Chloride 98 Carbon Dioxide 27 Anion Gap 10 BUN 74 H Creatinine 2.50 H Estim Creat Clear Calc 19 Estimated GFR 19 L Glucose 95 POC Capillary Glucose Calcium 8.3 L Phosphorus 7.3 H Magnesium 1.8 Total Bilirubin 1.0 AST 62 H ALT 41 H Alkaline Phosphatase 98 Total Protein 6.0 L Albumin 3.1 L Microbiology 07/29/21 11:19 Sputum Sputum Culture - Preliminary 07/29/21 11:19 Blood Blood Culture - Preliminary 07/29/21 11:19 Blood Blood Culture - Preliminary 07/25/21 14:03 Sputum Sputum Culture - Final Yeast isolated Post-procedural complaints: none Patient Feedback: Patient satisfied with anesthetic care.
--- NOTE | 2021-07-30 12:14 | PCFNICU ---
ICU Rounding Note: Pt current nutrition is NPO. Nutrition recommendation: Nepro at 40 ml/hr over 22 hours. Last recorded weight is 91.6 kg-stable Bowel Motility:+BM reported 07/29 Labs Reviewed:PO4 7.3,Na 135, BUN 74,Cr 2.5,GFR 19, Alb 3.1,Hct 24.8,Hgb 8.0 Meds Noted: Versed, Nimbex, Fentanyl, Reglan, Lovenox, Vit D, Synthroid, Vit B12, Vit B6, Miralax, Bumex. Skin: WNL Additional Notes: Patient current with Trach and PEG. NPO today for tunneled hemodialysis catheter. Plans for tube feedings to restart with Nepro at 40 ml/hr over 22 hours. Free water flush 30 ml q 4hours. Agree with diet orders. Following daily in ICU rounds. Will monitor every Wednesday and Wednesday.
[2021-07-30 12:26] LABS: Glucose Point of Care 86 mg/dl (65-105)
--- NOTE | 2021-07-30 13:18 | WPDINTPN ---
Progress Note: A&P Assessment and Plan (1) Acute hypoxemic respiratory failure due to COVID-19: Code(s): U07.1 - COVID-19; J96.01 - Acute respiratory failure with hypoxia Status: Acute Assessment and Plan: Acute Respiratory failure secondary to COVID-19 with component of pulmonary edema and may have a component of bacterial pneumonia Intubated 07/14 Chest x-ray stable, ABGs reviewed Continue full mechanical ventilation support to prevent hypoxemia/hypercarbia and end organ damage. Currently on PEEP of 10 and 45% FiO2, wean FiO2 to maintain O2 sats greater than 92%. Low tidal volume ventilation strategy to prevent volutrauma Sedated with Versed and fentanyl. Discussed with Nephrology regarding increased removal of fluid with dialysis which will improve her respiratory status. -discussed with family on 07/26/2021 regarding tracheostomy and PEG tube placement to which they agreeable, -07/29/2021: Tracheostomy and PEG tube placement CT chest 07/14 IMPRESSION: 1. Diffuse lung disease, worsened from 07/10/2021, consistent with COVID-19 pneumonia. Bacterial pneumonia and pulmonary edema have overlapping appearances and cannot be excluded. 2. Mild mediastinal lymphadenopathy, likely reactive (2) Pneumonia due to COVID-19 virus: Code(s): U07.1 - COVID-19; J12.82 - Pneumonia due to coronavirus disease 2018 Status: Acute Assessment and Plan: Patient is vaccinated against COVID-19 but has not received a booster dose. She was tested for COVID-19 on 07/06/[address] found to [address] findings are consistent with COVID-19 pneumonia Completed dexamethasone Completed 5 day course of remdesivir on 07/15/2021 Patient received baricitinib -continue droplet, airborne, contact isolation/precautions (3) Community acquired pneumonia: Qualifiers: Laterality: unspecified laterality Qualified Code(s): J18.9 - Pneumonia, unspecified organism Code(s): J18.9 - Pneumonia, unspecified organism Status: Acute Assessment and Plan: Presented with complaints of fever and cough. Patient had elevated white count Cultures, influenza, urine Legionella, urine pneumococcal antigen are negative status post vancomycin and Levaquin for 14 days. (4) DVT (deep venous thrombosis): Code(s): I82.409 - Acute embolism and thrombosis of unspecified deep veins of unspecified lower extremity Status: Acute Assessment and Plan: Lower extremity Dopplers showed Deep vein thrombosis involving the right posterior tibial veins and left popliteal and posterior tibial veins. Patient is on therapeutic Lovenox dose (5) Acute on chronic kidney failure: Code(s): N17.9 - Acute kidney failure, unspecified; N18.9 - Chronic kidney disease, unspecified Status: Acute Assessment and Plan: Creatinine slightly elevated as compared to baseline on admission Creatinine has been stable but elevated, urine output has been adequate Monitor urine output electrolytes and creatinine -dialysis catheter was placed on 07/21/2021: Dialysis catheter was removed on 07/29/2021. -patient to get tunneled catheter per surgery. - dialysis per Nephrology (6) Hyponatremia: Code(s): E87.1 - Hypo-osmolality and hyponatremia Status: Acute Assessment and Plan: Will use normal saline flushes with tube feeds -improved with dialysis (7) Hypothyroidism: Qualifiers: Hypothyroidism type: acquired Qualified Code(s): E03.9 - Hypothyroidism, unspecified Code(s): E03.9 - Hypothyroidism, unspecified Status: Acute Assessment and Plan: Continue levothyroxine Additional Plan Code status: Full code Critical care time spent: 31 minutes Due to a high probability of clinically significant, life threatening deterioration, the patient required my highest level of preparedness to intervene emergently and I personally spent this critical care time directl
--- NOTE | 2021-07-30 13:49 | WPDGIPROGNO ---
Progress Note: A&P Assessment and Plan (1) Acute hypoxemic respiratory failure due to COVID-19: Code(s): U07.1 - COVID-19; J96.01 - Acute respiratory failure with hypoxia Status: Acute Assessment and Plan: s/p G-tube placement yesterday, feeding on hold because she will get another procedure also had tracheostomy by ENT (2) MARCE (acute kidney injury): Code(s): N17.9 - Acute kidney failure, unspecified Status: Acute Assessment and Plan: by nephrology (3) DVT (deep venous thrombosis): Code(s): I82.409 - Acute embolism and thrombosis of unspecified deep veins of unspecified lower extremity Status: Acute Assessment and Plan: on treatment (4) Hyponatremia: Code(s): E87.1 - Hypo-osmolality and hyponatremia Status: Acute Subjective Date/time seen: 07/30/21 13:49 Interval history: peg placed yesterday, no new issues per staff Review of Systems Review of Systems: All systems reviewed & are unremarkable except as noted in HPI and below Exam Const: Other: sedated HENMT: General nose exam: Normal nares present Neck: Other: trach in place Resp: Auscultation: rhonchi Cardio: Rate: regular rate GI: GI Palp: Yes Soft to palpation and No Guarding due to palpation present (GI) Auscultation: normal bowel sounds Other: G-tube site looks clean Urinary Catheter: Urinary Catheter: patent and draining Skin: General skin exam: no rashes or lesions noted Neuro: Other: unable to assess Extrem: General: normal to inspection Psych: Other: unable to assess Objective Data Vital Signs Vital Signs: Vital Signs - 24 hr 07/29/21 14:00 07/29/21 14:59 07/29/21 16:00 Temperature 97.1 F L 97.6 F Pulse Rate 101 H 106 H 93 Respiratory Rate 30 H 30 H Blood Pressure 128/81 109/70 Pulse Oximetry 93 93 100 07/29/21 17:44 07/29/21 18:00 07/29/21 18:06 Temperature 98.3 F Pulse Rate 93 89 89 Respiratory Rate 30 H 30 H Blood Pressure 109/67 Pulse Oximetry 95 96 07/29/21 20:00 07/29/21 20:17 07/29/21 21:06 Temperature 98.3 F Pulse Rate 87 98 90 Respiratory Rate 30 H 30 H Blood Pressure 123/72 Pulse Oximetry 96 96 07/29/21 21:07 07/29/21 22:00 07/29/21 23:21 Temperature 98.3 F Pulse Rate 90 86 93 Respiratory Rate 30 H 30 H 30 H Blood Pressure 93/59 L Pulse Oximetry 97 07/29/21 23:29 07/30/21 00:00 07/30/21 02:00 Temperature 98.6 F 98.8 F Pulse Rate 93 88 86 Respiratory Rate 30 H 30 H Blood Pressure 106/64 106/61 Pulse Oximetry 94 93 95 07/30/21 02:23 07/30/21 03:20 07/30/21 04:00 Temperature 98.9 F Pulse Rate 90 89 86 Respiratory Rate 31 H 30 H Blood Pressure 109/63 Pulse Oximetry 93 95 95 07/30/21 04:22 07/30/21 05:35 07/30/21 06:00 Temperature 98.7 F Pulse Rate 88 92 88 Respiratory Rate 30 H 30 H Blood Pressure 116/62 Pulse Oximetry 94 94 07/30/21 08:00 07/30/21 08:21 07/30/21 10:00 Temperature 98.6 F Pulse Rate 97 102 H 85 Respiratory Rate 30 H 30 H Blood Pressure 117/62 116/63 Pulse Oximetry 92 92 97 07/30/21 10:02 Temperature Pulse Rate 91 Respiratory Rate 30 H Blood Pressure Pulse Oximetry Intake/Output Intake/Output: Intake & Output 07/27/21 07/28/21 07/29/21 07/30/21 23:59 23:59 23:59 23:59 Intake Total 1293 1442 777 173 Output Total 850 2300 2100 1175 Balance 443 -858 -1323 -1002 Meds/Results Medications: Active Medications Generic Name Dose Route Start Last Admin Trade Name Freq PRN Reason Stop Dose Admin Acetaminophen 650 mg 07/06/21 13:48 07/07/21 00:21 Acetaminophen 325 Mg Tablet PO 650 mg Q4H PRN Administration Mild Pain (1-3) or Fever Albuterol 2 puff 07/10/21 20:00 07/17/21 08:14 Albuterol Sulfate (*Sp) Inhaler INHALATION Not Given Q6HRT KAREN Alteplase, Recombinant 2 mg 07/29/21 19:22 07/29/21 20:55 Alteplase 2 Mg Vial (Cathflo) IV PUSH 2 mg ONCE PRN Administration Line Occlusion
--- NOTE | 2021-07-30 15:44 | PM.IMPN ---
Progress Note: A&P Assessment and Plan (1) Anemia: Code(s): D64.9 - Anemia, unspecified Status: Acute (2) Hyperkalemia: Code(s): E87.5 - Hyperkalemia Status: Acute (3) Acute respiratory failure with hypoxia: Code(s): J96.01 - Acute respiratory failure with hypoxia Status: Acute (4) MARCE (acute kidney injury): Code(s): N17.9 - Acute kidney failure, unspecified Status: Acute (5) Stage 3a chronic kidney disease: Code(s): N18.31 - Chronic kidney disease, stage 3a Status: Chronic (6) DVT (deep venous thrombosis): Code(s): I82.409 - Acute embolism and thrombosis of unspecified deep veins of unspecified lower extremity Status: Acute (7) Acute hypoxemic respiratory failure due to COVID-19: Code(s): U07.1 - COVID-19; J96.01 - Acute respiratory failure with hypoxia Status: Acute (8) Pneumonia due to COVID-19 virus: Code(s): U07.1 - COVID-19; J12.82 - Pneumonia due to coronavirus disease 2019 Status: Acute Additional Plan # COVID-19 pneumonia # acute hypoxic respiratory failure -diagnosed 07/06/2021, vaccinated x2 without booster -completed dexamethasone, remdesivir on 07/15/2021, baricitinib -on isolation precautions -continue mechanical ventilation now through trach 07/29/2021 -sedation: Fentanyl, Versed # bacterial pneumonia -status post vancomycin Levaquin for 14 days # debility -from extended hospitalization, status post trach and PEG -family discussion was on 07/26/2021, plan for LTAC # new ESRD with history of CKD stage 3 -patient having hemodialysis, plan for tunneled HD catheter tomorrow (unable to do today as she had Lovenox shot) -dialysis was started on 05/21/2021 -Dr. Rueda consulted, giving Bumex 2 mg b.i.d. IV # DVT -COVID-19 creates hypercoagulable state -involved in right posterior tibial, left popliteal, posterior tibial vein -full-dose Lovenox b.i.d. to be restarted after tunneled hemodialysis catheter placed # mild hyponatremia -likely hypoosmolar, improved to 135 # other chronic conditions -essential hypertension -hyperlipidemia -hypothyroidism: Levothyroxine -aortic stenosis Diet: To start tube feeds through PEG tube placed on 07/29/2021 DVT prophylaxis: Full-dose Lovenox held for HD catheterization, will restart afterward Code status: Full code Disposition: LTAC, poor prognosis Subjective Date/time seen: 07/30/21 15:44 Patient seen examined. Patient did not have hemodialysis tunneled catheter placed today because of Lovenox given this morning, held for tomorrow for procedure tomorrow by Dr. Forman. Patient will need LTAC disposition for trach peg and hemodialysis for long-term care for COVID-19. She is status post trach and PEG yesterday. Review of Systems Review of Systems: All systems reviewed & are unremarkable except as noted in HPI and below Exam Narrative: - GENERAL: Elderly woman intubated sedated - EYES: Anicteric clear - HENT: Dry oral mucosa, tracheostomy in place - LUNGS: Coarse lung sounds throughout - CARDIOVASCULAR: Regular rate and rhythm. - ABDOMEN: Soft, non-tender and non-distended. Peg tube in place. - EXTREMITIES: No edema. Peripheral pulses 2+. Non-tender. - NEUROLOGIC: Pupillary reflex intact, sedated - SKIN: No rashes or lesions. Warm. - LYMPH: No cervical lymphadenopathy. Objective Data Vital Signs Vital Signs: Vital Signs - 24 hr 07/29/21 16:00 07/29/21 17:44 07/29/21 18:00 Temperature 36.4 C 36.8 C Pulse Rate 93 93 89 Respiratory Rate 30 H 30 H Blood Pressure 109/70 109/67 Pulse Oximetry 100 95 96 07/29/21 18:06 07/29/21 20:00 07/29/21 20:17 Temperature 36.8 C Pulse Rate 89 87 98 Respiratory Rate 30 H 30 H Blood Pressure 123/72 Pulse Oximetry 96 96 07/29/21 21:06 07/29/21 21:07 07/29/21 22:00 Temperature 36.8 C Pulse Rate 90 90 86 Respiratory Rate 30 H 30 H 30 H Blood Pressure 93/59 L Pulse Oximetry 97 01/0
[2021-07-30 18:00] LABS: Glucose Point of Care 95 mg/dl (65-105)
[2021-07-30] MEDS: MINERAL OIL/WHITE PETROLATUM OINTMENT 1 APPLIC EACH EYE (19:54)
[2021-07-31] VITALS (34 sets, daily range): BP systolic 106–154; BP diastolic 18–82; PULSE 83–105; RESP 24–35; TEMP 36.3–37.1; O2SAT 91–98
[2021-07-31 00:07] LABS: Glucose Point of Care 87 mg/dl (65-105)
[2021-07-31] MEDS: CENTRAL LINE FLUSH 10 ML IV PUSH ×3 (04:18→21:43)
[2021-07-31] MEDS: LEVOTHYROXINE SODIUM 100 MCG TABLET PO (04:19)
[2021-07-31 04:45] LABS: Basophils Absolute Auto 0.1 K/mm3 (0.0-0.1); Basophils Percent Auto 0.4 % (0.2-1.2); Eosinophils Absolute Auto 0.2 K/mm3 (0-0.3); Eosinophils Percent Auto 1.5 % (0-4.4); Hematocrit 27.8 % (37.0-47.0); Hemoglobin 8.9 g/dL (12.0-15.0); Immature Granulocyte Absolute 0.18 K/mm3 (0.00-0.031); Immature Granulocyte Percent A 1.3 % (0-0.5); Lymphocytes Absolute Auto 0.46 K/mm3 (0.9-3.2); Lymphocytes Percent Auto 3.3 % (18.3-44.2); Mean Corpuscular Hemoglobin 29.8 pg (26-34); Mean Platelet Volume 10.2 fl (7.4-10.4); Monocytes Absolute Auto 0.7 K/mm3 (0.1-0.6); Monocytes Percent Auto 5.3 % (2.6-8.5); Neutrophils Absolute Auto 12.2 K/mm3 (1.3-6.7); Neutrophils Percent Auto 88.2 % (45.5-73.1); Platelet Count Result 458 k/mm3 (150-375); Red Blood Count 2.99 M/mm3 (4.2-5.4); Red Cell Distribution Width 16.1 % (11.5-14.5); White Blood Count 13.9 K/mm3 (4.5-10.0)
[2021-07-31 05:04] LABS: Alanine Aminotransferase 41 U/L (4-35); Albumin Level 3.4 g/dL (3.5-5.1); Alkaline Phosphatase 113 U/L (38-126); Anion Gap 14 mmol/L (8-16); Aspartate Amino Transferase 49 U/L (14-36); Bilirubin,Total 1.2 mg/dL (0.2-1.3); Blood Urea Nitrogen 80 mg/dL (7-17); Calcium 8.8 mg/dL (8.4-10.2); Carbon Dioxide 24 mmol/L (22-30); Chloride 99 mmol/L (98-107); Estimated CRCL calculation 17 ml/min; Estimated Glomerular Filt Rate 16; Glucose 102 mg/dL (65-110); Magnesium 1.8 mg/dL (1.6-2.3); Phosphorus 8.2 mg/dL (2.5-4.5); Potassium 4.1 mmol/L (3.4-5.0); Sodium 137 mmol/L (137-145)
[2021-07-31 05:53] LABS: Alveolar/Arterial O2 Gradient 148.9 mmHg; Base Excess ABG -1.1 mEq/l (+/-2.0); Fractional Inspired Oxygen 40 %; HCO3 ABG 24.1 mEq/l (22.0-26.0); Methemoglobin ABG 0.3 %THb (0-1.5); Oxygen Saturation ABG 96.6 % (95.0-100.0); Oxyhemoglobin 94.3 % THb (90.0-100.0); PCO2 ABG 41.7 mmHg (35.0-45.0); PO2 ABG 88.3 mmHg (80.0-100.0); PO2 FiO2 Ratio Arterial Blood 2.21 %; Reduced Hemoglobin 4.4 %THb (0-5.0); pH ABG 7.379 (7.350-7.450)
[2021-07-31 05:54] LABS: Arterial Blood Gas PEEP 10 cmH2O; Arterial Blood Gas Tidal Volume 400 ml; Arterial Blood Gas Vent Mode CMV; Arterial Blood Gas Ventilator rate 30 /MIN; Device VENTILATOR; Modified Allen's Test Pass; Site Drawn LEFT RADIAL
--- NOTE | 2021-07-31 09:16 | P.HPUP_ITS ---
History and Physical Update Update Date/Time: 07/31/21 09:16 History and Physical has been reviewed, including an updated exam of the patient. There are changes in the patient's condition. See recent progress notes by Nephrology and spray applicator. This patient now has had long-term ventil ation for COVID-19 pneumonia and respiratory failure. She also has stage 3 kidney disease which has progressed and her fluid status is not conducive to weaning. Therefore, in the process of continued critical care I have been asked to place a tunneled dialysis catheter for continuing kidney dialysis. Risks, benefits, and alternatives of placement of a tunneled dialysis catheter in the OR including bleeding, infection, pneumothorax, and other possible complications have been discussed with her who is closest of kin and questions answered. Patient's agrees to proceed with procedure.
[2021-07-31] MEDS: CLINDAMYCIN 900 MG/D5W 50 ML 900 MG/50 ML PIGGYBACK 50 MG IVPB (09:17)
[2021-07-31 09:30] LABS: Device VENTILATOR
[2021-07-31 09:31] LABS: Arterial Blood Gas PEEP 10 cmH2O; Arterial Blood Gas Tidal Volume 400 ml; Arterial Blood Gas Vent Mode CMV; Arterial Blood Gas Ventilator rate 30 /MIN
--- NOTE | 2021-07-31 09:53 | WPDANESEPPF ---
Anes - Initial Pre Proc Eval Procedure: Operation Date: 07/29/21 13:00 Proposed Procedures p Esophagogastroduodenoscopy - Twin Carey MD s Placement Percutaneous Endoscopic Gastrostomy - Twin Carey MD Operation Date: 07/29/21 13:00 Proposed Procedures p Tracheostomy - Deven Ortez MD Operation Date: 07/31/21 09:30 Proposed Procedures p Insertion Tunnelled Dialysis Catheter - Miguel Forman MD Date/Time: 07/31/21 09:53 Surgeon: Jil Do PA-C Pre Op Diagnosis: pneumonia Patient Data Age: 76 Gender: F Height: 1.63 m Weight: 88.4 kg Last Vital Signs Temp 36.8 C 07/31/21 08:00 Pulse 105 H 07/31/21 08:30 Resp 30 H 07/31/21 08:00 BP 145/76 H 07/31/21 08:00 Pulse Ox 94 07/31/21 08:30 Allergies Allergy/AdvReac Type Severity Reaction Status Date / Time Sulfa (Sulfonamide Allergy Severe SWELLING Verified 07/06/21 15:45 Antibiotics) sulfamethoxazole Allergy Severe RASH, Verified 07/06/21 15:45 ITCHING adhesive Allergy Unknown Redness of Verified 07/06/21 15:45 Skin cefuroxime Allergy Unknown Joint Pain Verified 07/06/21 15:45 Cephalosporins Allergy Unknown Rash Verified 07/06/21 15:45 hydrochlorothiazide Allergy Unknown Other Verified 07/06/21 15:45 Penicillins Allergy Unknown Rash Verified 07/06/21 15:45 sulfamethizole Allergy Unknown Swelling Verified 07/06/21 15:45 trimethoprim Allergy Unknown Swelling Verified 07/06/21 15:45 codeine AdvReac Unknown Nausea and Verified 07/13/21 21:46 Vomiting hydrocodone AdvReac Unknown Nausea Verified 07/13/21 21:46 ibuprofen AdvReac Unknown SEVERE Verified 07/13/21 21:46 Headache metoprolol AdvReac Palpitation Verified 07/13/21 21:46 s Home Medications Medication Instructions Recorded Confirmed Type amlodipine 5 mg tablet 5 mg PO BID 06/02/19 07/06/21 History coQ10 (ubiquinol) 100 mg capsule 100 mg PO ONCE cap 06/02/19 07/06/21 History lisinopril 40 mg tablet 40 mg PO DAILY 06/02/19 07/06/21 History omega-3 fatty acids 1,000 mg 1,000 mg PO BID 06/02/19 07/06/21 History capsule cholecalciferol (vitamin D3) 125 5,000 unit PO .COMPLEX tablet 06/05/19 07/06/21 History mcg (5,000 unit) tablet pitavastatin calcium 4 mg tablet 4 mg PO .QHS tablet 06/05/19 07/06/21 History Caltrate 600 plus D 1 tablet PO DAILY 10/05/19 07/06/21 History Restasis 1 drp OPHTHALMIC (EYE) Q12H 10/05/19 07/06/21 History coconut oil 10,000 mg PO DAILY 10/05/19 07/06/21 History pyridoxine (vitamin B6) 25 mg PO 3XW 10/05/19 07/06/21 History acetaminophen [Tylenol Extended 650 mg PO Q12H 11/20/20 07/06/21 History Release] atenolol 25 mg PO DAILY 11/20/20 07/06/21 History cyanocobalamin (vitamin B-12) 500 500 mcg PO .three times weekly 12/30/20 07/06/21 History mcg tablet tablet triamcinolone acetonide 55 mcg 1 spray INTRANASAL BID 12/30/20 07/06/21 History nasal spray aerosol pantoprazole 40 mg tablet,delayed 40 mg PO DAILY #90 tablet 02/20/21 07/06/21 Rx release benzonatate 100 mg capsule 100 mg PO TID PRN #30 cap 07/01/21 07/06/21 Rx levothyroxine 100 mcg tablet 100 mcg PO DAILY #90 tablet 07/14/21 Rx Laboratory Tests 07/30/21 07/30/21 07/30/21 06:20 12:17 17:55 WBC RBC Hgb Hct MCV MCH MCHC RDW Plt Count MPV Immature Gran % (Auto) Neut % (Auto) Lymph % (Auto) [place] % (Auto) Eos % (Auto) Baso % (Auto) Lymph # (Auto) [place] # (Auto) Eos # (Auto) Baso # (Auto) Abs Immat Gran (auto) Absolute Neuts (auto) Absolute Nucleated RBC Nucleated RBC % Puncture Site Not Reportable ABG pH 7.404 (7.350-7.450) ABG pCO2 37.6 mmHg mmHg (35.0-45.0) ABG pO2 74.9 mmHg L mmHg
[2021-07-31] MEDS: HEPARIN SODIUM 5,000 UNITS/ML VIAL 1000 UNITS IRRIGATION (10:11)
--- NOTE | 2021-07-31 10:15 | WPDINTPN ---
Progress Note: A&P Assessment and Plan (1) Acute hypoxemic respiratory failure due to COVID-19: Code(s): U07.1 - COVID-19; J96.01 - Acute respiratory failure with hypoxia Status: Acute Assessment and Plan: Acute Respiratory failure secondary to COVID-19 with component of pulmonary edema and may have a component of bacterial pneumonia Intubated 07/14 Chest x-ray stable, ABGs reviewed Continue full mechanical ventilation support to prevent hypoxemia/hypercarbia and end organ damage. Currently on PEEP of 10 and 40% FiO2. Low tidal volume ventilation strategy to prevent volutrauma Sedated with Versed and fentanyl. 07/29/2021: Tracheostomy and PEG tube placement Will perform sedation holiday after procedure today and attempt a pressure support trial CT chest 07/14 IMPRESSION: 1. Diffuse lung disease, worsened from 07/10/2021, consistent with COVID-19 pneumonia. Bacterial pneumonia and pulmonary edema have overlapping appearances and cannot be excluded. 2. Mild mediastinal lymphadenopathy, likely reactive (2) Pneumonia due to COVID-19 virus: Code(s): U07.1 - COVID-19; J12.82 - Pneumonia due to coronavirus disease 2019 Status: Acute Assessment and Plan: Patient is vaccinated against COVID-19 but has not received a booster dose. She was tested for COVID-19 on 07/06/20[address] found to be positive CT findings are consistent with COVID-19 pneumonia Completed dexamethasone Completed 5 day course of remdesivir on 07/15/2021 Patient received baricitinib Continue droplet, airborne, contact isolation/precautions (3) Community acquired pneumonia: Qualifiers: Laterality: unspecified laterality Qualified Code(s): J18.9 - Pneumonia, unspecified organism Code(s): J18.9 - Pneumonia, unspecified organism Status: Acute Assessment and Plan: Presented with complaints of fever and cough. Patient had elevated white count Cultures, influenza, urine Legionella, urine pneumococcal antigen are negative Status post vancomycin and Levaquin for 14 days. (4) DVT (deep venous thrombosis): Code(s): I82.409 - Acute embolism and thrombosis of unspecified deep veins of unspecified lower extremity Status: Acute Assessment and Plan: Lower extremity Dopplers showed Deep vein thrombosis involving the right posterior tibial veins and left popliteal and posterior tibial veins. Patient is on therapeutic Lovenox dose which is currently on hold due to planned invasive procedure today (5) Acute on chronic kidney failure: Code(s): N17.9 - Acute kidney failure, unspecified; N18.9 - Chronic kidney disease, unspecified Status: Acute Assessment and Plan: Creatinine slightly elevated as compared to baseline on admission Creatinine has been stable but elevated, urine output has been adequate Monitor urine output electrolytes and creatinine Temporary dialysis catheter was placed on 07/21/2021: Dialysis catheter was removed on 07/29/2021. 07/31 patient to get tunneled catheter by surgery today Dialysis per Nephrology (6) Hyponatremia: Code(s): E87.1 - Hypo-osmolality and hyponatremia Status: Acute Assessment and Plan: Will use normal saline flushes with tube feeds -improved with dialysis (7) Hypothyroidism: Qualifiers: Hypothyroidism type: acquired Qualified Code(s): E03.9 - Hypothyroidism, unspecified Code(s): E03.9 - Hypothyroidism, unspecified Status: Acute Assessment and Plan: Continue levothyroxine Additional Plan Code status: Full code SUP on PPI Critical care time spent: 30 minutes Due to a high probability of clinically significant, life threatening deterioration, the patient required my highest level of preparedness to intervene emergently and I personally spent this critical care time directly and personally managing the patient. This critical care time included obtaining a history; examining the
[2021-07-31] MEDS: BUPIVACAINE/EPINEPHRINE 0.25% 10 ML VIAL INFILTRATE (10:23)
[2021-07-31] MEDS: HEPARIN SODIUM, PORCINE 10,000 UNITS/10 ML VIAL 10000 UNITS IV PUSH (10:25)
--- NOTE | 2021-07-31 11:00 | W.PM.PROC2 ---
Procedure Note - Detailed Date of Procedure 07/31/21 Pre-op Diagnosis 1. End-stage renal failure 2. Covid pneumonia Post-op Diagnosis same Procedure Performed Placement of tunneled dialysis catheter Surgeon Miguel Forman MD [employer] Manager Sally [email or web address] assistant to the dean Anesthesia general (Via tracheostomy tube) and other (GIVS) Indications The patient has end-stage renal disease with need for access for hemodialysis Findings Normal Vascular anatomy in the chest by fluoroscopy Description of Procedure The patient was placed in the supine position on the operating table and after induction of adequate general anesthesia via the current indwelling tracheostomy tube by the nurse document scanner, we carefully rotated the patient's head and tilted slightly to the left then prepping the right side of the neck and chest with chlorhexidine. After waiting 3 minutes I carefully draped the patient, and we performed a time-out confirming the patient's site of surgery. Because this patient had a tracheostomy tube placed recently and the ties would come across the area of the right neck where we would typically curved the tunneled dialysis catheter I felt it was worth trying to place this in the right subclavian position to keep it away from that and also to help cut down chance of infection. This does make it a little bit higher risk for creating a pneumothorax but it seems the trade-off was reasonable. Because of the patients size, a 28 cm DuraFlow catheter was selected. Using the blind technique the patient was placed in Trendelenburg position and using 18 gauge needle I carefully cannulated the right subclavian vein asked her after placing local anesthetic in the right subclavicular area. The vein was accessed on the 1st pass under the clavicle and the bevel turned down.Good dark blood was aspirated, the J-guidewire was advanced through the needle and into the central venous system using the usual Seldinger technique. C-arm fluoroscopy was used to confirm that the wire was then through the central venous system and then we removed the needle and blue guide off the wire. Careful examination of the chest with Ross copy revealed that the guidewire parallel to the course of the her patient's current PICC line through the subclavian vein into the superior vena cava. Following this, we measured the DuraFlow catheter such that the tip would be just into the right atrium or in the distal superior vena cava. A hemostat was placed on the drapes over the chest to guide where we would place this. Then the catheter was measured back to the entry site of the J- wire in a curvilinear fashion and down to the patient's chest overlying the right upper chest into the upper part of the right breast. Local anesthetic was placed into 2 moseley, the exit site and the site in subclavicular area where the wire was exiting the skin. This was done s uch that a curvilinear path could be dissected through the subcutaneous tissue Local anesthetic was infiltrated along the tract prior to tunneling. Incision w made with a 11 blade knife at the proposed exit site and then with an 11 blade at the wire. The tunneling device was connected to the catheter and this was pulled through the incision to make the subcutaneous tunnel a curvilinear course through the subcutaneous tissues to the insertion site which was in her case subcuticular on the right. Then the wire was serially dilated with a 12, 14, and then a 16-[place] dilator over the pull away sheath. We watched the 16-[place] dilator and sheath go down into the central venous system with C-arm fluoroscopy and then removed the dilator wire after carefully covering the end of the catheter. I lost some blood, as we then inserted the catheter down into the central venous system. The catheter was held in place with a DeBakey forceps and then we carefully tore away the sheath leaving the catheter within the subcutaneous tissues and down into the right subc
[2021-07-31 11:50] LABS: Glucose Point of Care 94 mg/dl (65-105)
[2021-07-31] MEDS: BUMETANIDE INJ 2.5 MG/10 ML VIAL 2 MG IV PUSH ×2 (12:19→17:15)
[2021-07-31] MEDS: BARICITINIB 1 MG TABLET PO (12:19)
[2021-07-31] MEDS: PANTOPRAZOLE SODIUM IV 40 MG VIAL IV PUSH (12:19)
[2021-07-31] MEDS: polyethylene glycoL 3350 17 GM POWD.PACK PO (12:19)
[2021-07-31] MEDS: METOCLOPRAMIDE HCL INJ 10 MG/2 ML VIAL IV PUSH ×2 (12:20→17:15)
[2021-07-31] MEDS: MIDAZOLAM 100MG/NS 100ML(*CRX) 100 MG/100 ML BAG IV CONT (14:26)
--- NOTE | 2021-07-31 14:35 | P.PNNP_ITS ---
Progress Note: A&P Assessment and Plan (1) MARCE (acute kidney injury): Code(s): N17.9 - Acute kidney failure, unspecified Status: Acute Assessment and Plan: * likely secondary to COVID-19 infection * urine electrolytes are borderline prerenal * renal ultrasound without obstruction * creatinine is up to 2.8 Still making some but not quite as much urine * Electrolytes okay. * Will continue diuretics. * tunneled line will be placed today. 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 (3) Hyperkalemia: Code(s): E87.5 - Hyperkalemia Status: Acute Assessment and Plan: * Resolved (4) Acute respiratory failure with hypoxia: Code(s): J96.01 - Acute respiratory failure with hypoxia Status: Acute Assessment and Plan: * due to #4 and possibly bacterial pneumonia * culture negative to date * Off antibiotics (5) Pneumonia due to COVID-19 virus: Code(s): U07.1 - COVID-19; J12.82 - Pneumonia due to coronavirus disease 2019 Status: Acute Assessment and Plan: * CT findings are consistent with COVID-19 pneumonia * completed course of dexamethasone * s/p 5 day course of remdesivir * started on Baricitinib on 07/14/21 * continue ventilator support, pulm toilet, inhalers. Oxygenation has been good enough that she has not need prone position for the last few days. * Trach is in. (6) Hyponatremia: Code(s): E87.1 - Hypo-osmolality and hyponatremia Status: Acute Assessment and Plan: * better today. (7) Essential (primary) hypertension: Code(s): I10 - Essential (primary) hypertension Status: Chronic Assessment and Plan: * Blood pressure is doing well today. Subjective Date/time seen: 07/31/21 8:00 a.m. Interval history: Krysta is still on the ventilator and sedated. She looks comfortable. she is going to get her PermCath today. Exam Narrative: WDWN in NAD skin no rash or subcu nodules head ncat lungs coarse to auscultation cor reg no rub or gallop abd BS+ nontender and soft ext 1+ edema. Objective Data Vital Signs Vital Signs: Vital Signs - 24 hr 07/30/21 16:00 07/30/21 17:53 07/30/21 18:00 Temperature 36.9 C 36.8 C Pulse Rate 93 90 94 Respiratory Rate 30 H 30 H Blood Pressure 108/65 127/71 Pulse Oximetry 96 99 98 07/30/21 19:34 07/30/21 19:52 07/30/21 19:53 Temperature Pulse Rate 89 96 97 Respiratory Rate 31 H 33 H Blood Pressure Pulse Oximetry 98 07/30/21 20:00 07/30/21 22:00 07/30/21 23:51 Temperature 36.9 C 36.8 C Pulse Rate 103 H 87 103 H Respiratory Rate 27 H 30 H 31 H Blood Pressure 147/81 H 115/67 Pulse Oximetry 98 98 07/31/21 00:00 07/31/21 00:08 07/31/21 02:00 Temperature 37.0 C 37.1 C Pulse Rate 103 H 101 H 96 Respiratory Rate 32 H 30 H Blood Pressure 142/78 H 144/78 H Pulse Oximetry 96 94 98
--- NOTE | 2021-07-31 14:35 | PM.PNNEP ---
Progress Note: A&P Assessment and Plan (1) MARCE (acute kidney injury): Code(s): N17.9 - Acute kidney failure, unspecified Status: Acute Assessment and Plan: likely secondary to COVID-19 infection urine electrolytes are borderline prerenal renal ultrasound without obstruction creatinine is up to 2.8 Still making some but not quite as much urine Electrolytes okay. Will continue diuretics. tunneled line will be placed today. 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 (3) Hyperkalemia: Code(s): E87.5 - Hyperkalemia Status: Acute Assessment and Plan: Resolved (4) Acute respiratory failure with hypoxia: Code(s): J96.01 - Acute respiratory failure with hypoxia Status: Acute Assessment and Plan: due to #4 and possibly bacterial pneumonia culture negative to date Off antibiotics (5) Pneumonia due to COVID-19 virus: Code(s): U07.1 - COVID-19; J12.82 - Pneumonia due to coronavirus disease 2019 Status: Acute Assessment and Plan: CT findings are consistent with COVID-19 pneumonia completed course of dexamethasone s/p 5 day course of remdesivir started on Baricitinib on 07/14/21 continue ventilator support, pulm toilet, inhalers. Oxygenation has been good enough that she has not need prone position for the last few days. Trach is in. (6) Hyponatremia: Code(s): E87.1 - Hypo-osmolality and hyponatremia Status: Acute Assessment and Plan: better today. (7) Essential (primary) hypertension: Code(s): I10 - Essential (primary) hypertension Status: Chronic Assessment and Plan: Blood pressure is doing well today. Subjective Date/time seen: 07/31/21 8:00 a.m. Interval history: Krysta is still on the ventilator and sedated. She looks comfortable. she is going to get her PermCath today. Exam Narrative: WDWN in NAD skin no rash or subcu nodules head ncat lungs coarse to auscultation cor reg no rub or gallop abd BS+ nontender and soft ext 1+ edema. Objective Data Vital Signs Vital Signs: Vital Signs - 24 hr 07/30/21 16:00 07/30/21 17:53 07/30/21 18:00 Temperature 36.9 C 36.8 C Pulse Rate 93 90 94 Respiratory Rate 30 H 30 H Blood Pressure 108/65 127/71 Pulse Oximetry 96 99 98 07/30/21 19:34 07/30/21 19:52 07/30/21 19:53 Temperature Pulse Rate 89 96 97 Respiratory Rate 31 H 33 H Blood Pressure Pulse Oximetry 98 07/30/21 20:00 07/30/21 22:00 07/30/21 23:51 Temperature 36.9 C 36.8 C Pulse Rate 103 H 87 103 H Respiratory Rate 27 H 30 H 31 H Blood Pressure 147/81 H 115/67 Pulse Oximetry 98 98 07/31/21 00:00 07/31/21 00:08 07/31/21 02:00 Temperature 37.0 C 37.1 C Pulse Rate 103 H 101 H 96 Respiratory Rate 32 H 30 H Blood Pressure 142/78 H 144/78 H Pulse Oximetry 96 94 98 07/31/21 03:09 07/31/21 03:35 07/31/21 04:00 Temperature 37.1 C Pulse Rate 88 97 97 Respiratory Rate 30 H 30 H Blood Pressure 142/78 H Pulse Oximetry 97 96 98 07/31/21 04:10 07/31/21 04:11 07/31/21 04:23 Temperature Pulse Rate 103 H 98 103 H Respiratory Rate 30 H 30 H 34 H Blood Pressure Pulse Oximetry 07/31/21 05:25 07/31/21 06:00 07/31/21 08:00 Temperature 36.9 C 36.8 C Pulse Rate 92 105 H 105 H Respiratory Rate 28 H 30 H Blood Pressure 144/82 H 145/76 H Pulse Oximetry 96 94 94 07/31/21 08:30 07/31/21 10:45 07/31/21 10:50 Temperature Pulse Rate 105 H 102 H 102 H Respiratory Rate Blood Pressure Pulse Oximetry 94 91 07/31/21 11:50 07/31/21 12:00 07/31/21 12:23 Temperature 36.4 C L Pulse Ra
--- NOTE | 2021-07-31 15:17 | WPDGIPROGNO ---
Progress Note: A&P Assessment and Plan (1) Acute hypoxemic respiratory failure due to COVID-19: Code(s): U07.1 - COVID-19; J96.01 - Acute respiratory failure with hypoxia Status: Acute Assessment and Plan: s/p G-tube placement, per staffing specialist she has been tolerating tube also had tracheostomy by ENT [place], call if questions (2) MARCE (acute kidney injury): Code(s): N17.9 - Acute kidney failure, unspecified Status: Acute Assessment and Plan: by nephrology HD catheter today (3) DVT (deep venous thrombosis): Code(s): I82.409 - Acute embolism and thrombosis of unspecified deep veins of unspecified lower extremity Status: Acute Assessment and Plan: on treatment (4) Hyponatremia: Code(s): E87.1 - Hypo-osmolality and hyponatremia Status: Acute Subjective Date/time seen: 07/31/21 15:17 Interval history: she has been tolerating tube feeding, today had HD catheter Review of Systems Review of Systems: All systems reviewed & are unremarkable except as noted in HPI and below Exam Const: Other: sedated HENMT: General nose exam: Normal nares present Neck: Other: trach in place, on mechanical ventilation Chest: Other: dialysis catheter in place Resp: Auscultation: rhonchi and no wheezes Cardio: Rate: regular rate GI: GI Palp: Yes Soft to palpation and No Guarding due to palpation present (GI) Auscultation: normal bowel sounds Other: G-tube site looks clean Skin: General skin exam: no rashes or lesions noted Neuro: Other: unable to assess Extrem: General: normal to inspection Psych: Other: unable to assess Objective Data Vital Signs Vital Signs: Vital Signs - 24 hr 07/30/21 16:00 07/30/21 17:53 07/30/21 18:00 Temperature 98.4 F 98.3 F Pulse Rate 93 90 94 Respiratory Rate 30 H 30 H Blood Pressure 108/65 127/71 Pulse Oximetry 96 99 98 07/30/21 19:34 07/30/21 19:52 07/30/21 19:53 Temperature Pulse Rate 89 96 97 Respiratory Rate 31 H 33 H Blood Pressure Pulse Oximetry 98 07/30/21 20:00 07/30/21 22:00 07/30/21 23:51 Temperature 98.4 F 98.3 F Pulse Rate 103 H 87 103 H Respiratory Rate 27 H 30 H 31 H Blood Pressure 147/81 H 115/67 Pulse Oximetry 98 98 07/31/21 00:00 07/31/21 00:08 07/31/21 02:00 Temperature 98.6 F 98.7 F Pulse Rate 103 H 101 H 96 Respiratory Rate 32 H 30 H Blood Pressure 142/78 H 144/78 H Pulse Oximetry 96 94 98 07/31/21 03:09 07/31/21 03:35 07/31/21 04:00 Temperature 98.7 F Pulse Rate 88 97 97 Respiratory Rate 30 H 30 H Blood Pressure 142/78 H Pulse Oximetry 97 96 98 07/31/21 04:10 07/31/21 04:11 07/31/21 04:23 Temperature Pulse Rate 103 H 98 103 H Respiratory Rate 30 H 30 H 34 H Blood Pressure Pulse Oximetry 07/31/21 05:25 07/31/21 06:00 07/31/21 08:00 Temperature 98.5 F 98.2 F Pulse Rate 92 105 H 105 H Respiratory Rate 28 H 30 H Blood Pressure 144/82 H 145/76 H Pulse Oximetry 96 94 94 07/31/21 08:30 07/31/21 10:45 07/31/21 10:50 Temperature Pulse Rate 105 H 102 H 102 H Respiratory Rate Blood Pressure Pulse Oximetry 94 91 07/31/21 11:50 07/31/21 12:00 07/31/21 12:23 Temperature 97.5 F L Pulse Rate 102 H 90 100 Respiratory Rate 35 H 35 H 33 H Blood Pressure 128/64 Pulse Oximetry 98 94 07/31/21 13:26 07/31/21 13:27 07/31/21 14:26 Temperature Pulse Rate 93 89 89 Respiratory Rate 32 H 30 H 30 H Blood Pressure Pulse Oximetry 07/31/21 15:15 Temperature Pulse Rate 98 Respiratory Rate Blood Pressure Pulse Oximetry 93 Intake/Output Intake/Output: Intake & Output 07/28/21 07/29/21 07/30/21 07/31/21 23:59 23:59 23:59 23:59 Intake Total 1442 777 843 240.0 Output Total 2300 2100 1525 1050 [facility] [phone] Meds/Results Medications: Active Medications Generic Name Dose Route Start Last Admin Trade Name Freq PRN Reason Stop Dose Admin Acetaminophe
[2021-07-31 16:59] LABS: Glucose Point of Care 108 mg/dl (65-105)
[2021-07-31] MEDS: MINERAL OIL/WHITE PETROLATUM OINTMENT 1 APPLIC EACH EYE (21:42)
[2021-08-01] VITALS (35 sets, daily range): BP systolic 85–171; BP diastolic 42–130; PULSE 85–137; RESP 24–50; TEMP 36.5–38; O2SAT 89–100
[2021-08-01] MEDS: METOCLOPRAMIDE HCL INJ 10 MG/2 ML VIAL IV PUSH ×2 (01:01→06:38)
[2021-08-01 04:38] LABS: Basophils Percent Auto 0.3 % (0.2-1.2); Eosinophils Absolute Auto 0.2 K/mm3 (0-0.3); Eosinophils Percent Auto 1.3 % (0-4.4); Hematocrit 28.7 % (37.0-47.0); Immature Granulocyte Absolute 0.12 K/mm3 (0.00-0.031); Immature Granulocyte Percent A 0.8 % (0-0.5); Lymphocytes Absolute Auto 0.33 K/mm3 (0.9-3.2); Lymphocytes Percent Auto 2.3 % (18.3-44.2); Mean Corpuscular HGB Conc 31.4 g/dl (32-36); Mean Corpuscular Hemoglobin 30.1 pg (26-34); Mean Platelet Volume 10.1 fl (7.4-10.4); Monocytes Absolute Auto 0.7 K/mm3 (0.1-0.6); Monocytes Percent Auto 4.7 % (2.6-8.5); Neutrophils Absolute Auto 13.1 K/mm3 (1.3-6.7); Neutrophils Percent Auto 90.6 % (45.5-73.1); Platelet Count Result 416 k/mm3 (150-375); Red Blood Count 2.99 M/mm3 (4.2-5.4); Red Cell Distribution Width 16.6 % (11.5-14.5); White Blood Count 14.4 K/mm3 (4.5-10.0)
[2021-08-01 04:50] LABS: Alanine Aminotransferase 41 U/L (4-35); Albumin Level 3.7 g/dL (3.5-5.1); Alkaline Phosphatase 110 U/L (38-126); Anion Gap 11 mmol/L (8-16); Aspartate Amino Transferase 40 U/L (14-36); Blood Urea Nitrogen 86 mg/dL (7-17); Calcium 8.9 mg/dL (8.4-10.2); Carbon Dioxide 25 mmol/L (22-30); Chloride 102 mmol/L (98-107); Estimated CRCL calculation 19 ml/min; Estimated Glomerular Filt Rate 19; Glucose 165 mg/dL (65-110); Magnesium 1.9 mg/dL (1.6-2.3); Phosphorus 7.6 mg/dL (2.5-4.5); Potassium 3.7 mmol/L (3.4-5.0); Sodium 138 mmol/L (137-145)
[2021-08-01 06:13] LABS: Alveolar/Arterial O2 Gradient 190.1 mmHg; Base Excess ABG 1.2 mEq/l (+/-2.0); Carboxyhemoglobin 0.6 % THb (0-2.0); Fractional Inspired Oxygen 45 %; HCO3 ABG 27.6 mEq/l (22.0-26.0); Methemoglobin ABG 0.1 %THb (0-1.5); Oxygen Saturation ABG 93.7 % (95.0-100.0); Oxyhemoglobin 92.1 % THb (90.0-100.0); PCO2 ABG 51.3 mmHg (35.0-45.0); PO2 ABG 72.4 mmHg (80.0-100.0); PO2 FiO2 Ratio Arterial Blood 1.61 %; Reduced Hemoglobin 7.2 %THb (0-5.0); Total Hemoglobin 13.1 g/dL (12.0-18.0); pH ABG 7.349 (7.350-7.450)
[2021-08-01 06:15] LABS: Arterial Blood Gas PEEP 10 cmH2O; Arterial Blood Gas Vent Mode CMV; Arterial Blood Gas Ventilator rate 30 /MIN; Device VENTILATOR; Modified Allen's Test Pass; Site Drawn LEFT RADIAL
[2021-08-01 06:16] LABS: Arterial Blood Gas Tidal Volume 400 ml
[2021-08-01] MEDS: CENTRAL LINE FLUSH 10 ML IV PUSH ×3 (06:39→20:38)
[2021-08-01] MEDS: LEVOTHYROXINE SODIUM 100 MCG TABLET PO (06:39)
[2021-08-01 08:49] LABS: Glucose Point of Care 129 mg/dl (65-105)
--- NOTE | 2021-08-01 09:09 | WPDINTPN ---
Progress Note: A&P Assessment and Plan (1) Acute hypoxemic respiratory failure due to COVID-19: Code(s): U07.1 - COVID-19; J96.01 - Acute respiratory failure with hypoxia Status: Acute Assessment and Plan: Acute Respiratory failure secondary to COVID-19 with component of pulmonary edema and may have a component of bacterial pneumonia Intubated 07/1407/29/2021: Tracheostomy and PEG tube placement Chest x-ray stable, ABGs reviewed Continue full mechanical ventilation support to prevent hypoxemia/hypercarbia and end organ damage. Currently on PEEP of 10 and 45% FiO2. Low tidal volume ventilation strategy to prevent volutrauma Sedated with Versed and fentanyl. Patient gets tachypneic and a synchronous with ventilator on holding sedation completely. I will discontinue fentanyl infusion and slowly wean on Versed. Will evaluate for pressure support trial depending on sedation holiday CT chest 07/14 IMPRESSION: 1. Diffuse lung disease, worsened from 07/10/2021, consistent with COVID-19 pneumonia. Bacterial pneumonia and pulmonary edema have overlapping appearances and cannot be excluded. 2. Mild mediastinal lymphadenopathy, likely reactive (2) Pneumonia due to COVID-19 virus: Code(s): U07.1 - COVID-19; J12.82 - Pneumonia due to coronavirus disease 2019 Status: Acute Assessment and Plan: Patient is vaccinated against COVID-19 but has not received a booster dose. She was tested for COVID-19 on 07/06/[address] found to be positive CT findings are consistent with COVID-19 pneumonia Completed dexamethasone Completed 5 day course of remdesivir on 07/15/2021 Patient received baricitinib Continue droplet, airborne, contact isolation/precautions (3) Community acquired pneumonia: Qualifiers: Laterality: unspecified laterality Qualified Code(s): J18.9 - Pneumonia, unspecified organism Code(s): J18.9 - Pneumonia, unspecified organism Status: Acute Assessment and Plan: Presented with complaints of fever and cough. Patient had elevated white count Cultures, influenza, urine Legionella, urine pneumococcal antigen are negative Status post vancomycin and Levaquin for 14 days. (4) DVT (deep venous thrombosis): Code(s): I82.409 - Acute embolism and thrombosis of unspecified deep veins of unspecified lower extremity Status: Acute Assessment and Plan: Lower extremity Dopplers showed Deep vein thrombosis involving the right posterior tibial veins and left popliteal and posterior tibial veins. Patient is on therapeutic Lovenox which will be resumed (5) Acute on chronic kidney failure: Code(s): N17.9 - Acute kidney failure, unspecified; N18.9 - Chronic kidney disease, unspecified Status: Acute Assessment and Plan: Temporary dialysis catheter was placed on 07/21/2021: Dialysis catheter was removed on 07/29/2021. 07/31 tunneled dialysis catheter placed Dialysis per Nephrology and patient is getting dialyzed today Patient is also on Bumex (6) Hyponatremia: Code(s): E87.1 - Hypo-osmolality and hyponatremia Status: Acute Assessment and Plan: Will use normal saline flushes with tube feeds -improved with dialysis (7) Hypothyroidism: Qualifiers: Hypothyroidism type: acquired Qualified Code(s): E03.9 - Hypothyroidism, unspecified Code(s): E03.9 - Hypothyroidism, unspecified Status: Acute Assessment and Plan: Continue levothyroxine Additional Plan Code status: Full code SUP on Pepcid Case discussed with Dr. Forman, field care coordinator I also spoke to patient's Felipe by phone. I updated them with patient's current status including respiratory failure and hemodialysis, our plan to wean sedatives, other current treatment plan and answered all his questions. I explained him that we are in process of transferring her to LT[facility] when bed is available Critical care time spent: 30 minutes
[2021-08-01] MEDS: CYANOCOBALAMIN 500 MCG TABLET PO (09:13)
[2021-08-01] MEDS: CHOLECALCIFEROL 1,000 UNITS TABLET 5000 UNITS PO (09:13)
[2021-08-01] MEDS: PYRIDOXINE HCL 25 MG TABLET PO (09:13)
[2021-08-01] MEDS: polyethylene glycoL 3350 17 GM POWD.PACK PO (09:13)
[2021-08-01] MEDS: PANTOPRAZOLE SODIUM IV 40 MG VIAL IV PUSH (09:14)
--- NOTE | 2021-08-01 09:51 | WPDANESPN ---
Anes - Prog Note Post-Op Date/Time: 08/01/21 09:51 Cardiovascular status: other (management per ICU team) Respiratory status: other (management per ICU team, mechanical ventilation) Airway patency: other (pt has tracheostomy) Mental status: other (pt sedated) Post-Op hydration status: other (management per ICU team) Vital Signs: Last Vital Signs Temp 37.2 C 08/01/21 05:00 Pulse 133 H 08/01/21 08:45 Resp 30 H 08/01/21 06:00 BP 92/43 L 08/01/21 08:00 Pulse Ox 92 08/01/21 08:45 Pain Score (VAS): unable to assess I/O: Intake & Output 07/31/21 08/01/21 08/01/21 23:59 07:59 15:59 Intake Total 90 0 Output Total 475 400 Balance -385 -400 Laboratory Tests 08/01/21 04:09 08/01/21 04:09 07/31/21 07/31/21 08/01/21 11:01 16:50 00:59 WBC RBC Hgb Hct MCV MCH MCHC RDW Plt Count MPV Immature Gran % (Auto) Neut % (Auto) Lymph % (Auto) [place] % (Auto) Eos % (Auto) Baso % (Auto) Lymph # (Auto) [place] # (Auto) Eos # (Auto) Baso # (Auto) Abs Immat Gran (auto) Absolute Neuts (auto) Absolute Nucleated RBC Nucleated RBC % Puncture Site ABG pH ABG pCO2 ABG pO2 ABG PO2/FiO2 Ratio ABG HCO3 ABG O2 Saturation ABG O2 Content ABG Base Excess A-a Gradient Oxyhemoglobin Carboxyhemoglobin Methemoglobin Reduced Hemoglobin Total Hemoglobin O2 Delivery Device O2 Liters/Min Minute Volume Vent Rate Vent Mode FiO2 Tidal Volume PEEP Peak Inspir Pressure Pressure Support Sodium Potassium Chloride Carbon Dioxide Anion Gap BUN Creatinine Estim Creat Clear Calc Estimated GFR Glucose POC Capillary Glucose 94 108 H 129 H Calcium Phosphorus Magnesium Total Bilirubin AST ALT Alkaline Phosphatase Total Protein Albumin 08/01/21 08/01/21 08/01/21 04:09 04:09 05:28 WBC 14.4 H RBC 2.99 L Hgb 9.0 L Hct 28.7 L MCV 96.0 MCH 30.1 MCHC 31.4 L RDW 16.6 H Plt Count 416 H MPV 10.1 Immature Gran % (Auto) 0.8 H Neut % (Auto) 90.6 H Lymph % (Auto) 2.3 L [place] % (Auto) 4.7 Eos % (Auto) 1.3 Baso % (Auto) 0.3 Lymph # (Auto) 0.33 L [place] # (Auto) 0.7 H Eos # (Auto) 0.2 Baso # (Auto) 0.0 Abs Immat Gran (auto) 0.12 H Absolute Neuts (auto) 13.1 H Absolute Nucleated RBC 0.0 Nucleated RBC % 0.0 Puncture Site Left radial ABG pH 7.349 L ABG pCO2 51.3 H ABG pO2 72.4 L ABG PO2/FiO2 Ratio 1.61 ABG HCO3 27.6 H ABG O2 Saturation 93.7 L ABG O2 Content 17.0 ABG Base Excess 1.2 A-a Gradient 190.1 Oxyhemoglobin 92.1 Carboxyhemoglobin 0.6 Methemoglobin 0.1 Reduced Hemoglobin 7.2 H Total Hemoglobin 13.1 O2 Delivery Device Ventilator O2 Liters/Min Not Reportable Minute Volume Not Reportable Vent Rate 30 Vent Mode Cmv FiO2 45 Tidal Volume 400 PEEP 10 Peak Inspir Pressure Not Reportable Pressure Support Not Reportable Sodium 138 Potassium 3.7 Chloride 102 Carbon Dioxide 25 Anion Gap 11 BUN 86 H Creatinine 2.50 H Estim Creat Clear Calc 19 Estimated GFR 19 L Glucose 165 H POC Capillary Glucose Calcium 8.9 Phosphorus 7.6 H Magnesium 1.9 Total Bilirubin 1.0 AST 40 H ALT 41 H Alkaline Phosphatase 110 Total Protein 7.0 Albumin 3.7 Microbiology 07/29/21 11:19 Sputum Sputum Culture - Final Yeast isolated Post-procedural complaints: none Patient Feedback: Patient satisfied with anesthetic care.
--- NOTE | 2021-08-01 11:28 | PM.IMPN ---
Progress Note: A&P Assessment and Plan (1) Acute hypoxemic respiratory failure due to COVID-19: Code(s): U07.1 - COVID-19; J96.01 - Acute respiratory failure with hypoxia Status: Acute Assessment and Plan: Acute Respiratory failure secondary to COVID-19 with component of pulmonary edema and may have a component of bacterial pneumonia. Patietn was intubated 07/14 with trach placed 07/29/2021. PEG tube placement 07/29/21 as well. CXR today showing moderate R>L COVID PNA unchanged. Continue full mechanical ventilation support to prevent hypoxemia/hypercarbia and end organ damage. Sedated with Versed only now. Appreciate instrument maker apprentice input (2) Pneumonia due to COVID-19 virus: Code(s): U07.1 - COVID-19; J12.82 - Pneumonia due to coronavirus disease 2018 Status: Acute Assessment and Plan: Patient is vaccinated against COVID-19 but has not received a booster dose. She was tested for COVID-19 on 07/06/2021 found to be positive. CT findings are consistent with COVID-19 pneumonia. She completed dexamethasone and 5 day course of remdesivir. She also received baricitinib x 3 doses. Continue droplet, airborne, contact isolation/precautions (3) Community acquired pneumonia: Qualifiers: Laterality: unspecified laterality Qualified Code(s): J18.9 - Pneumonia, unspecified organism Code(s): J18.9 - Pneumonia, unspecified organism Status: Acute Assessment and Plan: Presented with complaints of fever and cough. Patient had elevated white count. Cultures, influenza, urine Legionella, urine pneumococcal antigen all were negative. Completed 14 day course with vancomycin and Levaquin. Low grade fever today and with HoTN. BCx / growing GPB felt to be contaminate. Sputum and urine growing Candidia. She remains off abx. Repeat BCx. Monitor but resume abx (antifungal?) if remains HoTN with persistent fevres. (4) DVT (deep venous thrombosis): Code(s): I82.409 - Acute embolism and thrombosis of unspecified deep veins of unspecified lower extremity Status: Acute Assessment and Plan: Lower extremity Dopplers 07/14 showing DVT involving the right posterior tibial veins and left popliteal and posterior tibial veins. Patient resumed on therapeutic Lovenox. (5) Acute on chronic kidney failure: Code(s): N17.9 - Acute kidney failure, unspecified; N18.9 - Chronic kidney disease, unspecified Status: Acute Assessment and Plan: Temporary dialysis catheter was placed on 07/21/2021 and removed 07/29/21. Permanent tunneled Dialysis catheter was placed 07/31/21. Tolerated HD but with HoTN after treatment today. Bumex held. Treated with Albumin. Appreciate nephrology input. (6) Hyponatremia: Code(s): E87.1 - Hypo-osmolality and hyponatremia Status: Acute Assessment and Plan: Mild hyponatremia but normal now. Follow. (7) Hypothyroidism: Qualifiers: Hypothyroidism type: acquired Qualified Code(s): E03.9 - Hypothyroidism, unspecified Code(s): E03.9 - Hypothyroidism, unspecified Status: Acute Assessment and Plan: TSH normal. Continue levothyroxine Subjective Date/time seen: 08/01/21 11:28 Interval history: 76yo female with a history of CKD, HTN, hypothyroidism, aortic stenosis who presented to the ED on 07/06/2021 with complaints of fever and cough. Intubated 07/14 with trach placed 07/29. PEG placed /. Assuming care. Chart reviewed. Patient intuabted via trach and sedated. She was tachypneic in the 30's but increased to the 40's when Fentanyl stopped this morning. She had HD earlier with 1.8L removed. BP was stable but has since dropped to SBP 77 and albumin ordered. She is full code. Review of Systems Review of Systems: ROS unobtainable: Yes unobtainable due to endotracheal tube Exam Narrative: Tm 100.0 101/84 119 40 95% MV Gen - sedated, on MV via trach Head/Neck - Tracheostomy in place Chest:
--- NOTE | 2021-08-01 11:34 | PCNFU ---
Nutrition Follow-Up Complete: Inadequate Oral Intake as related to mechanical ventilation as evidenced by NPO. Goal: Meet estimated nutritional needs Pt. is progressing towards goal. No new goal at this time. Pt current nutrition is Nepro at 40 mls per hour over 22 hours per day. Last recorded weight is 88.4 kg. Recommend re-weighing pt. prior to discharge to assess any significant weight fluctuation. Bowel Motility: + BM 07/29/2021 Labs Reviewed: Hgb 9.0, Hct 28.7, GFR 19, BUN 86, Cr 2.5, Glu 165 Meds Noted: Albutein, Vitamin B-12, Retacrit, Pepcid, Glucagon, Glucose, Novolog, Synthroid, Metoclopramide, Miralax, B-6, Vitamin D Skin: No skin breakdown at this time. WNL. Additional Notes: Pt. is tolerating current tube feeding well with little to no residuals. She is currently receiving 1584 calories, 84 grams of protein and 640 mls of water with a 30 ml water flush q4 providing an additional 180 mls of water. Pt. is meeting nutritional needs. Will monitor every Wednesday and Wednesday.
[2021-08-01] MEDS: METOCLOPRAMIDE HCL 10 MG/10 ML SOLN UDC PO (11:54)
[2021-08-01] MEDS: ENOXAPARIN 100 MG/ML SYRINGE 90 MG SUB-Q (11:54)
[2021-08-01] MEDS: ALBUMIN HUMAN 5% 25 GM/500 ML BTL IV CONT (11:54)
[2021-08-01 12:33] LABS: Glucose Point of Care 215 mg/dl (65-105)
[2021-08-01] MEDS: INSULIN ASPART (*BKC) 100 UNITS/ML SUB-Q (12:38)
--- NOTE | 2021-08-01 15:20 | P.PNNP_ITS ---
Progress Note: A&P Assessment and Plan (1) MARCE (acute kidney injury): Code(s): N17.9 - Acute kidney failure, unspecified Status: Acute Assessment and Plan: * likely secondary to COVID-19 infection * urine electrolytes are borderline prerenal * renal ultrasound without obstruction * creatinine is up to 2.8 Still making some but not quite as much urine * Electrolytes okay. * bp dropped after HD. * will stop diuretics. (discussed with Dr Valencia. 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 (3) Hyperkalemia: Code(s): E87.5 - Hyperkalemia Status: Acute Assessment and Plan: * Resolved (4) Acute respiratory failure with hypoxia: Code(s): J96.01 - Acute respiratory failure with hypoxia Status: Acute Assessment and Plan: * due to #4 and possibly bacterial pneumonia * culture negative to date * Off antibiotics (5) Pneumonia due to COVID-19 virus: Code(s): U07.1 - COVID-19; J12.82 - Pneumonia due to coronavirus disease 2019 Status: Acute Assessment and Plan: * CT findings are consistent with COVID-19 pneumonia * completed course of dexamethasone * s/p 5 day course of remdesivir * started on Baricitinib on 07/14/21 * continue ventilator support, pulm toilet, inhalers. Oxygenation has been good enough that she has not need prone position for the last few days. * Trach is in. (6) Hyponatremia: Code(s): E87.1 - Hypo-osmolality and hyponatremia Status: Acute Assessment and Plan: * better today. (7) Essential (primary) hypertension: Code(s): I10 - Essential (primary) hypertension Status: Chronic Assessment and Plan: * Blood pressure is doing well today. Subjective Date/time seen: 08/01/21 15:20 Interval history: Krysta is still on the ventilator and sedated. She looks comfortable. she had HD earlier. 1800cc removed and bp sharmaine okay on the machine. Bp dropped an hour or so after dialysis done. received some albumin and bp up to 91 when I saw her. Exam Narrative: WDWN in NAD skin no rash or subcu nodules head ncat lungs coarse to auscultation cor reg no rub or gallop abd BS+ nontender and soft ext 1+ edema. Objective Data Vital Signs Vital Signs: Vital Signs - 24 hr 07/31/21 16:00 07/31/21 16:48 07/31/21 16:49 Temperature Pulse Rate 85 94 94 Respiratory Rate 30 H 30 H 30 H Blood Pressure Pulse Oximetry 94 07/31/21 17:00 07/31/21 17:17 07/31/21 18:00 Temperature 36.3 C L Pulse Rate 102 H 84 92 Respiratory Rate 31 H 30 H Blood Pressure 116/70 129/80 Pulse Oximetry 93 97 92 07/31/21 19:42 07/31/21 20:00 07/31/21 21:40 Temperature 36.4 C Pulse Rate 92 91 98 Respiratory Rate 30 H 24 H Blood Pressure 118/73 Pulse Oximetry 95 96 07/31/21 22:00 07/31/21 22:01 08/01/21 00:00 Temperature 36.9 C 37.0 C Pulse Rate 102 H 101 H 95 Respiratory Rate 31 H 32 H 24 H
--- NOTE | 2021-08-01 15:20 | PM.PNNEP ---
Progress Note: A&P Assessment and Plan (1) MARCE (acute kidney injury): Code(s): N17.9 - Acute kidney failure, unspecified Status: Acute Assessment and Plan: likely secondary to COVID-19 infection urine electrolytes are borderline prerenal renal ultrasound without obstruction creatinine is up to 2.8 Still making some but not quite as much urine Electrolytes okay. bp dropped after HD. will stop diuretics. (discussed with Dr Valencia. 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 (3) Hyperkalemia: Code(s): E87.5 - Hyperkalemia Status: Acute Assessment and Plan: Resolved (4) Acute respiratory failure with hypoxia: Code(s): J96.01 - Acute respiratory failure with hypoxia Status: Acute Assessment and Plan: due to #4 and possibly bacterial pneumonia culture negative to date Off antibiotics (5) Pneumonia due to COVID-19 virus: Code(s): U07.1 - COVID-19; J12.82 - Pneumonia due to coronavirus disease 2019 Status: Acute Assessment and Plan: CT findings are consistent with COVID-19 pneumonia completed course of dexamethasone s/p 5 day course of remdesivir started on Baricitinib on 07/14/21 continue ventilator support, pulm toilet, inhalers. Oxygenation has been good enough that she has not need prone position for the last few days. Trach is in. (6) Hyponatremia: Code(s): E87.1 - Hypo-osmolality and hyponatremia Status: Acute Assessment and Plan: better today. (7) Essential (primary) hypertension: Code(s): I10 - Essential (primary) hypertension Status: Chronic Assessment and Plan: Blood pressure is doing well today. Subjective Date/time seen: 08/01/21 15:20 Interval history: Krysta is still on the ventilator and sedated. She looks comfortable. she had HD earlier. 1800cc removed and bp sharmaine okay on the machine. Bp dropped an hour or so after dialysis done. received some albumin and bp up to 91 when I saw her. Exam Narrative: WDWN in NAD skin no rash or subcu nodules head ncat lungs coarse to auscultation cor reg no rub or gallop abd BS+ nontender and soft ext 1+ edema. Objective Data Vital Signs Vital Signs: Vital Signs - 24 hr 07/31/21 16:00 07/31/21 16:48 07/31/21 16:49 Temperature Pulse Rate 85 94 94 Respiratory Rate 30 H 30 H 30 H Blood Pressure Pulse Oximetry 94 07/31/21 17:00 07/31/21 17:17 07/31/21 18:00 Temperature 36.3 C L Pulse Rate 102 H 84 92 Respiratory Rate 31 H 30 H Blood Pressure 116/70 129/80 Pulse Oximetry 93 97 92 07/31/21 19:42 07/31/21 20:00 07/31/21 21:40 Temperature 36.4 C Pulse Rate 92 91 98 Respiratory Rate 30 H 24 H Blood Pressure 118/73 Pulse Oximetry 95 96 07/31/21 22:00 07/31/21 22:01 08/01/21 00:00 Temperature 36.9 C 37.0 C Pulse Rate 102 H 101 H 95 Respiratory Rate 31 H 32 H 24 H Blood Pressure 154/73 H 156/84 H Pulse Oximetry 96 97 08/01/21 02:00 08/01/21 02:04 08/01/21 02:25 Temperature 37.1 C Pulse Rate 116 H 101 H 109 H Respiratory Rate 34 H 30 H Blood Pressure 141/92 H Pulse Oximetry 94 95 08/01/21 04:00 08/01/21 05:00 08/01/21 05:10 Temperature 37.2 C Pulse Rate 108 H 110 H 107 H Respiratory Rate 33 H 30 H 50 H Blood Pressure 130/87 147/77 H Pulse Oximetry 100 90 08/01/21 05:15 08/01/21 05:45 08/01/21 06:00 Temperature Pulse Rate 110 H 120 H 124 H Respiratory Rate 30 H Blood Pressure 130/87 143/82 H 171/130 H Pulse Oximetry 100 08/01/21 06:15 08/01/21 06:30 08/01/21 06:37 Temperature Pulse Rate 133 H 130 H 137 H Respiratory Rate Blood Pressure 118/42 L 1
[2021-08-01] MEDS: MIDAZOLAM 100MG/NS 100ML(*CRX) 100 MG/100 ML BAG 6 MG IV CONT (15:54)
[2021-08-01 17:08] LABS: Glucose Point of Care 162 mg/dl (65-105)
[2021-08-01] MEDS: MINERAL OIL/WHITE PETROLATUM OINTMENT 1 APPLIC EACH EYE (20:38)
[2021-08-01] MEDS: FAMOTIDINE 20 MG TABLET PO (20:38)
[2021-08-02] VITALS (30 sets, daily range): BP systolic 91–135; BP diastolic 57–82; PULSE 88–118; RESP 27–40; TEMP 37–37.9; O2SAT 88–100
[2021-08-02 00:37] LABS: Glucose Point of Care 146 mg/dl (65-105)
[2021-08-02 05:33] LABS: Basophils Absolute Auto 0.1 K/mm3 (0.0-0.1); Basophils Percent Auto 0.4 % (0.2-1.2); Eosinophils Percent Auto 0.2 % (0-4.4); Hematocrit 28.8 % (37.0-47.0); Hemoglobin 8.8 g/dL (12.0-15.0); Immature Granulocyte Absolute 0.12 K/mm3 (0.00-0.031); Immature Granulocyte Percent A 0.6 % (0-0.5); Lymphocytes Absolute Auto 0.27 K/mm3 (0.9-3.2); Lymphocytes Percent Auto 1.4 % (18.3-44.2); Mean Corpuscular HGB Conc 30.6 g/dl (32-36); Mean Corpuscular Hemoglobin 29.6 pg (26-34); Mean Platelet Volume 10.3 fl (7.4-10.4); Monocytes Absolute Auto 0.8 K/mm3 (0.1-0.6); Neutrophils Absolute Auto 17.8 K/mm3 (1.3-6.7); Neutrophils Percent Auto 93.4 % (45.5-73.1); Platelet Count Result 320 k/mm3 (150-375); Red Blood Count 2.97 M/mm3 (4.2-5.4); Red Cell Distribution Width 16.6 % (11.5-14.5); White Blood Count 19.1 K/mm3 (4.5-10.0)
[2021-08-02 05:46] LABS: Alanine Aminotransferase 139 U/L (4-35); Albumin Level 3.8 g/dL (3.5-5.1); Alkaline Phosphatase 116 U/L (38-126); Anion Gap 11 mmol/L (8-16); Aspartate Amino Transferase 146 U/L (14-36); Blood Urea Nitrogen 76 mg/dL (7-17); Calcium 8.4 mg/dL (8.4-10.2); Carbon Dioxide 25 mmol/L (22-30); Chloride 99 mmol/L (98-107); Estimated CRCL calculation 16 ml/min; Estimated Glomerular Filt Rate 16; Glucose 160 mg/dL (65-110); Potassium 3.7 mmol/L (3.4-5.0); Sodium 135 mmol/L (137-145)
[2021-08-02 05:59] LABS: Base Excess ABG 0.5 mEq/l (+/-2.0); Total Hemoglobin 12.1 g/dL (12.0-18.0)
[2021-08-02 06:00] LABS: Carboxyhemoglobin 0.3 % THb (0-2.0); Fractional Inspired Oxygen 40 %; Methemoglobin ABG 0.3 %THb (0-1.5); Oxygen Content ABG 16.5 %vol (16.0-22.0); PO2 FiO2 Ratio Arterial Blood 2.64 %; Reduced Hemoglobin 1.3 %THb (0-5.0)
[2021-08-02 06:01] LABS: Device VENTILATOR; Modified Allen's Test Pass; Site Drawn RIGHT RADIAL
[2021-08-02 06:02] LABS: Arterial Blood Gas Ventilator rate 30 /MIN
[2021-08-02 06:03] LABS: Arterial Blood Gas PEEP 10 cmH2O; Arterial Blood Gas Tidal Volume 400 ml; Arterial Blood Gas Vent Mode CMV
[2021-08-02] MEDS: LEVOTHYROXINE SODIUM 100 MCG TABLET PO (06:50)
[2021-08-02] MEDS: CENTRAL LINE FLUSH 10 ML IV PUSH ×2 (06:55→14:05)
[2021-08-02] MEDS: FAMOTIDINE 20 MG TABLET PO ×2 (08:50→20:49)
[2021-08-02] MEDS: ENOXAPARIN 100 MG/ML SYRINGE 90 MG SUB-Q (08:50)
--- NOTE | 2021-08-02 09:33 | WPDINTPN ---
Progress Note: A&P Assessment and Plan (1) Acute hypoxemic respiratory failure due to COVID-19: Code(s): U07.1 - COVID-19; J96.01 - Acute respiratory failure with hypoxia Status: Acute Assessment and Plan: Acute Respiratory failure secondary to COVID-19 with component of pulmonary edema and may have a component of bacterial pneumonia Intubated 07/1407/29/2021: Tracheostomy and PEG tube placement Chest x-ray stable, ABGs reviewed Continue full mechanical ventilation support to prevent hypoxemia/hypercarbia and end organ damage. Currently on PEEP of 10 and 45% FiO2. Low tidal volume ventilation strategy to prevent volutrauma Sedated with Versed. Patient gets tachypneic and asynchronous with ventilator on holding sedation completely. On low-dose Versed Patient already breathing 40 times per minute hence precluding pressure support weaning trial CT chest 07/14 IMPRESSION: 1. Diffuse lung disease, worsened from 07/10/2021, consistent with COVID-19 pneumonia. Bacterial pneumonia and pulmonary edema have overlapping appearances and cannot be excluded. 2. Mild mediastinal lymphadenopathy, likely reactive (2) Pneumonia due to COVID-19 virus: Code(s): U07.1 - COVID-19; J12.82 - Pneumonia due to coronavirus disease 2019 Status: Acute Assessment and Plan: Patient is vaccinated against COVID-19 but has not received a booster dose. She was tested for COVID-19 on 07/06/20[address] found to be positive CT findings are consistent with COVID-19 pneumonia Completed dexamethasone Completed 5 day course of remdesivir on 07/15/2021 Patient received baricitinib Continue droplet, airborne, contact isolation/precautions (3) Community acquired pneumonia: Qualifiers: Laterality: unspecified laterality Qualified Code(s): J18.9 - Pneumonia, unspecified organism Code(s): J18.9 - Pneumonia, unspecified organism Status: Acute Assessment and Plan: Presented with complaints of fever and cough. Patient had elevated white count Cultures, influenza, urine Legionella, urine pneumococcal antigen are negative Status post vancomycin and Levaquin for 14 days. (4) DVT (deep venous thrombosis): Code(s): I82.409 - Acute embolism and thrombosis of unspecified deep veins of unspecified lower extremity Status: Acute Assessment and Plan: Lower extremity Dopplers showed Deep vein thrombosis involving the right posterior tibial veins and left popliteal and posterior tibial veins. Patient is on therapeutic Lovenox (5) Acute on chronic kidney failure: Code(s): N17.9 - Acute kidney failure, unspecified; N18.9 - Chronic kidney disease, unspecified Status: Acute Assessment and Plan: Temporary dialysis catheter was placed on 07/21/2021: Dialysis catheter was removed on 07/29/2021. 07/31 tunneled dialysis catheter placed Dialysis per Nephrology and patient is getting dialyzed today Patient is also on Bumex (6) Hyponatremia: Code(s): E87.1 - Hypo-osmolality and hyponatremia Status: Acute Assessment and Plan: Will use normal saline flushes with tube feeds -improved with dialysis (7) Hypothyroidism: Qualifiers: Hypothyroidism type: acquired Qualified Code(s): E03.9 - Hypothyroidism, unspecified Code(s): E03.9 - Hypothyroidism, unspecified Status: Acute Assessment and Plan: Continue levothyroxine (8) Leukocytosis: Code(s): D72.829 - Elevated white blood cell count, unspecified Status: Acute Assessment and Plan: Patient has low-grade fever and has increase in white cell Her chest x-ray is unchanged Blood culture sent on08/01 and are negative till now Her urine is growing Stephanie. I will change Mariee catheter and start patient on Diflucan Additional Plan Code status: Full code SUP on Pepcid 08/01 I spoke to patient's Felipe by phone. I updated them with patient's current status includi
--- NOTE | 2021-08-02 10:00 | PM.PNNEP ---
Progress Note: A&P Assessment and Plan (1) MARCE (acute kidney injury): Code(s): N17.9 - Acute kidney failure, unspecified Status: Acute Assessment and Plan: likely secondary to COVID-19 infection evaluation to date: urine electrolytes are borderline prerenal renal ultrasound without obstruction creatinine is up to 2.8 Still making some but not quite as much urine HD yesterday -- creatinine relatively stable -- possible recovery? 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 pulmonary toliet, and inhalers s/p tracheostomy (5) Hyponatremia: Code(s): E87.1 - Hypo-osmolality and hyponatremia Status: Acute Assessment and Plan: slowly improving stabilizing dialysis helping to some degree (6) Essential (primary) hypertension: Code(s): I10 - Essential (primary) hypertension Status: Chronic Assessment and Plan: on/off vasopressor therapy at times follow trend of hemodynamics Will continue to follow. Subjective Date/time seen: 08/02/21 10:00 Chart reviewed since last seen - assuming care from Dr. Rueda; remain on mechanical ventilator via tracheostomy; tolerated dialysis treatment yesterday but post procedure, issues with hypotension requiring IV albumin and eventual restart of low dose vasopressor therapy; no apparent distress noted at this time; tolerating tube feeds. Exam Narrative: General: WD/WN female trached and on ventilator Heart: normal S1 and S2; no rub Lungs: coarse breath sounds Abdomen: soft, nontender, nondistended, positive bowel sounds Extremities: no cyanosis or clubbing; trace - 1+edema Skin: warm and dry Objective Data Vital Signs Vital Signs: Vital Signs Temp Pulse Resp BP Pulse Ox 08/02/21 10:00 109 H 08/02/21 08:53 100 93 08/02/21 08:00 37.0 C 98 27 H 115/63 93 08/02/21 06:00 37.5 C 103 H 35 H 107/60 93 08/02/21 05:54 101 H 08/02/21 04:51 99 96 08/02/21 04:00 37.8 C H 98 30 H 91/62 L 95 08/02/21 02:00 37.5 C 95 31 H 98/62 L 94 08/02/21 00:01 37.5 C 99 32 H 135/78 96 08/02/21 00:00 99 08/01/21 23:33 99 95 08/01/21 22:01 37.4 C 96 30 H 104/64 95 08/01/21 22:00 96 08/01/21 20:00 37.7 C H 86 30 H 99/78 L 96 08/01/21 19:47 98 96 08/01/21 18:00 37.6 C H 95 32 H 94/56 L 97 08/01/21 16:02 93 98 08/01/21 16:00 37.7 C H 94 36 H 121/64 100 08/01/21 15:54 88 36 H 08/01/21 14:00 38.0 C H 88 37 H 85/58 L 97 08/01/21 13:45 128 H 94 08/01/21 12:07 115 H 40 H 08/01/21 12:00 37.9 C H 110 H 40 H 87/54 L 96 Intake/Output Intake/Output: Intake & Output 07/30/21 07/31/21 08/01/21 08/02/21 23:59 23:59 23:59 23:59 Intake Total 843 330.0 1716 659 Output Total 1525 1525 7270 200 Balance -682 -1195.0 -804 459 Meds/Results Medications: Active Medications Generic Name Dos
--- NOTE | 2021-08-02 10:00 | P.PNNP_ITS ---
Progress Note: A&P Assessment and Plan (1) MARCE (acute kidney injury): Code(s): N17.9 - Acute kidney failure, unspecified Status: Acute Assessment and Plan: * likely secondary to COVID-19 infection * evaluation to date: * urine electrolytes are borderline prerenal * renal ultrasound without obstruction * creatinine is up to 2.8 Still making some but not quite as much urine * HD yesterday -- creatinine relatively stable -- possible recovery? 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 pulmonary toliet, and inhalers * s/p tracheostomy (5) Hyponatremia: Code(s): E87.1 - Hypo-osmolality and hyponatremia Status: Acute Assessment and Plan: * slowly improving stabilizing * dialysis helping to some degree (6) Essential (primary) hypertension: Code(s): I10 - Essential (primary) hypertension Status: Chronic Assessment and Plan: * on/off vasopressor therapy at times * follow trend of hemodynamics Will continue to follow. Subjective Date/time seen: 08/02/21 10:00 Chart reviewed since last seen - assuming care from Dr. Rueda; remain on mechanical ventilator via tracheostomy; tolerated dialysis treatment yesterday but post procedure, issues with hypotension requiring IV albumin and eventual restart of low dose vasopressor therapy; no apparent distress noted at this time; tolerating tube feeds. Exam Narrative: General: WD/WN female trached and on ventilator Heart: normal S1 and S2; no rub Lungs: coarse breath sounds Abdomen: soft, nontender, nondistended, positive bowel sounds Extremities: no cyanosis or clubbing; trace - 1+edema Skin: warm and dry Objective Data Vital Signs Vital Signs: Vital Signs Temp Pulse Resp BP Pulse Ox 08/02/21 10:00 109 H 08/02/21 08:53 100 93 08/02/21 08:00 37.0 C 98 27 H 115/63 93 08/02/21 06:00 37.5 C 103 H 35 H 107/60 93 08/02/21 05:54 101 H 08/02/21 04:51 99 96 08/02/21 04:00 37.8 C H 98 30 H 91/62 L 95 08/02/21 02:00 37.5 C 95 31 H 98/62 L 94 08/02/21 00:01 37.5 C 99 32 H 135/78 96 08/02/21 00:00 99 08/01/21 23:33 99 95 08/01/21 22:01 37.4 C 96 30 H 104/64 95 08/01/21 22:00 96 08/01/21 20:00 37.7 C H 86 30 H 99/78 L 96
[2021-08-02] MEDS: MIDAZOLAM 100MG/NS 100ML(*CRX) 100 MG/100 ML BAG IV CONT (12:22)
[2021-08-02] MEDS: FLUCONAZOLE 100 MG TABLET 200 MG FEED TUBE (12:23)
[2021-08-02] MEDS: METOCLOPRAMIDE HCL 10 MG/10 ML SOLN UDC PO ×2 (12:23→17:19)
[2021-08-02 12:42] LABS: Glucose Point of Care 161 mg/dl (65-105)
--- NOTE | 2021-08-02 15:05 | PM.IMPN ---
Progress Note: A&P Assessment and Plan (1) Acute hypoxemic respiratory failure due to COVID-19: Code(s): U07.1 - COVID-19; J96.01 - Acute respiratory failure with hypoxia Status: Acute Assessment and Plan: Acute Respiratory failure secondary to COVID-19 with component of pulmonary edema and may have a component of bacterial pneumonia. Patietn was intubated 07/14 with trach placed 07/29/2021. PEG tube placement 07/29/21 as well. CXR today showing moderate R>L COVID PNA unchanged. Continue full mechanical ventilation support to prevent hypoxemia/hypercarbia and end organ damage. Sedated with Versed only now. Appreciate cancer registry manager input (2) Pneumonia due to COVID-19 virus: Code(s): U07.1 - COVID-19; J12.82 - Pneumonia due to coronavirus disease 2018 Status: Acute Assessment and Plan: Patient is vaccinated against COVID-19 but has not received a booster dose. She was tested for COVID-19 on 07/06/[address]21 found to be positive[address] findings are consistent with COVID-19 pneumonia. She completed dexamethasone and 5 day course of remdesivir. She also received baricitinib x 3 doses. Continue droplet, airborne, contact isolation/precautions (3) Community acquired pneumonia: Qualifiers: Laterality: unspecified laterality Qualified Code(s): J18.9 - Pneumonia, unspecified organism Code(s): J18.9 - Pneumonia, unspecified organism Status: Acute Assessment and Plan: Presented with complaints of fever and cough. Patient had elevated white count. Cultures, influenza, urine Legionella, urine pneumococcal antigen all were negative. Completed 14 day course with vancomycin and Levaquin. Low grade fever today and with HoTN. BCx / growing GPB felt to be contaminate. Sputum and urine growing Candidia. She remains off abx. Repeat BCx. Monitor but resume abx (antifungal?) if remains HoTN with persistent fevres. (4) DVT (deep venous thrombosis): Code(s): I82.409 - Acute embolism and thrombosis of unspecified deep veins of unspecified lower extremity Status: Acute Assessment and Plan: Lower extremity Dopplers 07/14 showing DVT involving the right posterior tibial veins and left popliteal and posterior tibial veins. Patient resumed on therapeutic Lovenox. (5) Acute on chronic kidney failure: Code(s): N17.9 - Acute kidney failure, unspecified; N18.9 - Chronic kidney disease, unspecified Status: Acute Assessment and Plan: Temporary dialysis catheter was placed on 07/21/2021 and removed 07/29/21. Permanent tunneled Dialysis catheter was placed 07/31/21. Tolerated HD but with HoTN after treatment today. Bumex held. Treated with Albumin. Appreciate nephrology input. (6) Hyponatremia: Code(s): E87.1 - Hypo-osmolality and hyponatremia Status: Acute Assessment and Plan: Mild hyponatremia but normal now. Follow. (7) Hypothyroidism: Qualifiers: Hypothyroidism type: acquired Qualified Code(s): E03.9 - Hypothyroidism, unspecified Code(s): E03.9 - Hypothyroidism, unspecified Status: Acute Assessment and Plan: TSH normal. Continue levothyroxine Subjective Date/time seen: 08/02/21 15:05 Interval history: 76yo female with a history of CKD, HTN, hypothyroidism, aortic stenosis who presented to the ED on 07/06/2021 with complaints of fever and cough. Intubated 07/14 with trach placed 07/29. PEG placed 07/29. Assuming care. Chart reviewed. Patient intuabted via trach and sedated. She was tachypneic in the 30's but increased to the 40's when Fentanyl stopped this morning. She had HD earlier with 1.8L removed. BP was stable but has since dropped to SBP 77 and albumin ordered. She is full code. 08/02/2021 discussed with the nursing staff. Chart reviewed. Patient intubated via trach and sedated. On hemodialysis tube feeds via PEG tube Review of Systems Review of Systems: ROS unobtainable: Yes unobtainable due to
[2021-08-02 18:11] LABS: Glucose Point of Care 172 mg/dl (65-105)
[2021-08-02] MEDS: MINERAL OIL/WHITE PETROLATUM OINTMENT 1 APPLIC EACH EYE (20:46)
[2021-08-03] VITALS (18 sets, daily range): BP systolic 77–137; BP diastolic 51–72; PULSE 32–99; RESP 29–35; TEMP 36.4–37.6; O2SAT 90–100
[2021-08-03] MEDS: CENTRAL LINE FLUSH 10 ML IV PUSH ×4 (01:17→20:04)
[2021-08-03] MEDS: METOCLOPRAMIDE HCL 10 MG/10 ML SOLN UDC PO ×4 (01:17→17:16)
[2021-08-03 01:26] LABS: Glucose Point of Care 149 mg/dl (65-105)
[2021-08-03 04:28] LABS: Basophils Absolute Auto 0.1 K/mm3 (0.0-0.1); Basophils Percent Auto 0.6 % (0.2-1.2); Eosinophils Absolute Auto 0.1 K/mm3 (0-0.3); Eosinophils Percent Auto 0.6 % (0-4.4); Hematocrit 28.2 % (37.0-47.0); Hemoglobin 8.6 g/dL (12.0-15.0); Immature Granulocyte Percent A 0.7 % (0-0.5); Lymphocytes Percent Auto 2.8 % (18.3-44.2); Mean Corpuscular HGB Conc 30.5 g/dl (32-36); Mean Corpuscular Hemoglobin 29.7 pg (26-34); Mean Corpuscular Volume 97.2 fl (80-100); Mean Platelet Volume 10.4 fl (7.4-10.4); Monocytes Absolute Auto 0.7 K/mm3 (0.1-0.6); Monocytes Percent Auto 4.6 % (2.6-8.5); Neutrophils Absolute Auto 13.1 K/mm3 (1.3-6.7); Neutrophils Percent Auto 90.7 % (45.5-73.1); Platelet Count Result 290 k/mm3 (150-375); Red Cell Distribution Width 17.1 % (11.5-14.5); White Blood Count 14.5 K/mm3 (4.5-10.0)
[2021-08-03 05:03] LABS: Alanine Aminotransferase 131 U/L (4-35); Albumin Level 3.5 g/dL (3.5-5.1); Alkaline Phosphatase 145 U/L (38-126); Anion Gap 14 mmol/L (8-16); Aspartate Amino Transferase 86 U/L (14-36); Bilirubin,Total 1.2 mg/dL (0.2-1.3); Blood Urea Nitrogen 91 mg/dL (7-17); Calcium 8.3 mg/dL (8.4-10.2); Carbon Dioxide 25 mmol/L (22-30); Chloride 97 mmol/L (98-107); Estimated CRCL calculation 13 ml/min; Estimated Glomerular Filt Rate 13; Glucose 143 mg/dL (65-110); Magnesium 2.1 mg/dL (1.6-2.3); Potassium 3.5 mmol/L (3.4-5.0); Sodium 136 mmol/L (137-145)
[2021-08-03] MEDS: LEVOTHYROXINE SODIUM 100 MCG TABLET PO (06:09)
[2021-08-03 06:49] LABS: Glucose Point of Care 131 mg/dl (65-105)
[2021-08-03] MEDS: ENOXAPARIN 100 MG/ML SYRINGE 90 MG SUB-Q (07:45)
[2021-08-03] MEDS: FLUCONAZOLE 100 MG TABLET 200 MG FEED TUBE (07:46)
[2021-08-03] MEDS: FAMOTIDINE 20 MG TABLET PO ×2 (07:46→20:03)
--- NOTE | 2021-08-03 08:15 | PM.IMPN ---
Progress Note: A&P Assessment and Plan (1) Acute hypoxemic respiratory failure due to COVID-19: Code(s): U07.1 - COVID-19; J96.01 - Acute respiratory failure with hypoxia Status: Acute Assessment and Plan: Acute Respiratory failure secondary to COVID-19 with component of pulmonary edema and may have a component of bacterial pneumonia Intubated 07/1407/29/2021: Tracheostomy and PEG tube placement Chest x-ray stable, ABGs reviewed Continue full mechanical ventilation support to prevent hypoxemia/hypercarbia and end organ damage. Currently on PEEP of 10 and 45% FiO2. Low tidal volume ventilation strategy to prevent volutrauma Off of continue sedation and is on p.r.n. sedation only. Patient gets tachypneic and asynchronous with ventilator on holding sedation completely. Will assess for pressure support weaning trial once fully awake and not tachypneic CT chest 07/14 IMPRESSION: 1. Diffuse lung disease, worsened from 07/10/2021, consistent with COVID-19 pneumonia. Bacterial pneumonia and pulmonary edema have overlapping appearances and cannot be excluded. 2. Mild mediastinal lymphadenopathy, likely reactive (2) Pneumonia due to COVID-19 virus: Code(s): U07.1 - COVID-19; J12.82 - Pneumonia due to coronavirus disease 2019 Status: Acute Assessment and Plan: Patient is vaccinated against COVID-19 but has not received a booster dose. She was tested for COVID-19 on 07/06/[address] findings are consistent with COVID-19 pneumonia Completed dexamethasone Completed 5 day course of remdesivir on 07/15/2021 Patient received baricitinib Continue droplet, airborne, contact isolation/precautions (3) Community acquired pneumonia: Qualifiers: Laterality: unspecified laterality Qualified Code(s): J18.9 - Pneumonia, unspecified organism Code(s): J18.9 - Pneumonia, unspecified organism Status: Acute Assessment and Plan: Presented with complaints of fever and cough. Patient had elevated white count Cultures, influenza, urine Legionella, urine pneumococcal antigen are negative Status post vancomycin and Levaquin for 14 days. (4) DVT (deep venous thrombosis): Code(s): I82.409 - Acute embolism and thrombosis of unspecified deep veins of unspecified lower extremity Status: Acute Assessment and Plan: Lower extremity Dopplers showed Deep vein thrombosis involving the right posterior tibial veins and left popliteal and posterior tibial veins. Patient is on therapeutic Lovenox (5) Acute on chronic kidney failure: Code(s): N17.9 - Acute kidney failure, unspecified; N18.9 - Chronic kidney disease, unspecified Status: Acute Assessment and Plan: Temporary dialysis catheter was placed on 07/21/2021: Dialysis catheter was removed on 07/29/2021. 07/31 tunneled dialysis catheter placed Dialysis per Nephrology Patient is also on Bumex (6) Hyponatremia: Code(s): E87.1 - Hypo-osmolality and hyponatremia Status: Acute Assessment and Plan: Will use normal saline flushes with tube feeds -improved with dialysis (7) Hypothyroidism: Qualifiers: Hypothyroidism type: acquired Qualified Code(s): E03.9 - Hypothyroidism, unspecified Code(s): E03.9 - Hypothyroidism, unspecified Status: Acute Assessment and Plan: Continue levothyroxine (8) Leukocytosis: Code(s): D72.829 - Elevated white blood cell count, unspecified Status: Acute Assessment and Plan: Her chest x-ray(08/01) is unchanged Blood culture sent on08/01 and are negative till now Her urine grew Stephanie. Mariee catheter was exchanged and patient was started on Diflucan. She is now afebrile and WBCs decreasing Additional Plan Code status: Full code SUP on Pepcid Patient awaits LTAC placement 08/01 patient currently waitlisted for LTAC when bed is available Critical care time spent: 30 minutes Subje
--- NOTE | 2021-08-03 09:22 | WPDINTPN ---
Progress Note: A&P Assessment and Plan (1) Acute hypoxemic respiratory failure due to COVID-19: Code(s): U07.1 - COVID-19; J96.01 - Acute respiratory failure with hypoxia Status: Acute Assessment and Plan: Acute Respiratory failure secondary to COVID-19 with component of pulmonary edema and may have a component of bacterial pneumonia Intubated 07/1407/29/2021: Tracheostomy and PEG tube placement Chest x-ray stable, ABGs reviewed Continue full mechanical ventilation support to prevent hypoxemia/hypercarbia and end organ damage. Currently on PEEP of 10 and 45% FiO2. Low tidal volume ventilation strategy to prevent volutrauma Off of continue sedation and is on p.r.n. sedation only. Patient gets tachypneic and asynchronous with ventilator on holding sedation completely. Will assess for pressure support weaning trial once fully awake and not tachypneic CT chest 07/14 IMPRESSION: 1. Diffuse lung disease, worsened from 07/10/2021, consistent with COVID-19 pneumonia. Bacterial pneumonia and pulmonary edema have overlapping appearances and cannot be excluded. 2. Mild mediastinal lymphadenopathy, likely reactive (2) Pneumonia due to COVID-19 virus: Code(s): U07.1 - COVID-19; J12.82 - Pneumonia due to coronavirus disease 2019 Status: Acute Assessment and Plan: Patient is vaccinated against COVID-19 but has not received a booster dose. She was tested for COVID-19 on 07/06/20[address] found to be positive CT findings are consistent with COVID-19 pneumonia Completed dexamethasone Completed 5 day course of remdesivir on 07/15/2021 Patient received baricitinib Continue droplet, airborne, contact isolation/precautions (3) Community acquired pneumonia: Qualifiers: Laterality: unspecified laterality Qualified Code(s): J18.9 - Pneumonia, unspecified organism Code(s): J18.9 - Pneumonia, unspecified organism Status: Acute Assessment and Plan: Presented with complaints of fever and cough. Patient had elevated white count Cultures, influenza, urine Legionella, urine pneumococcal antigen are negative Status post vancomycin and Levaquin for 14 days. (4) DVT (deep venous thrombosis): Code(s): I82.409 - Acute embolism and thrombosis of unspecified deep veins of unspecified lower extremity Status: Acute Assessment and Plan: Lower extremity Dopplers showed Deep vein thrombosis involving the right posterior tibial veins and left popliteal and posterior tibial veins. Patient is on therapeutic Lovenox (5) Acute on chronic kidney failure: Code(s): N17.9 - Acute kidney failure, unspecified; N18.9 - Chronic kidney disease, unspecified Status: Acute Assessment and Plan: Temporary dialysis catheter was placed on 07/21/2021: Dialysis catheter was removed on 07/29/2021. 07/31 tunneled dialysis catheter placed Dialysis per Nephrology Patient is also on Bumex (6) Hyponatremia: Code(s): E87.1 - Hypo-osmolality and hyponatremia Status: Acute Assessment and Plan: Will use normal saline flushes with tube feeds -improved with dialysis (7) Hypothyroidism: Qualifiers: Hypothyroidism type: acquired Qualified Code(s): E03.9 - Hypothyroidism, unspecified Code(s): E03.9 - Hypothyroidism, unspecified Status: Acute Assessment and Plan: Continue levothyroxine (8) Leukocytosis: Code(s): D72.829 - Elevated white blood cell count, unspecified Status: Acute Assessment and Plan: Her chest x-ray is unchanged Blood culture sent on08/01 and are negative till now Her urine grew Stephanie. I changed Mariee catheter and started patient on Diflucan She is now afebrile and WBCs decreasing Additional Plan Code status: Full code SUP on Pepcid Patient awaits LTAC placement 08/01 I spoke to patient's Felipe by phone. I updated them with patient's current status including respiratory failure and he
--- NOTE | 2021-08-03 11:13 | P.PNNP_ITS ---
Progress Note: A&P Assessment and Plan (1) MARCE (acute kidney injury): Code(s): N17.9 - Acute kidney failure, unspecified Status: Acute Assessment and Plan: * likely secondary to COVID-19 infection * evaluation to date: * urine electrolytes are borderline prerenal * renal ultrasound without obstruction * creatinine is up and but not quite as much urine output as previously * last HD treatment on Wednesday (08/01/21) - possible recovery? 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 pulmonary toliet, and inhalers * s/p tracheostomy (5) Hyponatremia: Code(s): E87.1 - Hypo-osmolality and hyponatremia Status: Acute Assessment and Plan: * slowly improving stabilizing * dialysis helping to some degree (6) Essential (primary) hypertension: Code(s): I10 - Essential (primary) hypertension Status: Chronic Assessment and Plan: * on/off vasopressor therapy at times * follow trend of hemodynamics Will continue to follow. Subjective Date/time seen: 08/03/21 11:13 No real significant change at this time time; remains on ventilator support via tracheostomy; tolerating tube feeds; relatively stable hemodynamics at this time; no other acute issues/events overnight or earlier this morning. Exam Narrative: General: WD/WN female - trached and on ventilator Heart: normal S1 and S2; no rub Lungs: coarse breath sounds Abdomen: soft, nontender, nondistended, positive bowel sounds Extremities: no cyanosis or clubbing; trace - 1+ edema Skin: no rash Objective Data Vital Signs Vital Signs: Vital Signs Temp Pulse Resp BP Pulse Ox 08/03/21 10:35 99 93 08/03/21 10:00 37.2 C 96 114/65 100 08/03/21 07:49 37.3 C 94 34 H 103/68 98 08/03/21 06:00 37.6 C 92 31 H 136/70 100 08/03/21 04:00 37.6 C 92 35 H 107/66 100 08/03/21 02:18 92 95 08/03/21 02:00 37.4 C 91 30 H 104/72 100 08/03/21 00:00 37.2 C 78 30 H 98/62 L 98 08/02/21 22:00 37.4 C 95 29 H 114/67 97 08/02/21 20:00 37.6 C H 94 29 H 95/57 L 91 08/02/21 19:28 88 96 08/02/21 18:00 37.7 C H 95 33 H 105/65 99 08/02/21 17:45 98 94 08/02/21 17:01 37.7 C H 99 34 H 102/64 08/02/21 16:31 37.7 C H 106 H 28 H 107/82 08/02/21
--- NOTE | 2021-08-03 11:13 | PM.PNNEP ---
Progress Note: A&P Assessment and Plan (1) MARCE (acute kidney injury): Code(s): N17.9 - Acute kidney failure, unspecified Status: Acute Assessment and Plan: likely secondary to COVID-19 infection evaluation to date: urine electrolytes are borderline prerenal renal ultrasound without obstruction creatinine is up and but not quite as much urine output as previously last HD treatment on Wednesday (08/01/21) - possible recovery? 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 pulmonary toliet, and inhalers s/p tracheostomy (5) Hyponatremia: Code(s): E87.1 - Hypo-osmolality and hyponatremia Status: Acute Assessment and Plan: slowly improving stabilizing dialysis helping to some degree (6) Essential (primary) hypertension: Code(s): I10 - Essential (primary) hypertension Status: Chronic Assessment and Plan: on/off vasopressor therapy at times follow trend of hemodynamics Will continue to follow. Subjective Date/time seen: 08/03/21 11:13 No real significant change at this time time; remains on ventilator support via tracheostomy; tolerating tube feeds; relatively stable hemodynamics at this time; no other acute issues/events overnight or earlier this morning. Exam Narrative: General: WD/WN female - trached and on ventilator Heart: normal S1 and S2; no rub Lungs: coarse breath sounds Abdomen: soft, nontender, nondistended, positive bowel sounds Extremities: no cyanosis or clubbing; trace - 1+ edema Skin: no rash Objective Data Vital Signs Vital Signs: Vital Signs Temp Pulse Resp BP Pulse Ox 08/03/21 10:35 99 93 08/03/21 10:00 37.2 C 96 114/65 100 08/03/21 07:49 37.3 C 94 34 H 103/68 98 08/03/21 06:00 37.6 C 92 31 H 136/70 100 08/03/21 04:00 37.6 C 92 35 H 107/66 100 08/03/21 02:18 92 95 08/03/21 02:00 37.4 C 91 30 H 104/72 100 08/03/21 00:00 37.2 C 78 30 H 98/62 L 98 08/02/21 22:00 37.4 C 95 29 H 114/67 97 08/02/21 20:00 37.6 C H 94 29 H 95/57 L 91 08/02/21 19:28 88 96 08/02/21 18:00 37.7 C H 95 33 H 105/65 99 08/02/21 17:45 98 94 08/02/21 17:01 37.7 C H 99 34 H 102/64 08/02/21 16:31 37.7 C H 106 H 28 H 107/82 08/02/21 16:01 37.6 C H 105 H 35 H 112/76 94 08/02/21 16:00 37.6 C H 106 H 37 H 112/71 96 08/02/21 15:39 100 08/02/21 15:01 37.6 C 96 28 H 103/67 96 08/02/21 14:01 37.7 C H 100 33 H 102/65 96 08/02/21 14:00 100 08/02/21 13:29 99 99 08/02/21 13:06 103 H 08/02/21 13:01 37.7 C H 104 H 40 H 105/67 95 Intake/Output Intake/Output: Intake & Output 07/31/21 08/01/21 08/02/21 08/03/21 23:59 23:59 23:59 23:59 Intake Total 330.0 1716 1150 258 Output Total 1525 2520 375 150 Balance -1195.0 -804 775 108 Meds/Results Medications: Active Medications Generic Name Dose Route Start L
[2021-08-03 12:31] LABS: Glucose Point of Care 119 mg/dl (65-105)
--- NOTE | 2021-08-03 17:07 | PC.NURSE ---
Trach sutures removed, ties changed, per Dr. Ortez's directions. Patient tolerated well, no complications noted.
[2021-08-03 18:06] LABS: Glucose Point of Care 140 mg/dl (65-105)
[2021-08-03] MEDS: MINERAL OIL/WHITE PETROLATUM OINTMENT 1 APPLIC EACH EYE (20:03)
[2021-08-04] VITALS (35 sets, daily range): BP systolic 94–157; BP diastolic 55–102; PULSE 80–154; RESP 23–98; TEMP 36–37.7; O2SAT 94–98
[2021-08-04 00:51] LABS: Glucose Point of Care 123 mg/dl (65-105)
[2021-08-04 04:52] LABS: Basophils Percent Auto 0.4 % (0.2-1.2); Eosinophils Absolute Auto 0.3 K/mm3 (0-0.3); Eosinophils Percent Auto 3.4 % (0-4.4); Hematocrit 27.5 % (37.0-47.0); Hemoglobin 8.7 g/dL (12.0-15.0); Immature Granulocyte Absolute 0.08 K/mm3 (0.00-0.031); Immature Granulocyte Percent A 0.8 % (0-0.5); Lymphocytes Percent Auto 4.1 % (18.3-44.2); Mean Corpuscular HGB Conc 31.6 g/dl (32-36); Mean Corpuscular Volume 94.8 fl (80-100); Mean Platelet Volume 10.8 fl (7.4-10.4); Monocytes Absolute Auto 0.8 K/mm3 (0.1-0.6); Monocytes Percent Auto 8.2 % (2.6-8.5); Neutrophils Percent Auto 83.1 % (45.5-73.1); Platelet Count Result 318 k/mm3 (150-375); Red Cell Distribution Width 16.9 % (11.5-14.5); White Blood Count 9.7 K/mm3 (4.5-10.0)
[2021-08-04 05:24] LABS: Alanine Aminotransferase 111 U/L (4-35); Albumin Level 3.4 g/dL (3.5-5.1); Alkaline Phosphatase 161 U/L (38-126); Anion Gap 14 mmol/L (8-16); Aspartate Amino Transferase 59 U/L (14-36); Bilirubin,Total 0.9 mg/dL (0.2-1.3); Blood Urea Nitrogen 105 mg/dL (7-17); Calcium 8.4 mg/dL (8.4-10.2); Carbon Dioxide 25 mmol/L (22-30); Chloride 95 mmol/L (98-107); Estimated CRCL calculation 13 ml/min; Estimated Glomerular Filt Rate 13; Glucose 132 mg/dL (65-110); Magnesium 2.3 mg/dL (1.6-2.3); Potassium 3.6 mmol/L (3.4-5.0); Sodium 134 mmol/L (137-145)
[2021-08-04 06:14] LABS: Alveolar/Arterial O2 Gradient 103.1 mmHg; Base Excess ABG -2.4 mEq/l (+/-2.0); Carboxyhemoglobin 0.1 % THb (0-2.0); Device VENTILATOR; Fractional Inspired Oxygen 40 %; HCO3 ABG 22.7 mEq/l (22.0-26.0); Methemoglobin ABG 0.3 %THb (0-1.5); Modified Allen's Test Unable to perform; Oxygen Content ABG 13.6 %vol (16.0-22.0); Oxygen Saturation ABG 98.6 % (95.0-100.0); Oxyhemoglobin 97.6 % THb (90.0-100.0); PCO2 ABG 40.6 mmHg (35.0-45.0); PO2 ABG 135.4 mmHg (80.0-100.0); PO2 FiO2 Ratio Arterial Blood 3.38 %; Site Drawn LEFT RADIAL; Total Hemoglobin 9.7 g/dL (12.0-18.0); pH ABG 7.366 (7.350-7.450)
[2021-08-04 06:15] LABS: Arterial Blood Gas PEEP 10 cmH2O; Arterial Blood Gas Tidal Volume 400 ml; Arterial Blood Gas Vent Mode CMV; Arterial Blood Gas Ventilator rate 30 /MIN
[2021-08-04] MEDS: CYANOCOBALAMIN 500 MCG TABLET PO (10:22)
[2021-08-04] MEDS: LEVOTHYROXINE SODIUM 100 MCG TABLET PO (10:22)
[2021-08-04] MEDS: FAMOTIDINE 20 MG TABLET PO ×2 (10:22→21:10)
[2021-08-04] MEDS: CHOLECALCIFEROL 1,000 UNITS TABLET 5000 UNITS PO (10:23)
[2021-08-04] MEDS: ENOXAPARIN 100 MG/ML SYRINGE 90 MG SUB-Q (10:23)
[2021-08-04] MEDS: PYRIDOXINE HCL 25 MG TABLET PO (10:24)
[2021-08-04] MEDS: FLUCONAZOLE 100 MG TABLET 200 MG FEED TUBE (10:24)
--- NOTE | 2021-08-04 10:56 | WPDINTPN ---
Progress Note: A&P Assessment and Plan (1) Acute hypoxemic respiratory failure due to COVID-19: Code(s): U07.1 - COVID-19; J96.01 - Acute respiratory failure with hypoxia Status: Acute Assessment and Plan: Acute Respiratory failure secondary to COVID-19 with component of pulmonary edema and may have a component of bacterial pneumonia Intubated 07/1407/29/2021: Tracheostomy and PEG tube placement Chest x-ray stable, ABGs reviewed Continue full mechanical ventilation support to prevent hypoxemia/hypercarbia and end organ damage. Decrease PEEP to 8 and 45% FiO2. Failed pressure support ventilation weaning trial this morning due to high RSBI Low tidal volume ventilation strategy to prevent volutrauma Off of continuous sedation and is on p.r.n. sedation only. Patient gets tachypneic and asynchronous with ventilator on discontinuing sedation completely. CT chest 07/14 IMPRESSION: 1. Diffuse lung disease, worsened from 07/10/2021, consistent with COVID-19 pneumonia. Bacterial pneumonia and pulmonary edema have overlapping appearances and cannot be excluded. 2. Mild mediastinal lymphadenopathy, likely reactive (2) Pneumonia due to COVID-19 virus: Code(s): U07.1 - COVID-19; J12.82 - Pneumonia due to coronavirus disease 2019 Status: Acute Assessment and Plan: Patient is vaccinated against COVID-19 but has not received a booster dose. She was tested for COVID-19 on 07/06/[address] findings are consistent with COVID-19 pneumonia Completed dexamethasone Completed 5 day course of remdesivir on 07/15/2021 Patient received baricitinib Continue droplet, airborne, contact isolation/precautions (3) Community acquired pneumonia: Qualifiers: Laterality: unspecified laterality Qualified Code(s): J18.9 - Pneumonia, unspecified organism Code(s): J18.9 - Pneumonia, unspecified organism Status: Acute Assessment and Plan: Presented with complaints of fever and cough. Patient had elevated white count Cultures, influenza, urine Legionella, urine pneumococcal antigen are negative Status post vancomycin and Levaquin for 14 days. (4) DVT (deep venous thrombosis): Code(s): I82.409 - Acute embolism and thrombosis of unspecified deep veins of unspecified lower extremity Status: Acute Assessment and Plan: Lower extremity Dopplers showed Deep vein thrombosis involving the right posterior tibial veins and left popliteal and posterior tibial veins. Patient is on therapeutic Lovenox (5) Acute on chronic kidney failure: Code(s): N17.9 - Acute kidney failure, unspecified; N18.9 - Chronic kidney disease, unspecified Status: Acute Assessment and Plan: Temporary dialysis catheter was placed on 07/21/2021: Dialysis catheter was removed on 07/29/2021. 07/31 tunneled dialysis catheter placed Dialysis per Nephrology Patient is also on Bumex (6) Hyponatremia: Code(s): E87.1 - Hypo-osmolality and hyponatremia Status: Acute Assessment and Plan: Will use normal saline flushes with tube feeds -improved with dialysis (7) Hypothyroidism: Qualifiers: Hypothyroidism type: acquired Qualified Code(s): E03.9 - Hypothyroidism, unspecified Code(s): E03.9 - Hypothyroidism, unspecified Status: Acute Assessment and Plan: Continue levothyroxine (8) Leukocytosis: Code(s): D72.829 - Elevated white blood cell count, unspecified Status: Acute Assessment and Plan: Her chest x-ray is unchanged Blood culture sent on08/01 and are negative till now Her urine grew Stephanie. I changed Mariee catheter and started patient on Diflucan She is now afebrile and WBCs has normalized Additional Plan Code status: Full code SUP on Pepcid Patient awaits LTAC placement 08/01 I spoke to patient's Felipe by phone. I updated them with patient's current status including respiratory failure an
--- NOTE | 2021-08-04 12:30 | PCFNICU ---
ICU Rounding Note: Pt current nutrition is Nepro at 40 ml/hr. Last recorded weight is 85.3 kg, down from 95.2 kg on admit. Bowel Motility:+BM reported 08/03 Labs Reviewed:Glu 132, BUN 105, GFR 13, Cr 3.4, Na 134, Hct 27.5,Hgb 8.7 Meds Noted: Vit D, Vit B6, Synthroid, Lovenox, Vit B12, Diflucan, Pepcid Skin: WNL Additional Notes: Patient current with PEG and Trach. Tube feeding of Nepro at 40 ml/hr and tolerating per nursing. Agree with diet orders. Discharge plan LTAC when bed is available. Following daily in ICU rounds. Will monitor every Wednesday and Wednesday.
[2021-08-04 12:45] LABS: Glucose Point of Care 115 mg/dl (65-105)
[2021-08-04] MEDS: METOCLOPRAMIDE HCL 10 MG/10 ML SOLN UDC PO ×2 (12:47→17:12)
[2021-08-04] MEDS: CENTRAL LINE FLUSH 10 ML IV PUSH ×2 (12:47→21:10)
[2021-08-04] MEDS: SODIUM CHLORIDE 0.9% IV 1,000 ML 999 ML IV CONT (14:32)
[2021-08-04] MEDS: EPOETIN ALFA-EPBX 10,000 UNITS/ML VIAL 10000 UNITS IV PUSH (15:11)
--- NOTE | 2021-08-04 15:38 | P.PNNP_ITS ---
Progress Note: A&P Assessment and Plan (1) MARCE (acute kidney injury): Code(s): N17.9 - Acute kidney failure, unspecified Status: Acute Assessment and Plan: * likely secondary to COVID-19 infection * evaluation to date: * urine electrolytes are borderline prerenal * renal ultrasound without obstruction * creatinine is up and but not quite as much urine output as previously * HD today and continue M/W/F schedule for now * follow trend of labs and UOP for potential renal recovery 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 pulmonary toliet, and inhalers * s/p tracheostomy (5) Hyponatremia: Code(s): E87.1 - Hypo-osmolality and hyponatremia Status: Acute Assessment and Plan: * slowly improving stabilizing * dialysis helping to some degree (6) Essential (primary) hypertension: Code(s): I10 - Essential (primary) hypertension Status: Chronic Assessment and Plan: * stable BP * follow trend of hemodynamics Will continue to follow. Subjective Date/time seen: 08/04/21 15:38 Tolerating hemodialysis treatment at the time of my visit (seen on HD at 3:30PM); remain on mechanical ventilation via tracheostomy; hemodynamically stable without the need for vasopressor therapy at this time; tolerating tube feeds; no apparent distress. Exam Narrative: General: WD/WN female - trached and on ventilator Heart: normal S1 and S2; no rub Lungs: coarse breath sounds Abdomen: soft, nontender, nondistended, positive bowel sounds Extremities: no cyanosis or clubbing; trace - 1+ edema Skin: no nodules Objective Data Vital Signs Vital Signs: Vital Signs Temp Pulse Resp BP Pulse Ox 08/04/21 15:30 113 H 104/66 08/04/21 15:15 114 H 113/71 08/04/21 15:00 105 H 123/64 08/04/21 14:45 103 H 104/68 08/04/21 14:30 102 H 114/71 08/04/21 14:15 103 H 113/67 95 08/04/21 14:00 102 H 107/71 08/04/21 13:45 97 119/67 08/04/21 13:27 98 127/66 08/04/21 13:15 37.6 C H 97 24 H 157/73 H 95 08/04/21 12:00 37.6 C 92 32 H 123/60 95 08/04/21 11:51 95 95 08/04/21 10:00 37.3 C 101 H 34 H 115/60 94 08/04/21 09:44 98 94 08/04/21 08:00 37.2 C 96 34 H 117/63 94 08/04/21 06:00 80 30 H 94/59 L 95 08/04/21 05:30 93 96 08/04/21 04:00 36.6 C 93 30 H 118/71 98 08/04/21 01:57 96 32 H 121/65 97
--- NOTE | 2021-08-04 15:38 | PM.PNNEP ---
Progress Note: A&P Assessment and Plan (1) MARCE (acute kidney injury): Code(s): N17.9 - Acute kidney failure, unspecified Status: Acute Assessment and Plan: likely secondary to COVID-19 infection evaluation to date: urine electrolytes are borderline prerenal renal ultrasound without obstruction creatinine is up and but not quite as much urine output as previously HD today and continue M/W/F schedule for now follow trend of labs and UOP for potential renal recovery 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 pulmonary toliet, and inhalers s/p tracheostomy (5) Hyponatremia: Code(s): E87.1 - Hypo-osmolality and hyponatremia Status: Acute Assessment and Plan: slowly improving stabilizing dialysis helping to some degree (6) Essential (primary) hypertension: Code(s): I10 - Essential (primary) hypertension Status: Chronic Assessment and Plan: stable BP follow trend of hemodynamics Will continue to follow. Subjective Date/time seen: 08/04/21 15:38 Tolerating hemodialysis treatment at the time of my visit (seen on HD at 3:30PM); remain on mechanical ventilation via tracheostomy; hemodynamically stable without the need for vasopressor therapy at this time; tolerating tube feeds; no apparent distress. Exam Narrative: General: WD/WN female - trached and on ventilator Heart: normal S1 and S2; no rub Lungs: coarse breath sounds Abdomen: soft, nontender, nondistended, positive bowel sounds Extremities: no cyanosis or clubbing; trace - 1+ edema Skin: no nodules Objective Data Vital Signs Vital Signs: Vital Signs Temp Pulse Resp BP Pulse Ox 08/04/21 15:30 113 H 104/66 08/04/21 15:15 114 H 113/71 08/04/21 15:00 105 H 123/64 08/04/21 14:45 103 H 104/68 08/04/21 14:30 102 H 114/71 08/04/21 14:15 103 H 113/67 95 08/04/21 14:00 102 H 107/71 08/04/21 13:45 97 119/67 08/04/21 13:27 98 127/66 08/04/21 13:15 37.6 C H 97 24 H 157/73 H 95 08/04/21 12:00 37.6 C 92 32 H 123/60 95 08/04/21 11:51 95 95 08/04/21 10:00 37.3 C 101 H 34 H 115/60 94 08/04/21 09:44 98 94 08/04/21 08:00 37.2 C 96 34 H 117/63 94 08/04/21 06:00 80 30 H 94/59 L 95 08/04/21 05:30 93 96 08/04/21 04:00 36.6 C 93 30 H 118/71 98 08/04/21 01:57 96 32 H 121/65 97 08/04/21 01:56 96 08/04/21 00:00 36.6 C 98 23 H 129/61 94 08/03/21 23:00 97 95 08/03/21 22:30 109/57 L 08/03/21 22:00 36.6 C 79 29 H 77/51 L 95 08/03/21 20:00 36.4 C 85 30 H 87/53 L 93 08/03/21 18:03 95 93 08/03/21 18:00 36.5 C 96 107/55 L 95 08/03/21 16:00 37.0 C 79 34 H 91/56 L 95 Intake/Output Intake/Output: Intake & Output 08/01/21 08/02/21 08/03/21 08/04/21 23:59 23:59 23:59 23:59 Intake Total 1716 1150 654 315 Output Total 2520 375 400 250 Balance -804 775 254 65 Meds/Results Medications: Active Medications Generic Name Dose Route Start Last Admin Trade Name Freq PRN Reason
[2021-08-04 20:51] LABS: Glucose Point of Care 146 mg/dl (65-105)
[2021-08-04] MEDS: MINERAL OIL/WHITE PETROLATUM OINTMENT 1 APPLIC EACH EYE (21:10)
[2021-08-05] VITALS (23 sets, daily range): BP systolic 114–154; BP diastolic 69–89; PULSE 86–122; RESP 27–45; TEMP 37.3–38.1; O2SAT 93–98
[2021-08-05 00:22] LABS: Glucose Point of Care 144 mg/dl (65-105)
[2021-08-05 04:09] LABS: Hematocrit 32.2 % (37.0-47.0); Hemoglobin 9.7 g/dL (12.0-15.0); Mean Corpuscular HGB Conc 30.1 g/dl (32-36); Mean Corpuscular Hemoglobin 29.9 pg (26-34); Mean Corpuscular Volume 99.4 fl (80-100); Red Blood Count 3.24 M/mm3 (4.2-5.4); Red Cell Distribution Width 17.2 % (11.5-14.5)
[2021-08-05 04:27] LABS: Alanine Aminotransferase 93 U/L (4-35); Albumin Level 3.6 g/dL (3.5-5.1); Alkaline Phosphatase 191 U/L (38-126); Anion Gap 10 mmol/L (8-16); Aspartate Amino Transferase 44 U/L (14-36); Bilirubin,Total 0.7 mg/dL (0.2-1.3); Blood Urea Nitrogen 50 mg/dL (7-17); Calcium 8.8 mg/dL (8.4-10.2); Carbon Dioxide 26 mmol/L (22-30); Chloride 98 mmol/L (98-107); Estimated CRCL calculation 22 ml/min; Estimated Glomerular Filt Rate 23; Glucose 157 mg/dL (65-110); Magnesium 2.2 mg/dL (1.6-2.3); Sodium 134 mmol/L (137-145)
[2021-08-05 04:40] LABS: Alveolar/Arterial O2 Gradient 80.7 mmHg; Base Excess ABG 2.6 mEq/l (+/-2.0); Carboxyhemoglobin 0.4 % THb (0-2.0); Device VENTILATOR; Fractional Inspired Oxygen 30 %; Methemoglobin ABG 0.3 %THb (0-1.5); Modified Allen's Test Unable to perform; Oxygen Content ABG 13.6 %vol (16.0-22.0); Oxygen Saturation ABG 95.3 % (95.0-100.0); Oxyhemoglobin 94.2 % THb (90.0-100.0); PCO2 ABG 47.1 mmHg (35.0-45.0); PO2 ABG 77.9 mmHg (80.0-100.0); Reduced Hemoglobin 5.1 %THb (0-5.0); Site Drawn RIGHT RADIAL; Total Hemoglobin 10.2 g/dL (12.0-18.0); pH ABG 7.392 (7.350-7.450)
[2021-08-05 04:41] LABS: Arterial Blood Gas PEEP 8 cmH2O; Arterial Blood Gas Tidal Volume 400 ml; Arterial Blood Gas Vent Mode CMV; Arterial Blood Gas Ventilator rate 30 /MIN
[2021-08-05 05:41] LABS: Band Neutrophils Percent 13 % (0-6); Eosinophils Absolute Manual 0.18 K/mm3 (0.02-0.5); Eosinophils Percent Manual 2 % (0-4); Lymphocytes Absolute Manual 0.45 K/mm3 (1.1-4.5); Monocytes Absolute Manual 0.63 K/mm3 (0.1-0.90); Monocytes Percent Manual 7 % (3-9); Neutrophils Absolute Manual 7.74 K/mm3 (1.7-7.2); Neutrophils Percent Manual 73 % (46-73); Platelet Clumps Present; Platelet Estimate Adequate (Adequate); Total Cells Counted 100
[2021-08-05 05:42] LABS: Anisocytosis 1+ (NORMAL); Large Platelets Present; Stomatocytes 1+ (NORMAL)
[2021-08-05] MEDS: CENTRAL LINE FLUSH 10 ML IV PUSH ×3 (06:39→21:38)
[2021-08-05] MEDS: LEVOTHYROXINE SODIUM 100 MCG TABLET PO (06:39)
[2021-08-05] MEDS: ENOXAPARIN 100 MG/ML SYRINGE 90 MG SUB-Q (08:40)
[2021-08-05] MEDS: FAMOTIDINE 20 MG TABLET PO ×2 (08:40→20:40)
[2021-08-05] MEDS: FLUCONAZOLE 100 MG TABLET 200 MG FEED TUBE (08:40)
--- NOTE | 2021-08-05 10:58 | PCNFU ---
Nutrition Follow-Up Complete: Inadequate Oral Intake as related to mechanical ventilation as evidenced by NPO. Goal: Meet estimated nutritional needs We will continue current goal. Pt current nutrition is Nepro at 40 ml/hr over 22 hours. Last recorded weight is 82.4 kg, down from 95.2 kg. Bowel Motility:+BM reported 08/05-diarrhea has been noted. Labs Reviewed:Glu 157, BUN 30, Cr 2.10,Hct 32.2,Hgb 9.7 Meds Noted:Vit B12, Vit D, Pepcid, Lovenox, Synthroid, Diflucan. Skin: WNL Additional Notes: Patient current with Trach and PEG. Tolerating tube feedings of Nepro at 40 ml/hr over 22 hours providing 1584 kcals/71 gms protein/640 ml water with free water flush 30 ml q 4 hours. Nursing is reporting lose stools, Banatrol Plus has been ordered for stool bulking. Agree with diet orders. Discharge plans LTAC when bed available. Will monitor in ICU rounds and reassess every Wednesday and Wednesday.
--- NOTE | 2021-08-05 12:07 | WPDINTPN ---
Progress Note: A&P Assessment and Plan (1) Acute hypoxemic respiratory failure due to COVID-19: Code(s): U07.1 - COVID-19; J96.01 - Acute respiratory failure with hypoxia Status: Acute Assessment and Plan: Acute Respiratory failure secondary to COVID-19 with component of pulmonary edema and may have a component of bacterial pneumonia Intubated 07/1407/29/2021: Tracheostomy and PEG tube placement Chest x-ray stable, ABGs reviewed Continue full mechanical ventilation support to prevent hypoxemia/hypercarbia and end organ damage. Decrease PEEP to 8 and 45% FiO2. Failed pressure support ventilation weaning trial this morning due to high RSBI Low tidal volume ventilation strategy to prevent volutrauma Off of continuous sedation and is on p.r.n. sedation only. Patient gets tachypneic and asynchronous with ventilator on discontinuing sedation completely. CT chest 07/14 IMPRESSION: 1. Diffuse lung disease, worsened from 07/10/2021, consistent with COVID-19 pneumonia. Bacterial pneumonia and pulmonary edema have overlapping appearances and cannot be excluded. 2. Mild mediastinal lymphadenopathy, likely reactive (2) Pneumonia due to COVID-19 virus: Code(s): U07.1 - COVID-19; J12.82 - Pneumonia due to coronavirus disease 2019 Status: Acute Assessment and Plan: Patient is vaccinated against COVID-19 but has not received a booster dose. She was tested for COVID-19 on 07/06/[address] found to be positive CT findings are consistent with COVID-19 pneumonia Completed dexamethasone Completed 5 day course of remdesivir on 07/15/2021 Patient received baricitinib Continue droplet, airborne, contact isolation/precautions (3) Community acquired pneumonia: Qualifiers: Laterality: unspecified laterality Qualified Code(s): J18.9 - Pneumonia, unspecified organism Code(s): J18.9 - Pneumonia, unspecified organism Status: Acute Assessment and Plan: Presented with complaints of fever and cough. Patient had elevated white count Cultures, influenza, urine Legionella, urine pneumococcal antigen are negative Status post vancomycin and Levaquin for 14 days. (4) DVT (deep venous thrombosis): Code(s): I82.409 - Acute embolism and thrombosis of unspecified deep veins of unspecified lower extremity Status: Acute Assessment and Plan: Lower extremity Dopplers showed Deep vein thrombosis involving the right posterior tibial veins and left popliteal and posterior tibial veins. Patient is on therapeutic Lovenox (5) Acute on chronic kidney failure: Code(s): N17.9 - Acute kidney failure, unspecified; N18.9 - Chronic kidney disease, unspecified Status: Acute Assessment and Plan: Temporary dialysis catheter was placed on 07/21/2021: Dialysis catheter was removed on 07/29/2021. 07/31 tunneled dialysis catheter placed Dialysis per Nephrology Bumtx on hold (6) Hyponatremia: Code(s): E87.1 - Hypo-osmolality and hyponatremia Status: Acute Assessment and Plan: Will use normal saline flushes with tube feeds -improved with dialysis (7) Hypothyroidism: Qualifiers: Hypothyroidism type: acquired Qualified Code(s): E03.9 - Hypothyroidism, unspecified Code(s): E03.9 - Hypothyroidism, unspecified Status: Acute Assessment and Plan: Continue levothyroxine (8) Leukocytosis: Code(s): D72.829 - Elevated white blood cell count, unspecified Status: Acute Assessment and Plan: Her chest x-ray is unchanged Blood culture sent on08/01 and are negative till now Her urine grew Stephanie. I changed Mariee catheter and started patient on Diflucan Her WBCs has normalized but she has off and on low-grade fever Additional Plan Code status: Full code SUP on Pepcid Patient awaits LTAC placement which has been delayed due to insurance approval Critical care time spent: 30 minutes Due to a high probability
--- NOTE | 2021-08-05 12:13 | P.PNNP_ITS ---
Progress Note: A&P Assessment and Plan (1) MARCE (acute kidney injury): Code(s): N17.9 - Acute kidney failure, unspecified Status: Acute Assessment and Plan: * likely secondary to COVID-19 infection * evaluation to date: * urine electrolytes are borderline prerenal * renal ultrasound without obstruction * creatinine is up and but not quite as much urine output as previously * HD tomorrow and continue M/W/F schedule for now * follow trend of labs and UOP for potential renal recovery 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 (3) Acute respiratory failure with hypoxia: Code(s): J96.01 - Acute respiratory failure with hypoxia Status: Acute Assessment and Plan: * due to #4 and possibly bacterial pneumonia * culture negative to date * off antibiotics (4) Pneumonia due to COVID-19 virus: Code(s): U07.1 - COVID-19; J12.82 - Pneumonia due to coronavirus disease 2018 Status: Acute Assessment and Plan: * CT findings are consistent with COVID-19 pneumonia * completed course of dexamethasone * s/p 5 day course of remdesivir * started on Baricitinib on 07/14/21 * continue ventilator support, pulmonary toliet, and inhalers * s/p tracheostomy (5) Hyponatremia: Code(s): E87.1 - Hypo-osmolality and hyponatremia Status: Acute Assessment and Plan: * slowly improving stabilizing * dialysis helping to some degree (6) Anemia: Code(s): D64.9 - Anemia, unspecified Status: Acute Assessment and Plan: * likely due to MARCE, CKD, and acute illness * Epogen with HD * follow trend of H/H (7) DVT (deep venous thrombosis): Code(s): I82.409 - Acute embolism and thrombosis of unspecified deep veins of unspecified lower extremity Status: Acute Assessment and Plan: * as noted by lower extremity dopplers * on lovenox (8) Essential (primary) hypertension: Code(s): I10 - Essential (primary) hypertension Status: Chronic Assessment and Plan: * stable BP * follow trend of hemodynamics Will continue to follow. Subjective Date/time seen: 08/05/21 12:13 Tolerated dialysis yesterday without any issues or problems; low grade fevers noted but remains hemodynamically stable; remains on ventilator support via tracheostomy and nutritional support via PEG tube; otherwise, no significant change noted at this time. Exam Narrative: General: WD/WN female - trached and on ventilator Heart: normal S1 and S2; no rub Lungs: coarse breath sounds Abdomen: soft, nontender, nondistended, positive bowel sounds Extremities: no cyanosis or clubbing; trace - 1+ edema Skin: warm and dry Objective Data Vital Signs Vital Signs: Vital Signs Temp Pulse Resp BP Pulse Ox 08/05/21 11:23 108 H 95 08/05/21 10:00 37.7 C H 101 H 37 H 132/74 96 08/05/21 08:07 100 98 08/05/21 08:00 37.7 C H 99 30 H 127/72 98 08/05/21 06:01 37.6 C H 102 H 34 H 122/72 95 08/05/21 06:00 102 H 08/05/21 04:03 122 H 95 08/05/21 04:01 37.8 C H 112 H 35
--- NOTE | 2021-08-05 12:13 | PM.PNNEP ---
Progress Note: A&P Assessment and Plan (1) MARCE (acute kidney injury): Code(s): N17.9 - Acute kidney failure, unspecified Status: Acute Assessment and Plan: likely secondary to COVID-19 infection evaluation to date: urine electrolytes are borderline prerenal renal ultrasound without obstruction creatinine is up and but not quite as much urine output as previously HD tomorrow and continue M/W/F schedule for now follow trend of labs and UOP for potential renal recovery 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 (3) Acute respiratory failure with hypoxia: Code(s): J96.01 - Acute respiratory failure with hypoxia Status: Acute Assessment and Plan: due to #4 and possibly bacterial pneumonia culture negative to date off antibiotics (4) Pneumonia due to COVID-19 virus: Code(s): U07.1 - COVID-19; J12.82 - Pneumonia due to coronavirus disease 2018 Status: Acute Assessment and Plan: CT findings are consistent with COVID-19 pneumonia completed course of dexamethasone s/p 5 day course of remdesivir started on Baricitinib on 07/14/21 continue ventilator support, pulmonary toliet, and inhalers s/p tracheostomy (5) Hyponatremia: Code(s): E87.1 - Hypo-osmolality and hyponatremia Status: Acute Assessment and Plan: slowly improving stabilizing dialysis helping to some degree (6) Anemia: Code(s): D64.9 - Anemia, unspecified Status: Acute Assessment and Plan: likely due to MARCE, CKD, and acute illness Epogen with HD follow trend of H/H (7) DVT (deep venous thrombosis): Code(s): I82.409 - Acute embolism and thrombosis of unspecified deep veins of unspecified lower extremity Status: Acute Assessment and Plan: as noted by lower extremity dopplers on lovenox (8) Essential (primary) hypertension: Code(s): I10 - Essential (primary) hypertension Status: Chronic Assessment and Plan: stable BP follow trend of hemodynamics Will continue to follow. Subjective Date/time seen: 08/05/21 12:13 Tolerated dialysis yesterday without any issues or problems; low grade fevers noted but remains hemodynamically stable; remains on ventilator support via tracheostomy and nutritional support via PEG tube; otherwise, no significant change noted at this time. Exam Narrative: General: WD/WN female - trached and on ventilator Heart: normal S1 and S2; no rub Lungs: coarse breath sounds Abdomen: soft, nontender, nondistended, positive bowel sounds Extremities: no cyanosis or clubbing; trace - 1+ edema Skin: warm and dry Objective Data Vital Signs Vital Signs: Vital Signs Temp Pulse Resp BP Pulse Ox 08/05/21 11:23 108 H 95 08/05/21 10:00 37.7 C H 101 H 37 H 132/74 96 08/05/21 08:07 100 98 08/05/21 08:00 37.7 C H 99 30 H 127/72 98 08/05/21 06:01 37.6 C H 102 H 34 H 122/72 95 08/05/21 06:00 102 H 08/05/21 04:03 122 H 95 08/05/21 04:01 37.8 C H 112 H 35 H 143/78 H 93 08/05/21 04:00 118 H 08/05/21 02:01 38.1 C H 112 H 32 H 138/89 98 08/05/21 02:00 112 H 08/05/21 01:26 104 H 94 08/05/21 00:01 37.7 C H 87 27 H 118/69 97 08/05/21 00:00 86 08/04/21 22:29 103 H 96 08/04/21 22:00 37.4 C 107 H 34 H 131/72 97 08/04/21 20:01 37.7 C H 115 H 35 H 130/72 96 08/04/21 20:00 154 H 08/04/21 19:25 118 H 96 08/04/21 18:00 98 26 H 107/55 L 95 08/04/21 17:17 37.2 C 109 H 25 H 111/74 95 08/04/21 17:05 110 H 95 08/04/21 16:58 109 H 111/73 08/04/21 16:45 107 H 113/102 H 08/04/21 16:3
[2021-08-05 12:16] LABS: Glucose Point of Care 145 mg/dl (65-105)
[2021-08-05] MEDS: ALTEPLASE 2 MG VIAL (CATHFLO) IV PUSH (14:58)
[2021-08-05 18:26] LABS: Glucose Point of Care 159 mg/dl (65-105)
[2021-08-05] MEDS: MINERAL OIL/WHITE PETROLATUM OINTMENT 1 APPLIC EACH EYE (20:40)
[2021-08-05 23:43] LABS: Glucose Point of Care 139 mg/dl (65-105)
[2021-08-06] VITALS (35 sets, daily range): BP systolic 98–160; BP diastolic 67–102; PULSE 67–114; RESP 25–38; TEMP 35.8–37.7; O2SAT 92–97
[2021-08-06 05:01] LABS: Alveolar/Arterial O2 Gradient 87.1 mmHg; Base Excess ABG 0.5 mEq/l (+/-2.0); Carboxyhemoglobin 0.1 % THb (0-2.0); Fractional Inspired Oxygen 30 %; HCO3 ABG 26.5 mEq/l (22.0-26.0); Methemoglobin ABG 0.3 %THb (0-1.5); Oxygen Content ABG 14.1 %vol (16.0-22.0); Oxygen Saturation ABG 93.2 % (95.0-100.0); Oxyhemoglobin 92.7 % THb (90.0-100.0); PCO2 ABG 48.5 mmHg (35.0-45.0); PO2 ABG 69.8 mmHg (80.0-100.0); PO2 FiO2 Ratio Arterial Blood 2.33 %; Reduced Hemoglobin 6.9 %THb (0-5.0); Total Hemoglobin 10.8 g/dL (12.0-18.0); pH ABG 7.355 (7.350-7.450)
[2021-08-06 05:02] LABS: Device VENTILATOR; Modified Allen's Test Pass; Site Drawn RIGHT RADIAL
[2021-08-06 05:03] LABS: Arterial Blood Gas PEEP 8 cmH2O; Arterial Blood Gas Tidal Volume 400 ml; Arterial Blood Gas Vent Mode CMV; Arterial Blood Gas Ventilator rate 30 /MIN
[2021-08-06 05:23] LABS: Hematocrit 31.3 % (37.0-47.0); Hemoglobin 9.7 g/dL (12.0-15.0); Mean Corpuscular Hemoglobin 29.8 pg (26-34); Mean Corpuscular Volume 96.3 fl (80-100); Mean Platelet Volume 10.5 fl (7.4-10.4); Platelet Count Result 402 k/mm3 (150-375); Red Blood Count 3.25 M/mm3 (4.2-5.4); Red Cell Distribution Width 16.6 % (11.5-14.5); White Blood Count 9.3 K/mm3 (4.5-10.0)
[2021-08-06 05:43] LABS: Alanine Aminotransferase 71 U/L (4-35); Albumin Level 3.5 g/dL (3.5-5.1); Alkaline Phosphatase 180 U/L (38-126); Anion Gap 10 mmol/L (8-16); Aspartate Amino Transferase 37 U/L (14-36); Bilirubin,Total 0.6 mg/dL (0.2-1.3); Blood Urea Nitrogen 67 mg/dL (7-17); Carbon Dioxide 27 mmol/L (22-30); Chloride 95 mmol/L (98-107); Estimated CRCL calculation 16 ml/min; Estimated Glomerular Filt Rate 16; Glucose 164 mg/dL (65-110); Magnesium 2.2 mg/dL (1.6-2.3); Sodium 132 mmol/L (137-145)
[2021-08-06] MEDS: LEVOTHYROXINE SODIUM 100 MCG TABLET PO (06:09)
[2021-08-06] MEDS: CENTRAL LINE FLUSH 10 ML IV PUSH ×3 (06:09→19:59)
[2021-08-06] MEDS: CYANOCOBALAMIN 500 MCG TABLET PO (08:23)
[2021-08-06] MEDS: FAMOTIDINE 20 MG TABLET PO ×2 (08:23→19:59)
[2021-08-06] MEDS: FLUCONAZOLE 100 MG TABLET 200 MG FEED TUBE (08:23)
[2021-08-06] MEDS: CHOLECALCIFEROL 1,000 UNITS TABLET 5000 UNITS PO (08:23)
[2021-08-06] MEDS: ENOXAPARIN 100 MG/ML SYRINGE 90 MG SUB-Q (08:23)
[2021-08-06] MEDS: PYRIDOXINE HCL 25 MG TABLET PO (08:24)
--- NOTE | 2021-08-06 09:02 | WPDINTPN ---
Progress Note: A&P Assessment and Plan (1) Acute hypoxemic respiratory failure due to COVID-19: Code(s): U07.1 - COVID-19; J96.01 - Acute respiratory failure with hypoxia Status: Acute Assessment and Plan: Acute Respiratory failure secondary to COVID-19 with component of pulmonary edema and may have a component of bacterial pneumonia Intubated 07/1407/29/2021: Tracheostomy and PEG tube placement Chest x-ray stable, ABGs reviewed Continue full mechanical ventilation support to prevent hypoxemia/hypercarbia and end organ damage. Decrease PEEP to 8 and 45% FiO2. I placed patient on pressure support weaning trial 03/02 while in room and she again failed pressure support ventilation weaning trial due to high RSBI within minutes Low tidal volume ventilation strategy to prevent volutrauma Off of continuous sedation and is on p.r.n. sedation only. Patient frequently gets tachypneic and asynchronous with ventilator on discontinuing sedation completely. CT chest 07/14 IMPRESSION: 1. Diffuse lung disease, worsened from 07/10/2021, consistent with COVID-19 pneumonia. Bacterial pneumonia and pulmonary edema have overlapping appearances and cannot be excluded. 2. Mild mediastinal lymphadenopathy, likely reactive (2) Pneumonia due to COVID-19 virus: Code(s): U07.1 - COVID-19; J12.82 - Pneumonia due to coronavirus disease 2018 Status: Acute Assessment and Plan: Patient is vaccinated against COVID-19 but has not received a booster dose. She was tested for COVID-19 on 07/06/[address] findings are consistent with COVID-19 pneumonia Completed dexamethasone Completed 5 day course of remdesivir on 07/15/2021 Patient received baricitinib Continue droplet, airborne, contact isolation/precautions (3) Community acquired pneumonia: Qualifiers: Laterality: unspecified laterality Qualified Code(s): J18.9 - Pneumonia, unspecified organism Code(s): J18.9 - Pneumonia, unspecified organism Status: Acute Assessment and Plan: Presented with complaints of fever and cough. Patient had elevated white count Cultures, influenza, urine Legionella, urine pneumococcal antigen are negative Status post vancomycin and Levaquin for 14 days. (4) DVT (deep venous thrombosis): Code(s): I82.409 - Acute embolism and thrombosis of unspecified deep veins of unspecified lower extremity Status: Acute Assessment and Plan: Lower extremity Dopplers showed Deep vein thrombosis involving the right posterior tibial veins and left popliteal and posterior tibial veins. Patient is on therapeutic Lovenox (5) Acute on chronic kidney failure: Code(s): N17.9 - Acute kidney failure, unspecified; N18.9 - Chronic kidney disease, unspecified Status: Acute Assessment and Plan: Temporary dialysis catheter was placed on 07/21/2021: Dialysis catheter was removed on 07/29/2021. 07/31 tunneled dialysis catheter placed Dialysis per Nephrology Bumex on hold (6) Hyponatremia: Code(s): E87.1 - Hypo-osmolality and hyponatremia Status: Acute Assessment and Plan: Will use normal saline flushes with tube feeds -improved with dialysis (7) Hypothyroidism: Qualifiers: Hypothyroidism type: acquired Qualified Code(s): E03.9 - Hypothyroidism, unspecified Code(s): E03.9 - Hypothyroidism, unspecified Status: Acute Assessment and Plan: Continue levothyroxine (8) Leukocytosis: Code(s): D72.829 - Elevated white blood cell count, unspecified Status: Acute Assessment and Plan: Her chest x-ray is unchanged Blood culture sent on08/01 and are negative till now Her urine grew Stephanie. I changed Mariee catheter and started patient on Diflucan Her WBCs has normalized and she is afebrile Additional Plan Code status: Full code SUP on Pepcid Patient awaits LTAC placement which has been delayed due to insurance [email or web address]
--- NOTE | 2021-08-06 11:04 | PCFNICU ---
ICU Rounding Note: Pt current nutrition is Nepro at 40 ml/hr over 22 hours Last recorded weight is 82.4 kg, down from 95.2 kg on admit. Bowel Motility:+BM reported 08/06 Labs Reviewed:Na 132, BUN 67, Cr 2.9, Glu 164,GFR 16, Hct 31.3,Hgb 9.7 Meds Noted:Vit B12, Vit D, Pepcid, Lovenox, Synthroid, Diflucan Skin:WNL Additional Notes: Patient current with Trach and PEG. Patient is tolerating tube feedings of Nepro at 40 ml/hr . Banatrol Plus q 6 hours for stool bulking. Nursing reports less loose stools today. Plans for LTAC once bed is available. Following daily in ICU rounds. Will monitor every Wednesday and Wednesday.
[2021-08-06 11:54] LABS: Glucose Point of Care 149 mg/dl (65-105)
[2021-08-06] MEDS: SODIUM CHLORIDE 0.9% IV 1,000 ML 100 ML IV CONT (14:00)
--- NOTE | 2021-08-06 14:35 | PM.IMPN ---
Progress Note: A&P Assessment and Plan (1) Acute hypoxemic respiratory failure due to COVID-19: Code(s): U07.1 - COVID-19; J96.01 - Acute respiratory failure with hypoxia Status: Acute Assessment and Plan: Acute Respiratory failure secondary to COVID-19 with component of pulmonary edema and may have a component of bacterial pneumonia. Patient was intubated 07/14 with trach placed 07/29/21. PEG tube placement 07/29/21 as well. No CXR since 08/01. ABG 7.35/48/70. Continue full mechanical ventilation support via trach. Appreciate first assistant input (2) Pneumonia due to COVID-19 virus: Code(s): U07.1 - COVID-19; J12.82 - Pneumonia due to coronavirus disease 2019 Status: Acute Assessment and Plan: Patient is vaccinated against COVID-19 but has not received a booster dose. She was positive for COVID-19 on 07/06/21. CT Chest 07/14 were consistent with COVID-19 pneumonia. She completed dexamethasone and 5 day course of remdesivir. She also received baricitinib x 3 doses. Continue droplet, airborne, contact isolation/precautions (3) Community acquired pneumonia: Qualifiers: Laterality: unspecified laterality Qualified Code(s): J18.9 - Pneumonia, unspecified organism Code(s): J18.9 - Pneumonia, unspecified organism Status: Acute Assessment and Plan: Presented with complaints of fever and cough. Patient had elevated white count. Cultures, influenza, urine Legionella, urine pneumococcal antigen all were negative. Completed 14 day course with vancomycin and Levaquin. She developed low grade fevers. BCx 07/29 growing Corynebact felt to be contaminate. Sputum and urine growing Candidia. Diflucan started 08/02/21. Repeat BCx 08/01 NGTD. Remains off abx. (4) DVT (deep venous thrombosis): Code(s): I82.409 - Acute embolism and thrombosis of unspecified deep veins of unspecified lower extremity Status: Acute Assessment and Plan: Lower extremity Dopplers showed DVT involving the right posterior tibial veins and left popliteal and posterior tibial veins. Patient is on therapeutic Lovenox (5) Acute on chronic kidney failure: Code(s): N17.9 - Acute kidney failure, unspecified; N18.9 - Chronic kidney disease, unspecified Status: Acute Assessment and Plan: Temporary dialysis catheter was placed on 07/21/2021 and removed 07/29/21. Permanent tunneled Dialysis catheter was placed 07/31/21. Tolerating HD. Appreciate nephrology input. Bumex has been stopped (6) Hyponatremia: Code(s): E87.1 - Hypo-osmolality and hyponatremia Status: Acute Assessment and Plan: Mild hyponatremia. Control with HD. Follow. (7) Hypothyroidism: Qualifiers: Hypothyroidism type: acquired Qualified Code(s): E03.9 - Hypothyroidism, unspecified Code(s): E03.9 - Hypothyroidism, unspecified Status: Acute Assessment and Plan: TSH normal. Continue levothyroxine (8) Leukocytosis: Code(s): D72.829 - Elevated white blood cell count, unspecified Status: Acute Assessment and Plan: WBC recently elevated to 19K (08/02/21) but normal now. Remains on Diflucan. Blood cultures 08/01 NGTD. Her urine grew Stephanie. Follow (9) Anemia: Code(s): D64.9 - Anemia, unspecified Status: Acute Assessment and Plan: Hgb normal on admission but has trended down to 8-9 range and stable over the past week. Follow Subjective Date/time seen: 08/06/21 14:35 Interval history: 76yo female with a history of CKD, HTN, hypothyroidism, aortic stenosis who presented to the ED on 07/06/2021 with complaints of fever and cough. Intubated 07/14 with trach placed 07/29. PEG placed 07/29. Resuming care. Chart reviewed. Patient alert and follows commands. She remains on MV via trach. Review of Systems Review of Systems: ROS unobtainable: Yes unobtainable due to endotracheal tube and unobtainable due to mental status Exam
[2021-08-06] MEDS: SODIUM CHLORIDE 0.9% IV 1,000 ML 999 ML IV CONT (16:33)
[2021-08-06] MEDS: EPOETIN ALFA-EPBX 10,000 UNITS/ML VIAL 10000 UNITS IV PUSH (16:33)
--- NOTE | 2021-08-06 16:41 | P.PNNP_ITS ---
Progress Note: A&P Assessment and Plan (1) MARCE (acute kidney injury): Code(s): N17.9 - Acute kidney failure, unspecified Status: Acute Assessment and Plan: * likely secondary to COVID-19 infection * evaluation to date: * urine electrolytes are borderline prerenal * renal ultrasound without obstruction * creatinine is up and but not quite as much urine output as previously * HD today and continue M/W/F schedule for now * follow trend of labs and UOP for potential renal recovery 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 (3) Acute respiratory failure with hypoxia: Code(s): J96.01 - Acute respiratory failure with hypoxia Status: Acute Assessment and Plan: * due to #4 and possibly bacterial pneumonia * culture negative to date * off antibiotics (4) Pneumonia due to COVID-19 virus: Code(s): U07.1 - COVID-19; J12.82 - Pneumonia due to coronavirus disease 2018 Status: Acute Assessment and Plan: * CT findings are consistent with COVID-19 pneumonia * completed course of dexamethasone * s/p 5 day course of remdesivir * started on Baricitinib on 07/14/21 * continue ventilator support, pulmonary toliet, and inhalers * s/p tracheostomy (5) Hyponatremia: Code(s): E87.1 - Hypo-osmolality and hyponatremia Status: Acute Assessment and Plan: * slowly improving stabilizing * dialysis helping to some degree (6) Anemia: Code(s): D64.9 - Anemia, unspecified Status: Acute Assessment and Plan: * likely due to MARCE, CKD, and acute illness * Epogen with HD * follow trend of H/H (7) DVT (deep venous thrombosis): Code(s): I82.409 - Acute embolism and thrombosis of unspecified deep veins of unspecified lower extremity Status: Acute Assessment and Plan: * as noted by lower extremity dopplers * on lovenox (8) Essential (primary) hypertension: Code(s): I10 - Essential (primary) hypertension Status: Chronic Assessment and Plan: * stable BP * follow trend of hemodynamics Will continue to follow. Subjective Date/time seen: 08/06/21 16:18 Tolerating dialysis at the time of my visit (seen on HD at 4:00pm); remains on mechanical ventilation via tracheostomy; ongoing nutritional support per PEG tube; remains hemodynamically stable at this time without the need for vasopressor support; no events/issues overnight or earlier this morning. Exam Narrative: General: WD/WN female - trached and on ventilator Heart: normal S1 and S2; no rub Lungs: coarse breath sounds Abdomen: soft, nontender, nondistended, positive bowel sounds Extremities: no cyanosis or clubbing; trace - 1+ edema Skin: warm and intact Objective Data Vital Signs Vital Signs: Vital Signs Temp Pulse Resp BP Pulse Ox 08/06/21 16:15 96 146/96 H 08/06/21 16:00 109 H 160/95 H 08/06/21 15:45 97 144/102 H 08/06/21 15:30 106 H 152/100 H 08/06/21 15:20 106 H 151/89 H 08/06/21 15:00 107 H 157/95 H 08/06/21 14:45 107 H 141/95 H 08/06/21 14
--- NOTE | 2021-08-06 16:41 | PM.PNNEP ---
Progress Note: A&P Assessment and Plan (1) MARCE (acute kidney injury): Code(s): N17.9 - Acute kidney failure, unspecified Status: Acute Assessment and Plan: likely secondary to COVID-19 infection evaluation to date: urine electrolytes are borderline prerenal renal ultrasound without obstruction creatinine is up and but not quite as much urine output as previously HD today and continue M/W/F schedule for now follow trend of labs and UOP for potential renal recovery 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 (3) Acute respiratory failure with hypoxia: Code(s): J96.01 - Acute respiratory failure with hypoxia Status: Acute Assessment and Plan: due to #4 and possibly bacterial pneumonia culture negative to date off antibiotics (4) Pneumonia due to COVID-19 virus: Code(s): U07.1 - COVID-19; J12.82 - Pneumonia due to coronavirus disease 2018 Status: Acute Assessment and Plan: CT findings are consistent with COVID-19 pneumonia completed course of dexamethasone s/p 5 day course of remdesivir started on Baricitinib on 07/14/21 continue ventilator support, pulmonary toliet, and inhalers s/p tracheostomy (5) Hyponatremia: Code(s): E87.1 - Hypo-osmolality and hyponatremia Status: Acute Assessment and Plan: slowly improving stabilizing dialysis helping to some degree (6) Anemia: Code(s): D64.9 - Anemia, unspecified Status: Acute Assessment and Plan: likely due to MARCE, CKD, and acute illness Epogen with HD follow trend of H/H (7) DVT (deep venous thrombosis): Code(s): I82.409 - Acute embolism and thrombosis of unspecified deep veins of unspecified lower extremity Status: Acute Assessment and Plan: as noted by lower extremity dopplers on lovenox (8) Essential (primary) hypertension: Code(s): I10 - Essential (primary) hypertension Status: Chronic Assessment and Plan: stable BP follow trend of hemodynamics Will continue to follow. Subjective Date/time seen: 08/06/21 16:18 Tolerating dialysis at the time of my visit (seen on HD at 4:00pm); remains on mechanical ventilation via tracheostomy; ongoing nutritional support per PEG tube; remains hemodynamically stable at this time without the need for vasopressor support; no events/issues overnight or earlier this morning. Exam Narrative: General: WD/WN female - trached and on ventilator Heart: normal S1 and S2; no rub Lungs: coarse breath sounds Abdomen: soft, nontender, nondistended, positive bowel sounds Extremities: no cyanosis or clubbing; trace - 1+ edema Skin: warm and intact Objective Data Vital Signs Vital Signs: Vital Signs Temp Pulse Resp BP Pulse Ox 08/06/21 16:15 96 146/96 H 08/06/21 16:00 109 H 160/95 H 08/06/21 15:45 97 144/102 H 08/06/21 15:30 106 H 152/100 H 08/06/21 15:20 106 H 151/89 H 08/06/21 15:00 107 H 157/95 H 08/06/21 14:45 107 H 141/95 H 08/06/21 14:30 106 H 145/79 H 08/06/21 14:15 102 H 146/82 H 08/06/21 14:05 37.5 C 105 H 38 H 141/80 H 96 08/06/21 14:02 102 H 96 08/06/21 14:00 37.5 C 102 H 34 H 141/80 H 96 08/06/21 12:00 37.2 C 109 H 35 H 152/82 H 96 08/06/21 10:27 108 H 96 08/06/21 10:00 37.2 C 109 H 36 H 152/93 H 96 08/06/21 08:55 114 H 96 08/06/21 08:00 37.3 C 93 36 H 148/83 H 97 08/06/21 06:00 36.8 C 102 H 32 H 139/75 93 08/06/21 04:38 104 H 95 08/06/21 04:00 36.9 C 104 H 38 H 138/81 95 08/06/21 02:24 102 H 96 08/06/21 02:00 95 36 H 117/67 97 08/06/21 00:24
[2021-08-06] MEDS: INSULIN ASPART (*BKC) 100 UNITS/ML SUB-Q (17:50)
[2021-08-06 17:56] LABS: Glucose Point of Care 205 mg/dl (65-105)
[2021-08-06] MEDS: MINERAL OIL/WHITE PETROLATUM OINTMENT 1 APPLIC EACH EYE (19:59)
[2021-08-06] MEDS: ACETAMINOPHEN ELIXIR 325 MG/10.15 ML UDC 650 MG PO (23:45)
[2021-08-06 23:48] LABS: Glucose Point of Care 183 mg/dl (65-105)
[2021-08-07] VITALS (19 sets, daily range): BP systolic 97–164; BP diastolic 62–85; PULSE 85–108; RESP 25–35; TEMP 37.2–38.3; O2SAT 93–99
[2021-08-07 05:54] LABS: Alveolar/Arterial O2 Gradient 91.7 mmHg; Base Excess ABG -0.5 mEq/l (+/-2.0); Carboxyhemoglobin 0.7 % THb (0-2.0); Fractional Inspired Oxygen 30 %; HCO3 ABG 26.1 mEq/l (22.0-26.0); Methemoglobin ABG 0.1 %THb (0-1.5); Oxygen Content ABG 15.8 %vol (16.0-22.0); Oxygen Saturation ABG 89.8 % (95.0-100.0); Oxyhemoglobin 90.1 % THb (90.0-100.0); PCO2 ABG 51.2 mmHg (35.0-45.0); PO2 FiO2 Ratio Arterial Blood 2.07 %; Reduced Hemoglobin 9.1 %THb (0-5.0); Total Hemoglobin 12.5 g/dL (12.0-18.0); pH ABG 7.326 (7.350-7.450)
[2021-08-07 05:55] LABS: Device VENTILATOR; Modified Allen's Test Unable to perform; Site Drawn LEFT RADIAL
[2021-08-07 05:56] LABS: Arterial Blood Gas PEEP 8 cmH2O; Arterial Blood Gas Tidal Volume 400 ml; Arterial Blood Gas Vent Mode CMV; Arterial Blood Gas Ventilator rate 30 /MIN
[2021-08-07 06:00] LABS: Hematocrit 33.7 % (37.0-47.0); Hemoglobin 10.1 g/dL (12.0-15.0); Mean Corpuscular Hemoglobin 28.9 pg (26-34); Mean Corpuscular Volume 96.6 fl (80-100); Mean Platelet Volume 10.8 fl (7.4-10.4); Platelet Count Result 497 k/mm3 (150-375); Red Blood Count 3.49 M/mm3 (4.2-5.4); White Blood Count 11.4 K/mm3 (4.5-10.0)
[2021-08-07 06:08] LABS: Alanine Aminotransferase 61 U/L (4-35); Albumin Level 3.5 g/dL (3.5-5.1); Alkaline Phosphatase 189 U/L (38-126); Anion Gap 11 mmol/L (8-16); Aspartate Amino Transferase 42 U/L (14-36); Bilirubin,Total 0.5 mg/dL (0.2-1.3); Blood Urea Nitrogen 46 mg/dL (7-17); Calcium 9.3 mg/dL (8.4-10.2); Carbon Dioxide 26 mmol/L (22-30); Chloride 96 mmol/L (98-107); Estimated CRCL calculation 18 ml/min; Estimated Glomerular Filt Rate 19; Glucose 169 mg/dL (65-110); Magnesium 2.2 mg/dL (1.6-2.3); Phosphorus 3.3 mg/dL (2.5-4.5); Potassium 4.6 mmol/L (3.4-5.0); Sodium 133 mmol/L (137-145)
[2021-08-07 07:11] LABS: Band Neutrophils Percent 32 % (0-6); Lymphocytes Absolute Manual 0.91 K/mm3 (1.1-4.5); Lymphocytes Percent Manual 8 % (18-44); Metamyelocytes Percent 5 %; Monocytes Absolute Manual 0.79 K/mm3 (0.1-0.90); Monocytes Percent Manual 7 % (3-9); Myelocytes Percent 1 %; Neutrophils Percent Manual 47 % (46-73); Nucleated Red Blood Cells 2 %; Total Cells Counted 100
[2021-08-07 07:12] LABS: Platelet Estimate Increased (Adequate)
[2021-08-07 07:13] LABS: Stomatocytes 1+ (NORMAL)
[2021-08-07] MEDS: FAMOTIDINE 20 MG TABLET PO ×2 (08:47→19:47)
[2021-08-07] MEDS: ENOXAPARIN 100 MG/ML SYRINGE 90 MG SUB-Q (08:47)
[2021-08-07] MEDS: LEVOTHYROXINE SODIUM 100 MCG TABLET PO (08:47)
[2021-08-07] MEDS: CENTRAL LINE FLUSH 10 ML IV PUSH ×3 (08:47→19:47)
[2021-08-07] MEDS: FLUCONAZOLE 100 MG TABLET 200 MG FEED TUBE (08:47)
--- NOTE | 2021-08-07 09:23 | WPDINTPN ---
Progress Note: A&P Assessment and Plan (1) Acute hypoxemic respiratory failure due to COVID-19: Code(s): U07.1 - COVID-19; J96.01 - Acute respiratory failure with hypoxia Status: Acute Assessment and Plan: Acute Respiratory failure secondary to COVID-19 with component of pulmonary edema and may have a component of bacterial pneumonia Intubated 07/1407/29/2021: Tracheostomy and PEG tube placement Continue full mechanical ventilation support to prevent hypoxemia/hypercarbia and end organ damage. Currently PEEP to 8 and 40% FiO2. 08/07 I again placed patient on pressure support weaning trial 03/02 while in room and she again failed pressure support ventilation weaning trial due to high RSBI within minutes. Her tidal volumes were 200 mL approximate with rate close to 40 Off of continuous sedation and is on p.r.n. sedation only. Patient frequently gets tachypneic and asynchronous with ventilator on discontinuing sedation completely. CT chest 07/14 IMPRESSION: 1. Diffuse lung disease, worsened from 07/10/2021, consistent with COVID-19 pneumonia. Bacterial pneumonia and pulmonary edema have overlapping appearances and cannot be excluded. 2. Mild mediastinal lymphadenopathy, likely reactive (2) Pneumonia due to COVID-19 virus: Code(s): U07.1 - COVID-19; J12.82 - Pneumonia due to coronavirus disease 2018 Status: Acute Assessment and Plan: Patient is vaccinated against COVID-19 but has not received a booster dose. She was tested for COVID-19 on 07/06/2021 found to be positive CT findings are consistent with COVID-19 pneumonia Completed dexamethasone Completed 5 day course of remdesivir on 07/15/2021 Patient received baricitinib Continue droplet, airborne, contact isolation/precautions (3) Community acquired pneumonia: Qualifiers: Laterality: unspecified laterality Qualified Code(s): J18.9 - Pneumonia, unspecified organism Code(s): J18.9 - Pneumonia, unspecified organism Status: Acute Assessment and Plan: Presented with complaints of fever and cough. Patient had elevated white count Cultures, influenza, urine Legionella, urine pneumococcal antigen are negative Status post vancomycin and Levaquin for 14 days. (4) DVT (deep venous thrombosis): Code(s): I82.409 - Acute embolism and thrombosis of unspecified deep veins of unspecified lower extremity Status: Acute Assessment and Plan: Lower extremity Dopplers showed Deep vein thrombosis involving the right posterior tibial veins and left popliteal and posterior tibial veins. Patient is on therapeutic Lovenox (5) Acute on chronic kidney failure: Code(s): N17.9 - Acute kidney failure, unspecified; N18.9 - Chronic kidney disease, unspecified Status: Acute Assessment and Plan: Temporary dialysis catheter was placed on 07/21/2021: Dialysis catheter was removed on 07/29/2021. 07/31 tunneled dialysis catheter placed Dialysis per Nephrology Bumex discontinued (6) Hyponatremia: Code(s): E87.1 - Hypo-osmolality and hyponatremia Status: Acute Assessment and Plan: Will use normal saline flushes with tube feeds -improved with dialysis (7) Hypothyroidism: Qualifiers: Hypothyroidism type: acquired Qualified Code(s): E03.9 - Hypothyroidism, unspecified Code(s): E03.9 - Hypothyroidism, unspecified Status: Acute Assessment and Plan: Continue levothyroxine (8) Leukocytosis: Code(s): D72.829 - Elevated white blood cell count, unspecified Status: Acute Assessment and Plan: Her chest x-ray and oxygenation has been unchanged Blood culture sent on08/01 and are negative till now Her urine grew Stephanie. I changed Mariee catheter and started patient on Diflucan Her WBCs is close to normal and she has occasional low-grade fever Additional Plan Code status: Full code SUP on Pepcid Patient awaits LTAC placement which has b
[2021-08-07 12:05] LABS: Glucose Point of Care 153 mg/dl (65-105)
--- NOTE | 2021-08-07 12:33 | PCFNICU ---
ICU Rounding Note: Pt current nutrition is Nepro at 40 mls per hour over 22 hours per day. Last recorded weight is 82.4 kg. Down from 95.2 kg on admit. Bowel Motility: + BM 08/07/2021 Labs Reviewed: Hgb 10.1, Hct 33.7, Na 133, GFR 19, BUN 46, Cr 2.5, Glu 169 Meds Noted: Albutein, Albuterol, Vitamin B-12 Tab, Lovenox, Retacrit, Pepcid, Fentanyl, Glucagon, Glucose, Novolog, Synthroid, Hydralazine Hcl, Reglan, Miralax, B-6 and Vitamin D Skin: bilateral buttocks and groin maceration Additional Notes: Patient currently has trach and PEG. Patient is tolerating tube feedings of Nepro at 40 mls per hour over 22 hours per day providing 1584 calories, 71 grams of protein and 640 mls of water with a 30 ml water flush q4. Banatrol Plus q6 hours for stool bulking. Plans for LTAC once bed becomes available. Following daily in ICU rounds. Will monitor every Wednesday and Wednesday..
[2021-08-07 17:05] LABS: Glucose Point of Care 148 mg/dl (65-105)
--- NOTE | 2021-08-07 17:27 | PM.PNNEP ---
Progress Note: A&P Assessment and Plan (1) MARCE (acute kidney injury): Code(s): N17.9 - Acute kidney failure, unspecified Status: Acute Assessment and Plan: likely secondary to COVID-19 infection evaluation to date: urine electrolytes are borderline prerenal renal ultrasound without obstruction creatinine is up and but not quite as much urine output as previously HD tomorrow and continue M/W/F schedule for now follow trend of labs and UOP for potential renal recovery 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 (3) Acute respiratory failure with hypoxia: Code(s): J96.01 - Acute respiratory failure with hypoxia Status: Acute Assessment and Plan: due to #4 and possibly bacterial pneumonia culture negative to date off antibiotics (4) Pneumonia due to COVID-19 virus: Code(s): U07.1 - COVID-19; J12.82 - Pneumonia due to coronavirus disease 2018 Status: Acute Assessment and Plan: CT findings are consistent with COVID-19 pneumonia completed course of dexamethasone s/p 5 day course of remdesivir started on Baricitinib on 07/14/21 continue ventilator support, pulmonary toliet, and inhalers s/p tracheostomy (5) Hyponatremia: Code(s): E87.1 - Hypo-osmolality and hyponatremia Status: Acute Assessment and Plan: slowly improving stabilizing dialysis helping to some degree (6) Anemia: Code(s): D64.9 - Anemia, unspecified Status: Acute Assessment and Plan: likely due to MARCE, CKD, and acute illness Epogen with HD follow trend of H/H (7) DVT (deep venous thrombosis): Code(s): I82.409 - Acute embolism and thrombosis of unspecified deep veins of unspecified lower extremity Status: Acute Assessment and Plan: as noted by lower extremity dopplers on lovenox (8) Essential (primary) hypertension: Code(s): I10 - Essential (primary) hypertension Status: Chronic Assessment and Plan: stable BP follow trend of hemodynamics Will continue to follow. Subjective Date/time seen: 08/07/21 17:27 Tolerated hemodialysis treatment yesterday without any issues or problems; remains on mechanical ventilator support via tracheostomy; hemodynamically stable without the need for vasopressor support; tolerating tube feeds via PEG tube; no apparent distress noted. Exam Narrative: General: WD/WN female - trached and on ventilator Heart: normal S1 and S2; no rub Lungs: coarse breath sounds Abdomen: soft, nontender, nondistended, positive bowel sounds Extremities: no cyanosis or clubbing; trace - 1+ edema Skin: warm and intact Objective Data Vital Signs Vital Signs: Vital Signs Temp Pulse Resp BP Pulse Ox 08/07/21 16:49 90 93 08/07/21 16:00 37.8 C H 97 30 H 131/72 98 08/07/21 14:12 103 H 96 08/07/21 14:00 37.8 C H 102 H 35 H 138/72 96 08/07/21 12:00 37.9 C H 105 H 31 H 137/72 97 08/07/21 10:16 100 95 08/07/21 10:00 37.9 C H 105 H 30 H 150/84 H 97 08/07/21 08:55 99 98 08/07/21 08:00 37.8 C H 108 H 30 H 137/82 95 08/07/21 06:44 37.2 C 08/07/21 05:10 103 H 94 08/07/21 04:00 37.9 C H 104 H 27 H 154/84 H 95 08/07/21 02:00 38.2 C H 103 H 28 H 138/78 97 08/07/21 00:00 37.7 C H 105 H 25 H 148/70 H 96 08/06/21 23:45 37.7 C H 08/06/21 22:00 37.7 C H 102 H 26 H 144/83 H 97 08/06/21 20:02 107 H 93 08/06/21 20:00 37.5 C 106 H 25 H 133/80 97 Intake/Output Intake/Output: Intake & Output 08/04/21 08/05/21 08/06/21 08/07/21 23:59 23:59 23:59 23:59 Intake Total 800 1790 1288 1279 Output Total 2050 192
--- NOTE | 2021-08-07 17:27 | P.PNNP_ITS ---
Progress Note: A&P Assessment and Plan (1) MARCE (acute kidney injury): Code(s): N17.9 - Acute kidney failure, unspecified Status: Acute Assessment and Plan: * likely secondary to COVID-19 infection * evaluation to date: * urine electrolytes are borderline prerenal * renal ultrasound without obstruction * creatinine is up and but not quite as much urine output as previously * HD tomorrow and continue M/W/F schedule for now * follow trend of labs and UOP for potential renal recovery 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 (3) Acute respiratory failure with hypoxia: Code(s): J96.01 - Acute respiratory failure with hypoxia Status: Acute Assessment and Plan: * due to #4 and possibly bacterial pneumonia * culture negative to date * off antibiotics (4) Pneumonia due to COVID-19 virus: Code(s): U07.1 - COVID-19; J12.82 - Pneumonia due to coronavirus disease 2018 Status: Acute Assessment and Plan: * CT findings are consistent with COVID-19 pneumonia * completed course of dexamethasone * s/p 5 day course of remdesivir * started on Baricitinib on 07/14/21 * continue ventilator support, pulmonary toliet, and inhalers * s/p tracheostomy (5) Hyponatremia: Code(s): E87.1 - Hypo-osmolality and hyponatremia Status: Acute Assessment and Plan: * slowly improving stabilizing * dialysis helping to some degree (6) Anemia: Code(s): D64.9 - Anemia, unspecified Status: Acute Assessment and Plan: * likely due to MARCE, CKD, and acute illness * Epogen with HD * follow trend of H/H (7) DVT (deep venous thrombosis): Code(s): I82.409 - Acute embolism and thrombosis of unspecified deep veins of unspecified lower extremity Status: Acute Assessment and Plan: * as noted by lower extremity dopplers * on lovenox (8) Essential (primary) hypertension: Code(s): I10 - Essential (primary) hypertension Status: Chronic Assessment and Plan: * stable BP * follow trend of hemodynamics Will continue to follow. Subjective Date/time seen: 08/07/21 17:27 Tolerated hemodialysis treatment yesterday without any issues or problems; remains on mechanical ventilator support via tracheostomy; hemodynamically stable without the need for vasopressor support; tolerating tube feeds via PEG tube; no apparent distress noted. Exam Narrative: General: WD/WN female - trached and on ventilator Heart: normal S1 and S2; no rub Lungs: coarse breath sounds Abdomen: soft, nontender, nondistended, positive bowel sounds Extremities: no cyanosis or clubbing; trace - 1+ edema Skin: warm and intact Objective Data Vital Signs Vital Signs: Vital Signs Temp Pulse Resp BP Pulse Ox 08/07/21 16:49 90 93 08/07/21 16:00 37.8 C H 97 30 H 131/72 98 08/07/21 14:12 103 H 96 08/07/21 14:00 37.8 C H 102 H 35 H 138/72 96 08/07/21 12:00 37.9 C H 105 H 31 H 137/72 97 08/07/21 10:16 100 95 08/07/21 10:00 37.9 C H 105 H 30 H 150/84 H 97 08/07
[2021-08-07] MEDS: MINERAL OIL/WHITE PETROLATUM OINTMENT 1 APPLIC EACH EYE (19:47)
[2021-08-08] VITALS (37 sets, daily range): BP systolic 76–142; BP diastolic 59–94; PULSE 85–116; RESP 22–43; TEMP 35.6–38.6; O2SAT 92–100
[2021-08-08] MEDS: ACETAMINOPHEN ELIXIR 325 MG/10.15 ML UDC 650 MG PO ×2 (02:55→20:10)
[2021-08-08 04:37] LABS: Alveolar/Arterial O2 Gradient 101.9 mmHg; Arterial Blood Gas Vent Mode CMV; Arterial Blood Gas Ventilator rate 30 /MIN; Base Excess ABG 0.6 mEq/l (+/-2.0); Carboxyhemoglobin 0.4 % THb (0-2.0); Device VENTILATOR; Fractional Inspired Oxygen 30 %; HCO3 ABG 24.4 mEq/l (22.0-26.0); Methemoglobin ABG 0.3 %THb (0-1.5); Modified Allen's Test Pass; Oxygen Content ABG 13.8 %vol (16.0-22.0); Oxygen Saturation ABG 94.9 % (95.0-100.0); PCO2 ABG 35.8 mmHg (35.0-45.0); PO2 ABG 69.9 mmHg (80.0-100.0); PO2 FiO2 Ratio Arterial Blood 2.33 %; Reduced Hemoglobin 5.3 %THb (0-5.0); Site Drawn LEFT RADIAL; Total Hemoglobin 10.4 g/dL (12.0-18.0); pH ABG 7.451 (7.350-7.450)
[2021-08-08 04:38] LABS: Arterial Blood Gas PEEP 8 cmH2O; Arterial Blood Gas Tidal Volume 400 ml
[2021-08-08 04:43] LABS: Hematocrit 30.2 % (37.0-47.0); Hemoglobin 9.4 g/dL (12.0-15.0); Mean Corpuscular HGB Conc 31.1 g/dl (32-36); Mean Corpuscular Hemoglobin 29.7 pg (26-34); Mean Corpuscular Volume 95.3 fl (80-100); Mean Platelet Volume 10.4 fl (7.4-10.4); Platelet Count Result 517 k/mm3 (150-375); Red Blood Count 3.17 M/mm3 (4.2-5.4); Red Cell Distribution Width 17.1 % (11.5-14.5); White Blood Count 13.6 K/mm3 (4.5-10.0)
[2021-08-08 05:10] LABS: Alanine Aminotransferase 55 U/L (4-35); Albumin Level 3.3 g/dL (3.5-5.1); Alkaline Phosphatase 179 U/L (38-126); Anion Gap 11 mmol/L (8-16); Aspartate Amino Transferase 56 U/L (14-36); Bilirubin,Total 0.5 mg/dL (0.2-1.3); Blood Urea Nitrogen 75 mg/dL (7-17); Calcium 8.9 mg/dL (8.4-10.2); Carbon Dioxide 25 mmol/L (22-30); Chloride 96 mmol/L (98-107); Estimated CRCL calculation 16 ml/min; Estimated Glomerular Filt Rate 16; Glucose 150 mg/dL (65-110); Magnesium 2.3 mg/dL (1.6-2.3); Potassium 4.3 mmol/L (3.4-5.0); Sodium 132 mmol/L (137-145)
[2021-08-08] MEDS: CENTRAL LINE FLUSH 10 ML IV PUSH ×3 (07:09→20:24)
[2021-08-08] MEDS: SODIUM CHLORIDE 0.9% IV 1,000 ML 999 ML IV CONT (08:24)
[2021-08-08] MEDS: EPOETIN ALFA-EPBX 10,000 UNITS/ML VIAL 10000 UNITS IV PUSH (09:21)
--- NOTE | 2021-08-08 09:36 | WPDINTPN ---
Progress Note: A&P Assessment and Plan (1) Acute hypoxemic respiratory failure due to COVID-19: Code(s): U07.1 - COVID-19; J96.01 - Acute respiratory failure with hypoxia Status: Acute Assessment and Plan: Acute Respiratory failure secondary to COVID-19 with component of pulmonary edema and may have a component of bacterial pneumonia Intubated 07/1407/29/2021: Tracheostomy and PEG tube placement Continue full mechanical ventilation support to prevent hypoxemia/hypercarbia and end organ damage. Currently PEEP to 8 and 40% FiO2. 08/08 I again placed patient on pressure support weaning trial 03/02 and she again failed pressure support ventilation weaning trial within few minutes due to high RSBI. Her tidal volumes were 200 mL approximate with rate close to 40 Off of continuous sedation CT chest 07/14 IMPRESSION: 1. Diffuse lung disease, worsened from 07/10/2021, consistent with COVID-19 pneumonia. Bacterial pneumonia and pulmonary edema have overlapping appearances and cannot be excluded. 2. Mild mediastinal lymphadenopathy, likely reactive (2) Pneumonia due to COVID-19 virus: Code(s): U07.1 - COVID-19; J12.82 - Pneumonia due to coronavirus disease 2018 Status: Acute Assessment and Plan: Patient is vaccinated against COVID-19 but has not received a booster dose. She was tested for COVID-19 on 07/06/[address] findings are consistent with COVID-19 pneumonia Completed dexamethasone Completed 5 day course of remdesivir on 07/15/2021 Patient received baricitinib Continue droplet, airborne, contact isolation/precautions (3) Fever: Code(s): R50.9 - Fever, unspecified Status: Acute Assessment and Plan: Low-grade fever with mild increase in WBC She has Stephanie UTI and is on Diflucan Repeat blood cultures sputum culture Check lipase Change Mariee catheter and repeat UA (4) Community acquired pneumonia: Qualifiers: Laterality: unspecified laterality Qualified Code(s): J18.9 - Pneumonia, unspecified organism Code(s): J18.9 - Pneumonia, unspecified organism Status: Acute Assessment and Plan: Presented with complaints of fever and cough. Patient had elevated white count Cultures, influenza, urine Legionella, urine pneumococcal antigen are negative Status post vancomycin and Levaquin for 14 days. (5) DVT (deep venous thrombosis): Code(s): I82.409 - Acute embolism and thrombosis of unspecified deep veins of unspecified lower extremity Status: Acute Assessment and Plan: Lower extremity Dopplers showed Deep vein thrombosis involving the right posterior tibial veins and left popliteal and posterior tibial veins. Patient is on therapeutic Lovenox (6) Acute on chronic kidney failure: Code(s): N17.9 - Acute kidney failure, unspecified; N18.9 - Chronic kidney disease, unspecified Status: Acute Assessment and Plan: Temporary dialysis catheter was placed on 07/21/2021: Dialysis catheter was removed on 07/29/2021. 07/31 tunneled dialysis catheter placed Dialysis per Nephrology Bumex discontinued (7) Hyponatremia: Code(s): E87.1 - Hypo-osmolality and hyponatremia Status: Acute Assessment and Plan: Will use normal saline flushes with tube feeds -improved with dialysis (8) Hypothyroidism: Qualifiers: Hypothyroidism type: acquired Qualified Code(s): E03.9 - Hypothyroidism, unspecified Code(s): E03.9 - Hypothyroidism, unspecified Status: Acute Assessment and Plan: Continue levothyroxine Additional Plan Code status: Full code SUP on Pepcid Patient awaits LTAC placement which has been delayed due to insurance approval. 08/06 I spoke to director at [facility] regarding insurance approval and updated her with patient's respiratory failure and failure of weaning Critical care time spent: 30 minutes Due to a high probability of clinic
[2021-08-08 09:57] LABS: Lipase 679 U/L (23-300)
--- NOTE | 2021-08-08 10:20 | P.PNNP_ITS ---
Progress Note: A&P Assessment and Plan (1) MARCE (acute kidney injury): Code(s): N17.9 - Acute kidney failure, unspecified Status: Acute Assessment and Plan: * likely secondary to COVID-19 infection * evaluation to date: * urine electrolytes are borderline prerenal * renal ultrasound without obstruction * urine output fluctuates as does creatinine; however, BUN rises quite significantly between dialysis treatments * HD today and continue M/W/F schedule for now * follow trend of labs and UOP for potential renal recovery 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 (3) Acute respiratory failure with hypoxia: Code(s): J96.01 - Acute respiratory failure with hypoxia Status: Acute Assessment and Plan: * due to #4 and possibly bacterial pneumonia * culture negative to date * off antibiotics (4) Pneumonia due to COVID-19 virus: Code(s): U07.1 - COVID-19; J12.82 - Pneumonia due to coronavirus disease 2018 Status: Acute Assessment and Plan: * CT findings are consistent with COVID-19 pneumonia * completed course of dexamethasone * s/p 5 day course of remdesivir * started on Baricitinib on 07/14/21 * continue ventilator support, pulmonary toliet, and inhalers * s/p tracheostomy (5) Hyponatremia: Code(s): E87.1 - Hypo-osmolality and hyponatremia Status: Acute Assessment and Plan: * slowly improving stabilizing * dialysis helping to some degree (6) Anemia: Code(s): D64.9 - Anemia, unspecified Status: Acute Assessment and Plan: * likely due to MARCE, CKD, and acute illness * Epogen with HD * follow trend of H/H (7) DVT (deep venous thrombosis): Code(s): I82.409 - Acute embolism and thrombosis of unspecified deep veins of unspecified lower extremity Status: Acute Assessment and Plan: * as noted by lower extremity dopplers * on lovenox (8) Essential (primary) hypertension: Code(s): I10 - Essential (primary) hypertension Status: Chronic Assessment and Plan: * stable BP * follow trend of hemodynamics Will continue to follow. Subjective Date/time seen: 08/08/21 10:20 Patient tolerating dialysis treatment at the time of my visit (seen on HD at ~ 10:00AM; remains on mechanical ventilation via tracheostomy; no real significant change in the last few days; low grade fevers in the last 24 hours; no apparent distress noted. Exam Narrative: General: WD/WN female - trached and on ventilator Heart: normal S1 and S2; no rub Lungs: coarse breath sounds Abdomen: soft, nontender, nondistended, positive bowel sounds Extremities: no cyanosis or clubbing; trace - 1+ edema Skin: no rash or nodules Objective Data Vital Signs Vital Signs: Vital Signs Temp Pulse Resp BP Pulse Ox 08/08/21 10:03 114 H 113/83 08/08/21 10:00 103 H 76/60 L 08/08/21 09:45 106 H 111/73 08/08/21 09:30 116 H 113/81 08/08/21 09:15 114 H 124/83 08/08/21 09:00 109 H 139/92 H 08/08/21 08:45 106 H 131/93 H 08/08/21 08
--- NOTE | 2021-08-08 10:20 | PM.PNNEP ---
Progress Note: A&P Assessment and Plan (1) MARCE (acute kidney injury): Code(s): N17.9 - Acute kidney failure, unspecified Status: Acute Assessment and Plan: likely secondary to COVID-19 infection evaluation to date: urine electrolytes are borderline prerenal renal ultrasound without obstruction urine output fluctuates as does creatinine; however, BUN rises quite significantly between dialysis treatments HD today and continue M/W/F schedule for now follow trend of labs and UOP for potential renal recovery 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 (3) Acute respiratory failure with hypoxia: Code(s): J96.01 - Acute respiratory failure with hypoxia Status: Acute Assessment and Plan: due to #4 and possibly bacterial pneumonia culture negative to date off antibiotics (4) Pneumonia due to COVID-19 virus: Code(s): U07.1 - COVID-19; J12.82 - Pneumonia due to coronavirus disease 2018 Status: Acute Assessment and Plan: CT findings are consistent with COVID-19 pneumonia completed course of dexamethasone s/p 5 day course of remdesivir started on Baricitinib on 07/14/21 continue ventilator support, pulmonary toliet, and inhalers s/p tracheostomy (5) Hyponatremia: Code(s): E87.1 - Hypo-osmolality and hyponatremia Status: Acute Assessment and Plan: slowly improving stabilizing dialysis helping to some degree (6) Anemia: Code(s): D64.9 - Anemia, unspecified Status: Acute Assessment and Plan: likely due to MARCE, CKD, and acute illness Epogen with HD follow trend of H/H (7) DVT (deep venous thrombosis): Code(s): I82.409 - Acute embolism and thrombosis of unspecified deep veins of unspecified lower extremity Status: Acute Assessment and Plan: as noted by lower extremity dopplers on lovenox (8) Essential (primary) hypertension: Code(s): I10 - Essential (primary) hypertension Status: Chronic Assessment and Plan: stable BP follow trend of hemodynamics Will continue to follow. Subjective Date/time seen: 08/08/21 10:20 Patient tolerating dialysis treatment at the time of my visit (seen on HD at ~ 10:00AM; remains on mechanical ventilation via tracheostomy; no real significant change in the last few days; low grade fevers in the last 24 hours; no apparent distress noted. Exam Narrative: General: WD/WN female - trached and on ventilator Heart: normal S1 and S2; no rub Lungs: coarse breath sounds Abdomen: soft, nontender, nondistended, positive bowel sounds Extremities: no cyanosis or clubbing; trace - 1+ edema Skin: no rash or nodules Objective Data Vital Signs Vital Signs: Vital Signs Temp Pulse Resp BP Pulse Ox 08/08/21 10:03 114 H 113/83 08/08/21 10:00 103 H 76/60 L 08/08/21 09:45 106 H 111/73 08/08/21 09:30 116 H 113/81 08/08/21 09:15 114 H 124/83 08/08/21 09:00 109 H 139/92 H 08/08/21 08:45 106 H 131/93 H 08/08/21 08:30 108 H 141/91 H 08/08/21 08:27 115 H 98 08/08/21 08:15 105 H 133/85 08/08/21 08:00 37.9 C H 104 H 29 H 133/85 98 08/08/21 07:45 100 142/83 H 08/08/21 07:30 101 H 131/81 08/08/21 07:16 94 139/80 08/08/21 07:00 38.1 C H 95 31 H 139/80 100 08/08/21 06:00 38.2 C H 97 28 H 132/79 98 08/08/21 04:45 102 H 97 08/08/21 04:00 37.8 C H 99 28 H 138/70 98 08/08/21 03:55 37.8 C H 08/08/21 02:55 38.1 C H 08/08/21 02:00 38.2 C H 100 28 H 141/73 H 98 08/08/21 01:56 104 H 99 08/08/21 00:00 38.4 C H 92 29 H 102/71 98 08/07/21 23:15 8
[2021-08-08] MEDS: CYANOCOBALAMIN 500 MCG TABLET PO (11:10)
[2021-08-08] MEDS: CHOLECALCIFEROL 1,000 UNITS TABLET 5000 UNITS PO (11:10)
[2021-08-08] MEDS: LEVOTHYROXINE SODIUM 100 MCG TABLET PO (11:11)
[2021-08-08] MEDS: FAMOTIDINE 20 MG TABLET PO ×2 (11:11→20:23)
[2021-08-08] MEDS: FLUCONAZOLE 100 MG TABLET 200 MG FEED TUBE (11:11)
[2021-08-08] MEDS: ENOXAPARIN 100 MG/ML SYRINGE 90 MG SUB-Q (11:11)
[2021-08-08] MEDS: PYRIDOXINE HCL 25 MG TABLET PO (11:13)
[2021-08-08 11:51] LABS: Glucose Point of Care 203 mg/dl (65-105)
[2021-08-08] MEDS: INSULIN ASPART (*BKC) 100 UNITS/ML SUB-Q (12:01)
--- NOTE | 2021-08-08 12:10 | PCNFU ---
Nutrition Follow-Up Complete: Inadequate Oral Intake as related to mechanical ventilation as evidenced by NPO. Goal: Meet estimated nutritional needs Progressing towards goal. No new goal at this time. Pt current nutrition is Nepro at 40 mls per hour over 22 hours per day. Last recorded weight is 84.5 kg. Bowel Motility: + BM 08/07/2021 Labs Reviewed: Hgb 9.4, Hct 30.2, Alb 3.3, Na 132, GFR 16, BUN 75, Cr 2.9, Glu 150 Meds Noted: Albutein, Albuterol, B-12, Lovenox, Retacrit, Pepcid, Fentanyl, Glucagon, Glucose, Novolog, Synthroid, Miralax, B-6, Vitamin D Skin: bilateral buttocks and groin maceration Additional Notes: Pt. remains on mechanical ventilation. Current feeding is Nepro at 40 mls per hour over 22 hours per day providing 1584 calories, 71 grams of protein and 640 mls of water with a 30 ml water flush q4. Pt. is tolerating feeding well per nursing. Pt. is on banatrol plus q6 hours to promote stool bulking. Will monitor every Wednesday and Wednesday.
[2021-08-08 17:59] LABS: Glucose Point of Care 155 mg/dl (65-105)
[2021-08-08] MEDS: MINERAL OIL/WHITE PETROLATUM OINTMENT 1 APPLIC EACH EYE (20:23)
[2021-08-08 22:55] LABS: Add Urine Microscopic? YES; Appearance Urine Turbid (Clear); Bacteria Urine Trace /hpf; Bilirubin Urine 2+ (Negative); Blood Urine 3+ (Negative); Color Urine Yellow (Yellow); Glucose Urine UA Negative (Negative); Ketones Urine Negative (Negative); Leukocyte Esterase Ur 2+ LEU/UL (Negative); Mucus Urine Few /lpf; Nitrate Urine Negative (Negative); Protein Urine 2+ mg/dL (Negative); RBC Urine >75 /hpf (0-2); Specific Grav Ur 1.027 (1.001-1.035); Squamous Epithelial Cell Urine Moderate /hpf (Few); WBC Clumps Urine Present /HPF; WBC Urine >75 /hpf
[2021-08-08 23:54] LABS: Glucose Point of Care 161 mg/dl (65-105)
[2021-08-09] VITALS (39 sets, daily range): BP systolic 100–147; BP diastolic 64–86; PULSE 92–117; RESP 29–44; TEMP 37.8–38.4; O2SAT 92–100
[2021-08-09 04:13] LABS: Hematocrit 31.2 % (37.0-47.0); Hemoglobin 9.8 g/dL (12.0-15.0); Mean Corpuscular HGB Conc 31.4 g/dl (32-36); Mean Corpuscular Hemoglobin 29.9 pg (26-34); Mean Corpuscular Volume 95.1 fl (80-100); Mean Platelet Volume 10.6 fl (7.4-10.4); Platelet Count Result 550 k/mm3 (150-375); Red Blood Count 3.28 M/mm3 (4.2-5.4)
[2021-08-09 04:33] LABS: Alanine Aminotransferase 62 U/L (4-35); Albumin Level 3.6 g/dL (3.5-5.1); Alkaline Phosphatase 179 U/L (38-126); Anion Gap 11 mmol/L (8-16); Aspartate Amino Transferase 54 U/L (14-36); Bilirubin,Total 0.5 mg/dL (0.2-1.3); Blood Urea Nitrogen 64 mg/dL (7-17); Calcium 9.1 mg/dL (8.4-10.2); Carbon Dioxide 26 mmol/L (22-30); Chloride 99 mmol/L (98-107); Estimated CRCL calculation 19 ml/min; Estimated Glomerular Filt Rate 20; Glucose 144 mg/dL (65-110); Magnesium 2.3 mg/dL (1.6-2.3); Potassium 4.2 mmol/L (3.4-5.0); Sodium 136 mmol/L (137-145)
[2021-08-09 05:28] LABS: pH ABG 7.594 (7.350-7.450)
[2021-08-09 05:29] LABS: Base Excess ABG -0.5 mEq/l (+/-2.0)
[2021-08-09 05:30] LABS: Alveolar/Arterial O2 Gradient 25.2 mmHg; Carboxyhemoglobin 0.3 % THb (0-2.0); Methemoglobin ABG 0.3 %THb (0-1.5); Oxygen Content ABG 14.8 %vol (16.0-22.0); Reduced Hemoglobin 1.4 %THb (0-5.0); Total Hemoglobin 10.5 g/dL (12.0-18.0)
[2021-08-09 05:31] LABS: Device VENTILATOR; Fractional Inspired Oxygen 30 %; Modified Allen's Test Pass; PO2 FiO2 Ratio Arterial Blood 5.47 %; Site Drawn RIGHT RADIAL
[2021-08-09 05:32] LABS: Arterial Blood Gas PEEP 8 cmH2O; Arterial Blood Gas Vent Mode CMV; Arterial Blood Gas Ventilator rate 30 /MIN
[2021-08-09 05:33] LABS: Arterial Blood Gas Tidal Volume 400 ml
[2021-08-09 06:48] LABS: Glucose Point of Care 148 mg/dl (65-105)
[2021-08-09] MEDS: CENTRAL LINE FLUSH 10 ML IV PUSH ×3 (06:56→21:17)
[2021-08-09] MEDS: LEVOTHYROXINE SODIUM 100 MCG TABLET PO (06:56)
--- NOTE | 2021-08-09 09:22 | WPDINTPN ---
Progress Note: A&P Assessment and Plan (1) Acute hypoxemic respiratory failure due to COVID-19: Code(s): U07.1 - COVID-19; J96.01 - Acute respiratory failure with hypoxia Status: Acute Assessment and Plan: Acute Respiratory failure secondary to COVID-19 with component of pulmonary edema and may have a component of bacterial pneumonia Intubated 07/1407/29/2021: Tracheostomy and PEG tube placement Continue full mechanical ventilation support to prevent hypoxemia/hypercarbia and end organ damage. Currently PEEP to 8 and 40% FiO2. 08/09 I again placed patient on pressure support of 8/8 and I will continue as tolerated. Her RSBI is borderline high bow continue at this time. Off of continuous sedation CT chest 07/14 IMPRESSION: 1. Diffuse lung disease, worsened from 07/10/2021, consistent with COVID-19 pneumonia. Bacterial pneumonia and pulmonary edema have overlapping appearances and cannot be excluded. 2. Mild mediastinal lymphadenopathy, likely reactive (2) Pneumonia due to COVID-19 virus: Code(s): U07.1 - COVID-19; J12.82 - Pneumonia due to coronavirus disease 2019 Status: Acute Assessment and Plan: Patient is vaccinated against COVID-19 but has not received a booster dose. She was tested for COVID-19 on 07/06/2021 found to be positive CT findings are consistent with COVID-19 pneumonia Completed dexamethasone Completed 5 day course of remdesivir on 07/15/2021 Patient received baricitinib Continue droplet, airborne, contact isolation/precautions (3) Fever: Code(s): R50.9 - Fever, unspecified Status: Acute Assessment and Plan: Low-grade fever with increase in WBC She has Stephanie UTI and is on Diflucan 08/08 Repeat blood cultures sputum culture and urine culture sent Her UA suggests UTI and her lipase was elevated at 679 Mariee catheter was changed I will start patient on aztreonam as patient has multiple allergies Will recheck lipase in 24 hours. If continues to increase Will considers imaging of abdomen Chest x-ray is also pending. Most recent chest x-ray does not show any significant change (4) Community acquired pneumonia: Qualifiers: Laterality: unspecified laterality Qualified Code(s): J18.9 - Pneumonia, unspecified organism Code(s): J18.9 - Pneumonia, unspecified organism Status: Acute Assessment and Plan: Presented with complaints of fever and cough. Patient had elevated white count Cultures, influenza, urine Legionella, urine pneumococcal antigen are negative Status post vancomycin and Levaquin for 14 days. (5) DVT (deep venous thrombosis): Code(s): I82.409 - Acute embolism and thrombosis of unspecified deep veins of unspecified lower extremity Status: Acute Assessment and Plan: Lower extremity Dopplers showed Deep vein thrombosis involving the right posterior tibial veins and left popliteal and posterior tibial veins. Patient is on therapeutic Lovenox (6) Acute on chronic kidney failure: Code(s): N17.9 - Acute kidney failure, unspecified; N18.9 - Chronic kidney disease, unspecified Status: Acute Assessment and Plan: Temporary dialysis catheter was placed on 07/21/2021: Dialysis catheter was removed on 07/29/2021. 07/31 tunneled dialysis catheter placed Dialysis per Nephrology Bumex discontinued (7) Hyponatremia: Code(s): E87.1 - Hypo-osmolality and hyponatremia Status: Acute Assessment and Plan: Will use normal saline flushes with tube feeds -improved with dialysis (8) Hypothyroidism: Qualifiers: Hypothyroidism type: acquired Qualified Code(s): E03.9 - Hypothyroidism, unspecified Code(s): E03.9 - Hypothyroidism, unspecified Status: Acute Assessment and Plan: Continue levothyroxine Additional Plan Code status: Full code SUP on Pepcid Patient awaits LTAC placement which has been delayed due to insurance approval. 08/06 I spo
[2021-08-09] MEDS: FLUCONAZOLE 100 MG TABLET 200 MG FEED TUBE (11:14)
[2021-08-09] MEDS: FAMOTIDINE 20 MG TABLET PO ×2 (11:14→21:16)
--- NOTE | 2021-08-09 11:43 | P.PNNP_ITS ---
Progress Note: A&P Assessment and Plan (1) MARCE (acute kidney injury): Code(s): N17.9 - Acute kidney failure, unspecified Status: Acute Assessment and Plan: * likely secondary to COVID-19 infection * evaluation to date: * urine electrolytes are borderline prerenal * renal ultrasound without obstruction * urine output fluctuates as does creatinine; however, BUN rises quite significantly between dialysis treatments * HD Wednesday * volume status looks okay * electrolytes are okay 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 (3) Acute respiratory failure with hypoxia: Code(s): J96.01 - Acute respiratory failure with hypoxia Status: Acute Assessment and Plan: * due to #4 and possibly bacterial pneumonia * culture negative to date * on Aztreonam (4) Pneumonia due to COVID-19 virus: Code(s): U07.1 - COVID-19; J12.82 - Pneumonia due to coronavirus disease 2018 Status: Acute Assessment and Plan: * CT findings are consistent with COVID-19 pneumonia * completed course of dexamethasone * s/p 5 day course of remdesivir * started on Baricitinib on 07/14/21 and completed course * continue ventilator support, pulmonary toliet, and inhalers * s/p tracheostomy (5) Hyponatremia: Code(s): E87.1 - Hypo-osmolality and hyponatremia Status: Acute Assessment and Plan: * slowly improving stabilizing * dialysis helping to some degree (6) Anemia: Code(s): D64.9 - Anemia, unspecified Status: Acute Assessment and Plan: * likely due to MARCE, CKD, and acute illness * Epogen with HD * hemoglobin in the high 9s and low 10s. (7) DVT (deep venous thrombosis): Code(s): I82.409 - Acute embolism and thrombosis of unspecified deep veins of unspecified lower extremity Status: Acute Assessment and Plan: * as noted by lower extremity dopplers * on lovenox (8) Essential (primary) hypertension: Code(s): I10 - Essential (primary) hypertension Status: Chronic Assessment and Plan: * Systolic in the 120 Will continue to follow. Subjective Date/time seen: 08/09/21 11:43 Interval history: Krysta is still on the ventilator and sedated. She looks comfortable. she had HD yesterday. She is due on Wednesday. Exam Narrative: General: WD/WN female - trached and on ventilator Heart: normal S1 and S2; no rub or gallop Lungs: coarse breath sounds bilaterally Abdomen: soft, nontender, nondistended, positive bowel sounds Extremities: no cyanosis or clubbing; trace - 1+ edema Skin: no rash Objective Data Vital Signs Vital Signs: Vital Signs - 24 hr 08/08/21 11:49 08/08/21 12:00 08/08/21 14:00 Temperature 38.2 C H 38.4 C H Pulse Rate 110 H 114 H 114 H Respiratory Rate 34 H 38 H Blood Pressure 130/79 131/78 Pulse Oximetry 97 96 96 08/08/21 14:35 08/08/21 16:00 08/08/21 17:18 Temperature 38.1 C H Pulse Rate 115 H 90 88 Respiratory Rate 43 H Blood Pressure 91/73 L Pulse Oximetry 96 94 95
--- NOTE | 2021-08-09 11:43 | PM.PNNEP ---
Progress Note: A&P Assessment and Plan (1) MARCE (acute kidney injury): Code(s): N17.9 - Acute kidney failure, unspecified Status: Acute Assessment and Plan: likely secondary to COVID-19 infection evaluation to date: urine electrolytes are borderline prerenal renal ultrasound without obstruction urine output fluctuates as does creatinine; however, BUN rises quite significantly between dialysis treatments HD Wednesday volume status looks okay electrolytes are okay 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 (3) Acute respiratory failure with hypoxia: Code(s): J96.01 - Acute respiratory failure with hypoxia Status: Acute Assessment and Plan: due to #4 and possibly bacterial pneumonia culture negative to date on Aztreonam (4) Pneumonia due to COVID-19 virus: Code(s): U07.1 - COVID-19; J12.82 - Pneumonia due to coronavirus disease 2018 Status: Acute Assessment and Plan: CT findings are consistent with COVID-19 pneumonia completed course of dexamethasone s/p 5 day course of remdesivir started on Baricitinib on 07/14/21 and completed course continue ventilator support, pulmonary toliet, and inhalers s/p tracheostomy (5) Hyponatremia: Code(s): E87.1 - Hypo-osmolality and hyponatremia Status: Acute Assessment and Plan: slowly improving stabilizing dialysis helping to some degree (6) Anemia: Code(s): D64.9 - Anemia, unspecified Status: Acute Assessment and Plan: likely due to MARCE, CKD, and acute illness Epogen with HD hemoglobin in the high 9s and low 10s. (7) DVT (deep venous thrombosis): Code(s): I82.409 - Acute embolism and thrombosis of unspecified deep veins of unspecified lower extremity Status: Acute Assessment and Plan: as noted by lower extremity dopplers on lovenox (8) Essential (primary) hypertension: Code(s): I10 - Essential (primary) hypertension Status: Chronic Assessment and Plan: Systolic in the 120 Will continue to follow. Subjective Date/time seen: 08/09/21 11:43 Interval history: Krysta is still on the ventilator and sedated. She looks comfortable. she had HD yesterday. She is due on Wednesday. Exam Narrative: General: WD/WN female - trached and on ventilator Heart: normal S1 and S2; no rub or gallop Lungs: coarse breath sounds bilaterally Abdomen: soft, nontender, nondistended, positive bowel sounds Extremities: no cyanosis or clubbing; trace - 1+ edema Skin: no rash Objective Data Vital Signs Vital Signs: Vital Signs - 24 hr 08/08/21 11:49 08/08/21 12:00 08/08/21 14:00 Temperature 38.2 C H 38.4 C H Pulse Rate 110 H 114 H 114 H Respiratory Rate 34 H 38 H Blood Pressure 130/79 131/78 Pulse Oximetry 97 96 96 08/08/21 14:35 08/08/21 16:00 08/08/21 17:18 Temperature 38.1 C H Pulse Rate 115 H 90 88 Respiratory Rate 43 H Blood Pressure 91/73 L Pulse Oximetry 96 94 95 08/08/21 19:10 08/08/21 20:00 08/08/21 20:10 Temperature 38.6 C H 38.6 C H Pulse Rate 104 H 89 Respiratory Rate 38 H Blood Pressure 99/63 L Pulse Oximetry 96 92 08/08/21 21:10 08/08/21 22:00 08/08/21 23:19 Temperature 38.2 C H 38.1 C H Pulse Rate 97 104 H Respiratory Rate 34 H Blood Pressure 104/63 Pulse Oximetry 97 97 08/09/21 00:00 08/09/21 02:00 08/09/21 02:29 Temperature 38.1 C H 38.0 C H Pulse Rate 96 95 109 H Respiratory Rate 38 H 30 H Blood Pressure 125/80 119/72 Pulse Oximetry 97 98 100 08/09/21 04:00 08/09/21 06:00 08/09/21 06:08 Temperature 38.1 C H 38.1 C H Pulse Rate 94 95 102 H Respiratory Rate
[2021-08-09 12:21] LABS: Glucose Point of Care 131 mg/dl (65-105)
[2021-08-09] MEDS: ENOXAPARIN 100 MG/ML SYRINGE 90 MG SUB-Q (12:33)
[2021-08-09] MEDS: AZTREONAM 1 GM in DEXTROSE 5% IN WATER 50 ML 100 ML IVPB ×2 (15:04→21:17)
[2021-08-09 17:43] LABS: Glucose Point of Care 148 mg/dl (65-105)
[2021-08-09] MEDS: MINERAL OIL/WHITE PETROLATUM OINTMENT 1 APPLIC EACH EYE (21:17)
[2021-08-10] VITALS (47 sets, daily range): BP systolic 91–149; BP diastolic 65–86; PULSE 76–107; RESP 24–97; TEMP 37.4–38.3; O2SAT 93–100
[2021-08-10 00:23] LABS: Glucose Point of Care 158 mg/dl (65-105)
[2021-08-10] MEDS: PANTOPRAZOLE SODIUM IV 40 MG VIAL IV PUSH ×3 (00:29→20:44)
[2021-08-10 00:56] LABS: Hemoglobin 10.1 g/dL (12.0-15.0); Mean Corpuscular HGB Conc 30.6 g/dl (32-36); Mean Corpuscular Hemoglobin 29.9 pg (26-34); Mean Corpuscular Volume 97.6 fl (80-100); Mean Platelet Volume 10.3 fl (7.4-10.4); Platelet Count Result 575 k/mm3 (150-375); Red Blood Count 3.38 M/mm3 (4.2-5.4); Red Cell Distribution Width 18.6 % (11.5-14.5); White Blood Count 25.9 K/mm3 (4.5-10.0)
[2021-08-10 01:25] LABS: Band Neutrophils Percent 6 % (0-6); Lymphocytes Absolute Manual 2.07 K/mm3 (1.1-4.5); Metamyelocytes Percent 3 %; Monocytes Absolute Manual 2.07 K/mm3 (0.1-0.90); Monocytes Percent Manual 8 % (3-9); Myelocytes Percent 1 %; Neutrophils Absolute Manual 20.72 K/mm3 (1.7-7.2); Neutrophils Percent Manual 74 % (46-73); Total Cells Counted 100
[2021-08-10 01:26] LABS: Nucleated Red Blood Cells 2 %; Platelet Estimate Adequate (Adequate)
[2021-08-10 01:27] LABS: Poikilocytosis 1+ (NORMAL)
[2021-08-10 01:37] LABS: IFOB Positive Control Positive; Immunochemical Fecal Occult Bl Positive (N)
[2021-08-10 04:48] LABS: Hematocrit 32.5 % (37.0-47.0); Hemoglobin 10.1 g/dL (12.0-15.0); Mean Corpuscular HGB Conc 31.1 g/dl (32-36); Mean Corpuscular Hemoglobin 30.3 pg (26-34); Mean Corpuscular Volume 97.6 fl (80-100); Mean Platelet Volume 10.5 fl (7.4-10.4); Platelet Count Result 587 k/mm3 (150-375); Red Blood Count 3.33 M/mm3 (4.2-5.4); Red Cell Distribution Width 18.8 % (11.5-14.5); White Blood Count 25.6 K/mm3 (4.5-10.0)
[2021-08-10] MEDS: AZTREONAM 1 GM in DEXTROSE 5% IN WATER 50 ML 100 ML IVPB ×3 (05:06→21:27)
[2021-08-10] MEDS: CENTRAL LINE FLUSH 10 ML IV PUSH ×3 (05:09→21:28)
[2021-08-10 05:10] LABS: Alanine Aminotransferase 59 U/L (4-35); Albumin Level 3.6 g/dL (3.5-5.1); Alkaline Phosphatase 202 U/L (38-126); Anion Gap 11 mmol/L (8-16); Aspartate Amino Transferase 63 U/L (14-36); Bilirubin,Total 0.6 mg/dL (0.2-1.3); Blood Urea Nitrogen 99 mg/dL (7-17); Calcium 9.3 mg/dL (8.4-10.2); Carbon Dioxide 24 mmol/L (22-30); Chloride 98 mmol/L (98-107); Estimated CRCL calculation 15 ml/min; Estimated Glomerular Filt Rate 16; Glucose 164 mg/dL (65-110); Lipase 618 U/L (23-300); Magnesium 2.4 mg/dL (1.6-2.3); Potassium 4.6 mmol/L (3.4-5.0); Sodium 133 mmol/L (137-145)
[2021-08-10] MEDS: LEVOTHYROXINE SODIUM 100 MCG TABLET PO (05:10)
[2021-08-10 06:00] LABS: Base Excess ABG -1.8 mEq/l (+/-2.0); HCO3 ABG 21.6 mEq/l (22.0-26.0); PCO2 ABG 32.1 mmHg (35.0-45.0); PO2 ABG 77.7 mmHg (80.0-100.0); pH ABG 7.446 (7.350-7.450)
[2021-08-10 06:01] LABS: Alveolar/Arterial O2 Gradient 98.5 mmHg; Carboxyhemoglobin 0.2 % THb (0-2.0); Methemoglobin ABG 0.3 %THb (0-1.5); Oxygen Content ABG 14.8 %vol (16.0-22.0); Oxygen Saturation ABG 96.1 % (95.0-100.0); Oxyhemoglobin 95.4 % THb (90.0-100.0); Reduced Hemoglobin 4.1 %THb (0-5.0)
[2021-08-10 06:02] LABS: Device VENTILATOR; Modified Allen's Test Unable to perform; PO2 FiO2 Ratio Arterial Blood 2.59 %; Site Drawn LEFT RADIAL
[2021-08-10 06:03] LABS: Arterial Blood Gas PEEP 8 cmH2O; Arterial Blood Gas Tidal Volume 400 ml; Arterial Blood Gas Vent Mode CMV; Arterial Blood Gas Ventilator rate 24 /MIN
[2021-08-10 06:44] LABS: Glucose Point of Care 147 mg/dl (65-105)
[2021-08-10] MEDS: FAMOTIDINE 20 MG TABLET PO (09:21)
[2021-08-10] MEDS: FLUCONAZOLE 100 MG TABLET 200 MG FEED TUBE (09:21)
--- NOTE | 2021-08-10 09:56 | P.PNNP_ITS ---
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 Next treatment on Wednesday. (3) Acute respiratory failure with hypoxia: Code(s): J96.01 - Acute respiratory failure with hypoxia Status: Acute Assessment and Plan: * due to #4 and possibly bacterial pneumonia * culture negative to date * on Aztreonam (4) Pneumonia due to COVID-19 virus: Code(s): U07.1 - COVID-19; J12.82 - Pneumonia due to coronavirus disease 2018 Status: Acute Assessment and Plan: * CT findings are consistent with COVID-19 pneumonia * completed course of dexamethasone * s/p 5 day course of remdesivir * started on Baricitinib on 07/14/21 and completed course * continue ventilator support, pulmonary toliet, and inhalers * s/p tracheostomy (5) Hyponatremia: Code(s): E87.1 - Hypo-osmolality and hyponatremia Status: Acute Assessment and Plan: * slowly improving stabilizing * dialysis helping to some degree (6) Anemia: Code(s): D64.9 - Anemia, unspecified Status: Acute Assessment and Plan: * likely due to MARCE, CKD, and acute illness * Epogen with HD * hemoglobin 10.1 today (7) DVT (deep venous thrombosis): Code(s): I82.409 - Acute embolism and thrombosis of unspecified deep veins of unspecified lower extremity Status: Acute Assessment and Plan: * as noted by lower extremity dopplers * on lovenox (8) Essential (primary) hypertension: Code(s): I10 - Essential (primary) hypertension Status: Chronic Assessment and Plan: * Systolic in the 120 Will continue to follow. Subjective Date/time seen: 08/10/21 09:56 Interval history: Krysta is still on the ventilator and sedated. She looks comfortable. Exam Narrative: General: WD/WN female - trached and on ventilator Heart: normal S1 and S2; no rub or gallop Lungs: coarse to ausc Abdomen: soft, nontender, nondistended, positive bowel sounds Extremities: no cyanosis or clubbing; trace - 1+ edema Skin: no rash or sq nodules Objective Data Vital Signs Vital Signs: Vital Signs - 24 hr 08/09/21 10:00 08/09/21 11:00 08/09/21 12:00 Temperature 38.1 C H 38.0 C H 37.9 C H Pulse Rate 103 H 101 H 102 H Respiratory Rate 34 H 31 H 33 H Blood Pressure 132/76 125/71 128/71 Pulse Oximetry 97 98 97 08/09/21 12:14 08/09/21 13:49 08/09/21 14:00 Temperature 38.1 C H Pulse Rate 103 H 117 H 107 H Respiratory Rate Blood Pressure 126/74 Pulse Oximetry 97 100 96 08/09/21 16:00 08/09/21 18:00 08/09/21 18:03 Temperature 38.2 C H 38.4 C H Pulse Rate 110 H 109 H 111 H Respiratory Rate 35 H 35 H Blood Pressure 129/78 130/74 Pulse Oximetry 96 95 94
--- NOTE | 2021-08-10 09:56 | PM.PNNEP ---
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 Next treatment on Wednesday. (3) Acute respiratory failure with hypoxia: Code(s): J96.01 - Acute respiratory failure with hypoxia Status: Acute Assessment and Plan: due to #4 and possibly bacterial pneumonia culture negative to date on Aztreonam (4) Pneumonia due to COVID-19 virus: Code(s): U07.1 - COVID-19; J12.82 - Pneumonia due to coronavirus disease 2018 Status: Acute Assessment and Plan: CT findings are consistent with COVID-19 pneumonia completed course of dexamethasone s/p 5 day course of remdesivir started on Baricitinib on 07/14/21 and completed course continue ventilator support, pulmonary toliet, and inhalers s/p tracheostomy (5) Hyponatremia: Code(s): E87.1 - Hypo-osmolality and hyponatremia Status: Acute Assessment and Plan: slowly improving stabilizing dialysis helping to some degree (6) Anemia: Code(s): D64.9 - Anemia, unspecified Status: Acute Assessment and Plan: likely due to MARCE, CKD, and acute illness Epogen with HD hemoglobin 10.1 today (7) DVT (deep venous thrombosis): Code(s): I82.409 - Acute embolism and thrombosis of unspecified deep veins of unspecified lower extremity Status: Acute Assessment and Plan: as noted by lower extremity dopplers on lovenox (8) Essential (primary) hypertension: Code(s): I10 - Essential (primary) hypertension Status: Chronic Assessment and Plan: Systolic in the 120 Will continue to follow. Subjective Date/time seen: 08/10/21 09:56 Interval history: Krysta is still on the ventilator and sedated. She looks comfortable. Exam Narrative: General: WD/WN female - trached and on ventilator Heart: normal S1 and S2; no rub or gallop Lungs: coarse to ausc Abdomen: soft, nontender, nondistended, positive bowel sounds Extremities: no cyanosis or clubbing; trace - 1+ edema Skin: no rash or sq nodules Objective Data Vital Signs Vital Signs: Vital Signs - 24 hr 08/09/21 10:00 08/09/21 11:00 08/09/21 12:00 Temperature 38.1 C H 38.0 C H 37.9 C H Pulse Rate 103 H 101 H 102 H Respiratory Rate 34 H 31 H 33 H Blood Pressure 132/76 125/71 128/71 Pulse Oximetry 97 98 97 08/09/21 12:14 08/09/21 13:49 08/09/21 14:00 Temperature 38.1 C H Pulse Rate 103 H 117 H 107 H Respiratory Rate Blood Pressure 126/74 Pulse Oximetry 97 100 96 08/09/21 16:00 08/09/21 18:00 08/09/21 18:03 Temperature 38.2 C H 38.4 C H Pulse Rate 110 H 109 H 111 H Respiratory Rate 35 H 35 H Blood Pressure 129/78 130/74 Pulse Oximetry 96 95 94 08/09/21 20:00 08/09/21 20:20 08/09/21 21:00 Temperature 38.0 C H Pulse Rate 101 H 105 H 107 H Respiratory Rate 44 H Blood Pressure 142/86 H Pulse Oximetry 96 97 08/09/21 22:00 08/09/21 23:30 08/10/21 00:00 Temperature 37.8 C H 37.9 C H Pulse Rate 105 H 104 H 101 H Respiratory Rate 35 H 35 H Blood Pressure 147/85 H 149/81 H Pulse Oximetry 97 95 97 08/10/21 02:00 08/10/21 02:26 08/10/21 03:50 Temperature 37.8 C H Pulse Rate 97 101 H 101 H Respiratory Rate 97 H 35 H Blood Pressure 146/86 H Pulse Oximetry 97 97 08/10/21 04:00 08/10/21 05:45 08/10/21 06:00 Temperature 38.1 C H 38.1 C H Pulse Rate 100 102 H 103 H Respiratory Rate 36 H 36 H Blood Pressure 125/71 120/69
--- NOTE | 2021-08-10 10:30 | WPDGICN ---
Assessment and Plan Assessment and plan (1) Blood in stool: Code(s): K92.1 - Melena Status: Acute Assessment and Plan: although she has had 2 bloody stools, her hemoglobin has not yet drop. It is currently 10.1 and I will repeat that in about 1 hour. So far no blood his emanated through her G-tube. We will continue to flush it. If there is any evidence of blood per that tube will then schedule her for EGD. Although her BUN has increased somewhat, I suspect this is more likely a lower gastrointestinal bleed given the fact that there has not been a dramatic drop in her blood count accompanying the red blood per rectum. She has been started on pantoprazole. Lovenox has been held since her last dose which was almost 24 hours ago. I discussed her case with nursing. The plan is we will continue to observe her blood counts. I am hoping that holding the Lovenox temporarily will result in the bleeding stopping. She may of course Eventually need endoscopy and/or colonoscopy. (2) Acute respiratory failure with hypoxia: Code(s): J96.01 - Acute respiratory failure with hypoxia Status: Acute Assessment and Plan: As noted above she has been intubated in and on full mechanical ventilation for couple of weeks. (3) Fever: Code(s): R50.9 - Fever, unspecified Status: Acute Assessment and Plan: she is afebrile now. She has been on antibiotics. She has been on aztreonam and also was given Diflucan for Stephanie UTI. (4) DVT (deep venous thrombosis): Code(s): I82.409 - Acute embolism and thrombosis of unspecified deep veins of unspecified lower extremity Status: Acute (5) Anemia: Code(s): D64.9 - Anemia, unspecified Status: Acute Assessment and Plan: she does have anemia also due to chronic kidney disease, hence her baseline hemoglobin is around 10 Additional Plan Doppler revealed deep vein thrombosis of the right posterior tibial veins and left popliteal and posterior tibial veins. GI Consult Note Consult date/time: 08/10/21 10:30 HPI: Krysta Asencio is a 76 year old female Was admitted in mid June with with cough and some shortness of breath. She initially had been treated as an outpatient and had a virtual visit with her primary care provider. Because her symptoms persisted she came to the emergency room with a fever. She does have a past history of chronic kidney disease stage 3, hypertension, hyperlipidemia, aortic stenosis and hypothyroidism. She had been vaccinated against COVID but had not yet had a booster. She gradually developed respiratory failure with pulmonary edema and required tracheostomy and PEG tube placement on July 29. The EGD report by Dr. Coley does not indicate any evidence of upper gastrointestinal disease, gastritis, ulcers etcetera except for a hiatal hernia. The patient has developed pulmonary emboli for which reason she was started on Lovenox. Now beginning last night, she has been passing dark red blood per rectum. I had him stop the tube feedings this morning in place her G-tube to gravity. So far no blood has passed through the tube, only some residual tube feeding. Lovenox has been stopped. She was started on Protonix every 12 hours last night. Review of Systems Review of Systems: All systems reviewed & are unremarkable except as noted in HPI and below PMFSH Past Medical History Medical History Aortic insufficiency with aortic stenosis Mild and asymptomatic. Followed by Dr. Butler. Chronic kidney disease, stage 3 Baseline creatinine is around 1.00. Dyslipidemia Essential (primary) hypertension Gastroesophageal reflux disease History of peptic ulcer Hypothyroidism MRSA infection Right axillary abscess secondary to MRSA. Obstructive sleep apnea (~05/2021) Osteoarthritis Prediabetes Hemoglobin A1c was 5.7% in September 2019. Sjogrens sy
--- NOTE | 2021-08-10 10:43 | WPDINTPN ---
Progress Note: A&P Assessment and Plan (1) Acute hypoxemic respiratory failure due to COVID-19: Code(s): U07.1 - COVID-19; J96.01 - Acute respiratory failure with hypoxia Status: Acute Assessment and Plan: Acute Respiratory failure secondary to COVID-19 with component of pulmonary edema and may have a component of bacterial pneumonia Intubated 07/1407/29/2021: Tracheostomy and PEG tube placement Continue full mechanical ventilation support to prevent hypoxemia/hypercarbia and end organ damage. Currently PEEP to 8 and 40% FiO2. 08/10 I again placed patient on pressure support of 8/8 and I will continue as tolerated. Her RSBI is borderline high but will continue at this time as tolerated. Off of continuous sedation chest x-ray shows persistent bilateral infiltrates CT chest 07/14 IMPRESSION: 1. Diffuse lung disease, worsened from 07/10/2021, consistent with COVID-19 pneumonia. Bacterial pneumonia and pulmonary edema have overlapping appearances and cannot be excluded. 2. Mild mediastinal lymphadenopathy, likely reactive (2) Pneumonia due to COVID-19 virus: Code(s): U07.1 - COVID-19; J12.82 - Pneumonia due to coronavirus disease 2018 Status: Acute Assessment and Plan: Patient is vaccinated against COVID-19 but has not received a booster dose. She was tested for COVID-19 on 07/06/2021 found to be positive CT findings are consistent with COVID-19 pneumonia Completed dexamethasone Completed 5 day course of remdesivir on 07/15/2021 Patient received baricitinib Continue droplet, airborne, contact isolation/precautions (3) GI bleeding: Code(s): K92.2 - Gastrointestinal hemorrhage, unspecified Status: Acute Assessment and Plan: patient had bloody bowel movement overnight hemoglobin is stable at this time GI is following tube feeds are currently on hold and PEG tube is on suction PPI IV q.12 hours monitor hemoglobin and transfuse if needed hold Lovenox (4) DVT (deep venous thrombosis): Code(s): I82.409 - Acute embolism and thrombosis of unspecified deep veins of unspecified lower extremity Status: Acute Assessment and Plan: Lower extremity Dopplers showed Deep vein thrombosis involving the right posterior tibial veins and left popliteal and posterior tibial veins. Patient is on therapeutic Lovenox which is now on hold due to GI bleed (5) Fever: Code(s): R50.9 - Fever, unspecified Status: Acute Assessment and Plan: Low-grade fever with increase in WBC She has Stephanie UTI and is on Diflucan 08/08 Repeat blood cultures sputum culture and urine culture sent which are pending Her UA suggests UTI and Mariee catheter was changed patient started on aztreonam as patient has multiple allergies Chest x-ray show stable pneumonia Her lipase was elevated at 679 -> 618. Her tube feeds are on hold due to upper GI bleed Will check CT abdomen pelvis (6) Community acquired pneumonia: Qualifiers: Laterality: unspecified laterality Qualified Code(s): J18.9 - Pneumonia, unspecified organism Code(s): J18.9 - Pneumonia, unspecified organism Status: Acute Assessment and Plan: Presented with complaints of fever and cough. Patient had elevated white count Cultures, influenza, urine Legionella, urine pneumococcal antigen are negative Status post vancomycin and Levaquin for 14 days. (7) Acute on chronic kidney failure: Code(s): N17.9 - Acute kidney failure, unspecified; N18.9 - Chronic kidney disease, unspecified Status: Acute Assessment and Plan: Temporary dialysis catheter was placed on 07/21/2021: Dialysis catheter was removed on 07/29/2021. 07/31 tunneled dialysis catheter placed Dialysis per Nephrology Amairani discontinued (8) Hyponatremia: Code(s): E87.1 - Hypo-osmolality and hyponatremia Status: Acute Assessment and Plan: Will use normal saline flushes with tube feeds -im
[2021-08-10 12:20] LABS: Hemoglobin 9.9 g/dL (12.0-15.0)
[2021-08-10 13:09] LABS: Glucose Point of Care 131 mg/dl (65-105)
[2021-08-10 17:54] LABS: Hematocrit 31.5 % (37.0-47.0); Hemoglobin 9.7 g/dL (12.0-15.0); Mean Corpuscular HGB Conc 30.8 g/dl (32-36); Mean Corpuscular Hemoglobin 30.2 pg (26-34); Mean Corpuscular Volume 98.1 fl (80-100); Platelet Count Result 526 k/mm3 (150-375); Red Blood Count 3.21 M/mm3 (4.2-5.4); Red Cell Distribution Width 18.9 % (11.5-14.5); White Blood Count 20.5 K/mm3 (4.5-10.0)
[2021-08-10 18:04] LABS: Glucose Point of Care 139 mg/dl (65-105)
[2021-08-11] VITALS (18 sets, daily range): BP systolic 86–134; BP diastolic 60–86; PULSE 82–97; RESP 24–36; TEMP 36.5–37.6; O2SAT 95–100
[2021-08-11 00:08] LABS: Glucose Point of Care 108 mg/dl (65-105)
[2021-08-11 03:54] LABS: Hematocrit 31.1 % (37.0-47.0); Hemoglobin 9.7 g/dL (12.0-15.0); Mean Corpuscular HGB Conc 31.2 g/dl (32-36); Mean Corpuscular Hemoglobin 29.8 pg (26-34); Mean Corpuscular Volume 95.7 fl (80-100); Mean Platelet Volume 10.3 fl (7.4-10.4); Platelet Count Result 542 k/mm3 (150-375); Red Blood Count 3.25 M/mm3 (4.2-5.4); Red Cell Distribution Width 18.9 % (11.5-14.5); White Blood Count 22.5 K/mm3 (4.5-10.0)
[2021-08-11 04:17] LABS: Phosphorus 5.1 mg/dL (2.5-4.5)
[2021-08-11 04:53] LABS: Alanine Aminotransferase 54 U/L (4-35); Albumin Level 3.7 g/dL (3.5-5.1); Alkaline Phosphatase 164 U/L (38-126); Anion Gap 14 mmol/L (8-16); Aspartate Amino Transferase 48 U/L (14-36); Bilirubin,Total 0.6 mg/dL (0.2-1.3); Blood Urea Nitrogen 119 mg/dL (7-17); Calcium 9.2 mg/dL (8.4-10.2); Carbon Dioxide 23 mmol/L (22-30); Chloride 98 mmol/L (98-107); Estimated CRCL calculation 15 ml/min; Estimated Glomerular Filt Rate 15; Glucose 126 mg/dL (65-110); Magnesium 2.4 mg/dL (1.6-2.3); Potassium 5.2 mmol/L (3.4-5.0); Sodium 135 mmol/L (137-145)
[2021-08-11 05:24] LABS: Alveolar/Arterial O2 Gradient 57.5 mmHg; Base Excess ABG -4.3 mEq/l (+/-2.0); Carboxyhemoglobin 0.3 % THb (0-2.0); Fractional Inspired Oxygen 28 %; HCO3 ABG 17.8 mEq/l (22.0-26.0); Methemoglobin ABG 0.3 %THb (0-1.5); Oxygen Content ABG 14.8 %vol (16.0-22.0); Oxygen Saturation ABG 98.5 % (95.0-100.0); Oxyhemoglobin 97.2 % THb (90.0-100.0); PCO2 ABG 24.1 mmHg (35.0-45.0); PO2 ABG 113.7 mmHg (80.0-100.0); PO2 FiO2 Ratio Arterial Blood 4.06 %; Reduced Hemoglobin 2.2 %THb (0-5.0); Total Hemoglobin 10.7 g/dL (12.0-18.0); pH ABG 7.486 (7.350-7.450)
[2021-08-11] MEDS: AZTREONAM 1 GM in DEXTROSE 5% IN WATER 50 ML 100 ML IVPB (05:25)
[2021-08-11 05:40] LABS: Modified Allen's Test Pass; Site Drawn RIGHT RADIAL
[2021-08-11 05:41] LABS: Arterial Blood Gas PEEP 8 cmH2O; Arterial Blood Gas Tidal Volume 400 ml; Arterial Blood Gas Vent Mode CMV; Arterial Blood Gas Ventilator rate 24 /MIN; Device VENTILATOR
[2021-08-11] MEDS: CENTRAL LINE FLUSH 10 ML IV PUSH ×3 (06:00→20:43)
[2021-08-11] MEDS: FLUCONAZOLE 100 MG TABLET 200 MG FEED TUBE (09:20)
[2021-08-11] MEDS: CHOLECALCIFEROL 1,000 UNITS TABLET 5000 UNITS PO (09:20)
[2021-08-11] MEDS: CYANOCOBALAMIN 500 MCG TABLET PO (09:20)
[2021-08-11] MEDS: PYRIDOXINE HCL 25 MG TABLET PO (09:21)
[2021-08-11] MEDS: PANTOPRAZOLE SODIUM IV 40 MG VIAL IV PUSH ×2 (09:21→20:42)
[2021-08-11 09:35] LABS: Fractional Inspired Oxygen 30 %
--- NOTE | 2021-08-11 10:17 | P.PNNP_ITS ---
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 Next treatment tomorrow. (3) Acute respiratory failure with hypoxia: Code(s): J96.01 - Acute respiratory failure with hypoxia Status: Acute Assessment and Plan: * due to #4 and possibly bacterial pneumonia * culture negative to date * on Aztreonam (4) Pneumonia due to COVID-19 virus: Code(s): U07.1 - COVID-19; J12.82 - Pneumonia due to coronavirus disease 2018 Status: Acute Assessment and Plan: * CT findings are consistent with COVID-19 pneumonia * completed course of dexamethasone * s/p 5 day course of remdesivir * started on Baricitinib on 07/14/21 and completed course * continue ventilator support, pulmonary toliet, and inhalers * s/p tracheostomy (5) Hyponatremia: Code(s): E87.1 - Hypo-osmolality and hyponatremia Status: Acute Assessment and Plan: * slowly Better. Up to 135 today. * dialysis helping to some degree (6) Anemia: Code(s): D64.9 - Anemia, unspecified Status: Acute Assessment and Plan: * likely due to MARCE, CKD, and acute illness * Epogen with HD * hemoglobin Up and down around 10. (7) DVT (deep venous thrombosis): Code(s): I82.409 - Acute embolism and thrombosis of unspecified deep veins of unspecified lower extremity Status: Acute Assessment and Plan: * as noted by lower extremity dopplers * on lovenox (8) Essential (primary) hypertension: Code(s): I10 - Essential (primary) hypertension Status: Chronic Assessment and Plan: * Systolic 100-120 Will continue to follow. Subjective Date/time seen: 08/11/21 10:17 Interval history: Krysta is still on the ventilator and sedated. cannot give a history Exam Narrative: General: WD/WN female - trached and on ventilator Heart: normal S1 and S2; no rub or gallop Lungs: coarse Abdomen: soft, nontender, nondistended, positive bowel sounds Extremities: no cyanosis or clubbing; trace - 1+ edema Skin: no rash Objective Data Vital Signs Vital Signs: Vital Signs - 24 hr 08/10/21 10:30 08/10/21 11:00 08/10/21 11:01 Temperature 38.3 C H 38.2 C H 38.2 C H Pulse Rate 97 104 H 98 Respiratory Rate 34 H 30 H 31 H Blood Pressure 129/78 Pulse Oximetry 97 96 96 08/10/21 11:30 08/10/21 11:42 08/10/21 12:00 Temperature 38.2 C H 38.2 C H Pulse Rate 94 96 99 Respiratory Rate 40 H 28 H Blood Pressure 103/71 Pulse Oximetry 96 96 97 08/10/21 14:00 08/10/21 14:17 08/10/21 14:19 Temperature 38.0 C H 37.9 C H Pulse Rate 93 95 94 Respiratory Rate 34 H 24 H Blood Pressure Pulse Oximetry 98 99 98 08/10/21 14:45
--- NOTE | 2021-08-11 10:17 | PM.PNNEP ---
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 Next treatment tomorrow. (3) Acute respiratory failure with hypoxia: Code(s): J96.01 - Acute respiratory failure with hypoxia Status: Acute Assessment and Plan: due to #4 and possibly bacterial pneumonia culture negative to date on Aztreonam (4) Pneumonia due to COVID-19 virus: Code(s): U07.1 - COVID-19; J12.82 - Pneumonia due to coronavirus disease 2018 Status: Acute Assessment and Plan: CT findings are consistent with COVID-19 pneumonia completed course of dexamethasone s/p 5 day course of remdesivir started on Baricitinib on 07/14/21 and completed course continue ventilator support, pulmonary toliet, and inhalers s/p tracheostomy (5) Hyponatremia: Code(s): E87.1 - Hypo-osmolality and hyponatremia Status: Acute Assessment and Plan: slowly Better. Up to 135 today. dialysis helping to some degree (6) Anemia: Code(s): D64.9 - Anemia, unspecified Status: Acute Assessment and Plan: likely due to MARCE, CKD, and acute illness Epogen with HD hemoglobin Up and down around 10. (7) DVT (deep venous thrombosis): Code(s): I82.409 - Acute embolism and thrombosis of unspecified deep veins of unspecified lower extremity Status: Acute Assessment and Plan: as noted by lower extremity dopplers on lovenox (8) Essential (primary) hypertension: Code(s): I10 - Essential (primary) hypertension Status: Chronic Assessment and Plan: Systolic 100-120 Will continue to follow. Subjective Date/time seen: 08/11/21 10:17 Interval history: Krysta is still on the ventilator and sedated. cannot give a history Exam Narrative: General: WD/WN female - trached and on ventilator Heart: normal S1 and S2; no rub or gallop Lungs: coarse Abdomen: soft, nontender, nondistended, positive bowel sounds Extremities: no cyanosis or clubbing; trace - 1+ edema Skin: no rash Objective Data Vital Signs Vital Signs: Vital Signs - 24 hr 08/10/21 10:30 08/10/21 11:00 08/10/21 11:01 Temperature 38.3 C H 38.2 C H 38.2 C H Pulse Rate 97 104 H 98 Respiratory Rate 34 H 30 H 31 H Blood Pressure 129/78 Pulse Oximetry 97 96 96 08/10/21 11:30 08/10/21 11:42 08/10/21 12:00 Temperature 38.2 C H 38.2 C H Pulse Rate 94 96 99 Respiratory Rate 40 H 28 H Blood Pressure 103/71 Pulse Oximetry 96 96 97 08/10/21 14:00 08/10/21 14:17 08/10/21 14:19 Temperature 38.0 C H 37.9 C H Pulse Rate 93 95 94 Respiratory Rate 34 H 24 H Blood Pressure Pulse Oximetry 98 99 98 08/10/21 14:45 08/10/21 15:44 08/10/21 16:00 Temperature 37.8 C H 37.7 C H Pulse Rate 90 83 Respiratory Rate 37 H 25 H Blood Pressure 113/74 107/69 Pulse Oximetry 97 97 08/10/21 17:42 08/10/21 18:00 08/10/21 19:01 Temperature 37.4 C Pulse Rate 89 85 89 Respiratory Rate 26 H Blood Pressure 103/71 Pulse Oximetry 97 98 08/10/21 19:31 08/10/21 20:00 08/10/21 22:00 Temperature 37.6 C 37.7 C H Pulse Rate 83 95 78 Respiratory Rate 29 H 30 H Blood Pressure 113/76 91/65 L Pulse Oximetry 98 96 99 08/10/21 22:24 08/11/21 00:00 08/11/21 01:45 Temperature 37.6 C H Pulse Rate 76 97 95 Respiratory Rate 31 H Blood Pressure 121/79 Pulse Oximetry 99 98 98 08/11/21 02:00 08/11/21 04:00 08/11/21 05:25 Tempera
--- NOTE | 2021-08-11 10:39 | PCFNICU ---
Addendum entered by Kristel Lizama, RD 08/11/21 10:43: Additional Notes: Pt. has a PEG and trach. She is ordered Nepro with a goal rate of 40 mls per hour over 22 hours per day providing 1584 calories, 71 grams of protein and 640 mls of water with a 30 ml water flush q4. Feeding is currently being held for intolerance due to high residuals the past 2 days per nursing. Will speak with MD to see what next steps are. Recommend re-starting feeding at 10 mls per hour and advancing by 10 mls q4 until goal rate of 40 mls per hour is reached. Recommend re-starting Reglan. Pt. is receiving banatrol plus q6 hours to promote stool bulking. Original Note: ICU Rounding Note: Pt current nutrition is Nepro at 40 mls per hour over 22 hours per day. Last recorded weight is 83.9 kg. Bowel Motility: + BM 08/11/2021. Labs Reviewed: Hgb 9.7, Hct 31.1, Na 135, K 5.2, BUN 119, Cr 3.10, Glu 126 Meds Noted: Albutein, Albuterol, Retacrit, Vitamin B-12 tablet, Fentanyl Sublimaze, Glucose, Glucagon, Protonix, B-6, Vitamin D Skin: No skin break down at this time. WNL. Additional Notes: Pt. is still mechanically Following daily in ICU rounds. Will monitor every Wednesday and Wednesday.
--- NOTE | 2021-08-11 11:37 | WPDINTPN ---
Progress Note: A&P Assessment and Plan (1) Acute hypoxemic respiratory failure due to COVID-19: Code(s): U07.1 - COVID-19; J96.01 - Acute respiratory failure with hypoxia Status: Acute Assessment and Plan: Acute Respiratory failure secondary to COVID-19 with component of pulmonary edema and may have a component of bacterial pneumonia Intubated 07/1407/29/2021: Tracheostomy and PEG tube placement Continue full mechanical ventilation support to prevent hypoxemia/hypercarbia and end organ damage. Currently PEEP to 8 and 40% FiO2. 08/10 patient tolerated pressure support of 8/8 for few hours. Her RSBI is borderline high but will continue at this time as tolerated. Off of continuous sedation Chest x-ray shows persistent bilateral infiltrates CT chest 07/14 IMPRESSION: 1. Diffuse lung disease, worsened from 07/10/2021, consistent with COVID-19 pneumonia. Bacterial pneumonia and pulmonary edema have overlapping appearances and cannot be excluded. 2. Mild mediastinal lymphadenopathy, likely reactive (2) Pneumonia due to COVID-19 virus: Code(s): U07.1 - COVID-19; J12.82 - Pneumonia due to coronavirus disease 2019 Status: Acute Assessment and Plan: Patient is vaccinated against COVID-19 but has not received a booster dose. She was tested for COVID-19 on 07/06/[address] found to [address] positive CT findings are consistent with COVID-19 pneumonia Completed dexamethasone Completed 5 day course of remdesivir on 07/15/2021 Patient received baricitinib Continue droplet, airborne, contact isolation/precautions (3) GI bleeding: Code(s): K92.2 - Gastrointestinal hemorrhage, unspecified Status: Acute Assessment and Plan: Patient had bloody bowel movement On the night of 08/09 hemoglobin is stable at this time GI is following tube feeds are currently on hold and PEG tube is on suction PPI IV q.12 hours monitor hemoglobin and transfuse if needed hold Lovenox for now. If hemoglobin remains stable, no recurrence and if GI does not plan to do any procedure may consider starting Lovenox back and tomorrow (4) DVT (deep venous thrombosis): Code(s): I82.409 - Acute embolism and thrombosis of unspecified deep veins of unspecified lower extremity Status: Acute Assessment and Plan: Lower extremity Dopplers showed Deep vein thrombosis involving the right posterior tibial veins and left popliteal and posterior tibial veins. Patient is on therapeutic Lovenox which is now on hold due to GI bleed I will repeat Dopplers of lower extremity (5) Fever: Code(s): R50.9 - Fever, unspecified Status: Acute Assessment and Plan: Low-grade fever with increase in WBC She has Stephanie UTI and is on Diflucan 08/08 Repeat blood cultures sputum culture and urine culture sent which are pending Her UA suggests UTI and urine culture is growing VRE Mariee catheter was changed patient was started on aztreonam as patient has multiple allergies and I will change antibiotics to Zyvox. patient is allergic to penicillin and has renal failure precluding use of Macrobid. I will also try to remove her urine catheter Chest x-ray show stable pneumonia Her lipase was elevated at 679 -> 618. Her tube feeds are on hold due to upper GI bleed CT abdomen pelvis is pending (6) Community acquired pneumonia: Qualifiers: Laterality: unspecified laterality Qualified Code(s): J18.9 - Pneumonia, unspecified organism Code(s): J18.9 - Pneumonia, unspecified organism Status: Acute Assessment and Plan: Presented with complaints of fever and cough. Patient had elevated white count Cultures, influenza, urine Legionella, urine pneumococcal antigen are negative Status post vancomycin and Levaquin for 14 days. (7) Acute on chronic kidney failure: Code(s): N17.9 - Acute kidney failure, unspecified; N18.9 - Chronic kidney disease, unspecified Status: Acute Assessment an
[2021-08-11 12:13] LABS: Glucose Point of Care 98 mg/dl (65-105)
[2021-08-11] MEDS: LINEZOLID 600 MG/300 ML 600 MG/300 ML SOLN 300 MG IVPB ×2 (13:05→20:41)
--- NOTE | 2021-08-11 13:31 | WPDGIPROGNO ---
Progress Note: A&P Assessment and Plan (1) Blood in stool: Code(s): K92.1 - Melena Status: Acute Assessment and Plan: no more signs of bleeding, hb has been stable (2) Gastrostomy tube in place: Code(s): Z93.1 - Gastrostomy status Status: Acute Assessment and Plan: G-tube to gravity with normal gastric content, no blood hb stable and no more gib ok to resume tube feeding (3) GI bleeding: Code(s): K92.2 - Gastrointestinal hemorrhage, unspecified Status: Acute (4) Acute respiratory failure with hypoxia: Code(s): J96.01 - Acute respiratory failure with hypoxia Status: Acute Assessment and Plan: by icu team (5) Pneumonia due to COVID-19 virus: Code(s): U07.1 - COVID-19; J12.82 - Pneumonia due to coronavirus disease 2019 Status: Acute Subjective Date/time seen: 08/11/21 13:31 Interval history: no more rectal bleeding, G-tube to suction without signs of bleeding. Still on respiratory support Review of Systems Review of Systems: All systems reviewed & are unremarkable except as noted in HPI and below Exam Const: Other: on respiratory support HENMT: General nose exam: Normal nares present Eyes: Sclera: sclerae normal Neck: Other: tracheostomy Resp: Other: coarse BS Cardio: Rate: regular rate GI: GI Palp: Yes Soft to palpation, No Tenderness to palpation present (GI) and No Guarding due to palpation present (GI) Auscultation: normal bowel sounds Other: g-tube site looks ok Urinary Catheter: Urinary Catheter: patent and draining Skin: General skin exam: no rashes or lesions noted Neuro: Other: Grimaces to pain, follows commands intermittently with her hands, withdraws to pain in the legs Psych: Other: unable to assess Objective Data Vital Signs Vital Signs: Vital Signs - 24 hr 08/10/21 14:00 08/10/21 14:17 08/10/21 14:19 Temperature 100.4 F H 100.3 F H Pulse Rate 93 95 94 Respiratory Rate 34 H 24 H Blood Pressure Pulse Oximetry 98 99 98 08/10/21 14:45 08/10/21 15:44 08/10/21 16:00 Temperature 100.1 F H 99.8 F H Pulse Rate 90 83 Respiratory Rate 37 H 25 H Blood Pressure 113/74 107/69 Pulse Oximetry 97 97 08/10/21 17:42 08/10/21 18:00 08/10/21 19:01 Temperature 99.3 F Pulse Rate 89 85 89 Respiratory Rate 26 H Blood Pressure 103/71 Pulse Oximetry 97 98 08/10/21 19:31 08/10/21 20:00 08/10/21 22:00 Temperature 99.6 F 99.8 F H Pulse Rate 83 95 78 Respiratory Rate 29 H 30 H Blood Pressure 113/76 91/65 L Pulse Oximetry 98 96 99 08/10/21 22:24 08/11/21 00:00 08/11/21 01:45 Temperature 99.7 F H Pulse Rate 76 97 95 Respiratory Rate 31 H Blood Pressure 121/79 Pulse Oximetry 99 98 98 08/11/21 02:00 08/11/21 04:00 08/11/21 05:25 Temperature 99.7 F H Pulse Rate 88 87 88 Respiratory Rate 24 H 24 H Blood Pressure 105/67 Pulse Oximetry 98 95 98 08/11/21 06:00 08/11/21 08:00 08/11/21 10:00 Temperature 99.6 F Pulse Rate 84 84 84 Respiratory Rate 30 H 30 H 28 H Blood Pressure 101/64 86/60 L 105/68 Pulse Oximetry 95 98 98 08/11/21 12:00 Temperature 99.5 F Pulse Rate 88 Respiratory Rate 31 H Blood Pressure 124/79 Pulse Oximetry 97 Intake/Output Intake/Output: Intake & Output 08/08/21 08/09/21 08/10/21 08/11/21 23:59 23:59 23:59 23:59 Intake Total 1565 1572 656 50 Output Total 1903 185 335 276 Balance -338 1387 321 -226 Meds/Results Medications: Active Medications Generic Name Dose Route Start Last Admin Trade Name Freq PRN Reason Stop Dose Admin Acetaminophen 650 mg 08/06/21 21:56 08/08/21 20:10 Acetaminophen Elixir 325 Mg/10.15 Ml Udc PO 650 mg Q4H PRN Administration Mild Pain (1-3) or Fever Albuterol 2 puff 07/10/21 20:00 07/17/21 08:14 Albuterol Sulfate (*Sp) Inhaler INHALATION Not Given Q6HRT KAREN Alteplase, Recombinant 2 mg 08/05/21 14:40 08/05/21 14:58 Alteplase 2 Mg Vial (Cathflo) IV PU
[2021-08-11 17:31] LABS: Glucose Point of Care 132 mg/dl (65-105)
[2021-08-11] MEDS: MINERAL OIL/WHITE PETROLATUM OINTMENT 1 APPLIC EACH EYE (20:43)
[2021-08-12] VITALS (14 sets, daily range): BP systolic 97–110; BP diastolic 60–87; PULSE 87–112; RESP 24–38; TEMP 36.4–37.2; O2SAT 94–100
[2021-08-12 04:20] LABS: Glucose Point of Care 172 mg/dl (65-105)
[2021-08-12 04:39] LABS: Hematocrit 28.9 % (37.0-47.0); Hemoglobin 9.2 g/dL (12.0-15.0); Mean Corpuscular HGB Conc 31.8 g/dl (32-36); Mean Corpuscular Hemoglobin 30.4 pg (26-34); Mean Corpuscular Volume 95.4 fl (80-100); Mean Platelet Volume 10.2 fl (7.4-10.4); Platelet Count Result 503 k/mm3 (150-375); Red Blood Count 3.03 M/mm3 (4.2-5.4); Red Cell Distribution Width 19.3 % (11.5-14.5)
[2021-08-12 04:55] LABS: Lipase 681 U/L (23-300)
[2021-08-12 04:59] LABS: Phosphorus 5.9 mg/dL (2.5-4.5)
[2021-08-12] MEDS: LEVOTHYROXINE SODIUM 100 MCG TABLET PO (05:05)
[2021-08-12 05:15] LABS: Alanine Aminotransferase 63 U/L (4-35); Albumin Level 3.4 g/dL (3.5-5.1); Alkaline Phosphatase 164 U/L (38-126); Anion Gap 14 mmol/L (8-16); Aspartate Amino Transferase 68 U/L (14-36); Bilirubin,Total 0.6 mg/dL (0.2-1.3); Calcium 8.6 mg/dL (8.4-10.2); Carbon Dioxide 21 mmol/L (22-30); Chloride 97 mmol/L (98-107); Estimated CRCL calculation 13 ml/min; Estimated Glomerular Filt Rate 13; Glucose 159 mg/dL (65-110); Magnesium 2.3 mg/dL (1.6-2.3); Potassium 4.9 mmol/L (3.4-5.0); Sodium 132 mmol/L (137-145)
[2021-08-12] MEDS: CENTRAL LINE FLUSH 10 ML IV PUSH (05:20)
[2021-08-12 05:22] LABS: Blood Urea Nitrogen 141 mg/dL (7-17)
[2021-08-12 06:18] LABS: Alveolar/Arterial O2 Gradient 101.4 mmHg; Base Excess ABG -4.6 mEq/l (+/-2.0); Carboxyhemoglobin 0.3 % THb (0-2.0); Fractional Inspired Oxygen 28 %; HCO3 ABG 19.3 mEq/l (22.0-26.0); Methemoglobin ABG 0.3 %THb (0-1.5); Oxygen Saturation ABG 91.8 % (95.0-100.0); Oxyhemoglobin 90.5 % THb (90.0-100.0); PCO2 ABG 31.7 mmHg (35.0-45.0); PO2 ABG 60.8 mmHg (80.0-100.0); PO2 FiO2 Ratio Arterial Blood 2.17 %; Reduced Hemoglobin 8.9 %THb (0-5.0); Total Hemoglobin 10.2 g/dL (12.0-18.0); pH ABG 7.403 (7.350-7.450)
[2021-08-12 06:28] LABS: Device VENTILATOR; Modified Allen's Test Unable to perform; Site Drawn LEFT RADIAL
[2021-08-12 06:29] LABS: Arterial Blood Gas PEEP 8 cmH2O; Arterial Blood Gas Tidal Volume 400 ml; Arterial Blood Gas Vent Mode CMV; Arterial Blood Gas Ventilator rate 24 /MIN
--- NOTE | 2021-08-12 07:39 | P.PNNP_ITS ---
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 Next treatment today. (3) Acute respiratory failure with hypoxia: Code(s): J96.01 - Acute respiratory failure with hypoxia Status: Acute Assessment and Plan: * due to #4 and possibly bacterial pneumonia * culture negative to date * on Aztreonam (4) Pneumonia due to COVID-19 virus: Code(s): U07.1 - COVID-19; J12.82 - Pneumonia due to coronavirus disease 2018 Status: Acute Assessment and Plan: * CT findings are consistent with COVID-19 pneumonia * completed course of dexamethasone * s/p 5 day course of remdesivir * started on Baricitinib on 07/14/21 and completed course * continue ventilator support, pulmonary toliet, and inhalers * s/p tracheostomy * Still on respiratory isolation (5) Hyponatremia: Code(s): E87.1 - Hypo-osmolality and hyponatremia Status: Acute Assessment and Plan: * Wonders in the low 130 s * dialysis helping to some degree (6) Anemia: Code(s): D64.9 - Anemia, unspecified Status: Acute Assessment and Plan: * likely due to MARCE, CKD, and acute illness * Epogen with HD * hemoglobin Up and down around 10. (7) DVT (deep venous thrombosis): Code(s): I82.409 - Acute embolism and thrombosis of unspecified deep veins of unspecified lower extremity Status: Acute Assessment and Plan: * as noted by lower extremity dopplers * on lovenox (8) Essential (primary) hypertension: Code(s): I10 - Essential (primary) hypertension Status: Chronic Assessment and Plan: * Systolic 100-120 Will continue to follow. Subjective Date/time seen: 08/12/21 07:39 Interval history: Krysta is still on the ventilator and sedated. cannot give a history Review systems unavailable due to medical condition Exam Narrative: General: WD/WN female - trached and on ventilator Heart: normal S1 and S2; no rub or gallop Lungs: coarse bilaterally Abdomen: soft, nontender, nondistended, positive bowel sounds Extremities: no cyanosis or clubbing; trace - 1+ edema Skin: no rash or subQ nodules Objective Data Vital Signs Vital Signs: Vital Signs - 24 hr 08/11/21 08:00 08/11/21 10:00 08/11/21 12:00 Temperature 37.6 C 37.5 C Pulse Rate 84 84 88 Respiratory Rate 30 H 28 H 31 H Blood Pressure 86/60 L 105/68 124/79 Pulse Oximetry 98 98 97 08/11/21 14:00 08/11/21 14:40 08/11/21 16:00 Temperature 36.5 C Pulse Rate 87 92 88 Respiratory Rate 32 H 30 H Blood Pressure 108/86 108/74 Pulse Oximetry 95 96 98 08/11/21 17:41 08/11/21 18:00 08/11/21 20:00 Temperature 36.5 C Pulse Rate 91 93 94 Respiratory R
--- NOTE | 2021-08-12 07:39 | PM.PNNEP ---
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 Next treatment today. (3) Acute respiratory failure with hypoxia: Code(s): J96.01 - Acute respiratory failure with hypoxia Status: Acute Assessment and Plan: due to #4 and possibly bacterial pneumonia culture negative to date on Aztreonam (4) Pneumonia due to COVID-19 virus: Code(s): U07.1 - COVID-19; J12.82 - Pneumonia due to coronavirus disease 2018 Status: Acute Assessment and Plan: CT findings are consistent with COVID-19 pneumonia completed course of dexamethasone s/p 5 day course of remdesivir started on Baricitinib on 07/14/21 and completed course continue ventilator support, pulmonary toliet, and inhalers s/p tracheostomy Still on respiratory isolation (5) Hyponatremia: Code(s): E87.1 - Hypo-osmolality and hyponatremia Status: Acute Assessment and Plan: Wonders in the low 130 s dialysis helping to some degree (6) Anemia: Code(s): D64.9 - Anemia, unspecified Status: Acute Assessment and Plan: likely due to MARCE, CKD, and acute illness Epogen with HD hemoglobin Up and down around 10. (7) DVT (deep venous thrombosis): Code(s): I82.409 - Acute embolism and thrombosis of unspecified deep veins of unspecified lower extremity Status: Acute Assessment and Plan: as noted by lower extremity dopplers on lovenox (8) Essential (primary) hypertension: Code(s): I10 - Essential (primary) hypertension Status: Chronic Assessment and Plan: Systolic 100-120 Will continue to follow. Subjective Date/time seen: 08/12/21 07:39 Interval history: Krysta is still on the ventilator and sedated. cannot give a history Review systems unavailable due to medical condition Exam Narrative: General: WD/WN female - trached and on ventilator Heart: normal S1 and S2; no rub or gallop Lungs: coarse bilaterally Abdomen: soft, nontender, nondistended, positive bowel sounds Extremities: no cyanosis or clubbing; trace - 1+ edema Skin: no rash or subQ nodules Objective Data Vital Signs Vital Signs: Vital Signs - 24 hr 08/11/21 08:00 08/11/21 10:00 08/11/21 12:00 Temperature 37.6 C 37.5 C Pulse Rate 84 84 88 Respiratory Rate 30 H 28 H 31 H Blood Pressure 86/60 L 105/68 124/79 Pulse Oximetry 98 98 97 08/11/21 14:00 08/11/21 14:40 08/11/21 16:00 Temperature 36.5 C Pulse Rate 87 92 88 Respiratory Rate 32 H 30 H Blood Pressure 108/86 108/74 Pulse Oximetry 95 96 98 08/11/21 17:41 08/11/21 18:00 08/11/21 20:00 Temperature 36.5 C Pulse Rate 91 93 94 Respiratory Rate 36 H 34 H Blood Pressure 117/73 113/74 Pulse Oximetry 98 99 99 08/11/21 20:10 08/11/21 22:00 08/11/21 23:33 Temperature Pulse Rate 90 96 92 Respiratory Rate 33 H Blood Pressure 134/71 Pulse Oximetry 100 100 98 08/12/21 00:00 08/12/21 02:00 08/12/21 02:26 Temperature 36.4 C Pulse Rate 93 87 92 Respiratory Rate 34 H 31 H Blood Pressure 103/65 97/87 L Pulse Oximetry 97 99 98 08/12/21 04:00 08/12/21 05:00 08/12/21 06:00 Temperature 36.8 C Pulse Rate 100 92 103 H Respiratory Rate 38 H 24 H Blood Pressure 102/65 103/62 Pulse Oximetry 98 94 96 Intake/Output Intake/Output: Intake & Output 08/09/21 08/10/21 08/11/21 08/12/21 23:59 23:59 23:59
--- NOTE | 2021-08-12 10:18 | WPDINTPN ---
Progress Note: A&P Assessment and Plan (1) Acute hypoxemic respiratory failure due to COVID-19: Code(s): U07.1 - COVID-19; J96.01 - Acute respiratory failure with hypoxia Status: Acute Assessment and Plan: Acute Respiratory failure secondary to COVID-19 with component of pulmonary edema and may have a component of bacterial pneumonia Intubated 07/1407/29/2021: Tracheostomy and PEG tube placement Continue full mechanical ventilation support to prevent hypoxemia/hypercarbia and end organ damage. Currently PEEP to 8 and 40% FiO2. 08/10 patient tolerated pressure support of 8/8 for few hours. Her RSBI was borderline high. I will try again today. Off of continuous sedation Chest x-ray shows persistent bilateral infiltrates CT chest 07/14 IMPRESSION: 1. Diffuse lung disease, worsened from 07/10/2021, consistent with COVID-19 pneumonia. Bacterial pneumonia and pulmonary edema have overlapping appearances and cannot be excluded. 2. Mild mediastinal lymphadenopathy, likely reactive CT chest08/11 IMPRESSION: 1. Diffuse lung disease, likely some combination of pneumonia, acute respiratory distress syndrome (ARDS), and now chronic interstitial lung disease. 2. Pneumomediastinum. (2) Pneumonia due to COVID-19 virus: Code(s): U07.1 - COVID-19; J12.82 - Pneumonia due to coronavirus disease 2019 Status: Acute Assessment and Plan: Patient is vaccinated against COVID-19 but has not received a booster dose. She was tested for COVID-19 on 07/06/20[address] found to be positive CT findings are consistent with COVID-19 pneumonia Completed dexamethasone Completed 5 day course of remdesivir on 07/15/2021 Patient received baricitinib Continue droplet, airborne, contact isolation/precautions (3) GI bleeding: Code(s): K92.2 - Gastrointestinal hemorrhage, unspecified Status: Acute Assessment and Plan: Patient had bloody bowel movement On the night of 08/09 hemoglobin is stable at this time tube feeds were held and PEG tube was placed on suction. No Bleeding was noted. PPI IV q.12 hours Her Lovenox was discontinued. Most recent bowel movements have no obvious blood. At this time GI does not plan to repeat EGD and they have recommended to resume tube feeds. I will resume Lovenox at prophylactic dose and if patient does not have any recurrent or drop in hemoglobin will advance to full dose for her DVT (4) DVT (deep venous thrombosis): Code(s): I82.409 - Acute embolism and thrombosis of unspecified deep veins of unspecified lower extremity Status: Acute Assessment and Plan: Lower extremity Dopplers showed Deep vein thrombosis involving the right posterior tibial veins and left popliteal and posterior tibial veins. I will repeat Dopplers of lower extremity I will resume Lovenox at prophylactic dose and if patient does not have any recurrent or drop in hemoglobin will advance to full dose for her DVT (5) Fever: Code(s): R50.9 - Fever, unspecified Status: Acute Assessment and Plan: Low-grade fever with increase in WBC She had Stephanie UTI and was already on Diflucan 08/08 Repeat blood cultures sputum culture and urine culture sent which are pending Her UA suggests UTI and urine culture is growing VRE Mariee catheter was removed altogether Patient was switched aztreonam to Zyvox. patient is allergic to penicillin and has renal failure precluding use of Macrobid. Patient is afebrile now Chest x-ray show stable pneumonia 08/11 CT chest abdomen pelvis IMPRESSION: 1. Diffuse lung disease, likely some combination of pneumonia, acute respiratory distress syndrome (ARDS), and now chronic interstitial lung disease. 2. Pneumomediastinum. (6) Community acquired pneumonia: Qualifiers: Laterality: unspecified laterality Qualified Code(s): J18.9 - Pneumonia, unspecified organism Code(s): J18.9 - Pneumonia, unspecified organism Status: Acute Assessment and
--- NOTE | 2021-08-12 11:29 | WPDGIPROGNO ---
Progress Note: A&P Assessment and Plan (1) Blood in stool: Code(s): K92.1 - Melena Status: Acute Assessment and Plan: resolved and hb has been stable (2) Gastrostomy tube in place: Code(s): Z93.1 - Gastrostomy status Status: Acute Assessment and Plan: back on tube feeding (3) GI bleeding: Code(s): K92.2 - Gastrointestinal hemorrhage, unspecified Status: Acute Assessment and Plan: resolved- will follow from [place] as needed (4) Acute respiratory failure with hypoxia: Code(s): J96.01 - Acute respiratory failure with hypoxia Status: Acute Assessment and Plan: by icu team (5) Pneumonia due to COVID-19 virus: Code(s): U07.1 - COVID-19; J12.82 - Pneumonia due to coronavirus disease 2019 Status: Acute Subjective Date/time seen: 08/12/21 11:29 Interval history: no bleeding and she is back on tube feeding again, no major changes. Review of Systems Review of Systems: All systems reviewed & are unremarkable except as noted in HPI and below Exam Const: Other: on respiratory support HENMT: General nose exam: Normal nares present Eyes: Sclera: sclerae normal Neck: Other: tracheostomy Resp: Other: coarse BS Cardio: Rate: regular rate GI: GI Palp: Yes Soft to palpation, No Tenderness to palpation present (GI) and No Guarding due to palpation present (GI) Auscultation: normal bowel sounds Other: g-tube site looks ok Urinary Catheter: Urinary Catheter: patent and draining Skin: General skin exam: no rashes or lesions noted Neuro: Other: Grimaces to pain, follows commands intermittently with her hands, withdraws to pain in the legs Psych: Other: unable to assess Objective Data Vital Signs Vital Signs: Vital Signs - 24 hr 08/11/21 12:00 08/11/21 14:00 08/11/21 14:40 Temperature 99.5 F Pulse Rate 88 87 92 Respiratory Rate 31 H 32 H Blood Pressure 124/79 108/86 Pulse Oximetry 97 95 96 08/11/21 16:00 08/11/21 17:41 08/11/21 18:00 Temperature 97.7 F Pulse Rate 88 91 93 Respiratory Rate 30 H 36 H Blood Pressure 108/74 117/73 Pulse Oximetry 98 98 99 08/11/21 20:00 08/11/21 20:10 08/11/21 22:00 Temperature 97.7 F Pulse Rate 94 90 96 Respiratory Rate 34 H 33 H Blood Pressure 113/74 134/71 Pulse Oximetry 99 100 100 08/11/21 23:33 08/12/21 00:00 08/12/21 02:00 Temperature 97.6 F Pulse Rate 92 93 87 Respiratory Rate 34 H 31 H Blood Pressure 103/65 97/87 L Pulse Oximetry 98 97 99 08/12/21 02:26 08/12/21 04:00 08/12/21 05:00 Temperature 98.3 F Pulse Rate 92 100 92 Respiratory Rate 38 H Blood Pressure 102/65 Pulse Oximetry 98 98 94 08/12/21 06:00 08/12/21 08:00 08/12/21 08:15 Temperature 98.5 F Pulse Rate 103 H 98 97 Respiratory Rate 24 H 24 H Blood Pressure 103/62 101/62 Pulse Oximetry 96 99 99 08/12/21 10:00 08/12/21 10:34 Temperature Pulse Rate 111 H 112 H Respiratory Rate 30 H Blood Pressure 110/68 Pulse Oximetry 97 100 Intake/Output Intake/Output: Intake & Output 08/09/21 08/10/21 08/11/21 08/12/21 23:59 23:59 23:59 23:59 Intake Total 1572 656 460 653 Output Total 185 335 311 2 Balance 1387 321 149 651 Meds/Results Medications: Active Medications Generic Name Dose Route Start Last Admin Trade Name Freq PRN Reason Stop Dose Admin Acetaminophen 650 mg 08/06/21 21:56 08/08/21 20:10 Acetaminophen Elixir 325 Mg/10.15 Ml Udc PO 650 mg Q4H PRN Administration Mild Pain (1-3) or Fever Albuterol 2 puff 07/10/21 20:00 07/17/21 08:14 Albuterol Sulfate (*Sp) Inhaler INHALATION Not Given Q6HRT KAREN Alteplase, Recombinant 2 mg 08/05/21 14:40 08/05/21 14:58 Alteplase 2 Mg Vial (Cathflo) IV PUSH 2 mg ONCE PRN Administration Line Occlusion Cyanocobalamin 500 mcg 07/07/21 10:10 08/11/21 09:20 Cyanocobalamin 500 Mcg Tablet PO 500 mcg MoWeFr@0900 KAREN Administration Dextrose 12.5 gm
[2021-08-12] MEDS: EPOETIN ALFA-EPBX 10,000 UNITS/ML VIAL 10000 UNITS IV PUSH (12:16)
[2021-08-12] MEDS: LINEZOLID 600 MG/300 ML 600 MG/300 ML SOLN 300 MG IVPB (12:18)
--- NOTE | 2021-08-12 12:18 | PCNFU ---
Nutrition Follow-Up Complete: Inadequate Oral Intake as related to mechanical ventilation as evidenced by NPO. Goal: Meet estimated nutritional needs Pt. is progressing towards goal. No new goal at this time. Pt current nutrition is Nepro at 40 mls per hour over 22 hours per day with a 30 ml water flush q4. Last recorded weight is 86.3 kg. Bowel Motility: + BM 08/12/2021 Labs Reviewed: Hgb 9.2, Hct 28.9, Alb 3.4, Na 132, GFR 13, BUN 141, Cr 3.4, Glu 159 Meds Noted: Albuterol, Lovenox, Retacrit, Glucagon, Synthroid, Zyvox, Glucose, Protonix, Vitamin B-6, Miralax, Vitamin D, Novolog Skin: Bilateral groin and buttocks maceration Additional Notes: Patient remains on mechanical ventilation and tube feedings of Nepro at goal rate of 40 mls per hour over 22 hours per day. Pt. is tolerating well per nursing. In total she is receiving 1584 calories, 71 grams of protein and 640 mls of water with and additional 180 mls from water flushes. She is receiving Banatrol Q6 to promote stool bulking. Not on propofol at this time. Will monitor every Wednesday and Wednesday.
[2021-08-12] MEDS: ENOXAPARIN 40 MG/0.4 ML SYRINGE SUB-Q (12:19)
[2021-08-12] MEDS: PANTOPRAZOLE SODIUM IV 40 MG VIAL IV PUSH (12:20)
[2021-08-12] MEDS: FLUCONAZOLE 100 MG TABLET 200 MG FEED TUBE (12:20)
--- NOTE | 2021-08-12 16:10 | PM.DS ---
DS: Admitting Diagnosis Discharge Date 08/12/21 Admitting Diagnosis Fever and cough DS: Discharge Diagnosis Discharge Diagnosis (1) Acute hypoxemic respiratory failure due to COVID-19: Code(s): U07.1 - COVID-19; J96.01 - Acute respiratory failure with hypoxia Status: Acute Assessment and Plan: Acute Respiratory failure secondary to COVID-19 with component of pulmonary edema and may have a component of bacterial pneumonia. Patient was intubated 07/14 with trach placed 07/29/21. PEG tube placement 07/29/[address] Chest/Abd/Pelvis 08/11/21 w/o contrast showing diffuse lung disease, likely some combination of pneumonia, acute respiratory distress syndrome (ARDS), and chronic interstitial lung disease. Also with pneumomediastinum. Patient stable on mechanical ventilation. Appreciate staffing executive input. Patient accepted to LT[facility]. (2) Pneumomediastinum: Code(s): J98.2 - Interstitial emphysema Status: Acute Assessment and Plan: As above (3) Pneumonia due to COVID-19 virus: Code(s): U07.1 - COVID-19; J12.82 - Pneumonia due to coronavirus disease 2019 Status: Acute Assessment and Plan: Patient is vaccinated against COVID-19 but has not received a booster dose. She was positive for COVID-19 on 07/06/21. CT Chest 07/14 were consistent with COVID-19 pneumonia. She completed dexamethasone and 5 day course of remdesivir. She also received baricitinib. She remained on droplet, airborne, and contact isolation/precautions. CT chest now showing ILD. (4) GI bleeding: Code(s): K92.2 - Gastrointestinal hemorrhage, unspecified Status: Acute Assessment and Plan: Patient had bloody bowel movements on the night of 08/09/21. Hgb low but stable in the 9-10 range. Tube feedings were held and PEG tube was placed on suction. No further bleeding was noted. We continue Protonix and her Lovenox was discontinued. GI consulted. Most recent bowel movements have no obvious blood. EGD for PEG placement 07/29 showing no acute process. There was no plans to repeat EGD and they recommended resuming tube feeds. Lovenox resumed as well (5) Community acquired pneumonia: Qualifiers: Laterality: unspecified laterality Qualified Code(s): J18.9 - Pneumonia, unspecified organism Code(s): J18.9 - Pneumonia, unspecified organism Status: Acute Assessment and Plan: Presented with complaints of fever and cough. Patient had elevated white count. Cultures, influenza, urine Legionella, urine pneumococcal antigen all were negative. Completed 14 day course with vancomycin and Levaquin. (6) DVT (deep venous thrombosis): Code(s): I82.409 - Acute embolism and thrombosis of unspecified deep veins of unspecified lower extremity Status: Acute Assessment and Plan: Lower extremity Dopplers showed DVT involving the right posterior tibial veins and left popliteal and posterior tibial veins. Patient is back on therapeutic Lovenox (7) Fever: Code(s): R50.9 - Fever, unspecified Status: Acute Assessment and Plan: She developed low grade fevers. BCx 07/29 growing Corynebact felt to be contaminate. Sputum and urine growing Candidia. Diflucan started 08/02/21. Repeat BCx 08/01 negative. Repeat blood cultures 08/08 NGTD. Sputum culture growing normal norman. Her UA suggests UTI and urine culture is growing VRE. Mariee catheter was removed. Patient was switched from aztreonam to Zyvox. Patient is allergic to penicillin and has renal failure precluding use of Macrobid. Patient is afebrile now. (8) Acute on chronic kidney failure: Code(s): N17.9 - Acute kidney failure, unspecified; N18.9 - Chronic kidney disease, unspecified Status: Acute Assessment and Plan: Temporary dialysis catheter was placed on 07/21/2021 and removed 07/29/21. Permanent tunneled Dialysis catheter was placed 07/31/21. Tolerating HD. Appreciate nephrology input. Amairani has
== END 2021-08-12 17:51 | DRG 4 ==
LOC: ANHED 13:57 → ANH3MEDSUR 07-07 07:12 → ANHIMU 07-13 17:34 → ANHICU 07-28 11:11 → ANH3MEDSUR 08-13 11:06 → ANHICU 08-13 11:06 → ANHIMU 08-13 11:06
PROVIDERS: Emergency Medicine; Hospitalist; Internal Medicine; Internal Medicine Gastroenterology; Internal Medicine Nephrology; Internal Medicine Pulmonary Disease; Otolaryngology; Physician Assistant; Surgery; Admitting Provider Family Medicine; Emergency Provider Nurse Practitioner; PCP Family Medicine; Visit Provider Internal Medicine
PROC: 0B110F4 Bypass Trachea to Cutaneous with Tracheostomy Device, Open Approach (ICD-10-PCS; principal; 2021-07-29 13:00)
PROC: 0DH63UZ Insertion of Feeding Device into Stomach, Percutaneous Approach (ICD-10-PCS; CPT 43246; 2021-07-29 13:00)
PROC: 0JH63XZ Insertion of Tunneled Vascular Access Device into Chest Subcutaneous Tissue and Fascia, Percutaneous Approach (ICD-10-PCS; CPT 36908; principal; 2021-07-31 09:30)
DX: U07.1 COVID-19 (principal); J12.82 Pneumonia due to coronavirus disease 2019; J80 Acute respiratory distress syndrome; J15.9 Unspecified bacterial pneumonia; N18.6 End stage renal disease; K85.90 Acute pancreatitis without necrosis or infection, unspecified; I12.0 Hypertensive chronic kidney disease with stage 5 chronic kidney disease or end stage renal disease; K92.2 Gastrointestinal hemorrhage, unspecified; N17.9 Acute kidney failure, unspecified; E22.2 Syndrome of inappropriate secretion of antidiuretic hormone; N39.0 Urinary tract infection, site not specified; I82.441 Acute embolism and thrombosis of right tibial vein; I82.432 Acute embolism and thrombosis of left popliteal vein; I82.442 Acute embolism and thrombosis of left tibial vein; Z16.21 Resistance to vancomycin; B37.49 Other urogenital candidiasis; B95.2 Enterococcus as the cause of diseases classified elsewhere; E03.9 Hypothyroidism, unspecified; D64.9 Anemia, unspecified; I35.2 Nonrheumatic aortic (valve) stenosis with insufficiency; R73.03 Prediabetes; M35.00 Sjogren syndrome, unspecified; M19.90 Unspecified osteoarthritis, unspecified site; K21.9 Gastro-esophageal reflux disease without esophagitis; E53.8 Deficiency of other specified B group vitamins; J22 Unspecified acute lower respiratory infection; D72.828 Other elevated white blood cell count; T38.0X5A Adverse effect of glucocorticoids and synthetic analogues, initial encounter; E87.5 Hyperkalemia; R13.19 Other dysphagia; G47.33 Obstructive sleep apnea (adult) (pediatric); H10.9 Unspecified conjunctivitis; D63.1 Anemia in chronic kidney disease; K44.9 Diaphragmatic hernia without obstruction or gangrene; J98.2 Interstitial emphysema; E78.5 Hyperlipidemia, unspecified; Z96.651 Presence of right artificial knee joint; Z96.642 Presence of left artificial hip joint; Z87.11 Personal history of peptic ulcer disease; Z98.42 Cataract extraction status, left eye; Z98.41 Cataract extraction status, right eye; Z90.710 Acquired absence of both cervix and uterus; E66.01 Morbid (severe) obesity due to excess calories; Z68.32 Body mass index [BMI] 32.0-32.9, adult
CPT/HCPCS: 36415; 36569; 36600; 43246; 71045; 71250; 71275; 74176; 76775; 77001; 80048; 80053; 80202; 81001; 82274; 82375; 82550; 82565; 82570; 82728; 82805; 82948; 83050; 83605; 83615; 83690; 83735; 83880; 84100; 84295; 84300; 84443; 84450; 84460; 85014; 85018; 85025; 85027; 85380; 85384; 85610; 85730; 86140; 86705; 86850; 86900; 86901; 87040; 87070; 87077; 87086; 87088; 87106; 87147; 87181; 87186; 87205; 87340; 87449; 87804; 87899; 93306; 93970; 94002; 94003; 94640; 96365; 96366; 96372; 96375; 97161; 99285; A9270; C1750; C1751; C9113; C9803; G0257; G0378; J0360; J1100; J1642; J1644; J1650; J1815; J1940; J1956; J2020; J2250; J2370; J2405; J2765; J2997; J3010; J3370; J7030; P9045; P9047; Q5105; Q9967; U0003; U0005